=== PATIENT | female | born 1990 | race Caucasian/White ===

== ENCOUNTER 2017-07-23 12:58 | Emergency (ER) | payer OTHER, SELFPAY ==
[2017-07-23 12:59] VITALS: BP 142/96; PULSE 148; RESP 16; TEMP 37; O2SAT 98; BMI 21.7
--- NOTE | 2017-07-23 13:10 | EKG12_ITS ---
Test Reason : Blood Pressure : / mmHG Vent. Rate : 126 BPM Atrial Rate : 126 BPM P-R Int : 122 ms QRS Dur : 072 ms QT Int : 302 ms P-R-T Axes : 066 046 028 degrees QTc Int : 437 ms Sinus tachycardia Otherwise normal ECG Confirmed by SUSAN TROTTER ([id number]), fan mail editor JERAMY NOLEN ([id number]) on 07/28/2017 1:51:50 PM Referred By: JOE Confirmed By:SUSAN TROTTER
--- NOTE | 2017-07-23 13:36 | CT_ITS ---
STUDY: CT MAXILLOFACIAL SINUSES REASON FOR EXAM: Female, 27 years old. Left facial pain. Sinus pressure. Tachycardia. RADIATION DOSAGE (If Supplied By Facility): CTDIvol = ( 29.38 ) mGy, DLP = ( 635.61 ) mGycm TECHNIQUE: The patient was scanned in a multi detector CT scanner. High resolution axial imaging was performed without the administration of intravenous contrast material. Sagittal and coronal images were reconstructed. Individualized dose optimization techniques were used for this CT. COMPARISON: None. FINDINGS: FRONTAL SINUSES: Partial opacification of the left frontal sinus. ETHMOIDAL SINUSES: Opacification of the ethmoid sinuses bilaterally. MAXILLARY SINUSES: Air-fluid level in the right maxillary sinus. Mucosal thickening of the left maxillary sinus. SPHENOIDAL SINUSES: Mucosal thickening of the right sphenoid sinus anteriorly. There is compromise of the right maxillary infundibulum due to mucosal hypertrophy. Normal bilateral middle turbinates. Normal bilateral inferior turbinates. Normal midline nasal septum. There is patency of the bilateral nasal airways. The visualized osseous structures are normal. The visualized bilateral orbital contents are normal. CT/Sinus/Facial Bone IMPRESSION: Liz sinusitis. Electronically Signed: Jericho Almazan MD at 14:37 EST Tel [phone], Service support ,
[2017-07-23] MEDS: 0.9% Normal Saline 1,000 ML 150 ML IV (14:12)
[2017-07-23 14:24] LABS: Absolute Lymphocyte Count 4.42 X10^3/ul (0.83-4.51); Absolute Neutrophil Count 5.2 X10^3/uL (2.0-7.7); Basophil# 0.02 X10^3/uL; Basophil% 0.2 % (0-1); Eosinophil# 0.03 X10^3/uL; Eosinophils% 0.3 % (0-5); Hematocrit 39.5 % (37-47); Hemoglobin 13.5 g/dl (12.0-15.0); Lymphocyte # 4.42 X10^3/ul (4.0); Lymphocyte % 41.6 % (19-41); Mean Corp Hgb Conc 34.2 g/gl (32-36); Mean Corpuscular Hgb 30.9 pg (27.0-32.0); Mean Corpuscular Volume 90.4 fL (81-99); Mean Platelet Vol. 8.3 fl (6.2-12.0); Monocyte# 0.85 X10^3/uL; Neutrophil % 48.9 % (47-70); Platelet Count 351 K/mm3 (150-450); RBC Distribution Width CV 11.8 % (11.6-14.6); Red Blood Count 4.37 M/mm3 (4.2-5.4); White Blood Count 10.6 K/mm3 (4.4-11.0)
[2017-07-23 14:25] LABS: POSITIVE COUNT NO; POSITIVE DIFFERENTIAL NO; POSITIVE MORPHOLOGY NO
[2017-07-23 14:26] LABS: D-Dimer Quantitative (DVT/PE) < 0.27 FEU/ug/m (0.27-0.49)
[2017-07-23 14:27] LABS: Anion Gap 8 (5-15); BUN 16 mg/dL (7-18); Calcium,Total 8.9 mg/dL (8.5-10.1); Chloride 100 mmol/L (98-107); EST Glomerular Filtration Rate 70 mL/min (>60); Est Glom Filt Rate - Afr Amer 85 mL/min (>60); Estimated Creatinine Clearance 66.24 ml/min; Glucose 92 mg/dL (74-106); Potassium 3.6 mmol/L (3.5-5.1); Sodium Level 138 mmol/L (136-145)
[2017-07-23 15:17] VITALS: BP 117/90; PULSE 100; RESP 16; O2SAT 97
--- NOTE | 2017-07-23 15:19 | ED.DCSUM_ITS ---
- ER Visit Summary Date of Service: 07/23/17 Chief Complaint: [Tachycardia] History of Present Illness: The patient is a 27 F [presents to the emergency department with chief complaint of racing heart times last 2 days. Patient states that she feels like she is in a fog. Patient gives me a history of 3 weeks of upper respiratory type symptoms and initially thought she had the flu. Patient saw her ear nose and throat physician 3 times in the last 3 weeks and initially it was thought that she may have a sinus infection apparently was on Levaquin and then was switched over to steroids and a Z-Dilip and when she did not improve she went to the urgent care yesterday and was told us start Levaquin again. Patient stopped taking her prednisone yesterday because she did not like the way was making her feel. Her prednisone started at 60 mg for 7 days and then she was tapering from there she was down to 30 mg a day. Patient does have a history of significant anxiety and she states that yesterday her heart rate went up to 170 and she was numb and tingly in her arms. She denies any chest pain or syncopal episodes.] Physical Examination: [HEENT-PERRLA, EOMI. Cranial nerves II through XII grossly intact. TMs clear. Mucous membranes moist. No adenopathy. Tenderness over the frontal and maxillary sinuses bilaterally. Patient has some mild discomfort over the left upper teeth and lower teeth as well. There is no facial erythema or cellulitis. Cardiovascular-regular rate and rhythm without murmur or ectopy Lungs-clear to auscultation, chest wall stable without crepitus or subcu emphysema Abdomen-normoactive bowel sounds, soft, nontender, no rebound or rigidity, no peritoneal signs. Extremities-intact ?4, normal range of motion, normal pulses, atraumatic] Test Results: [CBC with differential was normal. Chemistries were normal. Troponin was less than 0.02. D-dimer was less than 0.27. EKG showed a sinus rhythm with a tachycardic rate of [address] segment changes. CT scan of the sinuses showed pansinusitis.] Emergency Department Course and Treatment: [Without any treatment patient's heart rate now 106. Patient case was discussed with Dr. Stephenson who is on-call for ENT and would be happy to follow up patient in the office next week. He did recommend the patient start on Bactrim instead of the Levaquin and use saline lavage to her nose.] Treatment Plan: [Patient will be started on Bactrim] patient has sertraline and Ativan at home for her anxiety. Disposition: [Discharged to home in stable condition]. Patient advised to return if chest pain persists, tachycardia that does not resolve, increasing shortness of breath, or condition should worsen in any way. Impression: [Tachycardia-suspect related to anxiety and hyperventilation syndrome Pansinusitis] This note was generated with [employer] dictation software. It may contain incorrect words, spelling, and punctuation that were not noted in review of the chart prior to signing ED Disposition - Plan for ED Patient: Chief Complaint: Palpitations [facility]errals: [facility],Out of [Primary Care Provider] -
--- NOTE | 2017-07-23 15:20 | ED.DEP ---
ED Disposition - Plan for ED Patient: Chief Complaint: Palpitations Instructions: ED Palpitations, ED Sinusitis Abx Tx Prescriptions: Smz/Tmp Ds [Bactrim Ds] 1 tab PO BID #42 tab Referrals: [facility],Out of [Primary Care Provider] - Vik Stephenson MD [STAFF PHYSICIAN] - 3-5 Days
[2017-07-23 15:42] VITALS: BP 119/93; PULSE 97; RESP 16; O2SAT 98
== END 2017-07-23 15:43 | disposition home or self-care (01) ==
PROVIDERS: Emergency Provider Emergency Medicine; Family Provider Family Medicine; PCP Family Medicine
DX: F41.9 Anxiety disorder, unspecified (principal); F45.8 Other somatoform disorders; R00.0 Tachycardia, unspecified; J01.40 Acute pansinusitis, unspecified; B96.89 Other specified bacterial agents as the cause of diseases classified elsewhere; Z79.899 Other long term (current) drug therapy
CPT/HCPCS: 70486; 80048; 84484; 85025; 85379; 93005; 96360; 99283; J7030; A4216

== ENCOUNTER 2017-07-25 22:14 | Emergency (ER) | payer OTHER, SELFPAY ==
[2017-07-25 22:15] VITALS: BP 127/93; PULSE 130; RESP 15; TEMP 36.5; O2SAT 96; BMI 21.9
--- NOTE | 2017-07-25 22:40 | ED.DCSUM_ITS ---
- ER Visit Summary Date of Service: 07/25/17 Chief Complaint: Anxiety History of Present Illness: The patient is a 27 F treatment anxiety disorder. Otherwise healthy. Recently was seen and treated by ENT in [place] for allergies. She was seen here in our emergency department and a CT done which showed pansinusitis. She was on a steroid course by the ENT in [place]. Currently she is on Bactrim. She was just concerned because she came off the steroids somewhat abruptly even though was tapered to degree. And she says she feels more anxious. Physical Examination: Very well-appearing young female. Vital signs are stable afebrile. She does not look septic toxic or in any acute distress. HEENT exam unremarkable. Moist mucous membranes. Posterior pharynx unremarkable. Neck nontender no lymphadenopathy. No meningismus. Trachea midline. Lungs clear to auscultation bilaterally. Heart regular rhythm no murmur. Abdomen soft and nontender. Normal bowel sounds. She is moving all 4 extremities. Neurovascular intact. Back exam unremarkable. Neurological exam is completely normal. Test Results: None Emergency Department Course and Treatment: Clinically the patient has a completely normal exam. Most of this is just anxiety. There are no physical findings on her exam currently. Treatment Plan: Continue on her current antibiotic. The patient further she is off of the oral steroids she will get back to her normal baseline. Disposition: Discharge Impression: Anxiety with a history of anxiety Currently being treated for sinusitis This note was generated with [employer] dictation software. It may contain incorrect words, spelling, and punctuation that were not noted in review of the chart prior to signing ED Disposition - Plan for ED Patient: Chief Complaint: General Illness Referrals: Tong Warren [Primary Care Provider] -
--- NOTE | 2017-07-25 22:40 | ED.DEP ---
ED Disposition - Plan for ED Patient: Disposition: Home or Assisted Living Chief Complaint: General Illness Instructions: ED Stress React Referrals: Tong Warren [Primary Care Provider] - As Needed
[2017-07-25 23:05] VITALS: PULSE 116; RESP 22; O2SAT 99
== END 2017-07-25 23:06 | disposition home or self-care (01) ==
LOC: ED 22:46
PROVIDERS: Emergency Provider Emergency Medicine; Family Provider Family Medicine; PCP Family Medicine
DX: F41.9 Anxiety disorder, unspecified (principal); J32.4 Chronic pansinusitis; B96.89 Other specified bacterial agents as the cause of diseases classified elsewhere
CPT/HCPCS: 99282

== ENCOUNTER 2017-07-26 10:55 | Emergency (ER) | payer OTHER, SELFPAY ==
[2017-07-26 10:58] VITALS: BP 124/81; PULSE 122; RESP 16; TEMP 36.9; O2SAT 94; BMI 20.9
[2017-07-26] MEDS: 0.9% Normal Saline 1,000 ML 1000 ML IV ×2 (11:54→11:55)
[2017-07-26 12:16] LABS: Absolute Lymphocyte Count 2.67 X10^3/ul (0.83-4.51); Absolute Neutrophil Count 4.4 X10^3/uL (2.0-7.7); Basophil# 0.05 X10^3/uL; Basophil% 0.6 % (0-1); Eosinophil# 0.03 X10^3/uL; Eosinophils% 0.4 % (0-5); Hematocrit 40.7 % (37-47); Hemoglobin 14.4 g/dl (12.0-15.0); Lymphocyte # 2.67 X10^3/ul (4.0); Lymphocyte % 33.6 % (19-41); Mean Corp Hgb Conc 35.4 g/gl (32-36); Mean Corpuscular Hgb 31.4 pg (27.0-32.0); Mean Corpuscular Volume 88.7 fL (81-99); Mean Platelet Vol. 8.2 fl (6.2-12.0); Monocyte# 0.72 X10^3/uL; Monocyte% 9.1 % (0-10); Neutrophil # 4.44 X10^3/uL (2.7-7.7); Neutrophil % 55.8 % (47-70); Platelet Count 412 K/mm3 (150-450); RBC Distribution Width CV 11.5 % (11.6-14.6); RBC Distribution Width SD 36.5 fl (35.1-43.9); Red Blood Count 4.59 M/mm3 (4.2-5.4)
[2017-07-26 12:17] LABS: Anion Gap 9 (5-15); BUN 11 mg/dL (7-18); BUN/Creat Ratio 9.6 RATIO (10-20); Calcium,Total 9.3 mg/dL (8.5-10.1); Chloride 101 mmol/L (98-107); Creatinine, Serum 1.14 mg/dL (0.55-1.02); EST Glomerular Filtration Rate 60 mL/min (>60); Est Glom Filt Rate - Afr Amer 73 mL/min (>60); Estimated Creatinine Clearance 58.11 ml/min; Glucose 93 mg/dL (74-106); Potassium 4.1 mmol/L (3.5-5.1); Sodium Level 136 mmol/L (136-145)
[2017-07-26 12:18] LABS: POSITIVE COUNT NO; POSITIVE DIFFERENTIAL NO; POSITIVE MORPHOLOGY NO
[2017-07-26 12:23] LABS: Pregnancy, Serum, hCG Quali. NEGATIVE Negative (0-9 Nonpreg)
[2017-07-26 13:02] VITALS: BP 126/77; PULSE 106; RESP 15; O2SAT 98
--- NOTE | 2017-07-26 13:22 | ED.VISSUMM ---
- ER Visit Summary Date of Service: 07/26/17 Chief Complaint: Withdrawal from prednisone History of Present Illness: The patient is a [address] Keith. Patient reports that she has been ill for approximately the past month. She was seeing an ENT and had been placed on multiple different antibiotics. Ultimately these were stopped and she was placed on steroids. She was here 3 days ago and was diagnosed with pansinusitis by CT. She was discussed with Dr. Stephenson and placed on Bactrim. At that time she was having shakes, palpitations, sweating of her hands and feet, and diffuse paresthesias. This was felt to be a result of the prednisone and it was stopped. She reports that those symptoms were horrible for the past 2 days, but slightly improved today. Patient contacted an unknown person at [facility] and was told to come to the emergency department to have a cortisol level checked because she is having withdrawal from prednisone. On review of symptoms the patient complains of subjective fever. She also has a dry cough without difficulty breathing or chest pain. She has had nausea without vomiting. No abdominal pain or diarrhea. She reports that she has a headache this 4 out of 10 severity. She has generalized weakness and generalized paresthesias. Physical Examination: Vitals: Stable. Afebrile. General: Well-nourished and well-developed. Head: Normocephalic atraumatic. Neck: Supple, no lymphadenopathy. No JVD. Nontender. Cardiovascular: Regular rate and rhythm. No murmurs. Respiratory: No respiratory distress. Clear to auscultation bilaterally. Abdominal: Soft, nontender, nondistended, normal bowel sounds. No guarding, rebound, or peritoneal signs. Back: Nontender. Extremities: Nontender, no edema. Skin: Normal color, no rash. Neurologic: Alert and oriented ?3. Cranial nerves II through XII are intact. Normal strength and sensation. Psych: Normal affect. Test Results: CBC is normal. Chem-7 is remarkable for creatinine of 1.14. test is negative. Emergency Department Course and Treatment: Had a prolonged discussion the patient about the lack of sensitivity and specificity of a single cortisol level. We did discuss possibility of a cosyntropin stim check test. She does not want to have this performed. I feel this is a reasonable course of action. She does not have hyponatremia or hyperkalemia to suggest adrenal insufficiency. She seems quite anxious and I suspect a great deal of her symptoms are due to her underlying anxiety and panic attacks. She was given 2 L of fluids and is resting comfortably. I had a prolonged discussion with her about using her coping skills to help with her symptoms and to restart her Zoloft which she had stopped a year ago for her anxiety. Treatment Plan: She will be discharged instructions to follow-up with Dr. Stephenson this week as previously scheduled. Follow-up Dr. Keith in 3-5 days if not improving. Return to the emergency department for any worsening symptoms. Disposition: To home in improved and stable condition. Impression: 1. Anxiety. 2. Dehydration. This note was generated with [employer] dictation software. It may contain incorrect words, spelling, and punctuation that were not noted in review of the chart prior to signing ED Disposition - Plan for ED Patient: Disposition: Home or Assisted Living Chief Complaint: General Illness Instructions: ED Dehydration Referrals: Tong Warren [Primary Care Provider] - 3-5 Days if not improving
[2017-07-26 13:37] VITALS: BP 118/74; PULSE 100; RESP 16; O2SAT 98
== END 2017-07-26 13:38 | disposition home or self-care (01) ==
PROVIDERS: Emergency Provider Emergency Medicine; Family Provider Family Medicine; PCP Family Medicine
DX: F41.9 Anxiety disorder, unspecified (principal); E86.0 Dehydration
CPT/HCPCS: 80048; 84703; 85025; 99283; J7030

== ENCOUNTER → 2017-09-30 16:45 | Outpatient (CLI) | payer OTHER, SELFPAY ==
[2017-10-08 10:18] LABS: HPV HC, High Risk Negative (Negative); HPV Reflexed? NOT INDICATED
== END ==
LOC: WOBLAB 10-01 09:08
PROVIDERS: Visit Provider Obstetrics & Gynecology
DX: Z12.4 Encounter for screening for malignant neoplasm of cervix (principal)
CPT/HCPCS: 88175; G0145

== ENCOUNTER 2017-10-21 08:13 | Emergency (ER) | payer OTHER, SELFPAY ==
[2017-10-21 08:15] VITALS: BP 123/75; PULSE 107; RESP 17; TEMP 36.7; O2SAT 99; BMI 22.6
--- NOTE | 2017-10-21 08:35 | EKG12_ITS ---
Test Reason : Blood Pressure : / mmHG Vent. Rate : 078 BPM Atrial Rate : 078 BPM P-R Int : 138 ms QRS Dur : 082 ms QT Int : 376 ms P-R-T Axes : 052 023 029 degrees QTc Int : 428 ms Normal sinus rhythm Normal ECG Confirmed by ARI JOHNS, GEORGETTE ([id number]), news copy editor JERAMY NOLEN ([id number]) on 10/23/2017 10:50:34 AM Referred By: ENRIQUETA Confirmed By:GEORGETTE CHAPMAN MD
[2017-10-21 08:56] LABS: Absolute Lymphocyte Count 1.74 X10^3/ul (0.83-4.51); Basophil# 0.05 X10^3/uL; Eosinophil# 0.08 X10^3/uL; Eosinophils% 1.5 % (0-5); Hematocrit 35.8 % (37-47); Hemoglobin 12.4 g/dl (12.0-15.0); Lymphocyte # 1.74 X10^3/ul (4.0); Lymphocyte % 33.1 % (19-41); Mean Corp Hgb Conc 34.6 g/gl (32-36); Mean Corpuscular Hgb 31.6 pg (27.0-32.0); Mean Corpuscular Volume 91.3 fL (81-99); Mean Platelet Vol. 8.5 fl (6.2-12.0); Monocyte% 7.6 % (0-10); Neutrophil # 2.98 X10^3/uL (2.7-7.7); Neutrophil % 56.6 % (47-70); Platelet Count 317 K/mm3 (150-450); RBC Distribution Width CV 11.3 % (11.6-14.6); RBC Distribution Width SD 37.1 fl (35.1-43.9); Red Blood Count 3.92 M/mm3 (4.2-5.4); White Blood Count 5.3 K/mm3 (4.4-11.0)
[2017-10-21 08:57] LABS: POSITIVE COUNT NO; POSITIVE DIFFERENTIAL NO; POSITIVE MORPHOLOGY NO
[2017-10-21] MEDS: Ondansetron 4 MG/2 ML Vial IV (09:05)
[2017-10-21] MEDS: 0.9% Normal Saline 1,000 ML 1000 ML IV (09:05)
[2017-10-21 09:13] LABS: AST(SGOT) 12 U/L (15-37); Alanine Aminotransfer ALT/SGPT 16 U/L (13-56); Albumin, Serum 3.7 g/dL (3.2-5.0); Alkaline Phosphatase 44 U/L (45-117); Anion Gap 6 (5-15); BUN 8 mg/dL (7-18); Calcium,Total 8.4 mg/dL (8.5-10.1); Chloride 109 mmol/L (98-107); Creatinine, Serum 0.89 mg/dL (0.55-1.02); EST Glomerular Filtration Rate 81 mL/min (>60); Est Glom Filt Rate - Afr Amer 97 mL/min (>60); Estimated Creatinine Clearance 74.43 ml/min; Globulin 3.6 g/dL (2.2-4.2); Glucose 88 mg/dL (74-106); Lipase 117 U/L (73-393); Potassium 3.8 mmol/L (3.5-5.1); Protein, Total 7.3 g/dL (6.4-8.2); Sodium Level 139 mmol/L (136-145)
[2017-10-21 09:15] LABS: Bacteria 0 SEEN /hpf (None Seen); Mucous, Urine 0 SEEN /hpf (<or=2+); White Blood Cells 0 SEEN /hpf (0-5)
[2017-10-21 09:19] LABS: Color, Urine Yellow (Yellow); Glucose, Dipstick Normal (Normal); Ketone-Dipstick Negative (Negative); Leukocyte Esterase-Dipstick Negative /ul (Negative); Nitrite-Dipstick Negative (Negative); Occult Blood-Urine 150 /ul (Negative); Protein-Dipstick Negative (Negative); Urine Bilirubin Dipstick Negative (Negative); Urine Clarity Sl. Cloudy (Clear); Urine Urobilinogen Normal (Normal)
[2017-10-21 09:29] LABS: Red Blood Cells-Urine 0-5 SEEN /hpf (0-5); Squamous Epithelial Cells - UA 5-10 SEEN /hpf (5-10)
[2017-10-21 10:37] LABS: Pregnancy, Serum, hCG Quali. NEGATIVE Negative (0-9 Nonpreg)
--- NOTE | 2017-10-21 10:54 | ED.VISSUMM ---
- ER Visit Summary Date of Service: 10/21/17 Chief Complaint: Nausea diarrhea and lightheaded History of Present Illness: The patient is a 27 F who presents with nausea and diarrhea and feels lightheaded. She has been being treated for a dental abscess by her dentist. She was initially treated with Keflex and did not improve and is currently on azithromycin. She has not however actually seen the dentist. She states last night she had a headache however this is significantly improved today. She did have nausea and vomiting last night but no vomiting today and does complain of nausea. She did have severe diarrhea yesterday but this is actually improved today as well. Physical Examination: Afebrile heart rate 107 vitals otherwise normal Moist mucous membranes Heart regular rhythm tachycardia Lungs are clear Abdomen soft nondistended she has some epigastric tenderness no guarding no rebound Alert Test Results: EKG shows normal sinus rhythm at a rate of 78. CBC BMP hepatic function lipase urinalysis unremarkable. negative. Emergency Department Course and Treatment: Patient was treated with IV fluids and Zofran here. Her workup is unremarkable. I suspect her nausea vomiting and diarrhea are related to gastroenteritis. She notes that her symptoms are improved today. She was instructed on supportive care. She was advised to follow-up with her dentist regarding her dental pain. On my examination I do not appreciate any focal dental abscess she has no facial swelling. Patient understands to return for new or worsening symptoms and was discharged home. Treatment Plan: [] Disposition: Discharge Impression: Gastroenteritis This note was generated with [employer] dictation software. It may contain incorrect words, spelling, and punctuation that were not noted in review of the chart prior to signing ED Disposition - Plan for ED Patient: Chief Complaint: Dental Referrals: Tong Warren MD [Primary Care Provider] -
--- NOTE | 2017-10-21 10:58 | ED.DEP ---
ED Disposition - Plan for ED Patient: Chief Complaint: Dental Instructions: ED Tooth Pain, ED Gastroenteritis Viral Referrals: Tong Warren MD [Primary Care Provider] -
[2017-10-21 11:14] VITALS: BP 124/70; PULSE 98; RESP 14; O2SAT 98
== END 2017-10-21 11:14 | disposition home or self-care (01) ==
LOC: ED 08:50
PROVIDERS: Emergency Provider Emergency Medicine; Family Provider Family Medicine; PCP Family Medicine
DX: K52.9 Noninfective gastroenteritis and colitis, unspecified (principal)
CPT/HCPCS: 80053; 81001; 83690; 84703; 85025; 93005; 99284; J7030; A4216; J2405

== ENCOUNTER → 2017-10-24 10:09 | Outpatient (CLI) | payer OTHER, SELFPAY | PROVIDERS: Family Provider Family Medicine; PCP Family Medicine; Visit Provider Otolaryngology Otolaryngology/Facial Plastic Surgery | DX: J32.9 Chronic sinusitis, unspecified (principal) | CPT/HCPCS: 87070; 87205 ==

== ENCOUNTER 2017-11-24 18:26 | Emergency (ER) | payer OTHER, SELFPAY ==
[2017-11-24 18:27] VITALS: BP 135/77; PULSE 130; RESP 16; TEMP 36.8; O2SAT 100; BMI 21.4
--- NOTE | 2017-11-24 19:24 | US_ITS ---
STUDY: ABDOMINAL ULTRASOUND - RIGHT UPPER QUADRANT REASON FOR VISIT: Female, 27 years old. Pain, bloating TECHNIQUE: Ultrasound evaluation of the right upper quadrant was performed with real-time and static gonzalez-scale imaging. TECHNICAL QUALITY: Adequate. COMPARISON: None. FINDINGS: Liver: The liver measures 15.5 cm. There is normal echogenicity of the liver. The bile ducts are within normal limits. There is hepatic color flow. The direction of portal flow is hepatopetal. There is no demonstrated mass lesion. Gallbladder: Normal distended gallbladder. The gallbladder wall measures 2 mm. There is a negative sonographic Siddiqui's sign. There is no pericholecystic fluid. There are no gallstones. Common Bile Duct (C.B.D.): The common bile duct measures 4 mm. Pancreas: Normal size of the head, body and tail of the pancreas. There is normal echogenicity of the pancreas. There is no demonstrated pancreatic mass or cyst. Right Kidney: Normal size of the right kidney. The right kidney measures 10.4 cm. Normal renal cortex. The right cortex measures 1.2 cm. There is no demonstrated renal mass or cyst. There is no right hydronephrosis. US/Gallbladder IMPRESSION: Normal right upper quadrant ultrasound examination. No gallstones. Electronically Signed: Melo Ahn DO at 21:05 EDT , Service support ,
[2017-11-24 19:29] LABS: Absolute Lymphocyte Count 0.91 X10^3/ul (0.83-4.51); Absolute Neutrophil Count 4.8 X10^3/uL (2.0-7.7); Basophil# 0.01 X10^3/uL; Basophil% 0.2 % (0-1); Eosinophil# 0.02 X10^3/uL; Eosinophils% 0.3 % (0-5); Hematocrit 36.2 % (37-47); Hemoglobin 12.4 g/dl (12.0-15.0); Lymphocyte # 0.91 X10^3/ul (4.0); Lymphocyte % 14.8 % (19-41); Mean Corp Hgb Conc 34.3 g/gl (32-36); Mean Corpuscular Hgb 30.8 pg (27.0-32.0); Mean Platelet Vol. 8.6 fl (6.2-12.0); Monocyte# 0.44 X10^3/uL; Monocyte% 7.2 % (0-10); Neutrophil # 4.76 X10^3/uL (2.7-7.7); Neutrophil % 77.3 % (47-70); Platelet Count 205 K/mm3 (150-450); RBC Distribution Width CV 11.6 % (11.6-14.6); RBC Distribution Width SD 38.1 fl (35.1-43.9); Red Blood Count 4.02 M/mm3 (4.2-5.4); White Blood Count 6.2 K/mm3 (4.4-11.0)
[2017-11-24 19:30] LABS: POSITIVE COUNT NO; POSITIVE DIFFERENTIAL NO; POSITIVE MORPHOLOGY NO
[2017-11-24 19:37] LABS: Anion Gap 9 (5-15); BUN 9 mg/dL (7-18); BUN/Creat Ratio 10.1 RATIO (10-20); Calcium,Total 8.8 mg/dL (8.5-10.1); Chloride 102 mmol/L (98-107); Creatinine, Serum 0.89 mg/dL (0.55-1.02); EST Glomerular Filtration Rate 80 mL/min (>60); Est Glom Filt Rate - Afr Amer 97 mL/min (>60); Estimated Creatinine Clearance 74.43 ml/min; Glucose 108 mg/dL (74-106); Potassium 3.5 mmol/L (3.5-5.1); Sodium Level 137 mmol/L (136-145)
[2017-11-24 19:44] LABS: Pregnancy, Serum, hCG Quali. NEGATIVE Negative (0-9 Nonpreg)
[2017-11-24 19:53] LABS: Lipase 75 U/L (73-393)
[2017-11-24] MEDS: Ketorolac 30 MG/ML Syringe IV (19:53)
[2017-11-24] MEDS: Ondansetron 4 MG/2 ML Vial IV (19:53)
[2017-11-24 20:13] LABS: AST(SGOT) 14 U/L (15-37); Alanine Aminotransfer ALT/SGPT 15 U/L (13-56); Albumin, Serum 3.9 g/dL (3.2-5.0); Alkaline Phosphatase 56 U/L (45-117); Bilirubin, Direct 0.11 mg/dL (0.00-0.30); Globulin 3.8 g/dL (2.2-4.2); Protein, Total 7.7 g/dL (6.4-8.2)
--- NOTE | 2017-11-24 20:18 | ED.VISSUMM ---
- ER Visit Summary Date of Service: 11/24/17 Chief Complaint: Abdominal pain History of Present Illness: The patient is a [address] Keith. She reports that she is she has had intermittent abdominal pain since being on prednisone in July. The current episode began yesterday. It is a constant dull pain with intermittent pressure. It is 10 out of 10 at worst and 5-10 currently. Is worsened by eating anything. It is temporarily relieved by Tums. She has been on Prilosec for the past 15 days without relief. Patient reports she has been nausea and vomited once yesterday. No blood or emesis. She had a small amount of diarrhea yesterday. She had a normal bowel movement yesterday morning. She denies any blood in her stools or black tarry stools. No dysuria or frequency. Her last menstrual period was 2 weeks ago. Patient reports that she does not have specific fatty food intolerance. States that any food seems to bother this. This especially sensitive to alcohol and spicy foods. Physical Examination: Vitals: Stable. Afebrile. General: Well-nourished and well-developed. Head: Normocephalic atraumatic. Neck: Supple, no lymphadenopathy. No JVD. Nontender. Cardiovascular: Regular rate and rhythm. No murmurs. Respiratory: No respiratory distress. Clear to auscultation bilaterally. Abdominal: Soft, mild tenderness palpation in the epigastric region greater than the right upper quadrant, nondistended, normal bowel sounds. No guarding, rebound, or peritoneal signs. Back: Nontender. Extremities: Nontender, no edema. Skin: Normal color, no rash. Neurologic: Alert and oriented ?3. Cranial nerves II through XII are intact. Normal strength and sensation. Psych: Normal affect. Test Results: CBC is marked for hematocrit of 36.2, 7 neutrophils 77, monocytes of 15. Chem-7 is more for glucose 108. LFTs marked for an AST of 14. Lipase is normal. UA is negative. test is negative. TSH is normal. EKG is sinus tach at [address] changes. Right upper quadrant ultrasound is normal. The wall is 2 mm. The common bile duct is 4 mm. There are no gallstones. No pericholecystic fluid. Emergency Department Course and Treatment: Patient was treated Toradol and Zofran IV. She is resting comfortably. Patient was treated Toradol and Zofran IV. She is resting comfortably. Treatment Plan: The patient's complaints are more consistent with gastritis versus ulcer. She is discussed with Dr. Ugarte who will see her in the office in 2 days for repeat evaluation. Return to the emergency department for any worsening symptoms. Disposition: To home in improved and stable condition. Impression: 1. Abdominal pain, epigastric. This note was generated with [employer] dictation software. It may contain incorrect words, spelling, and punctuation that were not noted in review of the chart prior to signing ED Disposition - Plan for ED Patient: Disposition: Home or Assisted Living Chief Complaint: Abd Pain Instructions: ED PUD Vs Gastritis Prescriptions: Ondansetron [Zofran Odt] 4 mg PO Q8H PRN PRN #10 tablet PRN Reason: Nausea Referrals: Babatunde Parra MD [STAFF PHYSICIAN] - 11/26/17
--- NOTE | 2017-11-24 20:31 | EKG12_ITS ---
Test Reason : TACHYCARDIA Blood Pressure : / mmHG Vent. Rate : 103 BPM Atrial Rate : 103 BPM P-R Int : 148 ms QRS Dur : 078 ms QT Int : 350 ms P-R-T Axes : 064 025 012 degrees QTc Int : 458 ms Sinus tachycardia Otherwise normal ECG Confirmed by HILTON JOHNS, TRISHA ([id number]), newspaper photo editor ROMAN PATEL ([id number]) on 11/27/2017 8:56:40 AM Referred By: ARLEY Confirmed By:TRISHA CANELA MD
[2017-11-24 20:45] LABS: Bacteria 0 SEEN /hpf (None Seen); Color, Urine Yellow (Yellow); Glucose, Dipstick Normal (Normal); Leukocyte Esterase-Dipstick Negative /ul (Negative); Mucous, Urine 0 SEEN /hpf (<or=2+); Nitrite-Dipstick Negative (Negative); Occult Blood-Urine 25 /ul (Negative); Protein-Dipstick Negative (Negative); Urine Bilirubin Dipstick Negative (Negative); Urine Clarity Sl. Cloudy (Clear); Urine Urobilinogen Normal (Normal); Urine pH 6.5 (5.0 - 8.0); White Blood Cells 0 SEEN /hpf (0-5)
[2017-11-24 20:50] LABS: Ketone-Dipstick 150 mg/dl (Negative)
[2017-11-24 20:52] LABS: Red Blood Cells-Urine 0-5 SEEN /hpf (0-5); Squamous Epithelial Cells - UA 0-5 SEEN /hpf (5-10)
[2017-11-24 21:05] LABS: Thyroid Stim Hormone (TSH) 0.56 uIU/mL (0.358-3.74)
[2017-11-24] MEDS: Ondansetron ODT 4 MG Tablet PO (21:52)
[2017-11-24 21:57] VITALS: PULSE 71; RESP 16; O2SAT 100
== END 2017-11-24 21:58 | disposition home or self-care (01) ==
LOC: ED 20:42
PROVIDERS: Emergency Medicine; Emergency Provider Emergency Medicine; Family Provider Family Medicine; PCP Family Medicine
DX: R10.13 Epigastric pain (principal); K21.9 Gastro-esophageal reflux disease without esophagitis; Z83.79 Family history of other diseases of the digestive system
CPT/HCPCS: 76705; 80048; 80076; 81001; 83690; 84443; 84703; 85025; 93005; 96374; 96375; 99283; A4216; J2405

== ENCOUNTER 2017-12-01 11:12 | Day surgery (SDC) | payer OTHER, SELFPAY ==
--- NOTE | 2017-12-01 | IMM_PTH ---
PATIENT: LORENZO ZUÑIGA LOC: EN U#:[id number] AGE/SX: 27/F ROOM: RE12/01/[address]: Dr. Babatunde Parra MD : 1990 BED: DIS: 12/01/2017 SPEC #: [id number] RECD: 12/04/17 10:47 STATUS: HÉCTOR REMichaelle #: [id number] STEPHANIE: 12/01/17 00:[address]: Babatunde Prara DEPT: IMMUNOHISTOCHEMISTRY RECD BY: Katia Blanca ENTERED: 12/04/17 10:47 SP TYPE: IMMUNO OTHR DR: Dr. Tong Warren MD Tissues: B - Stomach, NOS Procedures: H Pylori (initial) PHYSICIAN & INSTITUTION [place] [id number] SPECIMEN INFORMATION: Tissue Source: B ? Antral biopsy Clinical Info: Epigastric pain, reflux Specimen Number: [id number] CPT code: 90549 METHODOLOGY: Deparaffinized sections of prefer/formalin-fixed tissue or PAP/DQ stained slides are incubated with monoclonal/polyclonal antibodies/oligonucleotide probes. Localization is made via biotin free immunoperoxidase method. Appropriate controls are performed and reacted as expected. Results on target cell population are indicated in the following table: RESULTS: ANTIBODY / CLONE RESULT Block B H Pylori (polyclonal) negative These tests were developed and their performance characteristics determined by [facility]. They may not have been cleared or approved by the U.S. Food and Drug Administration. The FDA has determined that such clearance or approval is not necessary. INTERPRETATION: B. Antral biopsy: Negative for Helicobacter pylori organisms. AM:stephane 11/07/17
--- NOTE | 2017-12-01 | EGD_PTH ---
PATIENT: LORENZO ZUÑIGA LOC: EN U#:[id number] AGE/SX: 27/F ROOM: RE12/01/[address]: Dr. Babatunde Parra MD : 1990 BED: DIS: 12/01/2017 SPEC #: [id number] RECD: 12/01/17 16:13 STATUS: HÉCTOR HARRISON #: [id number] STEPHANIE: 12/01/17 00:[address]: Babatunde Parra DEPT: SURGICAL PATHOLOGY RECD BY: Babatunde Mcdowell ENTERED: 12/03/17 08:00 SP TYPE: EGD BIOPSY OT DR: Dr. Tong Warren MD Tissues: A - Jejunum, NOS B - Gastric mucous membrane C - Gastric mucous membrane D - Esophageal mucous membrane Procedures: Surgery Specimen Level IV HEADER OPERATION: EGD PRE-OP DIAGNOSIS: Epigastric pain, reflux TISSUE SUBMITTED: A ? Jejunal biopsy, B ? Antral biopsy for H. pylori and path, C ? GE junction, D ? Mid esophageal biopsy MICROSCOPIC DIAGNOSIS A. Jejunum, biopsy: No significant pathologic change. B. Gastric antrum, biopsy: Mild chronic gastritis. C. Gastroesophageal junction, biopsy: Mild chronic inflammation. No evidence of intestinal metaplasia. D. Mid esophagus, biopsy: Fragment of benign squamous mucosa. No evidence of inflammation. AM:stephane 12/04/17 COMMENT B. The results of immunohistochemistry for Helicobacter pylori will be reported separately ([id number]). MICROSCOPIC DESCRIPTION Slides are reviewed. GROSS DESCRIPTION A - Received in fixative is one container labeled with the patient's name and designated jejunal biopsy. The specimen consists of multiple irregular fragments of light shearer soft tissue that in aggregate measure 0.7 x 0.3 x 0.2 cm. The specimen is totally submitted in one cassette. B - Received in fixative is one container labeled with the patient's name and designated antral biopsy. The specimen consists of one irregular fragment of light shearer soft tissue that measures 0.5 x 0.3 x 0.3 cm. The specimen is totally submitted in one cassette. C - Received in fixative is one container labeled with the patient's name and designated GE junction. The specimen consists of two irregular fragments of light shearer soft tissue that in aggregate measure 0.5 x 0.3 x 0.2 cm. The specimen is totally submitted in one cassette. D - Received in fixative is one container labeled with the patient's name and designated mid esophageal biopsy. The specimen consists of one irregular fragment of light shearer soft tissue that measures 0.5 x 0.3 x 0.1 cm. The specimen is totally submitted in one cassette. / RY:rg 12/03/17 TC:3 CPT: 49740 x4
--- NOTE | 2017-12-01 06:20 | HP.PCM_ITS ---
History and Physical Date of Admission: 12/01/17 HISTORY AND PHYSICAL ? Lorin Burnham 1990 ? REFERRING PHYSICIAN: ~~Self ? CHIEF COMPLAINT: ~~Consult (egd) ? HPI: The patient is a 27 year old female referred for endoscopy. ~Lorin notes progressive upper abdominal complaints x the last few months. ~She notes she had been treated for significant sinusitis as well as allergies earlier this year, and had been prescribed a course of prednisone. ~She states she had significant side effects with this, was seen in the ED and the prednisone was abruptly discontinued. ~~Since that time she notes severe acid reflux, nausea which is worse in the morning, and intermittent abdominal bloating. ~She points to her epigastric region as the primary source of pain, and states that the pain does not really radiate from this area. ~Notes constant aching pain, and more recently she notes a sensation of pressure or ball right in the epigastric area after eating. ? Patient notes frequent belching. ~Symptoms are aggravated by eating and drinking , particularly with spicy foods or alcohol. ~She has had some relief with Tums. ~Has been taking PPI the last couple of weeks but not having much improvement with this. ~Patient states her symptoms worsened significantly earlier this week , prompting her to present to the emergency department. ~She had a right upper quadrant ultrasound which was unremarkable. ~Her symptoms were felt to be consistent with gastritis or possible ulcer, and she was instructed to follow up with general surgery for outpatient endoscopy. ? The patient states she is otherwise in good health. ~Denies cardiac or respiratory complaints. ~She does note significant anxiety and feels her abdominal complaints are related to this. ~Patient previously had a colonoscopy approximately 5 years ago and notes and recall and discomfort associated with that procedure. ~She denies any lower abdominal complaints, changes in bowel habits or blood in stools currently. ~ ? ? ? PAST MEDICAL HISTORY PAST MEDICAL HISTORY Diagnosis Date ? Anxiety ? ? panic attack ? Asthma, exercise induced ? ? when was young. Rarely use inhaler ? ? PAST SURGICAL HISTORY PAST SURGICAL HISTORY Procedure Laterality Date ? SECTION HX ? ? ? PAST SURGICAL HISTORY OF ? 2003 ? left acl repair ? PAST SURGICAL HISTORY OF ? 2006 ? right acl repair ? ? CURRENT MEDICATIONS ? Current Outpatient Prescriptions: norgestimate 0.25 mg-ethinyl estradiol 35 mcg (SPRINTEC) 0.25-35 mg-mcg per tablet Take 1 tablet by mouth once daily. omeprazole (PRILOSEC ORAL) Take by mouth once daily. ALBUTEROL INHALATION Inhale as instructed as needed. ondansetron (ZOFRAN, HYDROCHLORIDE,) 4 mg tablet Take 4 mg by mouth every 8 hours as needed. sertraline (ZOLOFT) 100 mg tablet Take 100 mg by mouth once daily. ? No current facility-administered medications for this visit. ? ALLERGIES: Augmentin [Amoxicillin-Pot Clavulanate] ? PERSONAL HISTORY: SOCIAL HISTORY Social History ~~Marital status: ~~~~~~~~~~~~Spouse name: ~~~~~~~~~~~~~~~~~~ ~~Years of education: ~~~~~~~~~~~~~~~~Number of children: ~~~~~~~~~~ ? Social History Main Topics ~~Smoking status: Never Smoker ~~~~~~~~~~~~~~~~~~~~~~~~~~~~~~~~~~~~~~~~~~~~~~~~~ ~~~~~~~~ ? ~~Smokeless tobacco: Never Used ~~~~~~~~~~~~~~~~~~~ ~~Alcohol use: No ~~~~~~~~~ ~~Drug use: No ~~~~~~~~~ ~~Sexual activity: Yes ~~~~~~~~~~~~~ ~~~~~Comment: on control ? Social History Narrative ~~Pt works at [employer] no pets . ? ? FAMILY HISTORY: FAMILY HISTORY FAMILY HISTORY Problem Relation Age of Onset ? Stomach ulcer [OTHER] Mother ? ? HTN [OTHER] Father ? ? Breast Cancer Maternal Grandmother ? ? None Maternal Grandfather ? ? None Paternal Grandmother ? ? Diabetes Paternal Grandfather ? ? Heart Paternal Grandfather ? ? ? OHS in 60 ? Cancer Paternal Grandfather ? ? Kidney Disease Paternal Grandfather ? ? Asthma Brother ? ? ? exercise induced ? IBD [OTHER] Paternal Uncle ? ? REVIEW OF SYMPTOMS: ~~The review of systems data was entered by the nurse and reviewed by me ? Nursing Notes: Kaitlin Daniel RN ~11/26/2017 11:26 AM ~Signed REVIEW OF SYSTEMS: ~~~~~General:~~~The patient NOTES fatigue, denies weight loss, denies weight gain, NOTES feeling hot, and denies feelings of cold. ~~~~~Eyes: ~The patient denies glaucoma, denies eye injury/surgery, wears glasses or contacts. ~~~~~Ear/Nose/Throat: ~The patient NOTES allergies, NOTES hayfever, denies ear infections, and denies bloody noses. ~~~~~Cardiovascular: ~The patient denies chest pain, denies heart disease, denies high blood pressure,denies cardiac stent, denies prior heart attack, denies irregular heart beat, denies high cholesterol, ~denies poor circulation, denies heart failure, other cardiac issues, denies claudication, denies cold feet, denies peripheral arterial stent. ~~~~~Respiratory: ~The patient denies tuberculosis, denies pneumonia, NOTES frequent cough, denies pulmonary embolism, NOTES shortness of breath, and denies coughing up blood. ~~~~~Gastrointestinal: ~The patient denies difficulty swallowing, NOTES acid reflux, denies ulcers, denies vomiting, denies jaundice/hepatitis, denies gallbladder problems, denies black or tarry stools, NOTES hemorrhoids, NOTES bleeding from rectum, denies diverticulitis, NOTES constipation, denies diarrhea , denies loss of stool control, and denies hernias. ~~~~~Kidney/Bladder: ~The patient denies kidney stones, denies urine infections , and denies bloody urine. ~~~~~Skin: ~The patient denies a history of skin cancer, denies bleeding/ changing moles, and denies a history of skin rash. ~~~~~Neurologic: ~The patient denies a history of epilepsy/convulsions, denies headaches, denies head/spinal injuries, and denies stroke/TIA. ~~~~~Psychiatric: ~The patient denies psychiatric medications, denies depression , and denies voices, denies substance abuse. ~~~~~Endocrine: ~The patient denies thyroid disorders, denies diabetes, and denies hormonal problems. ~~~~~Hematologic: ~The patient denies a history of bruising, denies bleeding, and denies anemia, denies blood clots. ~~~~~Infections: ~The patient denies a history of measles and mumps, denies rheumatic fever, and denies sexually transmitted diseases. ~~~~~Musculoskeletal: ~The patient denies back pain/injury, denies back problems , denies sciatica, denies knee/foot trouble, denies arthritis, or denies gout. ? ? When was patient's last Mammogram screening? N/A ? ~Last Colonoscopy: ~2012 ? Kaitlin Daniel RN~ I have confirmed and edited as necessary, the PFSH and ROS obtained by others. ? ~ PHYSICAL EXAMINATION: ? General: ~The patient is 27 year old female, well nourished, well hydrated in no acute distress. ~The patient is oriented to time, place, and person. ? VITALS: Blood pressure 110/58, pulse 76, temperature 36.7 ?C (98 ?F), weight 54.7 kg (120 lb 9.6 oz).~Body mass index is 21.71 kg/m?.~ ? HEENT: ~Normal cephalic, ataumatic, pupils are equally round, sclera are anicteric, mucous membranes are moist, oropharynx is clear. ~Neck has no masses , asymmetry or lymphadenopathy. ? Respiratory: ~Clear to auscultation and percussion. ~Normal respiratory excursion and pattern. ? Cardiac: ~Examination is regular rate and rhythm. ? Abdominal exam: ~+mild TTP epigastric area without rebound or guarding. ~~No hepatosplenomegaly. ~No palpable hernias. ? Rectal exam: exam deferred ? Extremities: ~no clubbing, cyanosis or edema. ~No adenopathy. ? Other: ? LABORATORY VALUES: As Noted ? RADIOLOGIC STUDIES: ~As Noted ? Assessment ~ IMPRESSION: epigastric pain, reflux, belching, precipitated by treatment with steroids. ~Suspect GERD and/or PUD, recommend EGD for further evaluation ? PLAN: ~We will plan for EGD with MAC.~~We discussed the risks and benefits of the planned endoscopy. ~I have informed the patient that complications can occur including failure to complete the endoscopy and perforation. ~The patient had the opportunity to ask questions concerning the planned endoscopy. ~My staff has also explained the procedure to the patient in understandable terms and has given the patient printed material concerning the procedure. ~The patient freely consents to surgery. ? I plan for monitored anesthetic care. ? In the meantime, stressed importance of bland diet, small meals, avoidance of caffeine and alcohol as well as avoidance of spicy foods ? Diagnoses: (R10.13) Epigastric pain ~(primary encounter diagnosis) (R14.2) Belching (K21.9) Gastroesophageal reflux disease, esophagitis presence not specified ? ~ This note will be forwarded to Dr. Vance Jansen MD. ~~ Return to Clinic: The patient is instructed to follow-up with me 1 week post operatively. ? I spent 30~minutes in the visit, with more than 50% of the total [id number] time of the visit in counseling / coordination of care. ? Pam Mcwilliams PA-C
[2017-12-01 11:41] LABS: Internal QC Validated? YES +Cl - CLEAR BKGD; Pregnancy, Urine Negative Negative
[2017-12-01 11:45] VITALS: BP 117/80; PULSE 90; RESP 16; TEMP 37; O2SAT 100; BMI 21.3
[2017-12-01 15:30] VITALS: BP 117/80; BP 98/59; PULSE 84; RESP 14; TEMP 36.6; O2SAT 100
[2017-12-01 15:35] VITALS: BP 117/80; BP 95/58; PULSE 76; RESP 16; O2SAT 100
[2017-12-01 15:40] VITALS: BP 117/80; BP 92/59; PULSE 82; RESP 16; O2SAT 100
[2017-12-01 15:45] VITALS: BP 117/80; BP 93/64; PULSE 80; RESP 16; TEMP 36.6; O2SAT 100
[2017-12-01 16:00] VITALS: BP 117/80
--- NOTE | 2017-12-01 20:47 | OP.PCM_ITS ---
Report of Operation Date of Procedure: 12/01/17 Pre-Operative Diagnosis: epigastric complaints and reflux Post-Operative Diagnosis: antral gastritis, small hiatal hernia, reflux esophagitis Surgery/Procedure Performed:: EGD with biopsies Type of Anesthesia:: MAC Anesthesiologist: Vik Rich - ASA2 Specimen's removed: Jejunum, antral, GE junction, midesophagus Description of Procedure: The patient was brought to the endoscopy suite. Sign in was performed verifying patient, site, planned procedure, critical nursing information, the patient was monitored with cardiac, pulse oximetric, and blood pressure monitoring devices. Monitored anesthetic care was provided for sedation. Following IV sedation and after the oropharynx was sprayed with Cetacaine spray , a video gastroscope was inserted in the oropharynx and advanced down the esophagus without difficulty. The scope was advanced through the stomach, through the pylorus through the duodenum to the proximal jejunum. the jejunum appeared unremarkable. A biopsy obtained to rule out celiac. As the scope was withdrawn. The duodenum appeared unremarkable. There was noted to be some narrowing at the pylorus. Upon insertion. As the scope was withdrawn. There were no obvious ulcerations, but some irritation seemed to be more than would be expected from just dilation with the scope. A biopsy was obtained for H. pylori and pathology. The remainder of the body of the stomach appeared unremarkable. The scope was retroflexed. The patient had a small hiatal hernia. There was mild distal esophagitis. A biopsy is obtained from the distal esophagus, and then an additional biopsy obtained the mid esophagus to rule out eosinophilic esophagitis. The patient tolerated the procedure well and was brought to recovery in stable condition
== END 2017-12-01 16:24 | disposition home or self-care (01) ==
LOC: EN 11:12 → AC 11:13
PROVIDERS: Anesthesiology; Family Provider Family Medicine; PCP Family Medicine; Visit Provider Surgery
PROC: 0DJ08ZZ Inspection of Upper Intestinal Tract, Via Natural or Artificial Opening Endoscopic (ICD-10-PCS; CPT 43235; principal; 2017-12-01 12:25)
DX: K29.50 Unspecified chronic gastritis without bleeding (principal); K21.0 Gastro-esophageal reflux disease with esophagitis; K44.9 Diaphragmatic hernia without obstruction or gangrene; R10.13 Epigastric pain; R14.2 Eructation; J45.990 Exercise induced bronchospasm; F41.9 Anxiety disorder, unspecified
CPT/HCPCS: 43239; 81025; 88305; 88342; J7120; J2405

== ENCOUNTER → 2018-03-23 18:07 | Outpatient (CLI) | payer OTHER, SELFPAY ==
--- NOTE | 2018-03-23 18:30 | MRI_ITS ---
STUDY: MRI BRAIN WITHOUT CONTRAST REASON FOR EXAM: Female, 27 years old. Dizziness, H/A. TECHNIQUE: Standardized multiplanar fat and water weighted pulse sequences were obtained. COMPARISON: None. FINDINGS: Normal size of the ventricles and extra-axial spaces for the patient's age. Normal white matter tracts of the supratentorial brain. Normal bilateral basal ganglia. Normal thalami. There is no extra-axial fluid accumulation. Normal flow voids within the major intracranial circulation suggesting patency by spin echo criteria. Normal sella turcica, pituitary gland, infundibular stalk, optic chiasm and hypothalamus. Normal tectal plate and pineal gland. Normal midbrain, fernanda and medulla. Normal cerebellum. Normal basal cisterns. Normal bilateral temporal bones. Normal bilateral internal auditory canals. No demonstrated orbital abnormality, within the constraints of a routine brain study. Normal visualized paranasal sinuses. Normal calvarium and skull base. Normal visualized soft tissue structures. Normal visualized upper cervical spine. MRI/Brain without Contrast IMPRESSION: Normal unenhanced MRI of the brain. Electronically Signed: Bhanu Scott MD at 2:08 EDT Tel , Service support ,
== END ==
PROVIDERS: Family Provider Family Medicine; PCP Family Medicine; Visit Provider Otolaryngology Otolaryngology/Facial Plastic Surgery
DX: R42 Dizziness and giddiness (principal)
CPT/HCPCS: 70551

== ENCOUNTER → 2018-03-26 16:44 | Outpatient (CLI) | payer OTHER, SELFPAY | PROVIDERS: Referring Provider Otolaryngology; Visit Provider Otolaryngology | DX: J03.90 Acute tonsillitis, unspecified (principal) | CPT/HCPCS: 87070 ==

== ENCOUNTER → 2018-04-26 16:39 | Outpatient (CLI) | payer OTHER, SELFPAY ==
--- OUTSIDE RECORDS SUMMARY | 2018-06-08 16:00 | XMS RPT_ITS ---
:1990 Author Organization [place] Support Name Relationship Address Phone ZACHARIAH STACI Unavailable [address] + [place] [phone] [facility] Unavailable [address] + [address], [place] Unavailable [address] + [place] [address] STACI BURNHAM Unavailable [address] + [place] [phone] [facility] [address]available [address] + [address], [place] Unavailable [address] + [place] [address] STACI BURNHAM Unavailable [address] + [place] [phone] [facility] [address]available [address] + [address], [place] Unavailable [address] + [place] [address] STACI BURNHAM Unavailable Unavailable + STACI BURNHAM Unavailable [address] + [place] [phone] [facility] [address]available [address] + [address], [place] Unavailable [address] + [place] [address] STACI BURNHAM Unavailable [address] + [place] [phone] [facility] [address]available [address] + [address], [place] Unavailable [address] + [place] [address] STACI BURNHAM Unavailable [address] + [place] [address] [facility] Unavailable [address] + [address], [place] Unavailable [address] + [place] [address] STACI BURNHAM Unavailable [address] + [place] [phone] [facility] [address]available [address] + [address], [place] Unavailable [address] + [place] [address] STACI BURNHAM Unavailable [address] + [place] [phone] [facility] Unavailable [address] + [address], [place] Unavailable [address] + [place] [address] STACI BURNHAM Unavailable [address] + [place] [phone] [facility] Unavailable [address] + [address], [place] Unavailable [address] + [place] [address] STACI BURNHAM Unavailable [address] + [place] [phone] [facility] [address]available [address] + [address], [place] Unavailable [address] + [place] [address] STACI BURNHAM Unavailable [address] + [place] [phone] [facility] [address]available [address] + [address], [place] Unavailable [address] + [place] [address] STACI BURNHAM Unavailable [address] + [place] [phone] [facility] Unavailable [address] + [address], [place] Unavailable [address] + [place] [address] STACI BURNHAM Unavailable [address] [facility] [address] + [place] [address] [facility] Unavailable . + [place] [address] [facility], [place] Unavailable [address] + [place] [address] Care Team Providers Name Role Phone Eva Hoff Attending Unavailable Primay Care Physicia, No Primary Care Unavailable González Cat Attending Unavailable STENCEL, TORRES Primary Care Unavailable STENCEL, TORRES Primary Care Unavailable Adams Saul Attending Unavailable STENCEL, TORRES Primary Care Unavailable Satya Martinez Attending Unavailable Eva Hoff Attending Unavailable STENCEL, TORRES Primary Care Unavailable Ruiz Corcoran Attending Unavailable Bret Barrera Attending Unavailable Bret Barrera Referring Unavailable STENCEL, TORRES Primary Care Unavailable STENCEL, TORRES Primary Care Unavailable Satya Martinez Attending Unavailable Chema Parra Attending Unavailable Chema Parra Referring Unavailable STENCEL, TORRES Primary Care Unavailable ASSESSMENT, HEALTH RISK Attending Unavailable STENCEL, TORRES Primary Care Unavailable René Gomez Attending Unavailable STENCEL, TORRES Primary Care Unavailable Edward Sethe Attending Unavailable STENCEL, TORRES Primary Care Unavailable Dorinda Fox Referring Unavailable Patricia, René Attending Unavailable Patricia, René Referring Unavailable PAM CAMERON (PA) Attending Unavailable AMARILYS, MOLINA B Attending Unavailable PAM CAMERON (PA) Attending Unavailable JUAN BELTRAN (CENTRAL OFFICE MAINTAINER) Attending Unavailable AMARILYS, MOLINA B Referring Unavailable YAEL ORDONEZ (PA) Attending Unavailable BRET INFANTE Attending Unavailable PADMA, SAURIN P Attending Unavailable SUJEY ROGEL (RES) Attending Unavailable PADMA, SAURIN P Referring Unavailable EVANGELINA BELTRAN Referring Unavailable TERRYALFIE W Referring Unavailable TERRY ALFIE W Attending Unavailable PADMA, SAURIN P Referring Unavailable TERRY, ALFIE W Referring Unavailable CHINA ERNST (CONTENT ASSISTANT) Attending Unavailable CHINA ERNST (CONTENT ASSISTANT) Referring Unavailable AHMED, MARC Attending Unavailable SHOAIB NGUYEN Attending Unavailable BRUCE SHAH Referring Unavailable AHMED, MARC Referring Unavailable AHMED, MARC Referring Unavailable AHMED, MARC Referring Unavailable Stencel, Torres Attending Unavailable Stencel, Torres Primary Care Unavailable Stencel, Torres Attending Unavailable Stencel, Torres Primary Care Unavailable Stencel, Torres Attending Unavailable Stencel, Torres Primary Care Unavailable Stencel, Torres Admitting Unavailable Stencel, Torres Attending Unavailable Stencel, Torres Primary Care Unavailable Stencel, Torres Attending Unavailable Stencel, Torres Primary Care Unavailable Stencel, Torres Attending Unavailable Stencel, Torres Primary Care Unavailable Newbill, Jorge Toure Admitting Unavailable Newbill, Jorge Toure Attending Unavailable Stencel, Torres Primary Care Unavailable Stencel, Torres Attending Unavailable Stencel, Torres Primary Care Unavailable Stencel, Torres Attending Unavailable Stencel, Torres Primary Care Unavailable Furness, Jermaine Parker Attending Unavailable Stencel, Torres Primary Care Unavailable Stencel, Torres Attending Unavailable Stencel, Torres Primary Care Unavailable Newbill, Jorge Toure Admitting Unavailable Newbill, Jorge Toure Attending Unavailable Stencel, Torres Primary Care Unavailable Newbill, Jorge Toure Admitting Unavailable Newbill, Jorge Toure Attending Unavailable Stencel, Torres Primary Care Unavailable Stencel, Torres Attending Unavailable Stencel, Torres Primary Care Unavailable Stencel, Torres Attending Unavailable Stencel, Torres Primary Care Unavailable PROBLEMS PROBLEMS DATE TYPE CONDITION / CODE ATTENDING STATUS SOURCE 03/22/2018 Active Migraine, unspecified, NA Active [facility] not intractable, with Clinic Main status migrainosus / [place] G43.901(ICD-10) Repository 03/22/2018 Active Vertigo of central WEND[place], SHOAIB Active [facility] origin, unspecified Clinic Main ear / H81.49(ICD-10) [place] Repository 03/22/2018 Active Cervicocranial WENDY, 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 / [facility] Main 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(ICD-10) [place] Repository 03/22/2018 Active Chronic migraine WENDY, SHOAIB Active [facility] without aura, Clinic Main intractable, with [place] status migrainosus / Repository G43.711(ICD-10) 03/22/2018 Active Other abnormalities of [place]END[place], SHOAIB Active [facility] gait and mobility / Clinic Main R26.89(ICD-10) [place] Repository 03/22/2018 Active Labyrinthitis, left WENDY, SHOAIB Active [facility] ear / H83.02(ICD-10) Clinic Main [place] Repository 03/22/2018 Active Occipital neuralgia / [place]END[place], SHOAIB Active [facility] M54.81(ICD-10) Clinic Main [place] Repository 03/11/2018 Active Myalgia, unspecified NA Active [facility] site / M79.10(ICD-10) Clinic Main [place] Repository 03/10/2018 Active Dizziness and NA Active [facility] giddiness / Clinic Main R42(ICD-10) [place] Repository 03/10/2018 Active Palpitations / NA Active [facility] R00.2(ICD-10) Clinic Main [place] Repository 03/10/2018 Active Other general symptoms NA Active [facility] and signs / Clinic Main R68.89(ICD-10) [place] Repository 03/10/2018 Active Other malaise / NA Active [facility] R53.81(ICD-10) Clinic Main [place] Repository 03/10/2018 Active Other fatigue / NA Active [facility] R53.83(ICD-10) Clinic Main [place] Repository 03/10/2018 Active Weakness / NA Active [facility] R53.1(ICD-10) Clinic Main [place] Repository 03/08/2018 Active Anxiety disorder, PADMA, SAURIN Active [facility] unspecified / P Clinic Main F41.9(ICD-10) [place] Repository 03/08/2018 Active Cervicalgia / PADMA, SAURIN Active [facility] M54.2(ICD-10) P Clinic Main [place] Repository 03/08/2018 Active Hypokalemia / PADMA, SAURIN Active [facility] E87.6(ICD-10) P Clinic Main [place] Repository 02/25/2018 Active Otalgia, left ear / BRET INFANTE Active [facility] H92.02(ICD-10) Clinic Main [place] Repository 02/25/2018 Active Unspecified BRET INFANTE Active [facility] temporomandibular [facility] Main joint disorder, [place] unspecified side / Repository M26.609(ICD-10) 10/01/2017 Unknown Z12.4 - Encounter for Eva Hoff Active [facility] screening for [facility] malignant neoplasm of Hospital cervix / Z12.4(ICD-10) Repository PROCEDURES PROCEDURES No Procedure Records FoundRESULTS RESULTS Observed: 04/26/2018 Status: F Source: [place] CULTURE, THROAT 6:[address] [facility] REPOSITORY Culture, Throat Normal throat [place] isolated. No beta-hemolytic streptococcus isolated. Performed By: #### M100.1000 #### [facility] [address] [place], [address] Observed: 03/26/2018 Status: F Source: [place] CULTURE, THROAT 4:[address] [facility] REPOSITORY Culture, Throat Mixed normal respiratory [place]. No Haemophilus, Streptococcus pneumoniae, beta-hemolytic Streptococcus or Staphylococcus aureus isolated. Performed By: #### M100.1000 #### [facility] [address] [place], [address] CNPN Observed: 03/25/2018 Status: COMPLETED Source: DAWN 12:00 AM [facility] REPOSITORY Telephone (NIQ) LORENZO ZUÑIGA ([id number]) 1990 F Date Time Provider Department 03/25/18 MARC CONKLIN NIQ During your visit today, we recorded the following information about you: Beverley Mariscal 03/25/2018 3:16 PM Signed NI PHONE Name of caller : Lorenzo Relationship to patient : Self If not self Will need patient permission to release results or disclose health information with called documented in . Was permission obtained from patient ? Yes Patient identified by Name and Date of . ( Lorenzo Zuñiga, 1990). Yes Reason for Call : Patient states she was just here for a 3 day infusion. Noticed that since taking her indomethacin she has felt very nauseas and having heart burn. At first she wasn't sure which medication was causing this until today. States after taking it she has felt terrible. Asking if she should stop the medication and possibly taking something else instead. Number to return call [phone] Okay to leave a message ? Yes Last office visit 03/22/18 with Wendy Next office visit not scheduled Thank you calling [facility]. You will receive a return call within 48 hours ( or 2 business days if close to the weekend). If you feel that this is an urgent issue and needs immediate attention, it is recommended that you contact your primary care provider office or proceed to your nearest Urgent Care Center of Emergency Room ED for evaluation/treatment. Cortney Wright RN 03/26/2018 9:50 AM Signed Attempted to call patient; no answer. Left voicemail with call back number provided. Cortney Wright RN Cortney Wright RN 03/26/2018 10:13 AM Signed Patient called back; call transferred down by Beverley. Patient stated she has history of severe gastritis and esophagitis. She stated that 30 min afetr taking the medication, her stomach starts to burn and she gets severe acid reflux. She is already on 80 mg omeprazole. She is wondering if there is another medication she could take instead. She stated if Dr. Nguyen wants her to stay on this medication, she is willing to take other medications to counter the side effects. Dr. Conklin prescribed the medication but she is requesting that all further medication adjustments be done through Dr. Nguyen. When call is returned to her, if patient does not answer she is asking that a detailed message be left for her regarding medications. Please advise. Cortney Agosto DO 03/26/2018 1:31 PM Signed If side effects, just stop it. She can call back next week and have Dr. Conklin or Dr. Nguyen change to something else as they feel appropriate. ZENIA STEWART RN, RN 03/26/2018 2:00 PM Signed LMOM relaying message below. ZENIA STEWART RN Allergies As of Date: 03/25/2018 Noted Allergy Reaction AUGMENTIN (AMOXICILLIN-POT CLAVUL*11/26/2017 2 - Rash DOXYCYCLINE 03/22/2018 8 - GI Upset Date Reviewed: 03/24/2018 Reviewed by: Luann Dixon RN - Fully Assessed Reason for Visit: Medication Question [7618] Cmt: Indomethacin Prescriptions as of 03/25/2018 Sig: INDOMETHACIN ER 75 MG CAPSULE* Take 1 capsule by mouth twice* ESCITALOPRAM 10 MG TABLET 1/2 pill daily X 1 week; then* OMEPRAZOLE 40 MG CAPSULE,DEBBIE* Take 1 capsule by mouth twice* AZELASTINE 137 MCG (0.1 %) NA* Use 1 Galva in each nostril t* BUDESONIDE-FORMOTEROL HFA 80 * Inhale 2 Puffs as instructed * Patient taking differently: Inhale 2 Puffs as instructed * ALBUTEROL SULFATE HFA 90 MCG/* Inhale 2 Puffs as instructed * OMEPRAZOLE 20 MG DELAYED RELE* Take 2 tablets by mouth once * Patient not taking: Reported on 03/22/2018 RANITIDINE 300 MG TABLET Take 1 tablet by mouth daily * Patient not taking: Reported on 03/22/2018 NORGESTIMATE 0.25 MG-ETHINYL * Take 1 tablet by mouth once d* ALBUTEROL INHALATION Inhale as instructed as neede* Problem List As Of Date 03/25/2018 Noted Resolved SPRAIN CRUCIATE LIG KNEE [S83.509A] INVALID FOR* Deviated Nasal Septum [J34.2] INVALID FOR* Chronic Rhinitis [J31.0] INVALID FOR* Viral pharyngitis [J02.9] INVALID FOR* Priority: Moderate Class: Acute Depression with anxiety [F41.8] INVALID FOR* Asthma, moderate persistent, poorly-controlled *INVALID FOR* Vocal cord dysfunction [J38.3] INVALID FOR* 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] INVALID FOR* Gastroesophageal reflux disease with esophagiti*INVALID FOR* Tachycardia [R00.0] Malaise and fatigue [R53.81, R53.83] INVALID FOR* Weakness [R53.1] INVALID FOR* Lightheadedness [R42] INVALID FOR* Palpitations [R00.2] INVALID FOR* Heat intolerance [R68.89] INVALID FOR* Encounter Status:Closed by ZENIA STEWART on 03/26/18 PROGRESS Observed: 03/24/2018 Status: COMPLETED Source: DAWN 3:10 PM [facility] [place] REPOSITORY O ID: [id number] Author: Luann Dixon RN Service: (none) Author Type: (none) Type: Progress Notes Filed: 03/24/2018 3:20 PM Note Text: [id number] Patient is here for day # 3 of IV Tx, states infusions are helpful. She feels tired and dizzy after TX but she was told by Dr. Nguyen it's expected. Discussed with Dr. Nguyen, OK to proceed with infusion as ordered. 1055 Infusion complete. SYED 10, no nausea, slightly dizzy. Patient to call back in [address] Nguyen how she is feeling. Patient informed about virtual visits as needed. IV d/c, patient d/c from Tx room. CNOV Observed: 03/24/2018 Status: COMPLETED Source: DAWN 8:00 AM [facility] REPOSITORY Office Visit (SABRA) LORENZO ZUÑIGA ([id number]) 1990 F Date Time Provider Department 03/24/18 8:00 AM INFUSION MAIN CHAIR 6 HECTORAFI[place]illy During your visit today, we recorded the following information about you: Pulse Blood pressure 80/minute 110/57 Luann Dixon RN 03/24/2018 10:53 AM Signed Our research shows that the efficacy for infusion therapy can be best assessed at four weeks post discharge. We have expanded our standard of care to follow up with you virtually to determine if any additional treatment is required. This will be a face to face conversation with a clinician through our Express Care? Online application which is very similar to 'Skype' and 'Face Time' and allows you to see a certified physician assistant professor of forestry, Pretty Duque PA-C, without the need for driving to our clinic, paying for parking, stopping over for meals, etc. This is a self-pay option for which you will be charged $49. All you need is a smartphone, tablet, or computer (with a built-in camera), should you wish to use this convenient alternative. Your appointment is scheduled for four weeks from you latest infusion treatment automatically and appears on this document as a future appointment. Luann Dixon RN 03/24/2018 3:20 PM Signed 0830 Patient is here for day # 3 of IV Tx, states infusions are helpful. She feels tired and dizzy after TX but she was told by Dr. Nguyen it's expected. Discussed with Dr. Nguyen, OK to proceed with infusion as ordered. 1055 Infusion complete. SYED 310, no nausea, slightly dizzy. Patient to call back in [address] Nguyen how she is feeling. Patient informed about virtual visits as needed. IV d/c, patient d/c from Tx room. Referring Provider: MARC CONKLIN [[id number]] Allergies As of Date: 03/24/2018 Noted Allergy Reaction AUGMENTIN (AMOXICILLIN-POT CLAVUL*11/26/2017 2 - Rash DOXYCYCLINE 03/22/2018 8 - GI Upset Date Reviewed: 03/24/2018 Reviewed by: Luann Dixon RN - Fully Assessed Reason for Visit: Infusion [464] Headache [52] Primary Visit Diagnosis:Chronic migraine without aura, with intractable migraine, so stated, with status migrainosus [G43.711] Order(s):NaCl 0.9% iv infusionDisp: Rfl: diphenhydrAMINE 50 mg injection (BENADRYL)Disp: Rfl: famotidine 20 mg injection (PEPCID)Disp: Rfl: hydrocortisone sodium succinate (PF) 100 mg injection (Solu-CORTEF)Disp: Rfl: SALINE LOCK INSERTION [[id number]] Order #: [id number]: 1 NaCl 0.9% iv infusionDisp: Rfl: NaCl (PF) 0.9% 10-20 mL injectionDisp: Rfl: HEMONC - NURSING COMMUNICATION [[id number]] Order #: [id number]: 1 heparin 100 unit/mL 500 Units injectionDisp: Rfl: NaCl (PF) 0.9% 10-20 mL injectionDisp: Rfl: HCG QUAL UR [SQUHCG] Order #: [id number] FUTURE [] ondansetron 8 mg/NS 50 mL(PYXIS) 8 mg ivpb (ZOFRAN)Disp: Rfl: [] magnesium sulfate 2 g in NaCl 0.9% 250 mLDisp: Rfl: [] valproate sodium 1,000 mg in NaCl 0.9% 50 mL (DEPACON)Disp: Rfl: Prescriptions as of 03/24/2018 Sig: INDOMETHACIN ER 75 MG CAPSULE* Take 1 capsule by mouth twice* ESCITALOPRAM 10 MG TABLET 1/2 pill daily X 1 week; then* OMEPRAZOLE 40 MG CAPSULE,DEBBIE* Take 1 capsule by mouth twice* AZELASTINE 137 MCG (0.1 %) NA* Use 1 Galva in each nostril t* BUDESONIDE-FORMOTEROL HFA 80 * Inhale 2 Puffs as instructed * Patient taking differently: Inhale 2 Puffs as instructed * ALBUTEROL SULFATE HFA 90 MCG/* Inhale 2 Puffs as instructed * OMEPRAZOLE 20 MG DELAYED RELE* Take 2 tablets by mouth once * Patient not taking: Reported on 03/22/2018 RANITIDINE 300 MG TABLET Take 1 tablet by mouth daily * Patient not taking: Reported on 03/22/2018 NORGESTIMATE 0.25 MG-ETHINYL * Take 1 tablet by mouth once d* ALBUTEROL INHALATION Inhale as instructed as neede* Problem List As Of Date 03/24/2018 Noted Resolved SPRAIN CRUCIATE LIG KNEE [S83.509A] INVALID FOR* Deviated Nasal Septum [J34.2] INVALID FOR* Chronic Rhinitis [J31.0] INVALID FOR* Viral pharyngitis [J02.9] INVALID FOR* Priority: Moderate Class: Acute Depression with anxiety [F41.8] INVALID FOR* Asthma, moderate persistent, poorly-controlled *INVALID FOR* Vocal cord dysfunction [J38.3] INVALID FOR* 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 We have expanded our standard of care to follow up with you virtually to determine if any additional treatment is required. This will be a face to face conversation with a clinician through our Express Care? Online application which is very similar to 'Skype' and 'Face Time' and allows you to see a certified physician assistant professor of forestry, Pretty Duque PA-C, without the need for driving to our clinic, paying for parking, stopping over for meals, etc. This is a self-pay option for which you will be charged $49. All you need is a smartphone, tablet, or computer (with a built-in camera), should you wish to use this convenient alternative. Your appointment is scheduled for four weeks from you latest infusion treatment automatically and appears on this document as a future appointment. Prescriptions ordered this encounter Disp Refills Start End SODIUM CHLORIDE 0.9 % INTRAVENOUS SO* 03/24/2018 Route: INTRAVENOUS DIPHENHYDRAMINE 50 MG/ML INJECTION S* 03/24/2018 Route: INTRAVENOUS FAMOTIDINE (PF) 20 MG/2 ML INTRAVENO* 03/24/2018 Route: INTRAVENOUS HYDROCORTISONE SOD SUCCINATE (PF) 10* 03/24/2018 Route: INTRAVENOUS SODIUM CHLORIDE 0.9 % INTRAVENOUS SO* 03/24/2018 Route: INTRAVENOUS SODIUM CHLORIDE 0.9 % INJECTION SOLU* 03/24/2018 Route: INTRAVENOUS HEPARIN LOCK FLUSH (PORCINE) 100 UNI* 03/24/2018 Route: INTRAVENOUS SODIUM CHLORIDE 0.9 % INJECTION SOLU* 03/24/2018 Route: INTRAVENOUS ONDANSETRON IVPB 8 MG IN NS 50 ML ADS 03/24/2018 03/24/2018 Route: INTRAVENOUS MAGNESIUM SULFATE IV PIGGYBACK 2 GRA* 03/24/2018 03/24/2018 Route: INTRAVENOUS VALPROATE IVPB 03/24/2018 03/24/2018 Route: INTRAVENOUS Encounter Status:Closed by LUANN DIXON RN on 03/24/18 CNCO Observed: 03/24/2018 Status: COMPLETED Source: DAWN 12:00 AM [facility] [place] REPOSITORY Letter Text Shoaib Nguyen M.D. Program of Vestibular and Balance Disorders Departments of Neurology, Otolaryngology and [address] [place] [address] Office: [phone] March 24, 2018 RE: Lorenzo Zuñiga CCF#: [id number] March 24, 2018 TO WHOM IT MAY CONCERN: This is to certify that Lorenzo Zuñiga has been under my care. Lorenzo Zuñiga is unable to work from 03/22/2018 through 03/24/2018. The patient may return to work on 03/25/2018 with the following instructions: No restrictions. Sincerely yours, Luann Dixon RN BRAIN WITHOUT Observed: 03/23/2018 Status: F Source: [place] CONTRAST 6:[address] [facility] REPOSITORY [facility] Imaging Services [address] [place] [id number] Brain without Contrast MR#: [id number] Acct: [id number] Name: LORENZO ZUÑIGA Rep #: [id number] : 1990 F 27 From: Bhanu Scott MD PCP: Torres Warren MD Status: REG CLI Study: Brain without Contrast Date of Exam: 03/23/18 Exam# [id number] Ordering Dr: René Gomez MD STUDY: MRI BRAIN WITHOUT CONTRAST REASON FOR EXAM: Female, 27 years old. Dizziness, H/A. TECHNIQUE: Standardized multiplanar fat and water weighted pulse sequences were obtained. COMPARISON: None. FINDINGS: Normal size of the ventricles and extra-axial spaces for the patient's age. Normal white matter tracts of the supratentorial brain. Normal bilateral basal ganglia. Normal thalami. There is no extra-axial fluid accumulation. Normal flow voids within the major intracranial circulation suggesting patency by spin echo criteria. Normal sella turcica, pituitary gland, infundibular stalk, optic chiasm and hypothalamus. Normal tectal plate and pineal gland. Normal midbrain, fernanda and medulla. Normal cerebellum. Normal basal cisterns. Normal bilateral temporal bones. Normal bilateral internal auditory canals. No demonstrated orbital abnormality, within the constraints of a routine brain study. Normal visualized paranasal sinuses. Normal calvarium and skull base. Normal visualized soft tissue structures. Normal visualized upper cervical spine. MRI/Brain without Contrast IMPRESSION: Normal unenhanced MRI of the brain. Electronically Signed: Bhanu Scott MD at 2:08 EDT Tel , Service support , CC: René Gomez MD; Torres Warren MD Vibration Technician: Signed PROGRESS Observed: 03/23/2018 Status: COMPLETED Source: DAWN 8:34 AM [facility] [place] REPOSITORY HNO ID: [id number] Author: Luann Dixon RN Service: (none) Author Type: (none) Type: Progress Notes Filed: 03/23/2018 11:15 AM Note Text: 0825 Patient arrived for infusion. Headache feels better today. Pain mostly on left side of head with most s/s in occipital region. Patient has moderated nausea and mild dizziness. She is sensitive to light and smell. Medications ordered for TX discussed with patient. Patient verbalized understanding and agrees with plan. 0850 Nausea resolved. 1035 Infusion complete. Headache pain 3/10, no nausea, still mildly dizzy. IV d/c, patient d/c from TX room./ CNOV Observed: 03/23/2018 Status: COMPLETED Source: DAWN 8:00 AM [facility] REPOSITORY Office Visit (SABRA) LORENZO ZUÑIGA ([id number]) 1990 F Date Time Provider Department 03/23/18 8:00 AM INFUSION MAIN CHAIR 6 SABRA During your visit today, we recorded the following information about you: Pulse Blood pressure 85/minute 105/66 Luann Dixon RN 03/23/2018 11:15 AM Signed 0825 Patient arrived for infusion. Headache feels better today. Pain mostly on left side of head with most s/s in occipital region. Patient has moderated nausea and mild dizziness. She is sensitive to light and smell. Medications ordered for TX discussed with patient. Patient verbalized understanding and agrees with plan. 0850 Nausea resolved. 1035 Infusion complete. Headache pain 3/10, no nausea, still mildly dizzy. IV d/c, patient d/c from TX room./ Referring Provider: MARC CONKLIN [[id number]] Allergies As of Date: 03/23/2018 Noted Allergy Reaction AUGMENTIN (AMOXICILLIN-POT CLAVUL*11/26/2017 2 - Rash DOXYCYCLINE 03/22/2018 8 - GI Upset Date Reviewed: 03/23/2018 Reviewed by: Luann Dixon RN - Fully Assessed Primary Visit Diagnosis:Chronic migraine without aura, with intractable migraine, so stated, with status migrainosus [G43.711] Order(s):NaCl 0.9% iv infusionDisp: Rfl: diphenhydrAMINE 50 mg injection (BENADRYL)Disp: Rfl: famotidine 20 mg injection (PEPCID)Disp: Rfl: hydrocortisone sodium succinate (PF) 100 mg injection (Solu-CORTEF)Disp: Rfl: SALINE LOCK INSERTION [[id number]] Order #: [id number]: 1 NaCl 0.9% iv infusionDisp: Rfl: NaCl (PF) 0.9% 10-20 mL injectionDisp: Rfl: HEMONC - NURSING COMMUNICATION [[id number]] Order #: [id number]: 1 heparin 100 unit/mL 500 Units injectionDisp: Rfl: NaCl (PF) 0.9% 10-20 mL injectionDisp: Rfl: HCG QUAL UR [SQUHCG] Order #: [id number] FUTURE [] ondansetron 8 mg/NS 50 mL(PYXIS) 8 mg ivpb (ZOFRAN)Disp: Rfl: [] magnesium sulfate 2 g in NaCl 0.9% 250 mLDisp: Rfl: [] valproate sodium 1,000 mg in NaCl 0.9% 50 mL (DEPACON)Disp: Rfl: Prescriptions as of 03/23/2018 Sig: INDOMETHACIN ER 75 MG CAPSULE* Take 1 capsule by mouth twice* ESCITALOPRAM 10 MG TABLET 1/2 pill daily X 1 week; then* OMEPRAZOLE 40 MG CAPSULE,DEBBIE* Take 1 capsule by mouth twice* AZELASTINE 137 MCG (0.1 %) NA* Use 1 Galva in each nostril t* ALBUTEROL SULFATE HFA 90 MCG/* Inhale 2 Puffs as instructed * NORGESTIMATE 0.25 MG-ETHINYL * Take 1 tablet by mouth once d* ALBUTEROL INHALATION Inhale as instructed as neede* BUDESONIDE-FORMOTEROL HFA 80 * Inhale 2 Puffs as instructed * Patient taking differently: Inhale 2 Puffs as instructed * OMEPRAZOLE 20 MG DELAYED RELE* Take 2 tablets by mouth once * Patient not taking: Reported on 03/22/2018 RANITIDINE 300 MG TABLET Take 1 tablet by mouth daily * Patient not taking: Reported on 03/22/2018 Problem List As Of Date 03/23/2018 Noted Resolved SPRAIN CRUCIATE LIG KNEE [S83.509A] INVALID FOR* Deviated Nasal Septum [J34.2] INVALID FOR* Chronic Rhinitis [J31.0] INVALID FOR* Viral pharyngitis [J02.9] INVALID FOR* Priority: Moderate Class: Acute Depression with anxiety [F41.8] INVALID FOR* Asthma, moderate persistent, poorly-controlled *INVALID FOR* Vocal cord dysfunction [J38.3] INVALID FOR* 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] INVALID FOR* Gastroesophageal reflux disease with esophagiti*INVALID FOR* Tachycardia [R00.0] Malaise and fatigue [R53.81, R53.83] INVALID FOR* Weakness [R53.1] INVALID FOR* Lightheadedness [R42] INVALID FOR* Palpitations [R00.2] INVALID FOR* Heat intolerance [R68.89] INVALID FOR* Prescriptions ordered this encounter Disp Refills Start End SODIUM CHLORIDE 0.9 % INTRAVENOUS SO* 03/23/2018 Route: INTRAVENOUS DIPHENHYDRAMINE 50 MG/ML INJECTION S* 03/23/2018 Route: INTRAVENOUS FAMOTIDINE (PF) 20 MG/2 ML INTRAVENO* 03/23/2018 Route: INTRAVENOUS HYDROCORTISONE SOD SUCCINATE (PF) 10* 03/23/2018 Route: INTRAVENOUS SODIUM CHLORIDE 0.9 % INTRAVENOUS SO* 03/23/2018 Route: INTRAVENOUS SODIUM CHLORIDE 0.9 % INJECTION SOLU* 03/23/2018 Route: INTRAVENOUS HEPARIN LOCK FLUSH (PORCINE) 100 UNI* 03/23/2018 Route: INTRAVENOUS SODIUM CHLORIDE 0.9 % INJECTION SOLU* 03/23/2018 Route: INTRAVENOUS ONDANSETRON IVPB 8 MG IN NS 50 ML ADS 03/23/2018 03/23/2018 Route: INTRAVENOUS MAGNESIUM SULFATE IV PIGGYBACK 2 GRA* 03/23/2018 03/23/2018 Route: INTRAVENOUS VALPROATE IVPB 03/23/2018 03/23/2018 Route: INTRAVENOUS Encounter Status:Closed by LUANN DIXON RN on 03/23/18 PROGRESS Observed: 03/22/2018 Status: COMPLETED Source: DAWN 1:40 PM [facility] [place] REPOSITORY HNO ID: [id number] Author: Valery Rossi RN Service: (none) Author Type: (none) Type: Progress Notes Filed: 03/22/2018 3:15 PM Note Text: Ambulated to treatment after appointment with Dr. Nguyen for Iv medication infusion, headache pain level 7/10. Headache assessment obtained, per pt has had intermittent headache since July of this year, but since March her headache has been constant daily. Nausea is mild and dizziness sever. 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 1250: Medications that will be infused explained to pt who verbalized understanding and agrees to proceed. 1335: Stated that headache is now on both sides of head and that both ears feel muffled. 1455: Post infusion Bp-123/73 P-101 R-15. Headache pain level 7/10. Tolerated infusion well. Valery Rossi RN CNOV Observed: 03/22/2018 Status: COMPLETED Source: DAWN 12:30 PM [facility] REPOSITORY Office Visit (SABRA) LORENZO ZUÑIGA ([id number]) 1990 F Date Time Provider Department 03/22/18 12:30 PM INFUSION MAIN CHAIR 6 HECTORAFIABilly During your visit today, we recorded the following information about you: Pulse Respiration Blood pressure 101/minute 15/minute 123/73 Valery Rossi RN 03/22/2018 3:15 PM Signed Ambulated to treatment after appointment with Dr. Nguyen for Iv medication infusion, headache pain level 7/10. Headache assessment obtained, per pt has had intermittent headache since July of this year, but since March her headache has been constant daily. Nausea is mild and dizziness sever. 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 1250: Medications that will be infused explained to pt who verbalized understanding and agrees to proceed. 1335: Stated that headache is now on both sides of head and that both ears feel muffled. 1455: Post infusion Bp-123/73 P-101 R-15. Headache pain level 7/10. Tolerated infusion well. Valery Rossi RN Referring Provider: MARC CONKLIN [[id number]] Allergies As of Date: 03/22/2018 Noted Allergy Reaction AUGMENTIN (AMOXICILLIN-POT CLAVUL*11/26/2017 2 - Rash DOXYCYCLINE 03/22/2018 8 - GI Upset Date Reviewed: 03/22/2018 Reviewed by: Valery Rossi RN - Fully Assessed Primary Visit Diagnosis:Status migrainosus [G43.901] Other Visit Diagnosis:Chronic migraine without aura, with intractable migraine, so stated, with status migrainosus [G43.711] Order(s):SALINE LOCK INSERTION [[id number]] Order #: [id number]: 1 HEMONC - NURSING COMMUNICATION [[id number]] Order #: [id number]: 1 HCG QUAL UR [SQUHCG] Order #: [id number] FUTURE [] ondansetron 8 mg/NS 50 mL(PYXIS) 8 mg ivpb (ZOFRAN)Disp: Rfl: [] magnesium sulfate 2 g in NaCl 0.9% 250 mLDisp: Rfl: [] valproate sodium 1,000 mg in NaCl 0.9% 50 mL (DEPACON)Disp: Rfl: Prescriptions as of 03/22/2018 Sig: INDOMETHACIN ER 75 MG CAPSULE* Take 1 capsule by mouth twice* ESCITALOPRAM 10 MG TABLET 1/2 pill daily X 1 week; then* OMEPRAZOLE 40 MG CAPSULE,DEBBIE* Take 1 capsule by mouth twice* AZELASTINE 137 MCG (0.1 %) NA* Use 1 Galva in each nostril t* BUDESONIDE-FORMOTEROL HFA 80 * Inhale 2 Puffs as instructed * Patient taking differently: Inhale 2 Puffs as instructed * ALBUTEROL SULFATE HFA 90 MCG/* Inhale 2 Puffs as instructed * OMEPRAZOLE 20 MG DELAYED RELE* Take 2 tablets by mouth once * Patient not taking: Reported on 03/22/2018 RANITIDINE 300 MG TABLET Take 1 tablet by mouth daily * Patient not taking: Reported on 03/22/2018 NORGESTIMATE 0.25 MG-ETHINYL * Take 1 tablet by mouth once d* ALBUTEROL INHALATION Inhale as instructed as neede* Problem List As Of Date 03/22/2018 Noted Resolved SPRAIN CRUCIATE LIG KNEE [S83.509A] INVALID FOR* Deviated Nasal Septum [J34.2] INVALID FOR* Chronic Rhinitis [J31.0] INVALID FOR* Viral pharyngitis [J02.9] INVALID FOR* Priority: Moderate Class: Acute Depression with anxiety [F41.8] INVALID FOR* Asthma, moderate persistent, poorly-controlled *INVALID FOR* Vocal cord dysfunction [J38.3] INVALID FOR* 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 DIPHENHYDRAMINE 50 MG/ML INJECTION S* 03/22/2018 03/22/2018 Route: INTRAVENOUS Disc: Auto DC at discharge. FAMOTIDINE (PF) 20 MG/2 ML INTRAVENO* 03/22/2018 03/22/2018 Route: INTRAVENOUS Disc: Auto DC at discharge. HYDROCORTISONE SOD SUCCINATE (PF) 10* 03/22/2018 03/22/2018 Route: INTRAVENOUS Disc: Auto DC at discharge. SODIUM CHLORIDE 0.9 % INTRAVENOUS SO* 03/22/2018 03/22/2018 Route: INTRAVENOUS Disc: Auto DC at discharge. SODIUM CHLORIDE 0.9 % INJECTION SOLU* 03/22/2018 03/22/2018 Route: INTRAVENOUS Disc: Auto DC at discharge. HEPARIN LOCK FLUSH (PORCINE) 100 UNI* 03/22/2018 03/22/2018 Route: INTRAVENOUS Disc: Auto DC at discharge. SODIUM CHLORIDE 0.9 % INJECTION SOLU* 03/22/2018 03/22/2018 Route: INTRAVENOUS Disc: Auto DC at discharge. ONDANSETRON IVPB 8 MG IN NS 50 ML ADS 03/22/2018 03/22/2018 Route: INTRAVENOUS MAGNESIUM SULFATE IV PIGGYBACK 2 GRA* 03/22/2018 03/22/2018 Route: INTRAVENOUS VALPROATE IVPB 03/22/2018 03/22/2018 Route: INTRAVENOUS Medications Discontinued During This Encounter NaCl (PF) 0.9% 10-20 mL injection 03/22/2018 03/22/2018 Route: INTRAVENOUS Sig: Disc: Auto DC at discharge. heparin 100 unit/mL 500 Units inject* 03/22/2018 03/22/2018 Route: INTRAVENOUS Sig: Disc: Auto DC at discharge. NaCl (PF) 0.9% 10-20 mL injection 03/22/2018 03/22/2018 Route: INTRAVENOUS Sig: Disc: Auto DC at discharge. NaCl 0.9% iv infusion 03/22/2018 03/22/2018 Route: INTRAVENOUS Sig: Disc: Auto DC at discharge. hydrocortisone sodium succinate (PF)* 03/22/2018 03/22/2018 Route: INTRAVENOUS Sig: Disc: Auto DC at discharge. famotidine 20 mg injection (PEPCID) 03/22/2018 03/22/2018 Route: INTRAVENOUS Sig: Disc: Auto DC at discharge. diphenhydrAMINE 50 mg injection (PREMA* 03/22/2018 03/22/2018 Route: INTRAVENOUS Sig: Disc: Auto DC at discharge. NaCl 0.9% iv infusion 03/22/2018 03/22/2018 Route: INTRAVENOUS Sig: Disc: Auto DC at discharge. Encounter Status:Closed by VALERY ROSSI RN on 03/22/18 PROGRESS Observed: 03/22/2018 Status: COMPLETED Source: DAWN 11:25 AM [facility] REPOSITORY O ID: [id number] Author: Shoaib Nguyen Service: (none) Author Type: Physician Type: Progress Notes Filed: 03/22/2018 2:12 PM Note Text: OTONEUROLOGY CONSULTATION Referral source: (Bruce Shah, PT) Chief Complaint: Dizziness: Rocking sensation +- spinning Imbalance Headache / head pressure - left hand side Neck: Pain LUE weakness (shoulder to elbow) +- left leg (hip to foot) ################################################################## ################################################################## Impressions: Complex issues of dizziness, imbalance, headache, neck pain, visual-motion sensitivity and left-sided tinnitus and ear discomfort. Likely overlap between a peripheral vestibular disturbance, abnormal upper cervical spine biomechanics, migraine and possible occipital nerve irritation bilaterally. Chronic daily headache with elements of chronic migraine and cervicogenic headache. Disorders include: Possible peripheral vestibular disturbance on the left (neurolabyrinthitis) at some point in time, most likely of viral etiology. Patient manifests an asymmetry of upper cervical spine biomechanics. This may be the consequence of the combination of a peripheral vestibular disorder, trauma and posture. This may underlie issues of cervicalgia and may provide a substrate for cervicogenic headache. Cervical spine issues may be complicated by occipital nerve irritation bilaterally. All of this may have exacerbated a tendency toward migraine with a component of visual-motion sensitivity. Gait appears normal. Recommendations/Plan: Headache infusion x 3 - starting today Neck physical therapy: hold on further PT for now / continue HEP Further testing: none at this time Medications: Continue indomethacin for now Continue lexapro for now. Consider converting to duloxetin Consider greater occipital nerve trigger point injections. Follow-up: PRN ################################################################## ################################################################## ################################################################## History: Onset of symptoms: In usual state of health until July 2017. Severe nasal congestion (bilateral) / facial pressure / left side of head pressure / left ear sharp pain / left sided neck and shoulder pain. Saw a doctor. Was put on prednisone x 2 weeks (60mg, no taper). After this, felt a floating sensation, left facial swelling. Residual issues since. Rocking sensation - constant x 2 months. Was doing well for a well except for intermittent left ear pain Summer 2017 - was dealing with stomach issues Early December - [place]. Shortly afterward, started to experience more neck pain. Early January - return to school / work. Lots of stress. Noticed more problems with dizziness. lasted about 1 week 0 - constant. Was good for two weeks. End of January (no dizziness) - left sided of head pain, left side of neck pain, left shoulder pain. Nausea with head movement. Left ear pain. This lasted for about a week. Return of dizziness in early March Has been the worst it's been Panic attacks / anxiety Now: Dizziness: Rocking sensation +- spinning Constant w/ fluctuation (ave 5-6, lowest 1-2) Worse with stress / anxiety Sometimes better with laying down and doing deep breathing Headache / head pressure - left hand side of head Constant w/ fluctuation (ave 6, lowest 2) Appears to correlate with the dizziness LUE weakness (shoulder to elbow) - mild On/off Every morning - until the afternoon Better with PT left leg (hip to foot) On/off Appears to correlate with the severity of the other symptoms More on a daily basis more recently ################################################################## # Dizziness # # Inc Dec N/C Visual motion sens. # # IIB X a little less dizzy with laying down # Fluor: # Roll R/L - every time - transient increase # Flash: # Look Up y # TV / PC: Wavy motion in vision at times +- may feel sick # Look Down y # Car: +- nausea (old issue) # OOB y Pass: # Administrative Court Justice: # Bending y Store: Y (anxious / more dizzy) # Upon Up # # Fatigue y # # Time of Day Better around 5 or 6pm / worst in the am # ################################################################## Vestibular: Dizziness: (see hpi) Imbalance: at times - more so when more dizzy Veering: To the left at times Falls: no Hearing: good Tinnitus: intermittent AU (mainly on the left) - Ringing - on/off x yrs. Long duration / more pain since 08/16 Feels like something is crawling in there Musculosketal Ear: left - constant muffled sensation - on/off x yrs, constant since 08/16 - w/ fluctuation Neck: see hpi Headaches: sinus Since age [age] Midfrontal / bilateral maxillary Dull +-throbbing No n/v/p/p 1hr Every other week? Current pattern - see hpi Now: Left side of head Dull Throbbing +-N P/p Constant w/ fluctuation Aggravators: Weather Changes (since age 14), Scents/Smells (old issue / worse x 1 yr), Sleep deprivation, Fatigue, Stress and two weeks before a menstrual periods (regular) Alleviators: Rest, Sleep and Prescription meds (indomethacin - minimal benefit x 1 week thus far) ################################################################## Review of Systems: General: Energy: awful - since 03/18 Sleep: terrible Insomnia - No Frequent awakenings - Yes - heart racing or feels anxious - multiple times since 03/18; appears to correlate with her head symptoms. Weakness: see hpi Sensory: W/ panic attacks - tingling in arm / legs +- face Visual dysfunction: unable to wear contacts not due to left eye pain Wears glasses Cardiac: Chest pain: no Orthstatic Intolerance: LOC - no Palp - skipping / racing - h/o PV s Pulmonary: Dyspnea on Exertion: at times going up stairs / exercise - old issue Psychiatry: Anxiety / Depression: Both + panic - anxiety (old), depression - old Left facial discomfort with running. No problems with recumbent bike ################################################################## The diagnostic work-up for this problem thus far has included: Consultation Dx Date Location ER y PCP y - received switched to [facility] / has only seen a CONTENT ASSISTANT thus far. 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 / current has a shelter monitor on Endo y GI ###################################### Testing Result Date Location Head CT / cervical 02/22/18 MRI n EKG y Echo n Holter x 2 weeks y Audio y good VNG n ################################### Treatment for current illness: Medications: zofran Meclizine Indomethacin - did not take this today - since 03/22 Prednisone x 2 weeks lexapro x 1 week - CONTENT ASSISTANT - tolerates this / more frequent urination Procedures/Surgery: PT Other Neck / VR / dry needling - Andrew Shah - current - some benefit for neck discomfort / headache, no change in dizziness. 6 visits thus far Chiropractic manipulation - no ################################################################## Past Medical History: Head / Neck trauma: Age 16 - hit in the left ear by an elbow playing soccer. No hearing on the left x 2 weeks. Intermittent left ear plugging since. No medical evaluation HTN: No DM: No Elevated cholesterol: No Thyroid disease:No GERD: Yes PAST SURGICAL HISTORY Procedure Laterality Date - SECTION HX 2014 - EGD W/O OR W/BRUSH/WASH 12/01/2017 EGD - PAST SURGICAL HISTORY OF 2003 left acl repair - PAST SURGICAL HISTORY OF 2006 right acl repair - PAST SURGICAL HISTORY OF 2003 wisdom teeth extraction PAST MEDICAL HISTORY Diagnosis Date - Anxiety panic attack - Asthma, exercise induced when was young. 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 General: Well developed. Well nourished. No acute distress. Pain Behaviors: no pain behaviors observed Carotid examination was normal. General cardiac examination was normal. Mental status examination: Alert and Oriented to time, place and person. Language: fluent speech (limited evaluation) Cranial Nerve exam: Ophthalmologic: Visual salgado were normal. Fundoscopic exam was limited. Pupils were symmetric and reactive to light. Eye movements: normal, smooth pursuits, no nystagmus. Symptoms associated w/ eye movements: C/o left eye pain with left lateral gaze; mild decrease with manual cervical distraction Otological examination: Noel: midline Rinne: normal (AC>BC) Tympanic membranes: normal Finger rub: mildly reduced on the left Response to 256 Hz tuning fork: mildly reduced on the left Recruitment: No hyperacusis; mild muffling on the left Facial Strength: symmetric Facial Sensation: Right Left V1 (scalp) Normal Normal V1 Normal Normal V2 Normal Normal V3 Normal Normal Ear (sup.) Normal Mildly Reduced Left Right KAYLEIGH tender mild to moderate mild ParaC2 tender moderate to severe moderate Post. Vertex Normal Normal Normal palatal elevation. Tongue midline. Right Left Oral sensation: Ant Tongue - - Post Tongue - - Post Pharynx Cervical spine examination: Position: neutral Flexion: normal and painless Lateral C1 process tenderness: tender on left, none on right Upper Cervical Rotation: Reduced left Sidebend: Reduced left Total Cervical Rotation: normal C1 malrotation: Right Neck Vibration Testing: Right Left Suboccipital +- + Increase in dizziness Masseter + ++ SCM + + Motor Exam: Tremor : None Pronator Drift: None Normal shoulder shrug. Strength (out of 5): Right Left Hip flex 5 5 Shoulder Flex 5 5 DTR's (out of 4): deferred Sensory Exam: Gross UE to PP: normal Gross LE to PP: N/T Coordination examination: [id number]-[id number] testing was normal bilaterally. Mgrp-ed-btwv testing was normal bilaterally. Postural stability: Romberg: normal Tandem-modified Romberg: Mild drift to either side Gait examination: Usual gait: normal Heel walk: normal Toe walk: normal Tandem (Forward): normal Tandem (Reverse): normal ################################################################## SYED 7-8, no change with cervical traction, increases with vertex pressure Dizzy 6, 4 w with cervical traction, 6 with vertex pressure (was better after initial cervical distraction) + photo ################################################################## The patient was personally seen and examined by myself. Shoaib Nguyen MD [facility] [place] [facility] T33 cc: Bruce Shah MD * Marc Conklin MD Mahesh Manne, MD (sent via [employer] - to sec*) (Results of consultation to be transmitted via electronic medical record for those providers who practice within [facility] or with access to [email or web address] via [facility], or via letter) Total time of 65 minutes was spent with the patient regarding the above. Greater than 50% of time was spent on counselling. CNOV Observed: 03/22/2018 Status: COMPLETED Source: DAWN 10:40 AM [facility] REPOSITORY Office Visit (ELISABETH) LORENZO ZUÑIGA ([id number]) 1990 F Date Time Provider Department 03/22/18 10:40 AM SHOAIB NGUYEN During your visit today, we recorded the following information about you: Pulse Blood pressure Weight Height 106/minute 126/93 54 kg 1.575 m Shoaib Nguyen MD 03/22/2018 2:12 PM Signed OTONEUROLOGY CONSULTATION Referral source: (Bruce Shah, PT) Chief Complaint: Dizziness: Rocking sensation +- spinning Imbalance Headache / head pressure - left hand side Neck: Pain LUE weakness (shoulder to elbow) +- left leg (hip to foot) ################################################################## ################################################################## Impressions: Complex issues of dizziness, imbalance, headache, neck pain, visual-motion sensitivity and left-sided tinnitus and ear discomfort. Likely overlap between a peripheral vestibular disturbance, abnormal upper cervical spine biomechanics, migraine and possible occipital nerve irritation bilaterally. Chronic daily headache with elements of chronic migraine and cervicogenic headache. Disorders include: Possible peripheral vestibular disturbance on the left (neurolabyrinthitis) at some point in time, most likely of viral etiology. Patient manifests an asymmetry of upper cervical spine biomechanics. This may be the consequence of the combination of a peripheral vestibular disorder, trauma and posture. This may underlie issues of cervicalgia and may provide a substrate for cervicogenic headache. Cervical spine issues may be complicated by occipital nerve irritation bilaterally. All of this may have exacerbated a tendency toward migraine with a component of visual-motion sensitivity. Gait appears normal. Recommendations/Plan: Headache infusion x 3 - starting today Neck physical therapy: hold on further PT for now / continue HEP Further testing: none at this time Medications: Continue indomethacin for now Continue lexapro for now. Consider converting to duloxetin Consider greater occipital nerve trigger point injections. Follow-up: PRN ################################################################## ################################################################## ################################################################## History: Onset of symptoms: In usual state of health until July 2017. Severe nasal congestion (bilateral) / facial pressure / left side of head pressure / left ear sharp pain / left sided neck and shoulder pain. Saw a doctor. Was put on prednisone x 2 weeks (60mg, no taper). After this, felt a floating sensation,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 provoke her picking her feet/toes -- and she has resumed this habit. She also reports that she taps a lot. She does have an upcoming counseling appt on Thursday. She is going to call a different agency to see if she can get in tomorrow or Thursday. Couldn't get into psychiatry for a few months and refers that she just cannot go on in this state until then. She denies tobacco, alcohol, or substance use. CP PHQ9 03/11/2018 Little interest or pleasure 2 - More than half the days Feeling down, depressed, hopeless 3 - Nearly every day Trouble falling or staying asleep, sleeping too much 3 - nearly every day Feeling tired, having little energy 3 - Nearly every day Poor appetite or overeating 2 - More than half the days Feeling bad about yourself, failure or you have let yourself/family down 3 - Nearly every day Trouble concentrating on things 3 - Nearly every day Moving or speaking so slowly, or fidgety or restless 1 - Several days Thoughts that you would be better off , or of hurting yourself in some way 0 - Not at all How difficult have these problems made things Extremely difficult Interpretation of Total Score 20-27 Severe depression PEACE-7 ANXIETY SCALE 03/11/2018 FEELING NERVOUS,ANXIOUS,OR ON EDGE 3 Nearly every day NOT BEING ABLE TO STOP OR CONTROL WORRYING 3 Nearly every day WORRYING TOO MUCH ABOUT DIFFERENT THINGS 3 Nearly every day TROUBLE RELAXING 3 Nearly every day BEING SO RESTLESS THAT IT'S HARD TO SIT STILL 3 Nearly every day BEING EASILY ANNOYED OR IRRITABLE 3 Nearly every day FEELING AFRAID IF SOMETHING AWFUL MIGHT HAPPEN 3 Nearly every day GAD7 SCORE 21 IF YOU CHECKED OFF ANY PROBLEMS Extremely difficult PAST MEDICAL HISTORY: PAST MEDICAL HISTORY Diagnosis Date - Anxiety panic attack - Asthma, exercise induced when was young. 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 (Patient taking differently: Take 25 mg by mouth as needed. ) Omeprazole 40 mg capsule Take 1 capsule by mouth twice daily. azelastine (ASTELIN,ASTEPRO) 0.1% nasal spray Use 1 Galva in each nostril twice daily. budesonide-formoterol (SYMBICORT) 80-4.5 mcg/actuation inhaler Inhale 2 Puffs as instructed twice daily. (Patient taking differently: Inhale 2 Puffs as instructed as needed. ) albuterol HFA (PROAIR HFA) 90 mcg/actuation inhaler Inhale 2 Puffs as instructed every 6 hours as needed. omeprazole 20 mg disintegrating tablet (PriLOSEC) Take 2 tablets by mouth once daily. Ranitidine HCl (ZANTAC) 300 mg tablet Take 1 tablet by mouth daily at bedtime. norgestimate 0.25 mg-ethinyl estradiol 35 mcg (SPRINTEC) 0.25- 35 mg-mcg per tablet Take 1 tablet by mouth once daily. ALBUTEROL INHALATION Inhale as instructed as needed. sertraline (ZOLOFT) 100 mg tablet Take 100 mg by mouth once daily. ondansetron (ZOFRAN, HYDROCHLORIDE,) 4 mg tablet Take 4 mg by mouth every 8 hours as needed. No current facility-administered medications for this visit. FAMILY HISTORY Problem Relation Age of Onset - other (Stomach ulcer) Mother - other (HTN) Father - Breast Cancer Maternal Grandmother - None Maternal Grandfather - None Paternal Grandmother - Diabetes Paternal Grandfather - Heart Paternal Grandfather OHS in 60 - Cancer Paternal Grandfather - Kidney Disease Paternal Grandfather - Asthma Brother exercise induced - other (IBD) Paternal Uncle Social History Marital status: Spouse name: Years of education: Number of children: Social History Main Topics Smoking status: Never Smoker Smokeless tobacco: Never Used Alcohol use: No Drug use: No Sexual activity: Yes Comment: on control Social History Narrative Pt works at [employer] no pets . EXAM: BP 112/78 (BP Site: Left Arm, BP Position: Sitting, BP Cuff Size: Regular Adult) Pulse 76 Resp 14 Ht 157.5 cm (5' 2) Wt 54.4 kg (120 lb) BMI 21.95 kg/m? PHYSICAL EXAM: General Appearance: Well appearing, alert, in no acute distress, teary, well-hydrated, well nourished.. Skin: Skin color, texture, turgor normal, no suspicious rashes or lesions. Head: Normocephalic, no masses, lesions, tenderness or abnormalities. Eyes: Anicteric sclera. Pupils are equally round and reactive to light. Extraocular movements are intact. Ears: External ears normal, canals clear, Normal TMs bilaterally. Oropharynx: Lips, mucosa, and tongue normal, teeth and gums normal, oropharynx normal. Neck: Supple, no adenopathy; thyroid symmetric, normal size. Some tenderness to palpation of the posterior neck and left upper trap. Lungs: Lungs clear to auscultation. No wheezing, rhonchi, rales. Heart: RRR without murmur, gallop, or rubs. No ectopy. Heart monitor in place. Abdomen: Abdomen soft, non-tender. Bowel sounds normal. No masses, organomegaly. Extremities: No deformities, edema, skin discoloration, clubbing or cyanosis. Good capillary refill. Musculoskeletal: No joint swelling, deformity, or tenderness. Neurologic: Gait normal. Reflexes normal and symmetric. Sensation grossly intact., Negative findings: speech normal, mental status intact, muscle tone normal, muscle strength normal, rapid alternating movements normal, finger to nose normal, reflexes normal and symmetric. ASSESSMENT/PLAN: 1. Anxiety - ICD9: 300.00, ICD10: F41.9 (primary diagnosis) Will go ahead and start lexapro. Limited quantity of xanax to use as sparingly -- voices understanding. [facility] website checked and validated. All prescriptions have been APPROPRIATELY filled. No suspicious activity was identified. 03/11/2018 by China Ernst APRN.CONTENT ASSISTANT - ESCITALOPRAM 10 MG TABLET - ALPRAZOLAM 0.25 MG TABLET Suspect that this is causing a lot of her symptoms. Start treatment. Continue with counseling, as planned. 2. Myalgia - ICD9: 729.1, ICD10: M79.10 - VITAMIN D 25 HYDROXY - SED RATE WESTERGREN - C-REACTIVE PROTEIN (CRP) 3. Tachycardia - ICD9: 785.0, ICD10: R00.0 Continue work-up per cardiology. 4. Weakness - ICD9: 780.79, ICD10: R53.1 Continue work-up per endocrine. Discussed treatment plan and patient voices understanding. Patient's questions answered appropriately. Medications and potential side effects were discussed and patient voices understanding. Recheck in 1 month -- sooner if needed. Return to the office as scheduled or as needed for worsening/no improvement. I spent over 40 minutes in the visit, with more than 50% of the total [id number] time of the visit in counseling / coordination of care. China Ernst APRN.SHERIF Ernst APRN.CNP 03/11/2018 8:41 AM Signed 1. Labs today or tomorrow. 2. Start the lexapro 1/2 pill daily X 1 week; then increase to a whole pill daily. 3. Other medicine as needed, sparingly. 4. Recheck in a month. Referring Provider: SELF [200] Allergies As of Date: 03/11/2018 Noted Allergy Reaction AUGMENTIN (AMOXICILLIN-POT CLAVUL*11/26/2017 2 - Rash Date Reviewed: 03/11/2018 Reviewed by: Mahsa Song [employer] - Fully Assessed Reason for Visit: ED Follow-up [821] Primary Visit Diagnosis:Anxiety [F41.9] Other Visit Diagnoses:Myalgia [M79.10] Tachycardia [R00.0] Weakness [R53.1] Order(s):escitalopram oxalate (LEXAPRO) 10 mg tablet1/2 pill daily X 1 week; then increase to a whole pill daily.Disp: 30 tabletRfl: 1 ALPRAZolam (XANAX) 0.25 mg tabletTake 1 tablet by mouth twice daily as needed for up to 7 days.Disp: 14 tabletRfl: 0 VITAMIN D 25 HYDROXY [SQVITD] Order #: [id number] FUTURE SED RATE WESTERGREN [SQWSR] Order #: [id number] FUTURE C-REACTIVE PROTEIN (CRP) [SQCRP] Order #: [id number] FUTURE Prescriptions as of 03/11/2018 Sig: OMEPRAZOLE 40 MG CAPSULE,DEBBIE* Take 1 capsule by mouth twice* AZELASTINE 137 MCG (0.1 %) NA* Use 1 Galva in each nostril t* BUDESONIDE-FORMOTEROL HFA 80 * Inhale 2 Puffs as instructed * Patient taking differently: Inhale 2 Puffs as instructed * ALBUTEROL SULFATE HFA 90 MCG/* Inhale 2 Puffs as instructed * OMEPRAZOLE 20 MG DELAYED RELE* Take 2 tablets by mouth once * RANITIDINE 300 MG TABLET Take 1 tablet by mouth daily * NORGESTIMATE 0.25 MG-ETHINYL * Take 1 tablet by mouth once d* ALBUTEROL INHALATION Inhale as instructed as neede* ESCITALOPRAM 10 MG TABLET 1/2 pill daily X 1 week; then* ALPRAZOLAM 0.25 MG TABLET Take 1 tablet by mouth twice * Problem List As Of Date 03/11/2018 Noted Resolved SPRAIN CRUCIATE LIG KNEE [S83.509A] INVALID FOR* Deviated Nasal Septum [J34.2] INVALID FOR* Chronic Rhinitis [J31.0] INVALID FOR* Viral pharyngitis [J02.9] INVALID FOR* Priority: Moderate Class: Acute Depression with anxiety [F41.8] INVALID FOR* Asthma, moderate persistent, poorly-controlled *INVALID FOR* Vocal cord dysfunction [J38.3] INVALID FOR* 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] INVALID FOR* Gastroesophageal reflux disease with esophagiti*INVALID FOR* Tachycardia [R00.0] Malaise and fatigue [R53.81, R53.83] INVALID FOR* Weakness [R53.1] INVALID FOR* Lightheadedness [R42] INVALID FOR* Palpitations [R00.2] INVALID FOR* Heat intolerance [R68.89] INVALID FOR* Other instructions from your clinician: 1. Labs today or tomorrow. 2. Start the lexapro 1/2 pill daily X 1 week; then increase to a whole pill daily. 3. Other medicine as needed, sparingly. 4. Recheck in a month. Prescriptions ordered this encounter Disp Refills Start End ESCITALOPRAM 10 MG TABLET 30 t* 1 03/11/2018 Si/2 pill daily X 1 week; then increase to a whole pill daily. ALPRAZOLAM 0.25 MG TABLET 14 t* 0 03/11/2018 03/18/2018 Class: Print RX Route: ORAL Sig: Take 1 tablet by mouth twice daily as needed for up to 7 days. Medications Discontinued During This Encounter ondansetron (ZOFRAN, HYDROCHLORID* 03/11/2018 Class: Historical Med Route: ORAL Sig: Take 4 mg by mouth every 8 hours as needed. Disc: Other sertraline (ZOLOFT) 100 mg tablet 03/11/2018 Class: Historical Med Route: ORAL Sig: Take 100 mg by mouth once daily. Disc: Other meclizine (ANTIVERT) 25 mg tab 30 t* 0 02/25/2018 03/11/2018 Class: Print RX Route: ORAL Sig: Take 1 tablet by mouth three times daily as needed. Patient taking differently: Take 25 mg by mouth as needed. Disc: Course of therapy completed Questionnaire: PEACE-7 ANXIETY SCALE Feeling nervous, anxious, or on edge -> 3 Nearly every day Not being able to stop or control worrying -> 3 Nearly every day Worrying too much about different things -> 3 Nearly every day Trouble relaxing -> 3 Nearly every day Being so restless that it's hard to sit still -> 3 Nearly every day Being easily annoyed or irritable -> 3 Nearly every day Feeling afraid as if something awful might happen -> 3 Nearly every day PEACE-7 Anxiety Score -> 21 If you checked off any problems, how difficult have these problems made it for you to do your work, take care of things at home, or get along with other people? -> Extremely difficult Encounter Status:Closed by CHINA ERNST CNP on 03/11/18 PROGRESS Observed: 03/10/2018 Status: COMPLETED Source: DAWN 4:07 PM [facility] [place] REPOSITORY O ID: [id number] Author: Lou Conrad Ma Service: (none) Author Type: (none) Type: Progress Notes Filed: 03/10/2018 4:08 PM Note Text: EVENT MONITOR DISPOSABLE PATCH INSTRUCTIONS Patient Name: Lorenzo Seaman [facility] Number: [id number] Skin prepped and cleansed with alcohol Patch secured to prepped area Monitor Activated Serial # [id number] Patient Instructed: 1.) Prescribed order timeframe 2.) Bathing guidelines 3.) Usage of event button and diary documentation 4.) Return of monitor at the end of prescribed order 5.) Call with problems [phone] or [phone] ext. [phone] Patient expresses a good understanding of instructions Lou Conrad Ma CNCNPATED Observed: 03/10/2018 Status: COMPLETED Source: DAWN 4:00 PM [facility] REPOSITORY Education (CARDMN) ZARALORENZO Jurgen ([id number]) 1990 F Date Time Provider Department 03/10/18 4:00 PM [facility] Reason for Visit: ZIO PATCH [Other] Progress Notes: Lou Conrad Ma 03/10/2018 4:08 PM Signed EVENT MONITOR DISPOSABLE PATCH INSTRUCTIONS Patient Name: Lorenzo Zuñiga [facility] Number: [id number] Skin prepped and cleansed with alcohol Patch secured to prepped area Monitor Activated Serial # [id number] Patient Instructed: 1.) Prescribed order timeframe 2.) Bathing guidelines 3.) Usage of event button and diary documentation 4.) Return of monitor at the end of prescribed order 5.) Call with problems [phone] or [phone] ext. [phone] Patient expresses a good understanding of instructions Lou Conrad Ma Primary Visit Diagnosis:Tachycardia [R00.0] Other Visit Diagnosis:Palpitations [R00.2] During your visit today, we recorded the following information about you: Allergies As of Date: 03/10/2018 Noted Allergy Reaction AUGMENTIN (AMOXICILLIN-POT CLAVUL*11/26/2017 2 - Rash Date Reviewed: 03/10/2018 Reviewed by: Aline (Rn) JAYE Dela Cruz - Fully Assessed Prescriptions as of 03/10/2018 Sig: MECLIZINE 25 MG TABLET Take 1 tablet by mouth three * Patient taking differently: Take 25 mg by mouth as needed* OMEPRAZOLE 40 MG CAPSULE,DEBBIE* Take 1 capsule by mouth twice* AZELASTINE 137 MCG (0.1 %) NA* Use 1 Galva in each nostril t* BUDESONIDE-FORMOTEROL HFA 80 * Inhale 2 Puffs as instructed * Patient taking differently: Inhale 2 Puffs as instructed * ALBUTEROL SULFATE HFA 90 MCG/* Inhale 2 Puffs as instructed * OMEPRAZOLE 20 MG DELAYED RELE* Take 2 tablets by mouth once * RANITIDINE 300 MG TABLET Take 1 tablet by mouth daily * NORGESTIMATE 0.25 MG-ETHINYL * Take 1 tablet by mouth once d* ALBUTEROL INHALATION Inhale as instructed as neede* SERTRALINE 100 MG TABLET Take 100 mg by mouth once amelie* ONDANSETRON HCL 4 MG TABLET Take 4 mg by mouth every 8 ho* Encounter Status:Closed by LOU CONRAD MA on 03/10/18 PROGRESS Observed: 03/10/2018 Status: COMPLETED Source: DAWN 1:35 PM [facility] [place] REPOSITORY O ID: [id number] Author: Alfie Chicas Service: (none) Author Type: Physician Type: Progress Notes Filed: 03/14/2018 10:23 AM Note Text: [facility] [place] [facility] Department of Cardiovascular Medicine SECTION OF CARDIAC PACING and ELECTROPHYSIOLOGY OUTPATIENT VISIT DATE March 10, 2018 OUTPATIENT VISIT TYPE CONSULTATION PRIMARY CARE PHYSICIAN: Vance Jansen MD [address] [place] [address] REFERRING PHYSICIAN Jam Vallecillo MD [address] [address] CHIEF COMPLAINT: tachycardia HISTORY OF PRESENT ILLNESS: Cardiac consultation at the request of Dr. Jam Vallecillo.A copy of this consultation note will be provided to the requesting physician by way of shared Medical record or letter to requesting physician via US mail. Ms. Zuñiga is a 27 year old female with a past medical history significant for asthma, depression, migraines, and GERD is referred by Dr. vallecillo for the management of palpitations. Ms Zuñiga started having palpitations before her in July. Episodes were worse with and continued on Thursday. She does not have the episodes every day to occur every few days. Nothing bring his them on or makes them go away. The episodes are described as thuds rather than heart racing. When she gets significant numbers of these episodes they take her breath away. She has very mild dizziness. She has not passed out. The episodes are overall not severe. She does seem to think that she is under a lot of stress recently. She thinks the symptoms may started with the decision of steroids for allergies. She is no longer on steroids. NURSING INTAKE HISTORY: She has a history of anxiety and asthma. She has been in ED several times recently for dizziness and head pressure. EKG's have shown sinus rhythm/tachycardia. She has symptoms of head pressure, dizziness, neck aches, nausea, numbness/tingling, left ear fullness, and tinnitus. Her symptoms started in 07/2017, she had been on steroids (high doses upwards of 60 mg per day foe 2 weeks with abrupt stop) treated for allergies. Stress has been a factor to her symptoms. TSH normal from today, she was seen by endocrine today as well and will be seeing neuro in 2 weeks. No syncope, she does experience dizziness with standing described as flutters with associated deep breaths. PAST MEDICAL HISTORY Diagnosis Date - Anxiety panic attack - Asthma, exercise induced when was young. 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 - Tachycardia PAST SURGICAL HISTORY Procedure Laterality Date - SECTION HX 2014 - EGD W/O OR W/BRUSH/WASH 12/01/2017 EGD - PAST SURGICAL HISTORY OF 2003 left acl repair - PAST SURGICAL HISTORY OF 2006 right acl repair SOCIAL HISTORY Social History Substance Use Topics - Smoking status: Never Smoker - Smokeless tobacco: Never Used - Alcohol use No FAMILY HISTORY Problem Relation Age of Onset - other (Stomach ulcer) Mother - other (HTN) Father - Breast Cancer Maternal Grandmother - None Maternal Grandfather - None Paternal Grandmother - Diabetes Paternal Grandfather - Heart Paternal Grandfather OHS in 60 - Cancer Paternal Grandfather - Kidney Disease Paternal Grandfather - Asthma Brother exercise induced - other (IBD) Paternal Uncle ALLERGIES: ALLERGIES Allergen Reactions - Augmentin [Amoxicil* Rash MEDICATIONS: meclizine (ANTIVERT) 25 mg tab Take 1 tablet by mouth three times daily as needed. Omeprazole 40 mg capsule Take 1 capsule by mouth twice daily. azelastine (ASTELIN,ASTEPRO) 0.1% nasal spray Use 1 Galva in each nostril twice daily. budesonide-formoterol (SYMBICORT) 80-4.5 mcg/actuation inhaler Inhale 2 Puffs as instructed twice daily. albuterol HFA (PROAIR HFA) 90 mcg/actuation inhaler Inhale 2 Puffs as instructed every 6 hours as needed. omeprazole 20 mg disintegrating tablet (PriLOSEC) Take 2 tablets by mouth once daily. Ranitidine HCl (ZANTAC) 300 mg tablet Take 1 tablet by mouth daily at bedtime. norgestimate 0.25 mg-ethinyl estradiol 35 mcg (SPRINTEC) 0.25- 35 mg-mcg per tablet Take 1 tablet by mouth once daily. ALBUTEROL INHALATION Inhale as instructed as needed. sertraline (ZOLOFT) 100 mg tablet Take 100 mg by mouth once daily. ondansetron (ZOFRAN, HYDROCHLORIDE,) 4 mg tablet Take 4 mg by mouth every 8 hours as needed. REVIEW OF SYSTEMS: General, constitutional: Weight loss or gain- No, Fever or chills-No, Weakness-YES, Trouble sleeping-YES. Head, Eyes, Ears, Mouth: Headache, head injury-YES, Glasses or contact lenses-YES, Pain-No, Impaired vision-YES, Decreased hearing- No, Ringing in ears-YES, Nose bleeds-No, Dental difficulties-No, Bleeding gums-No, Dentures-No. Neck: Swelling-No, Pain-No, Stiffness-YES. Respiratory: Cough-No, Spitting up blood-No, Shortness of breath-YES, Wheezing or asthma-No. Musculoskeletal: Muscle or joint pain or stiffness-YES, Joint swelling-No. Gastrointestinal: Difficulty swallowing-No, Heartburn-YES, Change in bowel habits-YES, Blood in stool, Dark black stools-No. Neurological/Psychiatric: Weakness, paralysis-YES, Numbness-No, Tingling-YES, Tremor-No, Nervousness or anxiety-YES, Depressed mood-YES, Memory loss-No. Skin: Rash-No, Itching-No. Hematological: Easy bruising-No, Easy bleeding-No. Endocrine: Heat or cold intolerance-No, Excessive sweating- No, Frequent urination-YES, Frequent thirst-No. BRITNI Mckinney RN PHYSICAL EXAMINATION: BP 118/78 Pulse 94 Ht 157.5 cm (5' 2) Wt 54 kg (119 lb) LMP 02/08/2018 BMI 21.77 kg/m? General: Well appearing, in no acute distress. Skin: No clubbing, no cyanosis. Eyes: Extra ocular movements intact Oropharynx: Teeth in good repair. Neck: No jugular venous distention, no carotid bruits, carotids have a normal upstroke, no palpable thyromegaly. Lungs: Clear to auscultation bilaterally, no wheezing or rhonchi. Heart: Regular rhythm, PMI not displaced, S1, S2 normal, no S3, no S4, no heaves, no rub and no murmur. Abdomen: Soft, nontender, bowel sounds normal, no palpable organomegaly, no bruits. Extremities: No peripheral edema . Grade 2/4 distal pulses bilaterally. Neuro: Oriented to person, place and time, alert, cooperative, gait coordinated. CARDIOVASCULAR MEDICINE TESTING: Electrocardiogram: nsr I have personally reviewed the Electrocardiogram. IMPRESSION: Ms. Zuñiga is a 27 year old female with a past medical history significant for asthma, depression, migraines, and GERD is referred by Dr. vallecillo for the management of palpitations. PLAN AND RECOMMENDATIONS: Palpitations: Ms. Zuñiga has episodic palpitations. Her description episodes makes them sound very much like PVCs or PACs. They are not daily therefore will be missed with a Holter monitor. We will give her a Ziopatch in clinic today. If it turns out that all she has is mild ectopy watch weight will be pursued. She will send me a message on my chart in 4 weeks for the results. I personally interviewed, confirmed and edited the above information as obtained by others. Notes to MD Jam Frias MD ECG COMPLETE W Observed: 03/10/2018 Status: F Source: [facility] INTERPRETATION 1:28 PM [facility] REPOSITORY NAME : LORENZO ZUÑIGA PID : [id number] : 1990 Gender : Female Race : ORD : [id number] Procedure Date : Mar 10 2018 13:28:08 Edit Date : Mar 11 2018 14:51:02 Diagnosis:NORMAL SINUS RHYTHM NORMAL ECG Confirmed by MD DORYS, PhD, JOON ([id number]) on 03/11/2018 2:50:57 PM Ventricular Rate : 94 BPM Atrial Rate : 94 BPM P-R Interval : 142 ms QRS Duration : 86 ms Q-T Interval : 368 ms QTC Calculation(Bezet) : 460 ms P [place] : 63 degrees R [place] : 26 degrees T [place] : 22 degrees Test Reason : Location : 314 : J14 J14 Overread By : MD DORYS, PhD,JOON Edited By : MD DORYS, PhD,JOON Referred By : ALFIE CHICAS Acquired by : ZAIRE VALDEZ Observed: 03/10/2018 Status: COMPLETED Source: DAWN 1:15 PM [facility] REPOSITORY Office Visit (CARDMN) LORENZO ZUÑIGA ([id number]) 1990 F Date Time Provider Department 03/10/18 1:15 PM ALFIE CHICAS During your visit today, we recorded the following information about you: Pulse Blood pressure Weight Height 94/minute 118/78 54 kg 1.575 m Alfie Chicas MD 03/14/2018 10:23 AM Signed [facility] [place] [facility] Department of Cardiovascular Medicine SECTION OF CARDIAC PACING and ELECTROPHYSIOLOGY OUTPATIENT VISIT DATE March 10, 2018 OUTPATIENT VISIT TYPE CONSULTATION PRIMARY CARE PHYSICIAN: Vance Jansen MD [id number] [place] [id number] REFERRING PHYSICIAN Jam Vallecillo MD [address] [place] [id number] CHIEF COMPLAINT: tachycardia HISTORY OF PRESENT ILLNESS: Cardiac consultation at the request of Dr. Jam Vallecillo.A copy of this consultation note will be provided to the requesting physician by way of shared Medical record or letter to requesting physician via US mail. Ms. Zuñiga is a 27 year old female with a past medical history significant for asthma, depression, migraines, and GERD is referred by Dr. vallecillo for the management of palpitations. Ms Zuñiga started having palpitations before her in July. Episodes were worse with and continued on Thursday. She does not have the episodes every day to occur every few days. Nothing bring his them on or makes them go away. The episodes are described as thuds rather than heart racing. When she gets significant numbers of these episodes they take her breath away. She has very mild dizziness. She has not passed out. The episodes are overall not severe. She does seem to think that she is under a lot of stress recently. She thinks the symptoms may started with the decision of steroids for allergies. She is no longer on steroids. NURSING INTAKE HISTORY: She has a history of anxiety and asthma. She has been in ED several times recently for dizziness and head pressure. EKG's have shown sinus rhythm/tachycardia. She has symptoms of head pressure, dizziness, neck aches, nausea, numbness/tingling, left ear fullness, and tinnitus. Her symptoms started in 07/2017, she had been on steroids (high doses upwards of 60 mg per day foe 2 weeks with abrupt stop) treated for allergies. Stress has been a factor to her symptoms. TSH normal from today, she was seen by endocrine today as well and will be seeing neuro in 2 weeks. No syncope, she does experience dizziness with standing described as flutters with associated deep breaths. PAST MEDICAL HISTORY Diagnosis Date - Anxiety panic attack - Asthma, exercise induced when was young. 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 heart regular rate rhythm no murmurs, rubs, lungs clear to auscultation bilaterally, abdomen soft nontender nondistended Assessment/Plan are patient without any obvious abnormal general workup here. She felt improved with anxiety medication provided here patient given information for follow-up including endocrine, neurology, and cardiology as needed. She has verbalized understanding and is discharged in stable condition. Other additions or changes: None Signature: Jam Vallecillo MD Date: 03/09/2018 Time: 4:09 PM Jam Vallecillo MD 03/09/18 1613 LAB MISCELLANEOUS Collected: 03/04/2018 Status: F Source: [facility] 4:51 PM [facility] REPOSITORY TYPE CODE TESTS RESULT OUT OF RANGE REFERENCE UNITS LAB [id number](LO INC) Normal Test Name Lyme AB Total LAB [id number](LO INC) Normal Status See Ref Lab Report Performed By: #### [id number] #### [place] [address] PROGRESS Observed: 02/25/2018 Status: COMPLETED Source: [facility] 9:19 PM [facility] [place] REPOSITORY HNO ID: [id number] Author: ROYER Farr (Ct) Service: (none) Author Type: Clinical Pmo Consultant Type: Progress Notes Filed: 02/25/2018 9:20 PM Note Text: Radiology Service Progress Note PATIENT NAME: Lorenzo Burnham DATE OF SERVICE: February 25, 2018 TIME: 9:19 PM PATIENT IDENTITY VERIFICATION COMPLETED USING TWO (2) METHODS: Patient confirmed name verbally and ID band matches.. PATIENT GENDER DATA: Female. status: : No status: NO. PATIENT RELEVANT IMPLANT DATA REVIEWED: Yes RADIOLOGY DEPARTMENT: CT; Exam(s) Completed: Brain and Spine PERIPHERAL IV DATA: Not applicable SIGNED BY: ROYER Farr February 25, 2018 9:[address] CERVICAL SPINE WO Observed: 02/25/2018 Status: F Source: [facility] IVCON 9:18 PM [facility] REPOSITORY * * *Final Report* * * DATE OF EXAM: Feb 25 2018 9:18PM [facility] 0505 - CT CERVICAL SPINE WO IVCON / PROCEDURE REASON: Mass or lump, spine * * * * Physician Interpretation * * * * EXAMINATION: CT CERVICAL SPINE WO IVCON CLINICAL HISTORY: Headache and blurry vision. Mass or lump, spine. TECHNIQUE: CT of the cervical spine without IV contrast. Spiral, high resolution axial images were obtained from the skull base to the cervicothoracic junction with sagittal and coronal planar reconstructions. MQ: [id number] CT Dose-Length Product (DLP): 1086 mGy*cm CT Dose Reduction Employed: No dose reduction techniques were required COMPARISON: None. RESULT: Counting reference: Craniocervical junction. Anatomic Variants: None. Alignment: Alignment is anatomic. Craniocervical junction: Craniocervical junction is normal. Osseous structures/fracture: No evidence of a lytic or blastic process in the visualized spine. No evidence of acute or chronic fracture. Cervical soft tissues: The paraspinal soft tissues are within normal limits. The thyroid gland is unremarkable. Degenerative changes: No significant degenerative changes. C2-C3: Canal and foramina are patent. C3-C4: Canal and foramina are patent. C4-C5: Canal and foramina are patent. C5-C6: Canal and foramina are patent. C6-C7: Canal and foramina are patent. C7-T1: Canal and foramina are patent. IMPRESSION: No acute fracture or subluxation of the cervical spine. Anatomic Variant: None. Assume 7 cervical vertebrae with counting from the craniocervical junction. Vibration Technician: NI Transcribe Date/Time: Feb 25 2018 9:19P Dictated by : MOON BARNEY MD This examination was interpreted and the report reviewed and electronically signed by: SUKHDEEP BERNARD MD on Feb 25 2018 9:46PM EST [id number] CT BRAIN WO IVCON Observed: 02/25/2018 Status: F Source: [facility] 9:18 PM [facility] REPOSITORY * * *Final Report* * * DATE OF EXAM: Feb 25 2018 9:18PM [facility] 0504 - CT BRAIN WO IVCON / PROCEDURE REASON: Vision changes * * * * Physician Interpretation * * * * EXAMINATION: CT BRAIN WO IVCON CLINICAL HISTORY: Headaches with vision changes. TECHNIQUE: Serial axial images without IV contrast were obtained from the vertex to the foramen magnum. MQ: CTBWO_3 CT Dose-Length Product (DLP): 1086 mGy*cm CT Dose Reduction Employed: No dose reduction techniques were required COMPARISON: Sinus CT 03/27/2009 RESULT: Post-operative change: None. Acute change: No evidence of an acute intracranial process. Hemorrhage: No evidence of acute intracranial hemorrhage. Mass Lesion / Mass Effect: There is no evidence of an intracranial mass or extraaxial fluid collection. No significant mass effect. Chronic change: None apparent. Parenchyma: There is no significant volume loss. The brain parenchyma is otherwise within normal limits for age. Ventricles: The ventricles are within normal limits of size and configuration for age. Paranasal sinuses and skull base: The visualized paranasal sinuses are grossly clear. The skull base and imaged soft tissues are unremarkable. IMPRESSION: Age-appropriate CT of the brain without evidence of an acute intracranial process. Vibration Technician: NI Transcribe Date/Time: Feb 25 2018 9:24P Dictated by : MOON BARNEY MD This examination was interpreted and the report reviewed and electronically signed by: SUKHDEEP BERNARD MD on Feb 25 2018 9:47PM EST [id number] CBC AND DIFFERENTIAL Collected: 02/25/2018 Status: F Source: [facility] 7:23 PM [facility] REPOSITORY TYPE CODE TESTS RESULT OUT OF REFERENCE UNITS RANGE LAB WBC 3.70-11.00 k/uL WBC 8.97 LAB RBC 3.90-5.20 m/uL Low RBC 3.56 LAB HGB 11.5-15.5 g/dL Low Hemoglobin 11.2 LAB HCT 36.0-46.0 % Low Hematocrit 32.1 LAB MCV 80.0-100.0 fL MCV 90.2 LAB MCH 26.0-34.0 pG MCH 31.5 LAB MCHC 30.5-36.0 g/dL MCHC 34.9 LAB RDWCV 11.5-15.0 % RDW-CV 11.5 LAB PLTCT 150-400 k/uL Platelet Count 351 LAB MPV 9.0-12.7 fL Low MPV 8.7 LAB ANEUT % Neut% 62.1 LAB AANEUT 1.45-7.50 k/uL Abs Neut 5.55 LAB ALYMP % Lymph% 29.2 LAB AALYMP 1.00-4.00 k/uL Abs Lymph 2.62 LAB AMONO % [place]com% 7.0 LAB AAMONO <0.87 k/uL Abs [place]com 0.63 LAB AEOS % Eosin% 0.8 LAB AAEOS <0.46 k/uL Abs Eosin 0.07 LAB ABASO % Baso% 0.9 LAB AABASO <0.11 k/uL Abs Baso 0.08 LAB AUNRBC 0 /100 WBC NRBCs 0.0 LAB ABNRBC <0.01 k/uL Absolute nRBC <0.01 LAB DTYP DTYPE Auto Diff Performed By: #### CBCDIF, BMP, MG1 #### [facility] [address] [place], [place] [address] BASIC METABOLIC PANL Collected: 02/25/2018 Status: F Source: [facility] 7:23 PM [facility] [place] REPOSITORY TYPE CODE TESTS RESULT OUT OF REFERENCE UNITS RANGE LAB GLU 74-99 mg/dL High Glucose 103 Result Comment: The [place] Diabetes Association (ADA) provides guidance for cutoff values for fasting glucose and random glucose. The ADA defines fasting as no caloric intake for at least 8 hours. Fas ting plasma glucose results between 100 to 125 mg/dL indicate increased risk for diabetes (prediabetes). Fasting plasma glucose results greater than or equal to 126 mg/dL meet the criteria for diagnosis of diabetes. In the absence of unequivocal hyperglycemia, results should be confirmed by repeat testing. In a patient with classic symptoms of hyperglycemia or hyperglycemic crisis, random plasma glucose results greater than or equal to 200 mg/dL meet the criteria for diagnosis of diabetes. Reference: Standards of Medical Care in Diabetes 2016, [place] Diabetes Association. Diabetes Care. 2016.39(Suppl 1). LAB BUN 7-21 mg/dL BUN 10 LAB CRET 0.58-0.96 mg/dL Creatinine 0.83 LAB NA 136-144 mmol/L Sodium 139 LAB K 3.7-5.1 mmol/L Potassium Low 3.6 LAB CL 97-105 mmol/L Chloride 102 LAB CO2 22-30 mmol/L CO2 23 LAB AGAP 9-18 mmol/L Anion Gap 14 LAB CA 8.5-10.2 mg/dL Calcium, Total 9.2 LAB GFRAA eGFR- Amer. >60 LAB GFRNAA . eGFR-All Other Races >60 Result Comment: eGFR (Estimated GFR) Units of measure: mL/min/1.73 meters squared eGFR is derived from the reexpressed MDRD Study equation using the following parameters: serum creatinine, age, gender and race. The creatinine assay has been calibrated to be traceable to IDMS. An eGFR <60 mL/min/1.73m2 for >3 months is consistent with chronic kidney disease. Refer to KDOQI guidelines for clinical interpretation. In patients with unstable renal function, e.g. those with acute kidney injury, the eGFR may not accurately reflect actual GFR. Performed By: #### CBCDIF, BMP, MG1 #### [facility] [address] [place], [place] [address] MAGNESIUM Collected: 02/25/2018 Status: F Source: [facility] 7:23 PM [facility] REPOSITORY TYPE CODE TESTS RESULT OUT OF REFERENCE UNITS RANGE LAB MG 1.7-2.3 mg/dL Magnesium 2.1 Performed By: #### CBCDIF, BMP, MG1 #### [facility] [address] [place], [place] [address] ED NOTE Observed: 02/25/2018 Status: COMPLETED Source: [facility] 7:13 PM [facility] REPOSITORY HNO ID: [id number] Author: Serge (Rn) JAYE Khalil Service: Emergency Medicine Author Type: Registered Nurse Type: ED Notes Filed: 02/25/2018 7:15 PM Note Text: Assumed care of pt. Pt presents to ED with c/o Headache and blurry vision. I agree with pervious curriculum and assessment director. Pt states the headache is generalized and intermittent. Neuro intact. PERRLA. Pt is AANDOx3, speaking in full sentences. ABC intact, respirations even and unlabored. Safety checks complete. NAD. Will continue to monitor. ED PROV NOTE Observed: 02/25/2018 Status: COMPLETED Source: [facility] 6:49 PM [facility] REPOSITORY HNO ID: [id number] Author: Bret Infante MD Service: Emergency Medicine Author Type: Physician Type: ED Provider Notes Filed: 02/27/2018 2:08 PM Note Text: ED Provider Note Patient Name: Lorenzo Burnham SERVICE DATE: 02/25/18 History Patient presents with: Dizziness: Pt was on Prednisone in Jul, and was not tapered off and since has been having intermittent dizziness, nausea, and blurred vision. Pt states she feels like she is drunk, and is not able to get into neuro until April. Denies SOB, chest pain. Blurred Vision Pt is a 27 year old female hx of asthma, anxiety, panic attacks presenting with dizziness and head pressure. Symptoms present for 7 months, however are worsening. Patient describes attacks that last up to a week each time. Attacks are made of dizziness, head pressure, neck aches, blurred vision, nausea, and numbness/tingling in her hands and feet. Currently experiencing an attack that has been ongoing for one week. Symptoms appear to be stress induced. First symptom of attack is dizziness, left ear fullness and tinnitus. Patient was seen recently and given zofran. Patient is , unsupportive , one child. Sees a counselor who recommended divorce but patient did not want to. Denies fever, chills, night sweats, weight loss/gain. PAST MEDICAL HISTORY Diagnosis Date - Anxiety panic attack - Asthma, exercise induced when was young. 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 PAST SURGICAL HISTORY Procedure Laterality Date - SECTION HX - EGD W/O OR W/BRUSH/WASH 12/01/2017 EGD - PAST SURGICAL HISTORY OF 2003 left acl repair - PAST SURGICAL HISTORY OF 2006 right acl repair FAMILY HISTORY Problem Relation Age of Onset - other (Stomach ulcer) Mother - other (HTN) Father - Breast Cancer Maternal Grandmother - None Maternal Grandfather - None Paternal Grandmother - Diabetes Paternal Grandfather - Heart Paternal Grandfather OHS in 60 - Cancer Paternal Grandfather - Kidney Disease Paternal Grandfather - Asthma Brother exercise induced - other (IBD) Paternal Uncle Social History Social History Main Topics - Smoking status: Never Smoker - Smokeless tobacco: Never Used - Alcohol use No - Drug use: No - Sexual activity: Yes Comment: on control ALLERGIES Allergen Reactions - Augmentin [Amoxicil* Rash Review of Systems Constitutional: Negative for chills and fever. HENT: Positive for ear pain and hearing loss. Negative for trouble swallowing. Eyes: Positive for visual disturbance. Respiratory: Negative for cough and shortness of breath. Cardiovascular: Negative for chest pain. Gastrointestinal: Positive for nausea. Negative for abdominal pain, diarrhea and vomiting. Genitourinary: Negative for difficulty urinating. Musculoskeletal: Positive for neck pain. Negative for back pain. Skin: Negative for rash. Neurological: Positive for dizziness and headaches. Negative for syncope and light-headedness. Psychiatric/Behavioral: Negative. Physical Exam BP 117/74 Pulse 99 Temp (Src) 98.2 (Oral) Resp 16 Wt 118 lb (53.5kg) SpO2 99% Physical Exam Constitutional: She is oriented to person, place, and time. She appears well-developed and well-nourished. HENT: Head: Normocephalic and atraumatic. Eyes: Pupils are equal, round, and reactive to light. Conjunctivae and EOM are normal. Neck: Normal range of motion. Neck supple. Cardiovascular: Regular rhythm, normal heart sounds and intact distal pulses. Tachycardia present. Pulmonary/Chest: Effort normal. No respiratory distress. She has no wheezes. Abdominal: Soft. She exhibits no distension. There is no tenderness. Musculoskeletal: Normal range of motion. She exhibits no edema or tenderness. Neurological: She is alert and oriented to person, place, and time. She has normal strength. She displays no tremor. No cranial nerve deficit or sensory deficit. She displays a negative Romberg sign. Gait abnormal. Coordination normal. GCS eye subscore is 4. GCS verbal subscore is 5. GCS motor subscore is 6. Reflex Scores: Brachioradialis reflexes are 2+ on the right side and 2+ on the left side. Patellar reflexes are 2+ on the right side and 2+ on the left side. Normal heel to toe walking. Normal finger to nose. Skin: Skin is warm and dry. Psychiatric: She has a normal mood and affect. Her behavior is normal. Nursing note and vitals reviewed. Diagnostic Testing ED Labs Ordered and Reviewed BASIC METABOLIC PNL - Abnormal; Notable for the following: Result Value Ref Range Glucose 103 (*) 74 - 99 mg/dL Potassium 3.6 (*) 3.7 - 5.1 mmol/L All other components within normal limits CBC + DIFF - Abnormal; Notable for the following: RBC 3.56 (*) 3.90 - 5.20 m/uL Hemoglobin 11.2 (*) 11.5 - 15.5 g/dL Hematocrit 32.1 (*) 36.0 - 46.0 % MPV 8.7 (*) 9.0 - 12.7 fL All other components within normal limits HCG URINE - ED(POC) - Normal MAGNESIUM BLD Procedures ED Course / Clinical Impression Clinical Impressions as of Feb 28 1408 Left ear pain TMJ (temporomandibular joint disorder) Dizzy Depression with anxiety Course: Vital signs were reviewed. Triage records were reviewed. Medical records were reviewed. Nursing notes were reviewed and incorporated. The following medications were administered: meclizine, Tylenol Patient placed on monitor ECG reviewed and interpreted as NSR, normal internals, no ectopy Labs reviewed and interpreted - HCG - negative Mag - WNL CBC - No leukocytosis, no thrombocytopenia, stable anemia BMP-minimal hypokalemia, normal renal function, no other electorally abnormalities Radiographs were reviewed CTH - Age-appropriate CT of the brain without evidence of an acute intracranial process. CT neck - .No acute fracture or subluxation of the cervical spine. Medical Decision Making: Patient is a 27-year-old female presents as above. Hemodynamically stable, in no apparent distress. Unclear cause of symptoms. Workup as above, notable for mild hypokalemia. Treated with 40 mg of KDUR. Imaging negative for any acute process in the head or neck. Patient symptomatically improved with demonstration of Tylenol and meclizine. Patient is established with the ENT and speech pathologist who patient pitting to see for her chronic symptoms. No acute process identified time. The attending who evaluated and managed this patient was Bret Infante . MDM / Disposition / Plan MDM The patient was DISCHARGED: Counseled patient regarding lab results AND radiology results AND suspected diagnosis AND need for follow- up. Discharged home with verbal and written instructions. They were instructed to return as needed for persistent or worsening symptoms or any new concerns. Condition at time of disposition: stable SIGNATURE: DO Lorenzo Dumont (Res) DO Wan Resident 02/25/18 6389 Attending Note I evaluated the patient and personally participated in the damian components. I agree with the resident's findings and plan as documented and have discussed the case and management of the patient's care with the resident. 27 yo F drove herself from home in [place], [place] (near [place]) for evaluation [facility] main ER intermittent episodes dizziness / vertigo, sometimes worse with head movement flexed to extended or left to right. NO consistent aggravation / alleviation and duration variable. 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 She is reticent to contact her EAP, citing [place] town and everyone would know her personal business. No noted neurologic deficits on exam, NIH 0, nml gait, coordination, no visual or hearing changes. She has had neuro and ET outpt evaluations and her own DDS states she has tremendous TMJ and bruxism, likely due to stresses. EKG sinus tachycardia HR 115, qtc 481 ms, no acute ischemic changes, She does have anxiety that she has brain tumor, since her mother and have made such remarks and she is seeking CT head to dispprrove this. Pt care endorsed to Dr Rosie Lovelace, pending neg CT head and c-spine to d/c home, referral to psychiatry. She states she feels safe in her home, not concerned about physical / domestic violence. Outpt psychiatry / counseling recommended Signature: Bret Infante MD Date: 02/27/2018 Time: 1:59 PM Bret Infante MD 02/27/18 1408 ED NOTE Observed: 02/25/2018 Status: COMPLETED Source: [facility] 6:08 PM [facility] REPOSITORY O ID: [id number] Author: Marah (Rn) JAYE Suazo Service: (none) Author Type: Registered Nurse Type: ED Notes Filed: 02/25/2018 6:09 PM Note Text: Patient complains of headache states that she was given a prednisone dose in Jul without a taper and has had headaches every 2 weeks since with intermittent blurred vision and a floating feeling. ABCs are intact. Pt is A AND O x 3. No signs of acute distress. Respirations even and unlabored. Lungs are clear. Heart sounds are RRR. Skin is warm, dry, and acyanotic. Pt moves all extremities. Pulses are equal bilateral on both upper and lower extremities. PLAN OF CARE: Monitor pt's vital signs for changes in condition. Monitor pt. for changes in pain. Maintain pt. safety and privacy. Provide comfort measures. Call light in place, side rails up, bed in locked and low position. 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 Has palpitations at times, no evaluation yet ? Moderate persistent asthma, flares up with allergies, and laryngospasm episodes, not well controlled now, needs optimization ? Plan: as provided to patient ? Vicious cycle as we talked about ? All of these affect each other ? Allergies Asthma Reflux Vocal cord dysfunction (paradoxical vocal fold motion disorder) vs. Laryngospasm and also muscle tension of throat ? https://www.aaaai.org/saskekadae-ddi-dqnqcusqdx/related-conditions/vocal-co rd-dysfunction ? fauqiuer vocal cord videos: laryngospasm and vocal cord dysfunction ? Asthma: Symbicort 80 mcg dose 2 puff in am and 2 puff in pm Albuterol as needed Use chamber for both ? Reflux Increase the regimen Prilosec 40 mg in am (30 min prior to meals) and Zantac 300 mg at night Diet sheet ? Vocal cord/tension Learn new techniques/biofeedback However I think mild dose of neurontin will redue how easily you get triggered in your throat--you have muscle tension there. 100 mg at night, can increase to 200 mg at night if not strong enough ? Seeing Dr. Beltran (speech pathologist) who will help with the laryngospasm ? Secret: straw purse lips and breathe through the strays (half) Sniff It's all about diverting tension ? Allergies: Ok to take claritin or zyrtec ? Visit time was > 40 minutes, of which over half of visit was spent on discussions with patient on disease education and counselling. History Lorenzo Burnham is a 27 year old female with asthma who presents today for follow-up. Saw Dr. Beltran this morning Did not start symbicort because copay too high Albuterol - has been taking, helps a little, but no difference really Spacer might have helped a little bit. Having heartburn symptoms Feels choking sensation Element of PVFM observed on laryngoscopy this morning Has been doing straw breathing and it has been helping Has not had worsened choking incident in visit interim. Holding cough in and this helps too Recommended to have laryngeal retraining for the PVFM Was using gabapentin No change on it. Same throat symptoms Symptoms worse in humidity Rhinitis Taking claritin- it has helped On Flonase in the past- dry/bloody nose. Medications Current Outpatient Prescriptions: budesonide-formoterol (SYMBICORT) 80-4.5 mcg/actuation inhaler Inhale 2 Puffs as instructed twice daily. (Patient not taking: Reported on 01/05/2018 ) albuterol HFA (PROAIR HFA) 90 mcg/actuation inhaler Inhale 2 Puffs as instructed every 6 hours as needed. omeprazole 20 mg disintegrating tablet (PriLOSEC) Take 2 tablets by mouth once daily. Ranitidine HCl (ZANTAC) 300 mg tablet Take 1 tablet by mouth daily at bedtime. gabapentin (NEURONTIN) 100 mg capsule 1 pill at night, increase to 2 pills at night if tension continues norgestimate 0.25 mg-ethinyl estradiol 35 mcg (SPRINTEC) 0.25- 35 mg-mcg per tablet Take 1 tablet by mouth once daily. omeprazole (PRILOSEC ORAL) Take 40 mg by mouth once daily. ALBUTEROL INHALATION Inhale as instructed as needed. sertraline (ZOLOFT) 100 mg tablet Take 100 mg by mouth once daily. ondansetron (ZOFRAN, HYDROCHLORIDE,) 4 mg tablet Take 4 mg by mouth every 8 hours as needed. No current facility-administered medications for this visit. There is no immunization history on file for this patient. Allergies ALLERGIES Allergen Reactions - Augmentin [Amoxicil* Rash This patient's past medical history, family history, social history, medications and allergies have been reviewed from the [facility] electronic medical record and any appropriate up-dates have been made. Physical Exam BP 109/70 Pulse 84 Temp 36.5 ?C (97.7 ?F) Resp 20 Ht 157.5 cm (5' 2) Wt 54.4 kg (120 lb) SpO2 94% BMI 21.95 kg/m? GEN: NAD, AANDO x 3, speaking in full sentences HEENT: EOMI, sinus non tender; clear oropharynx, nares patent CV: RRR no MRG, no heaves/thrills, 2+ radial arteries bilaterally, no clubbing, cyanosis or edema of LE Lungs: symmetrical expansion, good breath sounds, no wheeze, Ext: gait normal, digits/nails no clubbing, cyanosis or edema, muscles of head and neck stable, non-tender. Diagnostic Data SPIROMETRY - BASELINE AND POST DILATOR ([id number]) - ordered on 12/09/17 [facility] [address] [place] [address] Test Date: 2017-12-09 Pat Name: LORENZO BURNHAM Department: Room: Gender: Female Pmo Consultant: ISAAC Zavala : 1990 Requested By: Order Number: [id number] Reading MD: Dr. Carmelo Dahl MD Interpretive Statements Test no. 2 12/09/2017 10:17:09AM PRE AND POST BD: ATS acceptability and repeatability standards for spirometry met. 4 puffs Xopenex (45 mcg) delivered by MDI via valved holding chamber, HRpre=85/min, HRpost=91 /min. Medications and Allergies were reviewed for possible drug interactions per policy MM-102. No contraindications or sensitivities were noted. No Respiratory meds taken before testing. //KW IMPRESSION: Spirometry is normal. There was not a significant bronchodilator response. Electronically Signed On 12-09-2017 15:42:35 EDT by Fellow Mandy Paulino Electronically Signed On 12-09-2017 18:23:[address] Carmelo Dahl MD [facility] [place] Pulmonary Function Lab Pred LLN ULN Pre % Post % % chg Date [id number] Time 09:54AM 10:11AM -- Height 159.8 159.8 Weight 53.6 53.6 -- FVC 3.65 2.98 4.32 4.03 110 4.09 112 1 FEV 1 3.12 2.55 3.68 3.38 109 3.56 114 5 FEV1%F 84.86 75.07 94.65 83.91 99 86.98 103 4 FEV 2 3.20 2.46 3.94 3.79 119 3.90 122 3 FEV 3 3.60 2.98 4.22 3.93 109 4.00 111 2 FEV3%E 98.62 93.26 104.0 97.32 99 97.83 99 1 MEF 50 4.08 2.90 5.26 4.05 99 5.70 140 41 FIF 50 5.59 7.85 40 MMEF 3.46 2.26 4.66 3.60 104 4.54 131 26 FE%FIF 72.43 72.71 0 FEV6 4.03 4.09 1 PEF 6.40 4.67 8.13 7.60 119 8.54 133 12 FET 6.17 6.12 -1 FETPEF 0.08 0.07 -5 VBe%FV 3.52 3.67 4 VBEex 0.14 0.15 6 -- VC MAX 3.65 2.98 4.32 4.03 110 4.09 112 1 -- -- -- I have personally reviewed and confirmed the findings on pulmonary function testing. ACT: 13 Impression / Plan: Asthma - not well controlled, was not able to step up therapy in visit interim- couldn't get symbicort. Symptoms in meantime were helped with straw and pursed lip breathing Signs of reflux per Dr. Beltran, pt also had EGD revealing gastritis and hiatal hernia Pt currently on 40 mg PPI morning, zantac at night. - Start symbicort for asthma- pt provided with virtual voucher card and copay card - Increase PPI for GERD - omeprazole 40 mg BID, continue zantac at night as well - Follow up with Dr. Beltran for laryngeal retraining sessions (recommended [address] Beltran) - OK to d/c gabapentin- instructed pt to keep - if symptoms continue despite above therapies, could reconsider use. Chronic sinus symptoms/rhinitis - Advised to try saline rinses - frequent sinus infections (multiple times during most alvarez, needs antibiotics) - if these continue, consider consult to Dr. Taylor for evaluation for candidacy for surgery. Pt to follow up in 1-2 months, or day she is here for last visit with Dr. Beltran. Will assess efficacy of symbicort and other treatments at that time. Advised pt to call sooner if any issues The duration of this appointment visit was 30 minutes of pkfu-xk-owxg time with the patient. More than 50% of this time was spent in counseling, explanation of diagnosis, planning of further management, and coordination of care. Yael Ordonez PA-C [facility] [place] January 05, 2018 11:57 AM CNOV Observed: 01/05/2018 Status: COMPLETED Source: DAWN 11:30 AM [facility] REPOSITORY Office Visit (PULMMN) LORENZO BURNHAM ([id number]) 1990 F Date Time Provider Department 01/05/18 11:30 AM YAEL ORDONEZ) PULMMBilly During your visit today, we recorded the following information about you: Temperature Pulse Respiration Blood pressure 97.7 degrees 84/minute 20/minute 109/70 Weight Height 54.4 kg 1.575 m AMBREEN Caba 01/05/2018 5:14 PM Signed At last visit : Impression/Plan Complex multifactorial dyspnea, vicious cycle of asthma, allergies, GERD, and 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 Has palpitations at times, no evaluation yet ? Moderate persistent asthma, flares up with allergies, and laryngospasm episodes, not well controlled now, needs optimization ? Plan: as provided to patient ? Vicious cycle as we talked about ? All of these affect each other ? Allergies Asthma Reflux Vocal cord dysfunction (paradoxical vocal fold motion disorder) vs. Laryngospasm and also muscle tension of throat ? https://www.aaaai.org/ezvrdxnwdm-zxi-dbsyuygpwh/related-conditions/stjob-fckk-v- ysfunction ? fauqiuer vocal cord videos: laryngospasm and vocal cord dysfunction ? Asthma: Symbicort 80 mcg dose 2 puff in am and 2 puff in pm Albuterol as needed Use chamber for both ? Reflux Increase the regimen Prilosec 40 mg in am (30 min prior to meals) and Zantac 300 mg at night Diet sheet ? Vocal cord/tension Learn new techniques/biofeedback However I think mild dose of neurontin will redue how easily you get triggered in your throat--you have muscle tension there. 100 mg at night, can increase to 200 mg at night if not strong enough ? Seeing Dr. Beltran (speech pathologist) who will help with the laryngospasm ? Secret: straw purse lips and breathe through the strays (half) Sniff It's all about diverting tension ? Allergies: Ok to take claritin or zyrtec ? Visit time was > 40 minutes, of which over half of visit was spent on discussions with patient on disease education and counselling. History Lorenzo Burnham is a 27 year old female with asthma who presents today for follow-up. Saw Dr. Beltran this morning Did not start symbicort because copay too high Albuterol - has been taking, helps a little, but no difference really Spacer might have helped a little bit. Having heartburn symptoms Feels choking sensation Element of PVFM observed on laryngoscopy this morning Has been doing straw breathing and it has been helping Has not had worsened choking incident in visit interim. Holding cough in and this helps too Recommended to have laryngeal retraining for the PVFM Was using gabapentin No change on it. Same throat symptoms Symptoms worse in humidity Rhinitis Taking claritin- it has helped On Flonase in the past- dry/bloody nose. Medications Current Outpatient Prescriptions: budesonide-formoterol (SYMBICORT) 80-4.5 mcg/actuation inhaler Inhale 2 Puffs as instructed twice daily. (Patient not taking: Reported on 01/05/2018 ) albuterol HFA (PROAIR HFA) 90 mcg/actuation inhaler Inhale 2 Puffs as instructed every 6 hours as needed. omeprazole 20 mg disintegrating tablet (PriLOSEC) Take 2 tablets by mouth once daily. Ranitidine HCl (ZANTAC) 300 mg tablet Take 1 tablet by mouth daily at bedtime. gabapentin (NEURONTIN) 100 mg capsule 1 pill at night, increase to 2 pills at night if tension continues norgestimate 0.25 mg-ethinyl estradiol 35 mcg (SPRINTEC) 0.25- 35 mg-mcg per tablet Take 1 tablet by mouth once daily. omeprazole (PRILOSEC ORAL) Take 40 mg by mouth once daily. ALBUTEROL INHALATION Inhale as instructed as needed. sertraline (ZOLOFT) 100 mg tablet Take 100 mg by mouth once daily. ondansetron (ZOFRAN, HYDROCHLORIDE,) 4 mg tablet Take 4 mg by mouth every 8 hours as needed. No current facility-administered medications for this visit. There is no immunization history on file for this patient. Allergies ALLERGIES Allergen Reactions - Augmentin [Amoxicil* Rash This patient's past medical history, family history, social history, medications and allergies have been reviewed from the [facility] electronic medical record and any appropriate up-dates have been made. Physical Exam BP 109/70 Pulse 84 Temp 36.5 ?C (97.7 ?F) Resp 20 Ht 157.5 cm (5' 2) Wt 54.4 kg (120 lb) SpO2 94% BMI 21.95 kg/m? GEN: NAD, AANDO x 3, speaking in full sentences HEENT: EOMI, sinus non tender; clear oropharynx, nares patent CV: RRR no MRG, no heaves/thrills, 2+ radial arteries bilaterally, no clubbing, cyanosis or edema of LE Lungs: symmetrical expansion, good breath sounds, no wheeze, Ext: gait normal, digits/nails no clubbing, cyanosis or edema, muscles of head and neck stable, non-tender. Diagnostic Data SPIROMETRY - BASELINE AND POST DILATOR ([id number]) - ordered on 12/09/17 [facility] [address] [place] [address] Test Date: 2017-12-09 Pat Name: LORENZO BURNHAM Department: Room: Gender: Female Pmo Consultant: ISAAC Zavala : 1990 Requested By: Order Number: [id number] Reading MD: Dr. Carmelo Dahl MD Interpretive Statements Test no. 2 12/09/2017 10:17:09AM PRE AND POST BD: ATS acceptability and repeatability standards for spirometry met. 4 puffs Xopenex (45 mcg) delivered by MDI via valved holding chamber, HRpre=85/min, HRpost=91 /min. Medications and Allergies were reviewed for possible drug interactions per policy MM-102. No contraindications or sensitivities were noted. No Respiratory meds taken before testing. //KW IMPRESSION: Spirometry is normal. There was not a significant bronchodilator response. Electronically Signed On 12-09-2017 15:42:35 EDT by Fellow Mandy Paulino Electronically Signed On 12-09-2017 18:23:[address] Carmelo Dahl MD [facility] [place] Pulmonary Function Lab Pred [facility] Pre % Post % % chg Date [id number] Time 09:54AM 10:11AM Height 159.8 159.8 Weight 53.6 53.6 FVC 3.65 2.98 4.32 4.03 110 4.09 112 1 FEV 1 3.12 2.55 3.68 3.38 109 3.56 114 5 FEV1%F 84.86 75.07 94.65 83.91 99 86.98 103 4 FEV 2 3.20 2.46 3.94 3.79 119 3.90 122 3 FEV 3 3.60 2.98 4.22 3.93 109 4.00 111 2 FEV3%E 98.62 93.26 104.0 97.32 99 97.83 99 1 MEF 50 4.08 2.90 5.26 4.05 99 5.70 140 41 FIF 50 5.59 7.85 40 MMEF 3.46 2.26 4.66 3.60 104 4.54 131 26 FE%FIF 72.43 72.71 0 FEV6 4.03 4.09 1 PEF 6.40 4.67 8.13 7.60 119 8.54 133 12 FET 6.17 6.12 -1 FETPEF 0.08 0.07 -5 VBe%FV 3.52 3.67 4 VBEex 0.14 0.15 6 VC MAX 3.65 2.98 4.32 4.03 110 4.09 112 1 I have personally reviewed and confirmed the findings on pulmonary function testing. ACT: 13 Impression / Plan: Asthma - not well controlled, was not able to step up therapy in visit interim- couldn't get symbicort. Symptoms in meantime were helped with straw and pursed lip breathing Signs of reflux per Dr. Beltran, pt also had EGD revealing gastritis and hiatal hernia Pt currently on 40 mg PPI morning, zantac at night. - Start symbicort for asthma- pt provided with virtual voucher card and copay card - Increase PPI for GERD - omeprazole 40 mg BID, continue zantac at night as well - Follow up with Dr. Beltran for laryngeal retraining sessions (recommended [address] Beltran) - OK to d/c gabapentin- instructed pt to keep - if symptoms continue despite above therapies, could reconsider use. Chronic sinus symptoms/rhinitis - Advised to try saline rinses - frequent sinus infections (multiple times during most alvarez, needs antibiotics) - if these continue, consider consult to Dr. Taylor for evaluation for candidacy for surgery. Pt to follow up in 1-2 months, or day she is here for last visit with Dr. Beltran. Will assess efficacy of symbicort and other treatments at that time. Advised pt to call sooner if any issues The duration of this appointment visit was 30 minutes of iwxn-mc-leps time with the patient. More than 50% of this time was spent in counseling, explanation of diagnosis, planning of further management, and coordination of care. Yael Ordonez PA-C [facility] [place] January 05, 2018 11:57 AM AMBREEN Caba 01/05/2018 12:36 PM Addendum Symbicort- 1 free fill coupon and then copay card Start up on this - see if this helps. 2 puffs morning 2 puffs night in spacer- rinse out mouth afterwards Prilosec (omeprazole) 1 tab morning before 1st meal, one before dinner Zantac before bed Check in on last day of your laryngeal therapy - we can see how the symbicort is doing and how you're feeling. Me or Dr. blunt Just send a mychart when you find out last session with Dr. Beltran and I will put you on one of our schedules. You can try the astelin if very bad sinus day, otherwise as needed. Saline rinses - try Neilmed Bottle - 1/2 in each nostril If you want to switch over ENT/otolaryngology - let us know- Dr. Jm Taylor Referring Provider: SELF [200] Allergies As of Date: 01/05/2018 Noted Allergy Reaction AUGMENTIN (AMOXICILLIN-POT CLAVUL*11/26/2017 2 - Rash Date Reviewed: 01/05/2018 Reviewed by: Dean Bill Ma - Fully Assessed Reason for Visit: Recheck [92] Primary Visit Diagnosis:Asthma, moderate persistent, poorly- controlled [J45.40] Other Visit Diagnoses:Allergic rhinitis due to pollen, unspecified seasonality [J30.1] Vocal cord dysfunction [J38.3] Gastroesophageal reflux disease with esophagitis [K21.0] Order(s):Omeprazole 40 mg capsuleTake 1 capsule by mouth twice daily.Disp: 60 capsuleRfl: 3 azelastine (ASTELIN,ASTEPRO) 0.1% nasal sprayUse 1 Galva in each nostril twice daily.Disp: 1 BottleRfl: 3 Prescriptions as of 01/05/2018 Sig: OMEPRAZOLE 40 MG CAPSULE,DEBBIE* Take 1 capsule by mouth twice* AZELASTINE 137 MCG (0.1 %) NA* Use 1 Galva in each nostril t* BUDESONIDE-FORMOTEROL HFA 80 * Inhale 2 Puffs as instructed * Patient not taking: Reported on 01/05/2018 ALBUTEROL SULFATE HFA 90 MCG/* Inhale 2 Puffs as instructed * OMEPRAZOLE 20 MG DELAYED RELE* Take 2 tablets by mouth once * RANITIDINE 300 MG TABLET Take 1 tablet by mouth daily * NORGESTIMATE 0.25 MG-ETHINYL * Take 1 tablet by mouth once d* ALBUTEROL INHALATION Inhale as instructed as neede* SERTRALINE 100 MG TABLET Take 100 mg by mouth once amelie* ONDANSETRON HCL 4 MG TABLET Take 4 mg by mouth every 8 ho* Problem List As Of Date 01/05/2018 Noted Resolved SPRAIN CRUCIATE LIG KNEE [S83.509A] INVALID FOR* Deviated Nasal Septum [J34.2] INVALID FOR* Chronic Rhinitis [J31.0] INVALID FOR* Viral pharyngitis [J02.9] INVALID FOR* Priority: Moderate Class: Acute Depression with anxiety [F41.8] INVALID FOR* Asthma, moderate persistent, poorly-controlled *INVALID FOR* Vocal cord dysfunction [J38.3] INVALID FOR* 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 2 puffs morning 2 puffs night in spacer- rinse out mouth afterwards Prilosec (omeprazole) 1 tab morning before 1st meal, one before dinner Zantac before bed Check in on last day of your laryngeal therapy - we can see how the symbicort is doing and how you're feeling. Me or Dr. blunt Just send a mychart when you find out last session with Dr. Beltran and I will put you on one of our schedules. You can try the astelin if very bad sinus day, otherwise as needed. Saline rinses - try Neilmed Bottle - 1/2 in each nostril If you want to switch over ENT/otolaryngology - let us know- Dr. Jm Taylor Prescriptions ordered this encounter Disp Refills Start End OMEPRAZOLE 40 MG CAPSULE,DELAYED REL* 60 c* 3 01/05/2018 Route: ORAL Sig: Take 1 capsule by mouth twice daily. AZELASTINE 137 MCG (0.1 %) NASAL SPR* 1 Michel* 3 01/05/2018 Route: EACH NOSTRIL Sig: Use 1 Galva in each nostril twice daily. Medications Discontinued During This Encounter omeprazole (PRILOSEC ORAL) 01/05/2018 Class: Historical Med Route: ORAL Sig: Take 40 mg by mouth once daily. Disc: Reason for discontinue is not on file. gabapentin (NEURONTIN) 100 mg capsule 45 c* 3 12/09/2017 01/05/2018 Si pill at night, increase to 2 pills at night if tension continues Disc: Reason for discontinue is not on file. Disposition: Return in about 8 weeks (around 03/02/2018) for asthma follow up. Follow-up and Disposition History Recorded Questionnaire: ASTHMA CONTROL TEST Last 4 weeks, your asthma limited your activity at work or home: -> 3 SOME OF THE TIME Past 4 weeks, how often have you had shortness of breath? -> 3 TO 6 TIMES A WEEK Past 4 weeks: Asthma symptoms woke you at night or earlier than usual? -> 2 TWO OR THREE NIGHTS A WEEK Past 4 weeks: How often did you use rescue inhaler or nebulizer med? -> 2 ONE OR TWO TIMES PER DAY Rate your Asthma Control during the past 4 weeks: -> 3 SOMEWHAT CONTROLLED ACT TOTAL SCORE: -> 13 Encounter Status:Closed by YAEL ORDONEZ on 01/05/18 CNOV Observed: 01/05/2018 Status: COMPLETED Source: DAWN 11:00 AM [facility] REPOSITORY Office Visit (TALKMN) LORENZO BURNHAM ([id number]) 1990 F Date Time Provider Department 01/05/18 11:00 AM JUAN BELTRAN (CENTRAL OFFICE MAINTAINER) TALKMN During your visit today, we recorded the following information about you: Phyllis Carmichael 01/05/2018 10:46 AM Signed Tobacco Use: Never Was smoking cessation packet given? N/A - Patient is a non- smoker or quit >1 year ago. Was a referral initiated?N/A Patient is a non-smoker Juan Beltran, PHD CCC-CENTRAL OFFICE MAINTAINER, CCC/CENTRAL OFFICE MAINTAINER 01/05/2018 11:27 AM Signed [facility] Juan Beltran, Ph.D NAME: Lorenzo Burnham [facility] NO: [id number] DATE OF SERVICE: January 05, 2018 IMPRESSION AND PLAN: Consultation requested by Dr. Blunt for evaluation and recommendations regarding management of possible laryngospasms. Lorenzo Burnham is a 27 year old patient with a two month history of episodes of choking on her saliva. She has uncontrolled GERD with recent EGD showing esophagitis, gastritis, and a hiatal hernia. The PPI in the AM is not helping much as she continues to have several GERD/LPR symptoms throughout the day and evening. I recommend to increase her PPI to twice a day , and to implement additional dietary and behavioral guidelines for reflux control. 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 I recommend to undergo a course of respiratory and laryngeal control therapy. Prognosis for improvement iwht therapy is good . HISTORY OF PRESENT ILLNESS: Parts of the history are taken from Dr. Blunt's notes. A review of the EMR was independently confirmed with the patient in this visit. Lorenzo Burnham is a 27 year old woman who presents with a chief complaint of choking on her spit. No problems with food, occasionally with water. Onset about two months ago. Had one severe episode in October 2017. Currently chokes about 4 times a week. Had recent stomach pain, vomiting Had EGD last week found to have gastritis, esophagitis and A hiatal hernia, small one Placed on prilosec 40 mg in am and Zantac at night, and changed her diet. She does not think this is helping much. She continues to have a globus sensation, burps a lot, has throat mucous, coughs, and feels acid coming up after every meal. When she exercises she feels winded, gets a sensation of throat tightness, difficulty breathing in, and develops an inspiratory stridor. ? Initially asthma would have issues with soccer and when she ran. Was on albuterol, singulair and advair was through sports in high school. Was better but still would have breakthrough issues. ? Dr. Fang put on nose spray and doxycycline for 3 weeks Had been on very high high dose steroids for 2 weeks of 60 mg/d then 30 mg had all the side effects and sudden stopping made her steroid withdrawal ? 1 month ago, was with grandparents house Choked on spit, vocal cords shut and laryngeal spasm, lips turned blue Dyspnea Index: 0 = Never, 1 = Almost Never, 2 = Sometimes, 3 = Almost Always, 4 = Always As reported by patient: 1. I have trouble getting air in when I am having my breathing problem. 3 2. I feel tightness in my throat when I am having my breathing problem. 3 3. It takes more effort to breathe than it used to . 2 4. Changes in weather affect my breathing problem. 4 5. My breathing gets worse with stress. 4 6. I make sound/noise when breathing in. 1 7. I have to strain to breathe. 2 8. My shortness of breath gets worse with exercise or physical activity. 4 9. My breathing problem makes me feel stressed. 3 10. My breathing problem causes me to restrict my personal AND social life. 0 TOTAL RAW: 26 Reflux Symptom Index (RSI): This questionnaire assesses the patient's perception of the severity of reflux related symptoms. (Rank as follows: 0=no problem; 3=moderate problem; 5=severe problem Within last month how did following problems affect you? 4 Hoarseness or a problem with your voice 5 Clearing your throat? 4 Excess throat mucous or postnasal drip? 1 Difficulty swallowing food, liquids or pills? 2 Coughing after you ate or after lying down? 5 Breathing difficulties or choking episodes? 5 Troublesome or annoying cough? 5 Sensations of something sticking in your throat or a lump in your throat? 5 Heartburn, chest pain, indigestion or stomach acid coming up? TOTAL: 36 PAST MEDICAL HISTORY Diagnosis Date - Anxiety panic attack - Asthma, exercise induced when was young. 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 omeprazole 20 mg disintegrating tablet (PriLOSEC) Take 2 tablets by mouth once daily. Ranitidine HCl (ZANTAC) 300 mg tablet Take 1 tablet by mouth daily at bedtime. gabapentin (NEURONTIN) 100 mg capsule 1 pill at night, increase to 2 pills at night if tension continues norgestimate 0.25 mg-ethinyl estradiol 35 mcg (SPRINTEC) 0.25- 35 mg-mcg per tablet Take 1 tablet by mouth once daily. omeprazole (PRILOSEC ORAL) Take 40 mg by mouth once daily. ALBUTEROL INHALATION Inhale as instructed as needed. sertraline (ZOLOFT) 100 mg tablet Take 100 mg by mouth once daily. ondansetron (ZOFRAN, HYDROCHLORIDE,) 4 mg tablet Take 4 mg by mouth every 8 hours as needed. budesonide-formoterol (SYMBICORT) 80-4.5 mcg/actuation inhaler Inhale 2 Puffs as instructed twice daily. (Patient not taking: Reported on 01/05/2018 ) No current facility-administered medications on file prior to visit. PROCEDURE: The patient was sprayed with 2% lidocaine and 1% phenylephrine. After an approximate amount of time for vasoconstriction and anesthesia to be achieved, a flexible fiberoptic laryngoscope was inserted into the nasal cavity, nasopharynx, down to the oropharynx. A laryngeal function study which included videoendoscopy with stroboscopy was performed. FINDINGS: Findings revealed that the epiglottis, AE folds, vallecula, and pyriform sinuses appeared normal. No cobblestoning or erythema was appreciated along the posterior oropharyngeal wall. Inspection of the larynx revealed there were no lesions, tumor, masses, ulcerations or areas of leukoplakia identified. The subglottis was patent, no evidence of any stenosis was appreciated. Range of motion of the vocal folds is within normal limits bilaterally. There is no edema or eryhtema. The vocal folds appear with good color. The edges are straight. During phonation, the pattern of glottal closure is complete. Amplitude of vibration and mucosal waves are within normal limits bilaterally. The scope was withdrawn and the patient tolerated the procedure well. PROVOCATIVE CHALLENGE TEST: The patient was asked to perform high ventilatory output tasks. During these there was evidence of paradoxical motion of the vocal folds. The scope was withdrawn and the patient tolerated the procedure well. I thoroughly reviewed the video with Lorenzo Burnham. Juan Beltran, PHD CCC-CENTRAL OFFICE MAINTAINER Referring Provider: MOLINA BLUNT [[id number]] Allergies As of Date: 01/05/2018 Noted Allergy Reaction AUGMENTIN (AMOXICILLIN-POT CLAVUL*11/26/2017 2 - Rash Date Reviewed: 01/05/2018 Reviewed by: Phyllis Carmichael - Fully Assessed Reason for Visit: New Patient [172] Cmt: VCD Primary Visit Diagnosis:Vocal cord dysfunction [J38.3] Other Visit Diagnoses:Laryngospasm [J38.5] Gastroesophageal reflux disease with esophagitis [K21.0] Prescriptions as of 01/05/2018 Sig: ALBUTEROL SULFATE HFA 90 MCG/* Inhale 2 Puffs as instructed * OMEPRAZOLE 20 MG DELAYED RELE* Take 2 tablets by mouth once * RANITIDINE 300 MG TABLET Take 1 tablet by mouth daily * GABAPENTIN 100 MG CAPSULE 1 pill at night, increase to * NORGESTIMATE 0.25 MG-ETHINYL * Take 1 tablet by mouth once d* PRILOSEC ORAL Take 40 mg by mouth once taisha* ALBUTEROL INHALATION Inhale as instructed as neede* SERTRALINE 100 MG TABLET Take 100 mg by mouth once amelie* ONDANSETRON HCL 4 MG TABLET Take 4 mg by mouth every 8 ho* BUDESONIDE-FORMOTEROL HFA 80 * Inhale 2 Puffs as instructed * Patient not taking: Reported on 01/05/2018 Problem List As Of Date 01/05/2018 Noted Resolved SPRAIN CRUCIATE LIG KNEE [S83.509A] INVALID FOR* Deviated Nasal Septum [J34.2] INVALID FOR* Chronic Rhinitis [J31.0] INVALID FOR* Viral pharyngitis [J02.9] INVALID FOR* Priority: Moderate Class: Acute Depression with anxiety [F41.8] INVALID FOR* Asthma, moderate persistent, poorly-controlled *INVALID FOR* Vocal cord dysfunction [J38.3] INVALID FOR* 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 N/A - Patient is a non- smoker or quit >1 year ago. Was a referral initiated?N/A Patient is a non-smoker Follow-up and Disposition History Recorded Encounter Status:Closed by RUBY WOODS, JUAN on 01/05/18 PROGRESS Observed: 01/05/2018 Status: COMPLETED Source: DAWN 10:48 AM [facility] [place] REPOSITORY O ID: [id number] Author: Juan (Aircraft Sheet Metal Mechanic) FAISAL Beltran/CENTRAL OFFICE MAINTAINER Service: (none) Author Type: Speech Language Pathologist Type: Progress Notes Filed: 01/05/2018 11:27 AM Note Text: [facility] Juan Beltran, Ph.D NAME: Lorenzo Burnham [facility] NO: [id number] DATE OF SERVICE: January 05, 2018 IMPRESSION AND PLAN: Consultation requested by Dr. Blunt for evaluation and recommendations regarding management of possible laryngospasms. Lorenzo Burnham is a 27 year old patient with a two month history of episodes of choking on her saliva. She has uncontrolled GERD with recent EGD showing esophagitis, gastritis, and a hiatal hernia. The PPI in the AM is not helping much as she continues to have several GERD/LPR symptoms throughout the day and evening. I recommend to increase her PPI to twice a day , and to implement additional dietary and behavioral guidelines for reflux control. 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 I recommend to undergo a course of respiratory and laryngeal control therapy. Prognosis for improvement iwht therapy is good . HISTORY OF PRESENT ILLNESS: Parts of the history are taken from Dr. Blunt's notes. A review of the EMR was independently confirmed with the patient in this visit. Lorenzo Burnham is a 27 year old woman who presents with a chief complaint of choking on her spit. No problems with food, occasionally with water. Onset about two months ago. Had one severe episode in October 2017. Currently chokes about 4 times a week. Had recent stomach pain, vomiting Had EGD last week found to have gastritis, esophagitis and A hiatal hernia, small one Placed on prilosec 40 mg in am and Zantac at night, and changed her diet. She does not think this is helping much. She continues to have a globus sensation, burps a lot, has throat mucous, coughs, and feels acid coming up after every meal. When she exercises she feels winded, gets a sensation of throat tightness, difficulty breathing in, and develops an inspiratory stridor. ? Initially asthma would have issues with soccer and when she ran. Was on albuterol, singulair and advair was through sports in high school. Was better but still would have breakthrough issues. ? Dr. Fang put on nose spray and doxycycline for 3 weeks Had been on very high high dose steroids for 2 weeks of 60 mg/d then 30 mg had all the side effects and sudden stopping made her steroid withdrawal ? 1 month ago, was with grandparents house Choked on spit, vocal cords shut and laryngeal spasm, lips turned blue Dyspnea Index: 0 = Never, 1 = Almost Never, 2 = Sometimes, 3 = Almost Always, 4 = Always As reported by patient: 1. I have trouble getting air in when I am having my breathing problem. 3 2. I feel tightness in my throat when I am having my breathing problem. 3 3. It takes more effort to breathe than it used to . 2 4. Changes in weather affect my breathing problem. 4 5. My breathing gets worse with stress. 4 6. I make sound/noise when breathing in. 1 7. I have to strain to breathe. 2 8. My shortness of breath gets worse with exercise or physical activity. 4 9. My breathing problem makes me feel stressed. 3 10. My breathing problem causes me to restrict my personal AND social life. 0 TOTAL RAW: 26 Reflux Symptom Index (RSI): This questionnaire assesses the patient's perception of the severity of reflux related symptoms. (Rank as follows: 0=no problem; 3=moderate problem; 5=severe problem Within last month how did following problems affect you? 4 Hoarseness or a problem with your voice 5 Clearing your throat? 4 Excess throat mucous or postnasal drip? 1 Difficulty swallowing food, liquids or pills? 2 Coughing after you ate or after lying down? 5 Breathing difficulties or choking episodes? 5 Troublesome or annoying cough? 5 Sensations of something sticking in your throat or a lump in your throat? 5 Heartburn, chest pain, indigestion or stomach acid coming up? TOTAL: 36 PAST MEDICAL HISTORY Diagnosis Date - Anxiety panic attack - Asthma, exercise induced when was young. 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 omeprazole 20 mg disintegrating tablet (PriLOSEC) Take 2 tablets by mouth once daily. Ranitidine HCl (ZANTAC) 300 mg tablet Take 1 tablet by mouth daily at bedtime. gabapentin (NEURONTIN) 100 mg capsule 1 pill at night, increase to 2 pills at night if tension continues norgestimate 0.25 mg-ethinyl estradiol 35 mcg (SPRINTEC) 0.25- 35 mg-mcg per tablet Take 1 tablet by mouth once daily. omeprazole (PRILOSEC ORAL) Take 40 mg by mouth once daily. ALBUTEROL INHALATION Inhale as instructed as needed. sertraline (ZOLOFT) 100 mg tablet Take 100 mg by mouth once daily. ondansetron (ZOFRAN, HYDROCHLORIDE,) 4 mg tablet Take 4 mg by mouth every 8 hours as needed. budesonide-formoterol (SYMBICORT) 80-4.5 mcg/actuation inhaler Inhale 2 Puffs as instructed twice daily. (Patient not taking: Reported on 01/05/2018 ) No current facility-administered medications on file prior to visit. PROCEDURE: The patient was sprayed with 2% lidocaine and 1% phenylephrine. After an approximate amount of time for vasoconstriction and anesthesia to be achieved, a flexible fiberoptic laryngoscope was inserted into the nasal cavity, nasopharynx, down to the oropharynx. A laryngeal function study which included videoendoscopy with stroboscopy was performed. FINDINGS: Findings revealed that the epiglottis, AE folds, vallecula, and pyriform sinuses appeared normal. No cobblestoning or erythema was appreciated along the posterior oropharyngeal wall. Inspection of the larynx revealed there were no lesions, tumor, masses, ulcerations or areas of leukoplakia identified. The subglottis was patent, no evidence of any stenosis was appreciated. Range of motion of the vocal folds is within normal limits bilaterally. There is no edema or eryhtema. The vocal folds appear with good color. The edges are straight. During phonation, the pattern of glottal closure is complete. Amplitude of vibration and mucosal waves are within normal limits bilaterally. The scope was withdrawn and the patient tolerated the procedure well. PROVOCATIVE CHALLENGE TEST: The patient was asked to perform high ventilatory output tasks. During these there was evidence of paradoxical motion of the vocal folds. The scope was withdrawn and the patient tolerated the procedure well. I thoroughly reviewed the video with Lorenzo Burnham. Juan Beltran, PHD CCC-CENTRAL OFFICE MAINTAINER PROGRESS Observed: 12/10/2017 Status: COMPLETED Source: DAWN 2:52 PM [facility] REPOSITORY HNO ID: [id number] Author: Pam Cameron (Pa) Service: (none) Author Type: Physician Director Sports Type: Progress Notes Filed: 12/10/2017 3:27 PM Note Text: FOLLOW UP VISIT - ENDOSCOPY NAME: Lorenzo Burnham [facility] NO.: [id number] DATE OF SERVICE: 12/10/2017 : 1990 REFERRING PHYSICIAN: Vance Jansen MD Lorenzo is a patient I am following with Dr. Parra for epigastric pain and reflux. Dr. Parra performed upper endoscopy on 12/01/17. The patient was found to have antral gastritis, a small hiatal hernia, and reflux esophagitis. Pathology demonstrated: Jejunum-no significant pathologic change Gastric antrum-mild chronic gastritis Gastroesophageal junction, biopsy-mild chronic inflammation. No evidence of intestinal metaplasia. Mid esophagus biopsy-fragment of benign squamous mucosa. No evidence of inflammation The patient notes no new complaints since the procedure. Patient had mentioned to Dr. Parra on day of endoscopy that she had been having some blood in her stools for several days following a severe episode of constipation. He had recommended a daily regimen of Miralax. Patient was taking the miralax as instructed but has now decreased this to every other day as she felt it was irritating her stomach. The constipation was significantly improving, but she feels it is now coming back with decreasing the miralax. She is wondering about possible alternatives that she could take since the Miralax bothers her if taken every day. She notes no further blood in the stools. In addition to her stomach issues, patient had been having multiple issues with her breathing over the last few months which she felt were due to her asthma. She was evaluated yesterday by a Dr. Blunt at [facility], that note has been reviewed. Patient was diagnosed with complex multifactorial dyspnea-asthma, allergies, GERD, vocal cord dysfunction and laryngospasm all affecting each other and contributing to her issues. She will be seeing a speech pathologist to help with the laryngospasm, was started on neurontin, had omeprazole increased and zantac added to better control the GERD. VITALS: There were no vitals taken for this visit. General: patient is alert, cooperative, pleasant and in no acute distress On examination, the abdomen is benign. Assessment IMPRESSION: gastritis, GERD, small hiatal hernia PLAN: If the patient notes any problems or changes in bowel function, the patient should contact me immediately. Agree with addition of zantac and increased dosage of omeprazole for better control of reflux, have also reviewed dietary/lifestyle modifications with patient as well. Patient will continue following with [facility] for further evaluation of her vocal cords and laryngospasm. Recommend daily fiber supplement to help regulate bowel movements. Discussed importance of staying well-hydrated when taking fiber. If she notes any recurrence of blood in stools, she is to notify us immediately-would plan for colonoscopy if this recurs. Patient has been instructed to contact us with a progress report in 2 weeks to let us know how she is doing on the fiber. Diagnoses: (K21.0) Gastroesophageal reflux disease with esophagitis (primary encounter diagnosis) (K44.9) Hiatal hernia (K29.30) Chronic superficial gastritis without bleeding I spent 25 minutes in the visit, with more than 50% of the total [id number] time of the visit in counseling / coordination of care. KIMBERLEY SánchezOV Observed: 12/10/2017 Status: COMPLETED Source: DAWN 8:20 AM [facility] REPOSITORY Office Visit ([facility]ENS[facility]) LORENZO BURNHAM ([id number]) 1990 F Date Time Provider Department 12/10/17 8:20 AM PAM CAMERON (PA) During your visit today, we recorded the following information about you: Pam Cameron PA-C 12/10/2017 8:37 AM Signed -Begin daily fiber supplement such as citrucel or benefiber (recommend the powder form mixed into a drink) The following instructions are important for you related to your office visit today with the [facility]. INSTRUCTIONS FOR PEPTIC ULCER DISEASE - ESOPHAGITIS I discussed with you the findings of your upper endoscopy. Your upper endoscopy demonstrated esophagitis Esophagitis may be a form of peptic irritation, with acid moving from the stomach to the esophagus (gastroesophageal reflux) Factors that increase acid production include smoking and stress. If you smoke, stopping smoking will often cure these issues without needing other medications. Over the counter medications including antiacids and acid reducing medications including H2 blockers (Zantac and the like) and proton pump inhibitors (prilosec, prevacid and the like) neutralize or prevent acid production. Prescription strength proton pump inhibitors (PPIs) may be necessary if your symptoms persist. Carafate may be added to PPI treatment in refractory cases. Avoiding smoking, alcohol and antiinflammatory medications are important in the successful treatment of reflux esophagitis and peptic diseases. Other factors that contribute to GERD and esophagitis are being overweight, eating large meals before laying down and certain foods. Weight loss will help improve many GERD complaints. Remaining upright after eating large meals and having a small supper will also help symptoms. Avoiding food that contribute to reflux - chocolate, caffeine, cheddar cheese may also help. Follow up upper endoscopy may be recommended to assure healing of the esophagus. New or worsening symptoms such are epigastric pain, burning, difficulty swallowing or food sticking should be relayed to your physician. Feeling full early after eating, or black, tarry, foul smelling stools are also worrisome. If you have any difficulties or concerns, you should contact our office immediately. If you note any additional difficulties, questions, or concerns, you should contact our office immediately @ [phone] and ask to be transferred to the General Surgery department. Pam Cameron PA-C 12/10/2017 3:27 PM Signed FOLLOW UP VISIT - ENDOSCOPY NAME: Lorenzo [facility] NO.: [id number] DATE OF SERVICE: 12/10/2017 : 1990 REFERRING PHYSICIAN: Vance Jansen MD Lorenzo is a patient I am following with Dr. Parra for epigastric pain and reflux. Dr. Parra performed upper endoscopy on 12/01/17. The patient was found to have antral gastritis, a small hiatal hernia, and reflux esophagitis. Pathology demonstrated: Jejunum-no significant pathologic change Gastric antrum-mild chronic gastritis Gastroesophageal junction, biopsy-mild chronic inflammation. No evidence of intestinal metaplasia. Mid esophagus biopsy-fragment of benign squamous mucosa. No evidence of inflammation The patient notes no new complaints since the procedure. Patient had mentioned to Dr. Parra on day of endoscopy that she had been having some blood in her stools for several days following a severe episode of constipation. He had recommended a daily regimen of Miralax. Patient was taking the miralax as instructed but has now decreased this to every other day as she felt it was irritating her stomach. The constipation was significantly improving, but she feels it is now coming back with decreasing the miralax. She is wondering about possible alternatives that she could take since the Miralax bothers her if taken every day. She notes no further blood in the stools. In addition to her stomach issues, patient had been having multiple issues with her breathing over the last few months which she felt were due to her asthma. She was evaluated yesterday by a Dr. Blunt at [facility], that note has been reviewed. Patient was diagnosed with complex multifactorial dyspnea-asthma, allergies, GERD, vocal cord dysfunction and laryngospasm all affecting each other and contributing to her issues. She will be seeing a speech pathologist to help with the laryngospasm, was started on neurontin, had omeprazole increased and zantac added to better control the GERD. VITALS: There were no vitals taken for this visit. General: patient is alert, cooperative, pleasant and in no acute distress On examination, the abdomen is benign. Assessment IMPRESSION: gastritis, GERD, small hiatal hernia PLAN: If the patient notes any problems or changes in bowel function, the patient should contact me immediately. Agree with addition of zantac and increased dosage of omeprazole for better control of reflux, have also reviewed dietary/lifestyle modifications with patient as well. Patient will continue following with [facility] for further evaluation of her vocal cords and laryngospasm. Recommend daily fiber supplement to help regulate bowel movements. Discussed importance of staying well-hydrated when taking fiber. If she notes any recurrence of blood in stools, she is to notify us immediately-would plan for colonoscopy if this recurs. Patient has been instructed to contact us with a progress report in 2 weeks to let us know how she is doing on the fiber. Diagnoses: (K21.0) Gastroesophageal reflux disease with esophagitis (primary encounter diagnosis) (K44.9) Hiatal hernia (K29.30) Chronic superficial gastritis without bleeding I spent 25 minutes in the visit, with more than 50% of the total [id number] time of the visit in counseling / coordination of care. Pam Cameron PA-C Referring Provider: SELF [[id number]] Allergies As of Date: 12/10/2017 Noted Allergy Reaction AUGMENTIN (AMOXICILLIN-POT CLAVUL*11/26/2017 2 - Rash Date Reviewed: 12/10/2017 Reviewed by: Emeli Melendez LPN - Fully Assessed Reason for Visit: Post Op [174] Primary Visit Diagnosis:Gastroesophageal reflux disease with esophagitis [K21.0] Other Visit Diagnoses:Hiatal hernia [K44.9] Chronic superficial gastritis without bleeding [K29.30] Prescriptions as of 12/10/2017 Sig: BUDESONIDE-FORMOTEROL HFA 80 * Inhale 2 Puffs as instructed * ALBUTEROL SULFATE HFA 90 MCG/* Inhale 2 Puffs as instructed * OMEPRAZOLE 20 MG DELAYED RELE* Take 2 tablets by mouth once * RANITIDINE 300 MG TABLET Take 1 tablet by mouth daily * GABAPENTIN 100 MG CAPSULE 1 pill at night, increase to * NORGESTIMATE 0.25 MG-ETHINYL * Take 1 tablet by mouth once d* PRILOSEC ORAL Take 40 mg by mouth once taisha* ALBUTEROL INHALATION Inhale as instructed as neede* SERTRALINE 100 MG TABLET Take 100 mg by mouth once amelie* ONDANSETRON HCL 4 MG TABLET Take 4 mg by mouth every 8 ho* Problem List As Of Date 12/10/2017 Noted Resolved SPRAIN CRUCIATE LIG KNEE [S83.509A] INVALID FOR* Deviated Nasal Septum [J34.2] INVALID FOR* Chronic Rhinitis [J31.0] INVALID FOR* Viral pharyngitis [J02.9] INVALID FOR* Priority: Moderate Class: Acute Depression with anxiety [F41.8] INVALID FOR* Asthma, moderate persistent, poorly-controlled *INVALID FOR* Vocal cord dysfunction [J38.3] INVALID FOR* 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] INVALID FOR* Gastroesophageal reflux disease with esophagiti*INVALID FOR* Other instructions from your clinician: -Begin daily fiber supplement such as citrucel or benefiber (recommend the powder form mixed into a drink) The following instructions are important for you related to your office visit today with the [facility]. INSTRUCTIONS FOR PEPTIC ULCER DISEASE - ESOPHAGITIS I discussed with you the findings of your upper endoscopy. Your upper endoscopy demonstrated esophagitis Esophagitis may be a form of peptic irritation, with acid moving from the stomach to the esophagus (gastroesophageal reflux) Factors that increase acid production include smoking and stress. If you smoke, stopping smoking will often cure these issues without needing other medications. Over the counter medications including antiacids and acid reducing medications including H2 blockers (Zantac and the like) and proton pump inhibitors (prilosec, prevacid and the like) neutralize or prevent acid production. Prescription strength proton pump inhibitors (PPIs) may be necessary if your symptoms persist. Carafate may be added to PPI treatment in refractory cases. Avoiding smoking, alcohol and antiinflammatory medications are important in the successful treatment of reflux esophagitis and peptic diseases. Other factors that contribute to GERD and esophagitis are being overweight, eating large meals before laying down and certain foods. Weight loss will help improve many GERD complaints. Remaining upright after eating large meals and having a small supper will also help symptoms. Avoiding food that contribute to reflux - chocolate, caffeine, cheddar cheese may also help. Follow up upper endoscopy may be recommended to assure healing of the esophagus. New or worsening symptoms such are epigastric pain, burning, difficulty swallowing or food sticking should be relayed to your physician. Feeling full early after eating, or black, tarry, foul smelling stools are also worrisome. If you have any difficulties or concerns, you should contact our office immediately. If you note any additional difficulties, questions, or concerns, you should contact our office immediately @ [phone] and ask to be transferred to the General Surgery department. Follow-up and Disposition History Recorded Encounter Status:Closed by PAM CAMERON PA-C on 12/10/17 PROGRESS Observed: 12/09/2017 Status: COMPLETED Source: DAWN 11:27 AM [facility] REPOSITORY HNO ID: [id number] Author: Molina Blunt Service: (none) Author Type: Physician Type: Progress Notes Filed: 12/09/2017 3:31 PM Note Text: Consultation requested by self for an opinion regarding breathing problems. My final recommendations will be communicated back to the requesting physician by way of shared Medical record or letter to requesting physician via US mail. Lorenzo Burnham is a 27 year old woman, dtr of my patient Iwona Burnham. 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 Hx of more recent dx of allergies, pansinusitis Asthma worse lately with a lot of confounding factors GERD, allergies, laryngospasm and anxiety Initially asthma would have issues with soccer and when she ran, would go into asthma attack-used to feel like that laryngeal spasm. Was on albuterol, singulair and advair was through sports in high school. Was better but still would have breakthrough issues. Has had a lot of issues with breathing this last year. Doing allergy shots weekly (even at home) started that 3 months ago b/c hit her maintenance does In last 2 years felt worse Trigger may be stress In Feb had a big flare up of allergies and that Now last 1- yrs more winded than ever was before, getting sick, allergies Had facial congestion Albuterol did not work for her Annalisa put on nose spray and doxycycline for 3 weeks Had been on very high high dose steroids for 2 weeks of 60 mg/d then 30 mg had all the side effects and sudden stopping made her steroid withdrawal Goes to see ENT Dr. Fang in [place] 1 month ago, was with grandparents house Choked on spit, vocal cords shut and laryngeal spasm, lips turned blue Acid reflux could do it This was a more extreme version of the sports-related issue she used to have. After this happened would have more asthma attacks In past every year multiple sinus infections Dr Fang did allergy testing and multiple environmental allergies Gets AIT 2 injections/leg Grasses, molds, hay fever, trees Had recent stomach pain, vomiting Had EGD last week found to have gastritis, esophagitis and A hiatal hernia, small one Placed on prilosec 40 mg in am Triggers: Allergies Exercise Choking on food/spit ED visit/ Hospitalizations: Comorbidities: Sinus disease yes GERD yes ANANYA no Bone disease/osteoporosis no Depression -does have anxiety Pertinent Testing in past: allergy testing positive on AIT with ENT in [place] EGD with gastritis, hiatal hernia PAST MEDICAL HISTORY Diagnosis Date - Anxiety panic attack - Asthma, exercise induced when was young. Rarely use inhaler Current Outpatient Prescriptions: norgestimate 0.25 mg-ethinyl estradiol 35 mcg (SPRINTEC) 0.25- 35 mg-mcg per tablet Take 1 tablet by mouth once daily. omeprazole (PRILOSEC ORAL) Take 40 mg by mouth once daily. ALBUTEROL INHALATION Inhale as instructed as needed. sertraline (ZOLOFT) 100 mg tablet Take 100 mg by mouth once daily. ondansetron (ZOFRAN, HYDROCHLORIDE,) 4 mg tablet Take 4 mg by mouth every 8 hours as needed. No current facility-administered medications for this visit. PAST SURGICAL HISTORY Procedure Laterality Date - SECTION HX - EGD W/O OR W/BRUSH/WASH 12/01/2017 EGD - PAST SURGICAL HISTORY OF 2003 left acl repair - PAST SURGICAL HISTORY OF 2006 right acl repair ALLERGIES Allergen Reactions - Augmentin [Amoxicil* Rash FAMILY HISTORY Problem Relation Age of Onset - Stomach ulcer [OTHER] Mother - HTN [OTHER] Father - Breast Cancer Maternal Grandmother - None Maternal Grandfather - None Paternal Grandmother - Diabetes Paternal Grandfather - Heart Paternal Grandfather OHS in 60 - Cancer Paternal Grandfather - Kidney Disease Paternal Grandfather - Asthma Brother exercise induced - IBD [OTHER] Paternal Uncle Social History Marital status: Spouse name: Years of education: Number of children: Social History Main Topics Smoking status: Never Smoker Smokeless tobacco: Never Used Alcohol use: No Drug use: No Sexual activity: Yes Comment: on control Social History Narrative Pt works at [employer] no pets . 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 EXAM: BP 117/73 Pulse 99 Temp 36.7 ?C (98 ?F) Resp 18 Ht 157.5 cm (5' 2) Wt 53.5 kg (118 lb) SpO2 99% BMI 21.58 kg/m? 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 improved by 41% post BD Some midflow reduction/obstruction on FV loop, improved with beta agonist Impression/Plan Complex multifactorial dyspnea, vicious cycle of asthma, allergies, GERD, and 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 Laryngospasm and also muscle tension of throat https://www.aaaai.org/emridkweod-sky-yrlzhonakf/related-conditions/vocal-co rd-dysfunction michael vocal cord videos: laryngospasm and vocal cord dysfunction Asthma: Symbicort 80 mcg dose 2 puff in am and 2 puff in pm Albuterol as needed Use chamber for both Reflux Increase the regimen Prilosec 40 mg in am (30 min prior to meals) and Zantac 300 mg at night Diet sheet Vocal cord/tension Learn new techniques/biofeedback However I think mild dose of neurontin will redue how easily you get triggered in your throat--you have muscle tension there. 100 mg at night, can increase to 200 mg at night if not strong enough Seeing Dr. Beltran (speech pathologist) who will help with the laryngospasm Secret: straw purse lips and breathe through the strays (half) Sniff It's all about diverting tension Allergies: Ok to take claritin or zyrtec Visit time was > 40 minutes, of which over half of visit was spent on discussions with patient on disease education and counselling. Molina Blunt MD CC: Dr. Beltran CNOV Observed: 12/09/2017 Status: COMPLETED Source: [place] 10:50 AM [facility] REPOSITORY Office Visit (PULMMN) ZACHARIAHLORENZO ([id number]) 1990 F Date Time Provider Department 12/09/17 10:50 AM MOLINA BLUNT [place]ANDRA During your visit today, we recorded the following information about you: Temperature Pulse Respiration Blood pressure 98 degrees 99/minute 18/minute 117/73 Weight Height 53.5 kg 1.575 m Molina Blunt MD 12/09/2017 3:31 PM Signed Consultation requested by self for an opinion regarding breathing problems. My final recommendations will be communicated back to the requesting physician by way of shared Medical record or letter to requesting physician via US mail. Lorenzo Burnham is a 27 year old woman, dtr of my patient Iwona Burnham. 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 Hx of more recent dx of allergies, pansinusitis Asthma worse lately with a lot of confounding factors GERD, allergies, laryngospasm and anxiety Initially asthma would have issues with soccer and when she ran, would go into asthma attack-used to feel like that laryngeal spasm. Was on albuterol, singulair and advair was through sports in high school. Was better but still would have breakthrough issues. Has had a lot of issues with breathing this last year. Doing allergy shots weekly (even at home) started that 3 months ago b/c hit her maintenance does In last 2 years felt worse Trigger may be stress In Jul had a big flare up of allergies and that Now last 1- yrs more winded than ever was before, getting sick, allergies Had facial congestion Albuterol did not work for her Annalisa put on nose spray and doxycycline for 3 weeks Had been on very high high dose steroids for 2 weeks of 60 mg/d then 30 mg had all the side effects and sudden stopping made her steroid withdrawal Goes to see ENT Dr. Fang in [place] 1 month ago, was with grandparents house Choked on spit, vocal cords shut and laryngeal spasm, lips turned blue Acid reflux could do it This was a more extreme version of the sports-related issue she used to have. After this happened would have more asthma attacks In past every year multiple sinus infections Dr Fang did allergy testing and multiple environmental allergies Gets AIT 2 injections/leg Grasses, molds, hay fever, trees Had recent stomach pain, vomiting Had EGD last week found to have gastritis, esophagitis and A hiatal hernia, small one Placed on prilosec 40 mg in am Triggers: Allergies Exercise Choking on food/spit ED visit/ Hospitalizations: Comorbidities: Sinus disease yes GERD yes ANANYA no Bone disease/osteoporosis no Depression -does have anxiety Pertinent Testing in past: allergy testing positive on AIT with ENT in [place] EGD with gastritis, hiatal hernia PAST MEDICAL HISTORY Diagnosis Date - Anxiety panic attack - Asthma, exercise induced when was young. Rarely use inhaler Current Outpatient Prescriptions: norgestimate 0.25 mg-ethinyl estradiol 35 mcg (SPRINTEC) 0.25- 35 mg-mcg per tablet Take 1 tablet by mouth once daily. omeprazole (PRILOSEC ORAL) Take 40 mg by mouth once daily. ALBUTEROL INHALATION Inhale as instructed as needed. sertraline (ZOLOFT) 100 mg tablet Take 100 mg by mouth once daily. ondansetron (ZOFRAN, HYDROCHLORIDE,) 4 mg tablet Take 4 mg by mouth every 8 hours as needed. No current facility-administered medications for this visit. PAST SURGICAL HISTORY Procedure Laterality Date - SECTION HX - EGD W/O OR W/BRUSH/WASH 12/01/2017 EGD - PAST SURGICAL HISTORY OF 2003 left acl repair - PAST SURGICAL HISTORY OF 2006 right acl repair ALLERGIES Allergen Reactions - Augmentin [Amoxicil* Rash FAMILY HISTORY Problem Relation Age of Onset - Stomach ulcer [OTHER] Mother - HTN [OTHER] Father - Breast Cancer Maternal Grandmother - None Maternal Grandfather - None Paternal Grandmother - Diabetes Paternal Grandfather - Heart Paternal Grandfather OHS in 60 - Cancer Paternal Grandfather - Kidney Disease Paternal Grandfather - Asthma Brother exercise induced - IBD [OTHER] Paternal Uncle Social History Marital status: Spouse name: Years of education: Number of children: Social History Main Topics Smoking status: Never Smoker Smokeless tobacco: Never Used Alcohol use: No Drug use: No Sexual activity: Yes Comment: on control Social History Narrative Pt works at [employer] no pets . 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 EXAM: BP 117/73 Pulse 99 Temp 36.7 ?C (98 ?F) Resp 18 Ht 157.5 cm (5' 2) Wt 53.5 kg (118 lb) SpO2 99% BMI 21.58 kg/m? 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 improved by 41% post BD Some midflow reduction/obstruction on FV loop, improved with beta agonist Impression/Plan Complex multifactorial dyspnea, vicious cycle of asthma, allergies, GERD, and 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 Laryngospasm and also muscle tension of throat https://www.aaaai.org/vryxlowqiw-xxu-auepwsrvat/related-conditions/mcwxo-zvex-n- ysfunction fauqiuer vocal cord videos: laryngospasm and vocal cord dysfunction Asthma: Symbicort 80 mcg dose 2 puff in am and 2 puff in pm Albuterol as needed Use chamber for both Reflux Increase the regimen Prilosec 40 mg in am (30 min prior to meals) and Zantac 300 mg at night Diet sheet Vocal cord/tension Learn new techniques/biofeedback However I think mild dose of neurontin will redue how easily you get triggered in your throat--you have muscle tension there. 100 mg at night, can increase to 200 mg at night if not strong enough Seeing Dr. Beltran (speech pathologist) who will help with the laryngospasm Secret: straw purse lips and breathe through the strays (half) Sniff It's all about diverting tension Allergies: Ok to take claritin or zyrtec Visit time was > 40 minutes, of which over half of visit was spent on discussions with patient on disease education and counselling. Molina Blunt MD CC: Dr. Ruby Blunt MD 12/09/2017 12:15 PM Addendum Vicious cycle as we talked about All of these affect each other Allergies Asthma Reflux Vocal cord dysfunction (paradoxical vocal fold motion disorder) vs. Laryngospasm and also muscle tension of throat https://www.aaaai.org/gntgrxiwsr-hew-xvxfaauimk/related-conditions/ibsuz-nrpw-i- ysfunction fauqiuer vocal cord videos: laryngospasm and vocal cord dysfunction Asthma: Symbicort 80 mcg dose 2 puff in am and 2 puff in pm Albuterol as needed Use chamber for both Reflux Increase the regimen Prilosec 40 mg in am (30 min prior to meals) and Zantac 300 mg at night Diet sheet Vocal cord/tension Learn new techniques/biofeedback However I think mild dose of neurontin will redue how easily you get triggered in your throat--you have muscle tension there. 100 mg at night, can increase to 200 mg at night if not strong enough Seeing Dr. Beltran (speech pathologist) who will help with the laryngospasm Secret: straw purse lips and breathe through the strays (half) Sniff It's all about diverting tension Allergies: Ok to take claritin or zyrtec Future appointment [address] Beltran (7th floor) FU with me at 1 (on Yael schedule) Molina Blunt MD [facility] Nurse Coordinator: Carly Link Email: [facility] Physician Director Sports: Yael Ordonez [facility] Inbound Customer Service Representative/Respiratory Therapist: Luda Douglas Website with educational and contact information: [email or web address] Referring Provider: SELF [200] Allergies As of Date: 12/09/2017 Noted Allergy Reaction AUGMENTIN (AMOXICILLIN-POT CLAVUL*11/26/2017 2 - Rash Date Reviewed: 12/09/2017 Reviewed by: Dean Bill Ma - Fully Assessed Reason for Visit: Consult [502] Primary Visit Diagnosis:Dyspnea and respiratory abnormalities [R06.00, R06.89] Other Visit Diagnoses: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] Laryngospasm [J38.5] Chronic rhinitis [J31.0] Asthma, moderate persistent, poorly- controlled [J45.40] Vocal cord dysfunction [J38.3] Gastroesophageal reflux disease with esophagitis [K21.0] Order(s):budesonide-formoterol (SYMBICORT) 80-4.5 mcg/actuation inhalerInhale 2 Puffs as instructed twice daily.Disp: 1 InhalerRfl: 5 albuterol HFA (PROAIR HFA) 90 mcg/actuation inhalerInhale 2 Puffs as instructed every 6 hours as needed.Disp: 1 InhalerRfl: 6 omeprazole 20 mg disintegrating tablet (PriLOSEC)Take 2 tablets by mouth once daily.Disp: 60 tabletRfl: 5 Ranitidine HCl (ZANTAC) 300 mg tabletTake 1 tablet by mouth daily at bedtime.Disp: 30 tabletRfl: 5 gabapentin (NEURONTIN) 100 mg capsule1 pill at night, increase to 2 pills at night if tension continuesDisp: 45 capsuleRfl: 3 Prescriptions as of 12/09/2017 Sig: NORGESTIMATE 0.25 MG-ETHINYL * Take 1 tablet by mouth once d* PRILOSEC ORAL Take 40 mg by mouth once taisha* ALBUTEROL INHALATION Inhale as instructed as neede* BUDESONIDE-FORMOTEROL HFA 80 * Inhale 2 Puffs as instructed * ALBUTEROL SULFATE HFA 90 MCG/* Inhale 2 Puffs as instructed * OMEPRAZOLE 20 MG DELAYED RELE* Take 2 tablets by mouth once * RANITIDINE 300 MG TABLET Take 1 tablet by mouth daily * GABAPENTIN 100 MG CAPSULE 1 pill at night, increase to * SERTRALINE 100 MG TABLET Take 100 mg by mouth once amelie* ONDANSETRON HCL 4 MG TABLET Take 4 mg by mouth every 8 ho* Problem List As Of Date 12/09/2017 Noted Resolved SPRAIN CRUCIATE LIG KNEE [S83.509A] INVALID FOR* Deviated Nasal Septum [J34.2] INVALID FOR* Chronic Rhinitis [J31.0] INVALID FOR* Viral pharyngitis [J02.9] INVALID FOR* Priority: Moderate Class: Acute Depression with anxiety [F41.8] INVALID FOR* Asthma, moderate persistent, poorly-controlled *INVALID FOR* Vocal cord dysfunction [J38.3] INVALID FOR* 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] INVALID FOR* Gastroesophageal reflux disease with esophagiti*INVALID FOR* Other instructions from your clinician: Vicious cycle as we talked about All of these affect each other Allergies Asthma Reflux Vocal cord dysfunction (paradoxical vocal fold motion disorder) vs. Laryngospasm and also muscle tension of throat https://www.aaaai.org/envimlxrup-wdw-aqlvypssvw/related-conditions/vocal-co rd-dysfunction michael vocal cord videos: laryngospasm and vocal cord dysfunction Asthma: Symbicort 80 mcg dose 2 puff in am and 2 puff in pm Albuterol as needed Use chamber for both Reflux Increase the regimen Prilosec 40 mg in am (30 min prior to meals) and Zantac 300 mg at night Diet sheet Vocal cord/tension Learn new techniques/biofeedback However I think mild dose of neurontin will redue how easily you get triggered in your throat--you have muscle tension there. 100 mg at night, can increase to 200 mg at night if not strong enough Seeing Dr. Beltran (speech pathologist) who will help with the laryngospasm Secret: straw purse lips and breathe through the strays (half) Sniff It's all about diverting tension Allergies: Ok to take claritin or zyrtec Future appointment [address] Beltran (7th floor) FU with me at 1 (on Yael schedule) Molina Blunt MD [facility] Nurse Coordinator: Carly Link Email: [facility] Physician Director Sports: Yael Ordonez [facility] Inbound Customer Service Representative/Respiratory Therapist: Luda Douglas Website with educational and contact information: [email or web address] Prescriptions ordered this encounter Disp Refills Start End BUDESONIDE-FORMOTEROL HFA 80 MCG-4.5* 1 In* 5 12/09/2017 Route: INHALATION Sig: Inhale 2 Puffs as instructed twice daily. ALBUTEROL SULFATE HFA 90 MCG/ACTUATI* 1 In* 6 12/09/2017 Route: INHALATION Sig: Inhale 2 Puffs as instructed every 6 hours as needed. OMEPRAZOLE 20 MG DELAYED RELEASE,DIS* 60 t* 5 12/09/2017 Route: ORAL Sig: Take 2 tablets by mouth once daily. RANITIDINE 300 MG TABLET 30 t* 5 12/09/2017 Route: ORAL Sig: Take 1 tablet by mouth daily at bedtime. GABAPENTIN 100 MG CAPSULE 45 c* 3 12/09/2017 03/11/2018 Si pill at night, increase to 2 pills at night if tension continues Follow-up and Disposition History Recorded Encounter Status:Closed by MOLINA BLUNT MD on 12/09/17 PROGRESS Observed: 12/06/2017 Status: COMPLETED Source: [facility] 9:39 AM [facility] RE[facility] HNO ID: [id number] Author: Chema Parra Service: (none) Author Type: Physician Type: Progress Notes Filed: 12/06/2017 9:40 AM Note Text: OPERATIVE NOTATION FOR [facility] SURGICAL PROCEDURE. December 01, 2017 Lorenzo Burnham 1990 [id number] female PROCEDURE: EGD WITH BIOPSY - [id number] SURGEON: Shu Parra M.D. FACS [employer] ATTENDANT: None DEPT: W PROVIDER: [id number] Parra MD POS: [id number] DIAGNOSIS: (R10.13) Epigastric pain (primary encounter diagnosis) (K21.9) Gastroesophageal reflux disease, esophagitis presence not specified ASA CLASS: 2 - mild FINDINGS: gastritis, GERD COMPLICATIONS: None PMHx - PAST MEDICAL HISTORY Diagnosis Date - Anxiety panic attack - Asthma, exercise induced when was young. Rarely use inhaler COMORBIDITIES - None Post Op Occurrences - None Wound Classification - Clean Contaminated Operative note dictated in the [facility] dictation system. Chema Parra MD OPERATIVE REPORT Observed: 12/01/2017 Status: F Source: [place] 8:47 [facility] [place] [facility] Medical Records Department [address] [place] [id number] Operative Report 12/01/172041 MR#: [id number] Acct: [id number] Name: LORENZO BURNHAM Rep #: [id number] : 1990 27 From: Chema Parra MD PCP: Torres Warren MD Status: [facility] Y Location: EN Report of Operation Date of Procedure: 12/01/17 Pre-Operative Diagnosis: epigastric complaints and reflux Post-Operative Diagnosis: antral gastritis, small hiatal hernia, reflux esophagitis Surgery/Procedure Performed:: EGD with biopsies Type of Anesthesia:: MAC Anesthesiologist: Vik Rich - ASA2 Specimen's removed: Jejunum, antral, GE junction, midesophagus Description of Procedure: The patient was brought to the endoscopy suite. Sign in was performed verifying patient, site, planned procedure, critical nursing information, the patient was monitored with cardiac, pulse oximetric, and blood pressure monitoring devices. Monitored anesthetic care was provided for sedation. Following IV sedation and after the oropharynx was sprayed with Cetacaine spray, a video gastroscope was inserted in the oropharynx and advanced down the esophagus without difficulty. The scope was advanced through the stomach, through the pylorus through the duodenum to the proximal jejunum. the jejunum appeared unremarkable. A biopsy obtained to rule out celiac. As the scope was withdrawn. The duodenum appeared unremarkable. There was noted to be some narrowing at the pylorus. Upon insertion. As the scope was withdrawn. There were no obvious ulcerations, but some irritation seemed to be more than would be expected from just dilation with the scope. A biopsy was obtained for H. pylori and pathology. The remainder of the body of the stomach appeared unremarkable. The scope was retroflexed. The patient had a small hiatal hernia. There was mild distal esophagitis. A biopsy is obtained from the distal esophagus, and then an additional biopsy obtained the mid esophagus to rule out eosinophilic esophagitis. The patient tolerated the procedure well and was brought to recovery in stable condition 12/01/172046 <Electronically signed by Chema Parra MD> Date Chema Parra MD CC: Torres Warren MD; Chema Parra MD Signed ,URINE Collected: 12/01/2017 Status: F Source: [place] 11:[address] [facility] REPOSITORY TYPE CODE TESTS RESULT OUT OF REFERENCE UNITS RANGE LAB L400.8000 Negative Normal HCGUQUAL Negative Result Comment: Very dilute urine specimens, as indicated by a low specific gravity, may not contain wire rope sales representative levels of hCG. If is still suspected, a first morning urine specimen should be collected 48 hours later and tested. Performed By: #### [id number] #### [facility] [address] [place], [address] HISTORY AND PHYSICAL Observed: 12/01/2017 Status: F Source: [place] EXAM 6:[address] [facility] REPOSITORY [facility] Medical Records Department [address] [facility] [address] [place] [address] History and Physical 12/01/17 0620 MR#: [id number] Acct: [id number] Name: LORENZO BURNHAM Rep #: [id number] : 1990 From: Chema Parra MD PCP: Torres Warren MD Status: [facility] [place] Location: [place] History and Physical Date of Admission: 12/01/17 HISTORY AND PHYSICAL Lorenzo Burnham 1990 REFERRING PHYSICIAN: Self CHIEF COMPLAINT: Consult (egd) HPI: The patient is a 27 year old female referred for endoscopy. Lorenzo notes progressive upper abdominal complaints x the last few months. She notes she had been treated for significant sinusitis as well as allergies earlier this year, and had been prescribed a course of prednisone. She states she had significant side effects with this, was seen in the ED and the prednisone was abruptly discontinued. Since that time she notes severe acid reflux, nausea which is worse in the morning, and intermittent abdominal bloating. She points to her epigastric region as the primary source of pain, and states that the pain does not really radiate from this area. Notes constant aching pain, and more recently she notes a sensation of pressure or ball right in the epigastric area after eating. Patient notes frequent belching. Symptoms are aggravated by eating and drinking, particularly with spicy foods or alcohol. She has had some relief with Tums. Has been taking PPI the last couple of weeks but not having much improvement with this. Patient states her symptoms worsened significantly earlier this week, prompting her to present to the emergency department. She had a right upper quadrant ultrasound which was unremarkable. Her symptoms were felt to be consistent with gastritis or possible ulcer, and she was instructed to follow up with general surgery for outpatient endoscopy. The patient states she is otherwise in good health. Denies cardiac or respiratory complaints. She does note significant anxiety and feels her abdominal complaints are related to this. Patient previously had a colonoscopy approximately 5 years ago and notes and recall and discomfort associated with that procedure. She denies any lower abdominal complaints, changes in bowel habits or blood in stools currently. PAST MEDICAL HISTORY PAST MEDICAL HISTORY Diagnosis Date Anxiety panic attack Asthma, exercise induced when was young. Rarely use inhaler PAST SURGICAL HISTORY CURRENT MEDICATIONS Current Outpatient Prescriptions: norgestimate 0.25 mg-ethinyl estradiol 35 mcg (SPRINTEC) 0.25 -35 mg-mcg per tablet Take 1 tablet by mouth once daily. omeprazole (PRILOSEC ORAL) Take by mo ut once daily. ALBUTEROL INHALATION Inhale as instructed as needed. ondansetron (ZOFRAN, HYDROCHLORIDE,) 4 mg tablet Take 4 mg by mouth every 8 hours as needed. sertraline (ZOLOFT) 10 0 mg tablet [id number] mg by mouth once daily. No current facility-administered medications for this visit. ALLERGIES: Augmentin [Amoxicillin-Pot Clavulanate] PERSONAL HISTORY: SOCIAL HISTORY Social History Marital status: Spouse name: Years of education: Number of children: Social History Main Topics Smoki ng status: Never Smoker Smokeless tobacco: Never Used Alcohol use: No Drug use: No Sexual activity: Yes Comment: on control Social History Narrative Pt works at [employer] no pets . FAMILY HISTORY: FAMILY HISTORY FAMILY HISTORY Problem Relation Age of Onset Stomach ulcer [OTHER] Mother HTN [OTHER] Father Breast Cancer Maternal Grandmother None Maternal Grandfather None Patern al Grandmother Diabetes Paternal Grandfather Heart Paternal Grandfather OHS in 60 Cancer Paternal Grandfather Kidney Disease Paternal Grandfather Asthma Brother exercise induced IBD [OTHER] Paternal Uncle REVIEW OF SYMPTOMS: The review of systems data was entered by the nurse and reviewed by ar Nursing Notes: Kaitlin Daniel RN 11/26/2017 11:26 AM Signed REVIEW OF SYSTEMS: General: The patient NOTES fatigue, denies weight loss, denies weight gain, NOTES feeling hot, and denies feelings of cold. Eyes: The patient denies glaucoma, denies eye injury/surgery, wears glasses or contacts. Ear/Nose/Throat: The patient NOTES allergies, NOTES hayfever, denies ear infections, and denies bloody noses. Cardiovascular: The patient denies chest pain, denies heart disease, denies high blood pressure,denies cardiac stent, denies prior heart attack, denies irregular heart beat, denies high cholesterol, denies poor circulation, denies heart failure, other cardiac issues, denies claudication, denies cold feet, denies peripheral arterial stent. Respiratory: The patient denies tuberculosis, denies pneumonia, NOTES frequent cough, denies pulmonary embolism, NOTES shortness of breath, and denies coughing up blood. Gastrointestinal: The patient denies difficulty swallowing, NOTES acid reflux, denies ulcers, denies vomiting, denies jaundice/hepatitis, denies gallbladder problems, denies black or tarry stools, NOTES hemorrhoids, NOTES bleeding from rectum, denies diverticulitis, NOTES constipation, denies diarrhea, denies loss of stool control, and denies hernias. Kidney/Bladder: The patient denies kidney stones, denies urine infections, and denies bloody urine. Skin: The patient denies a history of skin cancer, denies bleeding/changing moles, and denies a history of skin rash. Neurologic: The patient denies a history of epilepsy/convulsions, denies headaches, denies head/spinal injuries, and denies stroke/TIA. Psychiatric: The patient denies psychiatric medications, denies depression, and denies voices, denies substance abuse. Endocrine: The patient denies thyroid disorders, denies diabetes, and denies hormonal problems. Hematologic: The patient denies a history of bruising, denies bleeding, and denies anemia, denies blood clots. Infections: The patient denies a history of measles and mumps, denies rheumatic fever, and denies sexually transmitted diseases. Musculoskeletal: The patient denies back pain/injury, denies back problems, denies sciatica, denies knee/foot trouble, denies arthritis, or denies gout. When was patient's last Mammogram screening? N/A Last Colonoscopy: 2012 Kaitlin Daniel RN I have confirmed and edited as necessary, the PFSH and ROS obtained by others. PHYSICAL EXAMINATION: General: The patient is 27 year old female, well nourished, well hydrated in no acute distress. The patient is oriented to time, place, and person. VITALS: Blood pressure 110/58, pulse 76, temperature 36.7 C (98 F), weight 54.7 kg (120 lb 9.6 oz). Body mass index is 21.71 kg/m . HEENT: Normal cephalic, ataumatic, pupils are equally round, sclera are anicteric, mucous membranes are moist, oropharynx is clear. Neck has no masses, asymmetry or lymphadenopathy. Respiratory: Clear to auscultation and percussion. Normal respiratory excursion and pattern. Cardiac: Examination is regular rate and rhythm. Abdominal exam: +mild TTP epigastric area without rebound or guarding. No hepatosplenomegaly. No palpable hernias. Rectal exam: exam deferred Extremities: no clubbing, cyanosis or edema. No adenopathy. Other: LABORATORY VALUES: As Noted RADIOLOGIC STUDIES: As Noted Assessment IMPRESSION: epigastric pain, reflux, belching, precipitated by treatment with steroids. Suspect GERD and/or PUD, recommend EGD for further evaluation PLAN: We will plan for EGD with MAC. We discussed the risks and benefits of the planned endoscopy. I have informed the patient that complications can occur including failure to complete the endoscopy and perforation. The patient had the opportunity to ask questions concerning the planned endoscopy. My staff has also explained the procedure to the patient in understandable terms and has given the patient printed material concerning the procedure. The patient freely consents to surgery. I plan for monitored anesthetic care. In the meantime, stressed importance of bland diet, small meals, avoidance of caffeine and alcohol as well as avoidance of spicy foods Diagnoses: (R10.13) Epigastric pain (primary encounter diagnosis) (R14.2) Belching (K21.9) Gastroesophageal reflux disease, esophagitis presence not specified This note will be forwarded to Dr. Vance Jansen MD. Return to Clinic: The patient is instructed to follow-up with me 1 week post operatively. I spent 30 minutes in the visit, with more than 50% of the total [id number] time of the visit in counseling / coordination of care. Pam Cameron PA-C 12/01/17 0620 <Electronically signed by Chema Parra MD> Date Chema Parra MD Cosigner Signature: Date (if applicable) CC: Torres Warren MD; Chema Parra MD Signed EGD ([facility]) Observed: 12/01/2017 Status: F Source: CHARLY 12:[address] [facility] REPOSITORY Patient: LORENZO BURNHAM : 1990 () Acct Num: [id number] Phys: Fidel JOHNS,Chema Unit Num: [id number] Loc: EN Specimen: [id number] Received: 12/01/17 161 Spec Type: EGD BIOPSY TISSUES TISSUES: A. Jejunum, NOS B. Gastric mucous membrane C. Gastric mucous membrane D. Esophageal mucous membrane COMMENT B. The results of immunohistochemistry for Helicobacter pylori will be reported separately ([id number]). GROSS DESCRIPTION A - Received in fixative is one container labeled with the patient's name and designated jejunal biopsy. The specimen consists of multiple irregular fragments of light shearer soft tissue that in aggregate measure 0.7 x 0.3 x 0.2 cm. The specimen is totally submitted in one cassette. B - Received in fixative is one container labeled with the patient's name and designated antral biopsy. The specimen consists of one irregular fragment of light shearer soft tissue that measures 0.5 x 0.3 x 0.3 cm. The specimen is totally submitted in one cassette. C - Received in fixative is one container labeled with the patient's name and designated GE junction. The specimen consists of two irregular fragments of light shearer soft tissue that in aggregate measure 0.5 x 0.3 x 0.2 cm. The specimen is totally submitted in one cassette. D - Received in fixative is one container labeled with the patient's name and designated mid esophageal biopsy. The specimen consists of one irregular fragment of light shearer soft tissue that measures 0.5 x 0.3 x 0.1 cm. The specimen is totally submitted in one cassette. / RY:stephane 12/03/17 TC:3 CPT: 48577 x4 HEADER OPERATION: EGD PRE-OP DIAGNOSIS: Epigastric pain, reflux TISSUE SUBMITTED: A Jejunal biopsy, B Antral biopsy for H. pylori and path, C GE junction, D Mid esophageal biopsy MICROSCOPIC DESCRIPTION Slides are reviewed. MICROSCOPIC DIAGNOSIS A. Jejunum, biopsy: No significant pathologic change. B. Gastric antrum, biopsy: Mild chronic gastritis. C. Gastroesophageal junction, biopsy: Mild chronic inflammation. No evidence of intestinal metaplasia. D. Mid esophagus, biopsy: Fragment of benign squamous mucosa. No evidence of inflammation. AM:stephane 12/04/17 Signed René Chavez 12/04/17 <signature on file> Performed By: #### PEGD #### [facility] [place], [address] IMMUNOHISTOCHEMISTRY Observed: 12/01/2017 Status: F Source: [place] 12:[address] [facility] REPOSITORY Patient: LORENZO BURNHAM : 1990 (/) Acct Num: [id number] Phys: Chema Parra MD Unit Num: [id number] Loc: EN Specimen: [id number] Received: 12/04/17 - 1047 Spec Type: IMMUNO TISSUES TISSUES: B. Stomach, NOS SPECIMEN INFORMATION: Tissue Source: B Antral biopsy Clinical Info: Epigastric pain, reflux Specimen Number: [id number] CPT code: 50837 METHODOLOGY: Deparaffinized sections of prefer/formalin-fixed tissue or PAP/DQ stained slides are incubated with monoclonal/polyclonal antibodies/oligonucleotide probes. Localization is made via biotin free immunoperoxidase method. Appropriate controls are performed and reacted as expected. Results on target cell population are indicated in the following table: RESULTS: ANTIBODY / CLONE RESULT Block B H Pylori (polyclonal) negative These tests were developed and their performance characteristics determined by [facility]. They may not have been cleared or approved by the U.S. Food and Drug Administration. The FDA has determined that such clearance or approval is not necessary. INTERPRETATION: B. Antral biopsy: Negative for Helicobacter pylori organisms. AM:stephane 11/07/17 PHYSICIAN AND INSTITUTION [address] [address] Signed René Chavez 12/07/17 <signature on file> Performed By: #### PIMM #### [facility] [address] [place] [address], [id number] CNOP Observed: 12/01/2017 Status: COMPLETED Source: DAWN 12:00 AM [facility] REPOSITORY Operative Note (Enc) (GENAYANAS) Progress Notes: Chema Parra MD 12/06/2017 9:40 AM Signed OPERATIVE NOTATION FOR [facility] SURGICAL PROCEDURE. December 01, 2017 Lorenzo Burnham 1990 [id number] female PROCEDURE: EGD WITH BIOPSY - [id number] SURGEON: Shu Parra M.D. FACS [employer] ATTENDANT: None DEPT: WQ PROVIDER: [id number]=JarwsayChema Parra MD POS: [id number] DIAGNOSIS: (R10.13) Epigastric pain (primary encounter diagnosis) (K21.9) Gastroesophageal reflux disease, esophagitis presence not specified ASA CLASS: 2 - mild FINDINGS: gastritis, GERD COMPLICATIONS: None PMHx - PAST MEDICAL HISTORY Diagnosis Date - Anxiety panic attack - Asthma, exercise induced when was young. Rarely use inhaler COMORBIDITIES - None Post Op Occurrences - None Wound Classification - Clean Contaminated Operative note dictated in the [facility] dictation system. Chema Parra MD Encounter Status:Closed by CHEMA PARRA MD on 12/06/17 12 LEAD ELECTROCARDIOGRAM Observed: 11/27/2017 Status: F Source: [place] 8:[address] [facility] REPOSITORY [facility] Cardiovascular Services [address] [place] [address] 12 Lead EKG 11/24/172054 MR#: [id number] Acct: [id number] Name: LORENZO BURNHAM Rep #: [id number] : 1990 27 From: Bronson Velasquez MD Attending Dr: Status: DEP ER Ordering Dr: Satya Martinez MD Date: 11/24/17 Location: ED Sex: F C Admitted: Test Reason : TACHYCARDIA Blood Pressure : / mmHG Vent. Rate : 103 BPM Atrial Rate : 103 BPM P-R Int : 148 ms QRS Dur : 078 ms QT Int : 350 ms P-R-T Axes : 064 025 012 degrees QTc Int : 458 ms Sinus tachycardia Otherwise normal ECG Confirmed by BRONSON VELASQUEZ MD ([id number]), index editor ROMAN PATEL ([id number]) on 11/27/2017 8:56:40 AM Referred By: ARLEY Confirmed By:BRONSON VELASQUEZ MD 11/27/17 0856 Date Bronson Velasquez MD CC: Torres Warren MD; Satya Martinez MD Signed PROGRESS Observed: 11/26/2017 Status: COMPLETED Source: DAWN 11:06 AM [facility] REPOSITORY HNO ID: [id number] Author: Pam Cameron (Pa) Service: (none) Author Type: Physician Director Sports Type: Progress Notes Filed: 11/26/2017 2:06 PM Note Text: HISTORY AND PHYSICAL Lorenzo Burnham 1990 REFERRING PHYSICIAN: Self CHIEF COMPLAINT: Consult (egd) HPI: The patient is a 27 year old female referred for endoscopy. Lorenzo notes progressive upper abdominal complaints x the last few months. She notes she had been treated for significant sinusitis as well as allergies earlier this year, and had been prescribed a course of prednisone. She states she had significant side effects with this, was seen in the ED and the prednisone was abruptly discontinued. Since that time she notes severe acid reflux, nausea which is worse in the morning, and intermittent abdominal bloating. She points to her epigastric region as the primary source of pain, and states that the pain does not really radiate from this area. Notes constant aching pain, and more recently she notes a sensation of pressure or ball right in the epigastric area after eating. Patient notes frequent belching. Symptoms are aggravated by eating and drinking, particularly with spicy foods or alcohol. She has had some relief with Tums. Has been taking PPI the last couple of weeks but not having much improvement with this. Patient states her symptoms worsened significantly earlier this week, prompting her to present to the emergency department. She had a right upper quadrant ultrasound which was unremarkable. Her symptoms were felt to be consistent with gastritis or possible ulcer, and she was instructed to follow up with general surgery for outpatient endoscopy. The patient states she is otherwise in good health. Denies cardiac or respiratory complaints. She does note significant anxiety and feels her abdominal complaints are related to this. Patient previously had a colonoscopy approximately 5 years ago and notes and recall and discomfort associated with that procedure. She denies any lower abdominal complaints, changes in bowel habits or blood in stools currently. PAST MEDICAL HISTORY Diagnosis Date - Anxiety panic attack - Asthma, exercise induced when was young. Rarely use inhaler PAST SURGICAL HISTORY Procedure Laterality Date - SECTION HX - PAST SURGICAL HISTORY OF 2003 left acl repair - PAST SURGICAL HISTORY OF 2006 right acl repair Current Outpatient Prescriptions: norgestimate 0.25 mg-ethinyl estradiol 35 mcg (SPRINTEC) 0.25- 35 mg-mcg per tablet Take 1 tablet by mouth once daily. omeprazole (PRILOSEC ORAL) Take by mouth once daily. ALBUTEROL INHALATION Inhale as instructed as needed. ondansetron (ZOFRAN, HYDROCHLORIDE,) 4 mg tablet Take 4 mg by mouth every 8 hours as needed. sertraline (ZOLOFT) 100 mg tablet Take 100 mg by mouth once daily. No current facility-administered medications for this visit. ALLERGIES: Augmentin [Amoxicillin-Pot Clavulanate] PERSONAL HISTORY: Social History Marital status: Spouse name: Years of education: Number of children: Social History Main Topics Smoking status: Never Smoker Smokeless tobacco: Never Used Alcohol use: No Drug use: No Sexual activity: Yes Comment: on control Social History Narrative Pt works at [employer] no pets . FAMILY HISTORY: FAMILY HISTORY Problem Relation Age of Onset - Stomach ulcer [OTHER] Mother - HTN [OTHER] Father - Breast Cancer Maternal Grandmother - None Maternal Grandfather - None Paternal Grandmother - Diabetes Paternal Grandfather - Heart Paternal Grandfather OHS in 60 - Cancer Paternal Grandfather - Kidney Disease Paternal Grandfather - Asthma Brother exercise induced - IBD [OTHER] Paternal Uncle REVIEW OF SYMPTOMS: The review of systems data was entered by the nurse and reviewed by ar Nursing Notes: Kaitlin Daniel RN 11/26/2017 11:26 AM Signed REVIEW OF SYSTEMS: General: The patient NOTES fatigue, denies weight loss, denies weight gain, NOTES feeling hot, and denies feelings of cold. Eyes: The patient denies glaucoma, denies eye injury/surgery, wears glasses or contacts. Ear/Nose/Throat: The patient NOTES allergies, NOTES hayfever, denies ear infections, and denies bloody noses. Cardiovascular: The patient denies chest pain, denies heart disease, denies high blood pressure,denies cardiac stent, denies prior heart attack, denies irregular heart beat, denies high cholesterol, denies poor circulation, denies heart failure, other cardiac issues, denies claudication, denies cold feet, denies peripheral arterial stent. Respiratory: The patient denies tuberculosis, denies pneumonia, NOTES frequent cough, denies pulmonary embolism, NOTES shortness of breath, and denies coughing up blood. Gastrointestinal: The patient denies difficulty swallowing, NOTES acid reflux, denies ulcers, denies vomiting, denies jaundice/hepatitis, denies gallbladder problems, denies black or tarry stools, NOTES hemorrhoids, NOTES bleeding from rectum, denies diverticulitis, NOTES constipation, denies diarrhea, denies loss of stool control, and denies hernias. Kidney/Bladder: The patient denies kidney stones, denies urine infections, and denies bloody urine. Skin: The patient denies a history of skin cancer, denies bleeding/changing moles, and denies a history of skin rash. Neurologic: The patient denies a history of epilepsy/convulsions, denies headaches, denies head/spinal injuries, and denies stroke/TIA. Psychiatric: The patient denies psychiatric medications, denies depression, and denies voices, denies substance abuse. Endocrine: The patient denies thyroid disorders, denies diabetes, and denies hormonal problems. Hematologic: The patient denies a history of bruising, denies bleeding, and denies anemia, denies blood clots. Infections: The patient denies a history of measles and mumps, denies rheumatic fever, and denies sexually transmitted diseases. Musculoskeletal: The patient denies back pain/injury, denies back problems, denies sciatica, denies knee/foot trouble, denies arthritis, or denies gout. When was patient's last Mammogram screening? N/A Last Colonoscopy: 2012 Kaitlin Daniel RN I have confirmed and edited as necessary, the PFSH and ROS obtained by others. PHYSICAL EXAMINATION: General: The patient is 27 year old female, well nourished, well hydrated in no acute distress. The patient is oriented to time, place, and person. VITALS: Blood pressure 110/58, pulse 76, temperature 36.7 ?C (98 ?F), weight 54.7 kg (120 lb 9.6 oz). Body mass index is 21.71 kg/m?. HEENT: Normal cephalic, ataumatic, pupils are equally round, sclera are anicteric, mucous membranes are moist, oropharynx is clear. Neck has no masses, asymmetry or lymphadenopathy. Respiratory: Clear to auscultation and percussion. Normal respiratory excursion and pattern. Cardiac: Examination is regular rate and rhythm. Abdominal exam: +mild TTP epigastric area without rebound or guarding. No hepatosplenomegaly. No palpable hernias. Rectal exam: exam deferred Extremities: no clubbing, cyanosis or edema. No adenopathy. Other: LABORATORY VALUES: As Noted RADIOLOGIC STUDIES: As Noted Assessment IMPRESSION: epigastric pain, reflux, belching, precipitated by treatment with steroids. Suspect GERD and/or PUD, recommend EGD for further evaluation PLAN: We will plan for EGD with MAC. We discussed the risks and benefits of the planned endoscopy. I have informed the patient that complications can occur including failure to complete the endoscopy and perforation. The patient had the opportunity to ask questions concerning the planned endoscopy. My staff has also explained the procedure to the patient in understandable terms and has given the patient printed material concerning the procedure. The patient freely consents to surgery. I plan for monitored anesthetic care. In the meantime, stressed importance of bland diet, small meals, avoidance of caffeine and alcohol as well as avoidance of spicy foods Diagnoses: (R10.13) Epigastric pain (primary encounter diagnosis) (R14.2) Belching (K21.9) Gastroesophageal reflux disease, esophagitis presence not specified This note will be forwarded to Dr. Vance Jansen MD. Return to Clinic: The patient is instructed to follow-up with me 1 week post operatively. I spent 30 minutes in the visit, with more than 50% of the total diyy-ct-hqsh time of the visit in counseling / coordination of care. KIMBERLEY Sánchez Observed: 11/26/2017 Status: COMPLETED Source: DAWN 10:30 AM [facility] REPOSITORY Office Visit (GENSWS) LORENZO BURNHAM ([id number]) 1990 F Date Time Provider Department 11/26/17 10:30 AM PAM CAMERON (PA) During your visit today, we recorded the following information about you: Temperature Pulse Blood pressure Weight 98 degrees 76/minute 110/58 54.7 kg Pam Cameron PA-C 11/26/2017 2:06 PM Signed HISTORY AND PHYSICAL Lorenzo Burnham 1990 REFERRING PHYSICIAN: Self CHIEF COMPLAINT: Consult (egd) HPI: The patient is a 27 year old female referred for endoscopy. Lorenzo notes progressive upper abdominal complaints x the last few months. She notes she had been treated for significant sinusitis as well as allergies earlier this year, and had been prescribed a course of prednisone. She states she had significant side effects with this, was seen in the ED and the prednisone was abruptly discontinued. Since that time she notes severe acid reflux, nausea which is worse in the morning, and intermittent abdominal bloating. She points to her epigastric region as the primary source of pain, and states that the pain does not really radiate from this area. Notes constant aching pain, and more recently she notes a sensation of pressure or ball right in the epigastric area after eating. Patient notes frequent belching. Symptoms are aggravated by eating and drinking, particularly with spicy foods or alcohol. She has had some relief with Tums. Has been taking PPI the last couple of weeks but not having much improvement with this. Patient states her symptoms worsened significantly earlier this week, prompting her to present to the emergency department. She had a right upper quadrant ultrasound which was unremarkable. Her symptoms were felt to be consistent with gastritis or possible ulcer, and she was instructed to follow up with general surgery for outpatient endoscopy. The patient states she is otherwise in good health. Denies cardiac or respiratory complaints. She does note significant anxiety and feels her abdominal complaints are related to this. Patient previously had a colonoscopy approximately 5 years ago and notes and recall and discomfort associated with that procedure. She denies any lower abdominal complaints, changes in bowel habits or blood in stools currently. PAST MEDICAL HISTORY Diagnosis Date - Anxiety panic attack - Asthma, exercise induced when was young. Rarely use inhaler PAST SURGICAL HISTORY Procedure Laterality Date - SECTION HX - PAST SURGICAL HISTORY OF 2003 left acl repair - PAST SURGICAL HISTORY OF 2006 right acl repair Current Outpatient Prescriptions: norgestimate 0.25 mg-ethinyl estradiol 35 mcg (SPRINTEC) 0.25- 35 mg-mcg per tablet Take 1 tablet by mouth once daily. omeprazole (PRILOSEC ORAL) Take by mouth once daily. ALBUTEROL INHALATION Inhale as instructed as needed. ondansetron (ZOFRAN, HYDROCHLORIDE,) 4 mg tablet Take 4 mg by mouth every 8 hours as needed. sertraline (ZOLOFT) 100 mg tablet Take 100 mg by mouth once daily. No current facility-administered medications for this visit. ALLERGIES: Augmentin [Amoxicillin-Pot Clavulanate] PERSONAL HISTORY: Social History Marital status: Spouse name: Years of education: Number of children: Social History Main Topics Smoking status: Never Smoker Smokeless tobacco: Never Used Alcohol use: No Drug use: No Sexual activity: Yes Comment: on control Social History Narrative Pt works at [employer] no pets . FAMILY HISTORY: FAMILY HISTORY Problem Relation Age of Onset - Stomach ulcer [OTHER] Mother - HTN [OTHER] Father - Breast Cancer Maternal Grandmother - None Maternal Grandfather - None Paternal Grandmother - Diabetes Paternal Grandfather - Heart Paternal Grandfather OHS in 60 - Cancer Paternal Grandfather - Kidney Disease Paternal Grandfather - Asthma Brother exercise induced - IBD [OTHER] Paternal Uncle REVIEW OF SYMPTOMS: The review of systems data was entered by the nurse and reviewed by ar Nursing Notes: Kaitlin Daniel RN 11/26/2017 11:26 AM Signed REVIEW OF SYSTEMS: General: The patient NOTES fatigue, denies weight loss, denies weight gain, NOTES feeling hot, and denies feelings of cold. Eyes: The patient denies glaucoma, denies eye injury/surgery, wears glasses or contacts. Ear/Nose/Throat: The patient NOTES allergies, NOTES hayfever, denies ear infections, and denies bloody noses. Cardiovascular: The patient denies chest pain, denies heart disease, denies high blood pressure,denies cardiac stent, denies prior heart attack, denies irregular heart beat, denies high cholesterol, denies poor circulation, denies heart failure, other cardiac issues, denies claudication, denies cold feet, denies peripheral arterial stent. Respiratory: The patient denies tuberculosis, denies pneumonia, NOTES frequent cough, denies pulmonary embolism, NOTES shortness of breath, and denies coughing up blood. Gastrointestinal: The patient denies difficulty swallowing, NOTES acid reflux, denies ulcers, denies vomiting, denies jaundice/hepatitis, denies gallbladder problems, denies black or tarry stools, NOTES hemorrhoids, NOTES bleeding from rectum, denies diverticulitis, NOTES constipation, denies diarrhea, denies loss of stool control, and denies hernias. Kidney/Bladder: The patient denies kidney stones, denies urine infections, and denies bloody urine. Skin: The patient denies a history of skin cancer, denies bleeding/changing moles, and denies a history of skin rash. Neurologic: The patient denies a history of epilepsy/convulsions, denies headaches, denies head/spinal injuries, and denies stroke/TIA. Psychiatric: The patient denies psychiatric medications, denies depression, and denies voices, denies substance abuse. Endocrine: The patient denies thyroid disorders, denies diabetes, and denies hormonal problems. Hematologic: The patient denies a history of bruising, denies bleeding, and denies anemia, denies blood clots. Infections: The patient denies a history of measles and mumps, denies rheumatic fever, and denies sexually transmitted diseases. Musculoskeletal: The patient denies back pain/injury, denies back problems, denies sciatica, denies knee/foot trouble, denies arthritis, or denies gout. When was patient's last Mammogram screening? N/A Last Colonoscopy: 2012 Kaitlin Daniel RN I have confirmed and edited as necessary, the PFSH and ROS obtained by others. PHYSICAL EXAMINATION: General: The patient is 27 year old female, well nourished, well hydrated in no acute distress. The patient is oriented to time, place, and person. VITALS: Blood pressure 110/58, pulse 76, temperature 36.7 ?C (98 ?F), weight 54.7 kg (120 lb 9.6 oz). Body mass index is 21.71 kg/m?. HEENT: Normal cephalic, ataumatic, pupils are equally round, sclera are anicteric, mucous membranes are moist, oropharynx is clear. Neck has no masses, asymmetry or lymphadenopathy. Respiratory: Clear to auscultation and percussion. Normal respiratory excursion and pattern. Cardiac: Examination is regular rate and rhythm. Abdominal exam: +mild TTP epigastric area without rebound or guarding. No hepatosplenomegaly. No palpable hernias. Rectal exam: exam deferred Extremities: no clubbing, cyanosis or edema. No adenopathy. Other: LABORATORY VALUES: As Noted RADIOLOGIC STUDIES: As Noted Assessment IMPRESSION: epigastric pain, reflux, belching, precipitated by treatment with steroids. Suspect GERD and/or PUD, recommend EGD for further evaluation PLAN: We will plan for EGD with MAC. We discussed the risks and benefits of the planned endoscopy. I have informed the patient that complications can occur including failure to complete the endoscopy and perforation. The patient had the opportunity to ask questions concerning the planned endoscopy. My staff has also explained the procedure to the patient in understandable terms and has given the patient printed material concerning the procedure. The patient freely consents to surgery. I plan for monitored anesthetic care. In the meantime, stressed importance of bland diet, small meals, avoidance of caffeine and alcohol as well as avoidance of spicy foods Diagnoses: (R10.13) Epigastric pain (primary encounter diagnosis) (R14.2) Belching (K21.9) Gastroesophageal reflux disease, esophagitis presence not specified This note will be forwarded to Dr. Vance Jansen MD. Return to Clinic: The patient is instructed to follow-up with me 1 week post operatively. I spent 30 minutes in the visit, with more than 50% of the total [id number] time of the visit in counseling / coordination of care. KIMBERLEY Sánchez PA-C 11/26/2017 11:11 AM Signed -Continue omeprazole -Stay on bland diet, avoid any caffeine or alcohol Kaitlin Daniel RN 11/26/2017 11:26 AM Signed REVIEW OF SYSTEMS: General: The patient NOTES fatigue, denies weight loss, denies weight gain, NOTES feeling hot, and denies feelings of cold. Eyes: The patient denies glaucoma, denies eye injury/surgery, wears glasses or contacts. Ear/Nose/Throat: The patient NOTES allergies, NOTES hayfever, denies ear infections, and denies bloody noses. Cardiovascular: The patient denies chest pain, denies heart disease, denies high blood pressure,denies cardiac stent, denies prior heart attack, denies irregular heart beat, denies high cholesterol, denies poor circulation, denies heart failure, other cardiac issues, denies claudication, denies cold feet, denies peripheral arterial stent. Respiratory: The patient denies tuberculosis, denies pneumonia, NOTES frequent cough, denies pulmonary embolism, NOTES shortness of breath, and denies coughing up blood. Gastrointestinal: The patient denies difficulty swallowing, NOTES acid reflux, denies ulcers, denies vomiting, denies jaundice/hepatitis, denies gallbladder problems, denies black or tarry stools, NOTES hemorrhoids, NOTES bleeding from rectum, denies diverticulitis, NOTES constipation, denies diarrhea, denies loss of stool control, and denies hernias. Kidney/Bladder: The patient denies kidney stones, denies urine infections, and denies bloody urine. Skin: The patient denies a history of skin cancer, denies bleeding/changing moles, and denies a history of skin rash. Neurologic: The patient denies a history of epilepsy/convulsions, denies headaches, denies head/spinal injuries, and denies stroke/TIA. Psychiatric: The patient denies psychiatric medications, denies depression, and denies voices, denies substance abuse. Endocrine: The patient denies thyroid disorders, denies diabetes, and denies hormonal problems. Hematologic: The patient denies a history of bruising, denies bleeding, and denies anemia, denies blood clots. Infections: The patient denies a history of measles and mumps, denies rheumatic fever, and denies sexually transmitted diseases. Musculoskeletal: The patient denies back pain/injury, denies back problems, denies sciatica, denies knee/foot trouble, denies arthritis, or denies gout. When was patient's last Mammogram screening? N/A Last Colonoscopy: 2012 Kaitlin Daniel RN Referring Provider: SELF [200] Allergies As of Date: 11/26/2017 Noted Allergy Reaction AUGMENTIN (AMOXICILLIN-POT CLAVUL*11/26/2017 2 - Rash Date Reviewed: 11/26/2017 Reviewed by: Pam Cameron (Pa) - Fully Assessed Reason for Visit: Consult [173] Cmt: egd Primary Visit Diagnosis:Epigastric pain [R10.13] Other Visit Diagnoses:Belching [R14.2] Gastroesophageal reflux disease, esophagitis presence not specified [K21.9] Prescriptions as of 11/26/2017 Sig: NORGESTIMATE 0.25 MG-ETHINYL * Take 1 tablet by mouth once d* PRILOSEC ORAL Take by mouth once daily. ALBUTEROL INHALATION Inhale as instructed as neede* ONDANSETRON HCL 4 MG TABLET Take 4 mg by mouth every 8 ho* SERTRALINE 100 MG TABLET Take 100 mg by mouth once amelie* Problem List As Of Date 11/26/2017 Noted Resolved SPRAIN CRUCIATE LIG KNEE [S83.509A] INVALID FOR* Deviated Nasal Septum [J34.2] INVALID FOR* Chronic Rhinitis [J31.0] INVALID FOR* Viral pharyngitis [J02.9] INVALID FOR* Priority: Moderate Class: Acute Depression with anxiety [F41.8] INVALID FOR* Other instructions from your clinician: -Continue omeprazole -Stay on bland diet, avoid any caffeine or alcohol Visit Notes: >> Kaitlin Daniel RN [facility] Nov 26, 2017 11:25 AM Status: Signed REVIEW OF SYSTEMS: General: The patient NOTES fatigue, denies weight loss, denies weight gain, NOTES feeling hot, and denies feelings of cold. Eyes: The patient denies glaucoma, denies eye injury/surgery, wears glasses or contacts. Ear/Nose/Throat: The patient NOTES allergies, NOTES hayfever, denies ear infections, and denies bloody noses. Cardiovascular: The patient denies chest pain, denies heart disease, denies high blood pressure,denies cardiac stent, denies prior heart attack, denies irregular heart beat, denies high cholesterol, denies poor circulation, denies heart failure, other cardiac issues, denies claudication, denies cold feet, denies peripheral arterial stent. Respiratory: The patient denies tuberculosis, denies pneumonia, NOTES frequent cough, denies pulmonary embolism, NOTES shortness of breath, and denies coughing up blood. Gastrointestinal: The patient denies difficulty swallowing, NOTES acid reflux, denies ulcers, denies vomiting, denies jaundice/hepatitis, denies gallbladder problems, denies black or tarry stools, NOTES hemorrhoids, NOTES bleeding from rectum, denies diverticulitis, NOTES constipation, denies diarrhea, denies loss of stool control, and denies hernias. Kidney/Bladder: The patient denies kidney stones, denies urine infections, and denies bloody urine. Skin: The patient denies a history of skin cancer, denies bleeding/changing moles, and denies a history of skin rash. Neurologic: The patient denies a history of epilepsy/convulsions, denies headaches, denies head/spinal injuries, and denies stroke/TIA. Psychiatric: The patient denies psychiatric medications, denies depression, and denies voices, denies substance abuse. Endocrine: The patient denies thyroid disorders, denies diabetes, and denies hormonal problems. Hematologic: The patient denies a history of bruising, denies bleeding, and denies anemia, denies blood clots. Infections: The patient denies a history of measles and mumps, denies rheumatic fever, and denies sexually transmitted diseases. Musculoskeletal: The patient denies back pain/injury, denies back problems, denies sciatica, denies knee/foot trouble, denies arthritis, or denies gout. When was patient's last Mammogram screening? N/A Last Colonoscopy: 2012 Kaitlin Daniel RN Follow-up and Disposition History Recorded Encounter Status:Closed by PAM CAMERON PA-C on 11/26/17 EMERGENCY DEPARTMENT Observed: 11/25/2017 Status: F Source: [place] SUMMARY 1:[address] [facility] REPOSITORY [facility] Medical Records Department [address] [place] [address] Emergency Department Summary 11/24/172017 MR#: [id number] Acct: [id number] Name: LORENZO ZUÑIGA Rep #: [id number] : 1990 27 From: Satya Martinez MD PCP: Torres Warren MD Status: DEP ER - ER Visit Summary Date of Service: 11/24/17 Chief Complaint: Abdominal pain History of Present Illness: The patient is a [address] Keith. She reports that she is she has had intermittent abdominal pain since being on prednisone in July. The current episode began yesterday. It is a constant dull pain with intermittent pressure. It is 10 out of 10 at worst and 5-10 currently. Is worsened by eating anything. It is temporarily relieved by Tums. She has been on Prilosec for the past 15 days without relief. Patient reports she has been nausea and vomited once yesterday. No blood or emesis. She had a small amount of diarrhea yesterday. She had a normal bowel movement yesterday morning. She denies any blood in her stools or black tarry stools. No dysuria or frequency. Her last menstrual period was 2 weeks ago. Patient reports that she does not have specific fatty food intolerance. States that any food seems to bother this. This especially sensitive to alcohol and spicy foods. Physical Examination: Vitals: Stable. Afebrile. General: Well-nourished and well-developed. Head: Normocephalic atraumatic. Neck: Supple, no lymphadenopathy. No JVD. Nontender. Cardiovascular: Regular rate and rhythm. No murmurs. Respiratory: No respiratory distress. Clear to auscultation bilaterally. Abdominal: Soft, mild tenderness palpation in the epigastric region greater than the right upper quadrant, nondistended, normal bowel sounds. No guarding, rebound, or peritoneal signs. Back: Nontender. Extremities: Nontender, no edema. Skin: Normal color, no rash. Neurologic: Alert and oriented 3. Cranial nerves II through XII are intact. Normal strength and sensation. Psych: Normal affect. Test Results: CBC is marked for hematocrit of 36.2, 7 neutrophils 77, monocytes of 15. Chem-7 is more for glucose 108. LFTs marked for an AST of 14. Lipase is normal. UA is negative. test is negative. TSH is normal. EKG is sinus tach at [address] changes. Right upper quadrant ultrasound is normal. The wall is 2 mm. The common bile duct is 4 mm. There are no gallstones. No pericholecystic fluid. Emergency Department Course and Treatment: Patient was treated Toradol and Zofran IV. She is resting comfortably. Patient was treated Toradol and Zofran IV. She is resting comfortably. Treatment Plan: The patient's complaints are more consistent with gastritis versus ulcer. She is discussed with Dr. Ugarte who will see her in the office in 2 days for repeat evaluation. Return to the emergency department for any worsening symptoms. Disposition: To home in improved and stable condition. Impression: 1. Abdominal pain, epigastric. This note was generated with Pipewise dictation software. It may contain incorrect words, spelling, and punctuation that were not noted in review of the chart prior to signing ED Disposition - Plan for ED Patient: Disposition: Home or Assisted Living Chief Complaint: Abd Pain Instructions: ED PUD Vs Gastritis Prescriptions: Ondansetron [Zofran Odt] 4 mg PO Q8H PRN PRN #10 tablet PRN Reason: Nausea Referrals: Chema Parra MD [STAFF PHYSICIAN] - 11/26/17 What to do if you have Problems For any increased pain, shortness of breath, bleeding, nausea or vomiting, chest pain, or any unexpected problems, contact your Primary Care Provider. Call [facility] ([phone]) or report to the closest Emergency Room. Call 911 if necessary. 11/25/17 0103 <Electronically signed by Satya Martinez MD> Date Satya Martinez MD Cosigner Signature (If Indicated): Date CC: Torres Warren MD URINALYSIS, COMPLETE Collected: 11/24/2017 Status: F Source: CHARLY 8:[address] [facility] REPOSITORY Order Comment: How was Urine Obtained? EXECUTOR OF ESTATE TO SPECIFY TYPE CODE TESTS RESULT OUT OF RANGE REFERENCE UNITS LAB L400.3000 Yellow COLOR Normal Yellow LAB L400.3050 Clear Normal CLARITY Sl. Cloudy LAB L400.3200 Normal mg/dl Normal GLUCOSE, UR Normal LAB L400.3300 Negative mg/dL Normal BILIRUBIN URINE Negative LAB L400.3400 Negative mg/dl High KETONE UR 150 Result Comment: RESULTS CALLED TO [] 11/24/172049 Torres Raphael. REPORT READ BACK BY []. CRITICAL VALUE *H LAB L400.3465 1.002-1.030 Normal SP.GR. DIPSTX 1.010 LAB L400.3550 5.0 - 8.0 pH Normal UR 6.5 LAB L400.3600 Negative mg/dl Normal PROT DIPSTX Negative LAB L400.3700 Normal mg/dl Normal UROBILI Normal LAB L400.3750 Negative Normal NITRITE UR Negative LAB L400.3780 Negative /ul High 25 OCCULT BLOOD-UR LAB L400.3800 Negative /ul Normal LEUK ESTERASE Negative LAB L400.4050 0-5 /hpf 0 Normal WBC SEEN LAB L400.4100 0-5 /hpf Normal RBC-UA 0-5 SEEN LAB L400.4150 5-10 /hpf Normal SQUAM EPI 0-5 SEEN LAB L400.4300 None Seen /hpf 0 Normal BACTERIA SEEN LAB L400.4350 <or=2+ /hpf 0 Normal MUCUS, URINE SEEN Performed By: #### L100.0100, L700.6800, L400.0001 #### [facility] [address] [place], [address] GALLBLADDER Observed: 11/24/2017 Status: F Source: [place] 7:[address] [facility] REPOSITORY [facility] Imaging Services [address] [place] [address] Gallbladder MR#: [id number] Acct: [id number] Name: LORENZO ZUÑIGA Rep #: [id number] : 1990 F 27 From: Melo Ahn PCP: Torres Warren MD Status: REG ER Study: Gallbladder Date of Exam: 11/24/17 Exam# [id number] Ordering Dr: Aly Aguero MD STUDY: ABDOMINAL ULTRASOUND - RIGHT UPPER QUADRANT REASON FOR VISIT: Female, 27 years old. Pain, bloating TECHNIQUE: Ultrasound evaluation of the right upper quadrant was performed with real-time and static gonzalez-scale imaging. TECHNICAL QUALITY: Adequate. COMPARISON: None. FINDINGS: Liver: The liver measures 15.5 cm. There is normal echogenicity of the liver. The bile ducts are within normal limits. There is hepatic color flow. The direction of portal flow is hepatopetal. There is no demonstrated mass lesion. Gallbladder: Normal distended gallbladder. The gallbladder wall measures 2 mm. There is a negative sonographic Siddiqui's sign. There is no pericholecystic fluid. There are no gallstones. Common Bile Duct (C.B.D.): The common bile duct measures 4 mm. Pancreas: Normal size of the head, body and tail of the pancreas. There is normal echogenicity of the pancreas. There is no demonstrated pancreatic mass or cyst. Right Kidney: Normal size of the right kidney. The right kidney measures 10.4 cm. Normal renal cortex. The right cortex measures 1.2 cm. There is no demonstrated renal mass or cyst. There is no right hydronephrosis. US/Gallbladder IMPRESSION: Normal right upper quadrant ultrasound examination. No gallstones. Electronically Signed: Melo Ahn DO at 21:05 EDT , Service support , CC: Torres Warren MD; Aly Aguero MD Vibration Technician: Signed CBC W/DIFF, AUTOMATED Collected: 11/24/2017 Status: F Source: [place] 7:[address] [facility] REPOS[facility] TYPE CODE TESTS RESULT OUT OF RANGE REFERENCE UNITS LAB L100.1000 4.4-11.0 K/mm3 Normal WBC 6.2 LAB L100.1200 4.2-5.4 M/mm3 Low RBC 4.02 LAB L100.1300 12.0-15.0 g/dl Normal HGB 12.4 LAB L100.1400 37-47 % Low HCT 36.2 LAB L100.1500 81-99 fL Normal MCV 90.0 LAB L100.1600 27.0-32.0 pg Normal MCH 30.8 LAB L100.1700 32-36 g/gl Normal MCHC 34.3 LAB L100.1810 11.6-14.6 % Normal RDW CV 11.6 LAB L100.1820 35.1-43.9 fl Normal RDW SD 38.1 LAB L100.1900 150-450 K/mm3 Normal PLT 205 LAB L100.2000 6.2-12.0 fl Normal MPV 8.6 LAB L100.2100 47-70 % High NEUT% 77.3 LAB L100.2200 19-41 % Low LY% 14.8 LAB L100.2300 0-10 % Normal MONO% 7.2 LAB L100.2400 0-5 % Normal EO% 0.3 LAB L100.2500 0-1 % Normal BASO% 0.2 LAB L100.2550 0.0-0.9 % Normal IM GRAN % 0.200 Result Comment: IG% - Immature Granulocytes (promyelocytes, myelocytes and metamyelocytes) > 1% indicates that a LEFT SHIFT is Present. LAB L100.2620 2.0-7.7 X10 3/uL Normal Absolute Neut 4.8 LAB L100.2720 0.83-4.51 X10 3/ul Normal Absolute Lymph 0.91 Performed By: #### L100.0100, L700.6800, L400.0001 #### [facility] [address] [place], [place], [address] ,SERUM,HCG QUALI. Collected: Status: F Source: CHARLY 11/24/2017 7:[address] [facility] REPOSITORY TYPE CODE TESTS RESULT OUT OF REFERENCE UNITS RANGE LAB L700.6700 =>Qualitative mIU/mL Normal HCG Qual < 1 triggr LAB L700.7000 0-9 Nonpreg Negative Normal HCGSQUAL NEGATIVE Performed By: #### L100.0100, L700.6800, L400.0001 #### [facility] [address] [place], [address] BASIC METABOLIC Collected: 11/24/2017 Status: F Source: [place]LY PROFILE (BMP) 7:[address] [facility] REPOSITORY TYPE CODE TESTS RESULT OUT OF RANGE REFERENCE UNITS LAB L501.0100 74-106 mg/dL High GLU 108 Result Comment: Fasting Glucose result from 100 to 125 mg/dL suggests IMPAIRED HOMEOSTASIS per A.D.A. criteria. Please note revised GLUCOSE reference range effective 2017. LAB L501.1000 7-18 mg/dL Normal BUN 9 LAB L501.1100 0.55-1.02 mg/dL Normal CREAT,SERUM 0.89 Result Comment: The validity of the calculated GFR AND GFRAA in patients over 70 years has not been determined. Clinical correlation is essential. LAB L501.1110 >60 mL/min Normal EST GFR 80 Result Comment: Non- GFR Calc LAB L501.1115 >60 mL/min Normal EST GFR - AA 97 Result Comment: GFR Calc LAB L501.1255 ml/min Normal Estimated CRCL 74.43 LAB L501.1300 10-20 RATIO Normal BUN/CRE 10.1 LAB L501.2200 8.5-10 mg/dL Normal .1 CA 8.8 LAB L501.5300 136-14 mmol/L Normal 5 NA 137 LAB L501.5600 3.5-5. mmol/L Normal 1 K 3.5 LAB L501.5900 98-107 mmol/L Normal CL 102 LAB L501.6100 21.0-3 mmol/L Normal 2.0 CO2 26.0 LAB L501.6200 5-15 Normal GAP 9 Performed By: #### L500.2500 #### [facility] [address] [place], [place], [address] LIPASE Collected: 11/24/2017 Status: F Source: [place] 7:[address] [facility] REPOS[facility]ORY TYPE CODE TESTS RESULT OUT OF RANGE REFERENCE UNITS LAB L501.2450 73-393 U/L Normal LIPASE 75 Performed By: #### L501.2450 #### [facility] [address] [facility] [id number] LIVER PROFILE Collected: 11/24/2017 Status: F Source: [place] 7:[address] [facility] REPOSIT[facility] TYPE CODE TESTS RESULT OUT OF RANGE REFERENCE UNITS LAB L501.1500 6.4-8.2 g/dL Normal T PROT 7.7 LAB L501.1800 3.2-5.0 g/dL Normal ALB 3.9 LAB L501.1950 2.2-4.2 g/dL Normal GLOB 3.8 LAB L501.4100 15-37 U/L Low AST 14 LAB L501.4305 45-117 U/L Normal ALK P 56 LAB L501.4405 13-56 U/L Normal ALT 15 LAB L501.4600 0.20-1.00 mg/dL Normal T BILI 0.40 LAB L501.4700 0.00-0.30 mg/dL Normal D BILI 0.11 Performed By: #### L500.3400 #### [facility] [facility] [address] [place], [place], [address] THYROID STIM HORMONE Collected: 11/24/2017 Status: F Source: CHARLY (TSH) 7:[address] [facility] REPOSITORY TYPE CODE TESTS RESULT OUT OF RANGE REFERENCE UNITS LAB L501.9520 0.358-3.74 uIU/mL Normal TSH 0.56 Performed By: #### L501.9520 #### [facility] [address] [place], [address] Observed: 10/24/2017 Status: F Source: CHARLY CULTURE, NOSE 10:[address] [facility] REPOSITORY Gram Stain Gram Stain Rare Epithelial cells No White Blood Cells No organisms seen Nasoph. Cult No Haemophilus, Streptococcus pneumoniae, beta-hemolytic Streptococcus or Staphylococcus aureus isolated. ORGANISM 1: Coag Negative Staph Amount Growth 1+ Performed By: #### M100.0900 #### [facility] [address] [place], [address] 12 LEAD ELECTROCARDIOGRAM Observed: 10/23/2017 Status: F Source: CHARLY 10:[address] [facility] REPOSITORY [facility] Cardiovascular Services [address] [place] [address] 12 Lead EKG 10/21/17 0842 MR#: [id number] Acct: [id number] Name: LORENZO ZUÑIGA Rep #: [id number] : 1990 27 From: Aly Vazquez MD Attending Dr: Status: DEP ER Ordering Dr: Ruiz Corcoran MD Date: 10/21/17 Location: ED Sex: F C Admitted: Test Reason : Blood Pressure : / mmHG Vent. Rate : 078 BPM Atrial Rate : 078 BPM P-R Int : 138 ms QRS Dur : 082 ms QT Int : 376 ms P-R-T Axes : 052 023 029 degrees QTc Int : 428 ms Normal sinus rhythm Normal ECG Confirmed by ARI JOHNS, ALY ([id number]), index editor JERAMY NOLEN ([id number]) on 10/23/2017 10:50:34 AM Referred By: ENRIQUETA Confirmed By:ALY VAZQUEZ MD 10/23/17 1050 Date Aly Vazquez MD CC: Ruiz Corcoran MD; Torres Warren MD Signed DISCHARGE INSTRUCTION Observed: 10/21/2017 Status: F Source: CHARLY 10:58 AM [facility] Medical Records Department [address] [place] [address] Discharge Instruction 10/21/17 1058 MR#: [id number] Acct: [id number] Name: ZARALORENZO A Rep #: [id number] : 1990 27 From: Ruiz Corcoran MD PCP: Torres Warren MD Status: REG ER ED Disposition - Plan for ED Patient: Chief Complaint: Dental Instructions: ED Tooth Pain, ED Gastroenteritis Viral Referrals: Torres Warren MD [Primary Care Provider] - What to do if you have Problems For any increased pain, shortness of breath, bleeding, nausea or vomiting, chest pain, or any unexpected problems, contact your Primary Care Provider. Call [facility] Registry ([phone]) or report to the closest Emergency Room. Call 911 if necessary. 10/21/17 1058 <Electronically signed by Ruiz Corcoran MD> Date Ruiz Corcoran MD Cosigner Signature (If Indicated): Date CC: Torres Warren MD EMERGENCY DEPARTMENT Observed: 10/21/2017 Status: F Source: CHARLY SUMMARY 10:57 AM [facility] Medical Records Department [address] [place] [address] Emergency Department Summary 10/21/17 1054 MR#: [id number] Acct: [id number] Name: LORENZO ZUÑIGA Rep #: [id number] : 1990 27 From: Ruiz Corcoran MD PCP: Torres Warren MD Status: REG ER - ER Visit Summary Date of Service: 10/21/17 Chief Complaint: Nausea diarrhea and lightheaded History of Present Illness: The patient is a 27 F who presents with nausea and diarrhea and feels lightheaded. She has been being treated for a dental abscess by her dentist. She was initially treated with Keflex and did not improve and is currently on azithromycin. She has not however actually seen the dentist. She states last night she had a headache however this is significantly improved today. She did have nausea and vomiting last night but no vomiting today and does complain of nausea. She did have severe diarrhea yesterday but this is actually improved today as well. Physical Examination: Afebrile heart rate 107 vitals otherwise normal Moist mucous membranes Heart regular rhythm tachycardia Lungs are clear Abdomen soft nondistended she has some epigastric tenderness no guarding no rebound Alert Test Results: EKG shows normal sinus rhythm at a rate of 78. CBC BMP hepatic function lipase urinalysis unremarkable. negative. Emergency Department Course and Treatment: Patient was treated with IV fluids and Zofran here. Her workup is unremarkable. I suspect her nausea vomiting and diarrhea are related to gastroenteritis. She notes that her symptoms are improved today. She was instructed on supportive care. She was advised to follow-up with her dentist regarding her dental pain. On my examination I do not appreciate any focal dental abscess she has no facial swelling. Patient understands to return for new or worsening symptoms and was discharged home. Treatment Plan: [] Disposition: Discharge Impression: Gastroenteritis This note was generated with Pipewise dictation software. It may contain incorrect words, spelling, and punctuation that were not noted in review of the chart prior to signing ED Disposition - Plan for ED Patient: Chief Complaint: Dental Referrals: Torres Warren MD [Primary Care Provider] - What to do if you have Problems For any increased pain, shortness of breath, bleeding, nausea or vomiting, chest pain, or any unexpected problems, contact your Primary Care Provider. Call [facility] ([phone]) or report to the closest Emergency Room. Call 911 if necessary. 10/21/17 1055 <Electronically signed by Ruiz Corcoran MD> Date Ruiz Corcoran MD Cosigner Signature (If Indicated): Date CC: Torres Warren MD ,SERUM,HCG QUALI. Collected: Status: F Source: TAM[place] 10/21/2017 9:[address] [facility] REPOSITORY TYPE CODE TESTS RESULT OUT OF REFERENCE UNITS RANGE LAB L700.7000 0-9 Nonpreg Negative Normal HCGSQUAL NEGATIVE LAB L700.6700 =>Qualitative mIU/mL Normal HCG Qual < 1 triggr Performed By: #### L700.6800 #### [facility] [address] [place], [address] URINALYSIS, COMPLETE Collected: 10/21/2017 Status: F Source: [place]AMPA 9:[address] [facility] REPOSITORY Order Comment: Order Date: 10/21/17 Has pt arrived? Y How was Urine Obtained? CLEAN CATCH TYPE CODE TESTS RESULT OUT OF RANGE REFERENCE UNITS LAB L400.3000 Yellow COLOR Normal Yellow LAB L400.3050 Clear Normal CLARITY Sl. Cloudy LAB L400.3200 Normal mg/dl Normal GLUCOSE, UR Normal LAB L400.3300 Negative mg/dL Normal BILIRUBIN URINE Negative LAB L400.3400 Negative mg/dl Normal KETONE UR Negative LAB L400.3465 1.002-1.030 Normal SP.GR. DIPSTX 1.010 LAB L400.3550 5.0 - 8.0 pH UR Normal 7.0 LAB L400.3600 Negative mg/dl PROT Normal DIPSTX Negative LAB L400.3700 Normal mg/dl Normal UROBILI Normal LAB L400.3750 Negative Normal NITRITE UR Negative LAB L400.3780 Negative /ul High OCCULT BLOOD-UR 150 LAB L400.3800 Negative /ul LEUK Normal ESTERASE Negative LAB L400.4050 0-5 /hpf WBC 0 Normal SEEN LAB L400.4100 0-5 /hpf Normal RBC-UA 0-5 SEEN LAB L400.4150 5-10 /hpf SQUAM Normal EPI 5-10 SEEN LAB L400.4300 None Seen /hpf 0 Normal BACTERIA SEEN LAB L400.4350 <or=2+ /hpf 0 Normal MUCUS, URINE SEEN Performed By: #### L400.0001 #### [facility] [address] [place], [place], [id number] CBC W/DIFF, AUTOMATED Collected: 10/21/2017 Status: F Source: TAMPA 8:[address] [facility] REPOSITORY TYPE CODE TESTS RESULT OUT OF RANGE REFERENCE UNITS LAB L100.1000 4.4-11.0 K/mm3 Normal WBC 5.3 LAB L100.1200 4.2-5.4 M/mm3 Low RBC 3.92 LAB L100.1300 12.0-15.0 g/dl Normal HGB 12.4 LAB L100.1400 37-47 % Low HCT 35.8 LAB L100.1500 81-99 fL Normal MCV 91.3 LAB L100.1600 27.0-32.0 pg Normal MCH 31.6 LAB L100.1700 32-36 g/gl Normal MCHC 34.6 LAB L100.1810 11.6-14.6 % Low RDW CV 11.3 LAB L100.1820 35.1-43.9 fl Normal RDW SD 37.1 LAB L100.1900 150-450 K/mm3 Normal PLT 317 LAB L100.2000 6.2-12.0 fl Normal MPV 8.5 LAB L100.2100 47-70 % Normal NEUT% 56.6 LAB L100.2200 19-41 % Normal LY% 33.1 LAB L100.2300 0-10 % Normal MONO% 7.6 LAB L100.2400 0-5 % Normal EO% 1.5 LAB L100.2500 0-1 % Normal BASO% 1.0 LAB L100.2550 0.0-0.9 % Normal IM GRAN % 0.200 Result Comment: IG% - Immature Granulocytes (promyelocytes, myelocytes and metamyelocytes) > 1% indicates that a LEFT SHIFT is Present. LAB L100.2620 2.0-7.7 X10 3/uL Normal Absolute Neut 3.0 LAB L100.2720 0.83-4.51 X10 3/ul Normal Absolute Lymph 1.74 Performed By: #### L100.0100 #### [facility] [address] [facility] [place], [address] COMPREHENSIVE METABOLIC Collected: 10/21/2017 Status: F Source: CHARLY JOSHI 8:[address] [facility] REPOSITORY TYPE CODE TESTS RESULT OUT OF RANGE REFERENCE UNITS LAB L501.0100 74-106 mg/dL Normal GLU 88 Result Comment: Please note revised GLUCOSE reference range effective 2017. LAB L501.1000 7-18 mg/dL Normal BUN 8 LAB L501.1100 0.55-1.02 mg/dL Normal CREAT,SERUM 0.89 Result Comment: The validity of the calculated GFR AND GFRAA in patients over 70 years has not been determined. Clinical correlation is essential. LAB L501.1110 >60 mL/min Normal EST GFR 81 Result Comment: Non- GFR Calc LAB L501.1115 >60 mL/min Normal EST GFR - AA 97 Result Comment: GFR Calc LAB L501.1255 ml/min Normal Estimated CRCL 74.43 LAB L501.1300 10-20 RATIO Low BUN/CRE 9.0 LAB L501.1500 6.4-8. g/dL Normal 2 T PROT 7.3 LAB L501.1800 3.2-5. g/dL Normal 0 ALB 3.7 LAB L501.1950 2.2-4. g/dL Normal 2 GLOB 3.6 LAB L501.2000 0.9-2. RATIO Normal 4 A/G 1.0 LAB L501.2200 8.5-10 mg/dL Low .1 CA 8.4 LAB L501.4100 15-37 U/L Low AST 12 LAB L501.4305 45-117 U/L Low ALK P 44 LAB L501.4405 13-56 U/L Normal ALT 16 LAB L501.4600 0.20-1 mg/dL Normal .00 T BILI 0.60 LAB L501.5300 136-14 mmol/L Normal 5 NA 139 LAB L501.5600 3.5-5. mmol/L Normal 1 K 3.8 LAB L501.5900 98-107 mmol/L High CL 109 LAB L501.6100 21.0-3 mmol/L Normal 2.0 CO2 24.0 LAB L501.6200 5-15 Normal GAP 6 Performed By: #### L500.4050, L501.2450 #### [facility] [address] [place], [address] LIPASE Collected: 10/21/2017 Status: F Source: CHARLY 8:[address] [facility] REPOSITORY TYPE CODE TESTS RESULT OUT OF RANGE REFERENCE UNITS LAB L501.2450 73-393 U/L Normal LIPASE 117 Performed By: #### L500.4050, L501.2450 #### [facility] [address] [place], [address] PAP I-G W/RFX HRHPV Collected: 09/30/2017 Status: F Source: CHARLY 4:[address] [facility] REPOSITORY Order Comment: CYTOLOGY INFORMATION: - CLINICAL INFORMATION: - DATE LMP/MENOPAUSE: 09-26-17 LMP - COLLECTION VIAL: Thin Prep Vial - LEAF CONDITIONER HELPER SOURCE: CERVICAL/ENDOCERVICAL - COLLECTION TECHNIQUE: BRUSH/SPATULA Specimen Comment: [id number] Specimen Comment: No. of containers..01 ThinPrep Vial TYPE CODE TESTS RESULT OUT OF REFERENCE UNITS RANGE LAB L7400.0800 . High DIAGN Comment Result Comment: EPITHELIAL CELL ABNORMALITY. ATYPICAL SQUAMOUS CELLS OF UNDETERMINED SIGNIFICANCE. LAB L7400.0900 . Normal ADEQ Comment Result Comment: Satisfactory for evaluation. No endocervical component is identified. LAB L7400.1400 . Normal PERFORM Comment Result Comment: Lakhwinder Jones, Maintenance And Utilities Supervisor (ASCP) LAB L7400.1700 . Normal SIGN Comment Result Comment: Sarika Alfaro MD, Pathologist LAB L7400.1720 . Normal Path prov. Comment ICD9 Result Comment: R87.610 LAB L7400.2575 . Normal TEST METHOD Comment Result Comment: This liquid based ThinPrep(R) pap test was screened with the use of an image guided system. LAB L7400.2600 . Normal . COMM LAB L7400.2700 . Normal PAPSMR Comment Result Comment: The Pap smear is a screening test designed to aid in the detection of premalignant and malignant conditions of the uterine cervix. It is not a diagnostic procedure and should not be used as the sole means of detecting cervical cancer. Both false-positive and false-negative reports do occur. LAB L7400.2800 . Normal HPV RFLX Comment Result Comment: See below for HPV testing results. LAB L7400.2900 Negative Normal HPV Negative HC,HGH RISK Result Comment: This high-risk HPV test detects thirteen high-risk types (16/18/31/33/35/39/45/51/52/56/58/59/68) without differentiation. Performed at: WB - [facility] [address] [id number] Digital Cartographic Technician: Keturah Russ MD, Phone: [phone] Performed at: =G - [facility] [address] [id number] Digital Cartographic Technician: Keturah Russ MD, Phone: [phone] Performed By: #### L7400.0350 #### [facility] (refer to report for specific site) refer to report for address and phone number 12 LEAD ELECTROCARDIOGRAM Observed: 07/28/2017 Status: F Source: TAMPA 1:[address] [facility] REPOSITORY [facility] Cardiovascular Services [address] [place] [address] 12 Lead EKG 07/23/17 1310 MR#: [id number] Acct: [id number] Name: LORENZO ZUÑIGA Rep #: [id number] : 1990 27 From: Cameron Trotter MD Attending Dr: Status: DEP ER Ordering Dr: González Cat DO Date: 07/23/17 Location: ED Sex: F C Admitted: Test Reason : Blood Pressure : / mmHG Vent. Rate : 126 BPM Atrial Rate : 126 BPM P-R Int : 122 ms QRS Dur : 072 ms QT Int : 302 ms P-R-T Axes : 066 046 028 degrees QTc Int : 437 ms Sinus tachycardia Otherwise normal ECG Confirmed by CAMERON TROTTER ([id number]), index editor JERAMY NOLEN ([id number]) on 07/28/2017 1:51:50 PM Referred By: JOE Confirmed By:CAMERON TROTTER 07/28/17 1351 Date Cameron Trotter MD CC: TORRES WARREN; Remus Ungur DO Signed EMERGENCY DEPARTMENT Observed: 07/27/2017 Status: F Source: [place] SUMMARY 9:[address] [facility] REPOSITORY [facility] Medical Records Department [address] [place] [address] Emergency Department Summary 07/26/17 1322 MR#: [id number] Acct: [id number] Name: LORENZO ZUÑIGA Rep #: [id number] : 1990 27 From: Satya Martinez MD PCP: TORRES WARREN Status: DEP ER - ER Visit Summary Date of Service: 07/26/17 Chief Complaint: Withdrawal from prednisone History of Present Illness: The patient is a [address] Keith. Patient reports that she has been ill for approximately the past month. She was seeing an ENT and had been placed on multiple different antibiotics. Ultimately these were stopped and she was placed on steroids. She was here 3 days ago and was diagnosed with pansinusitis by CT. She was discussed with Dr. Stephenson and placed on Bactrim. At that time she was having shakes, palpitations, sweating of her hands and feet, and diffuse paresthesias. This was felt to be a result of the prednisone and it was stopped. She reports that those symptoms were horrible for the past 2 days, but slightly improved today. Patient contacted an unknown person at [facility] and was told to come to the emergency department to have a cortisol level checked because she is having withdrawal from prednisone. On review of symptoms the patient complains of subjective fever. She also has a dry cough without difficulty breathing or chest pain. She has had nausea without vomiting. No abdominal pain or diarrhea. She reports that she has a headache this 4 out of 10 severity. She has generalized weakness and generalized paresthesias. Physical Examination: Vitals: Stable. Afebrile. General: Well-nourished and well-developed. Head: Normocephalic atraumatic. Neck: Supple, no lymphadenopathy. No JVD. Nontender. Cardiovascular: Regular rate and rhythm. No murmurs. Respiratory: No respiratory distress. Clear to auscultation bilaterally. Abdominal: Soft, nontender, nondistended, normal bowel sounds. No guarding, rebound, or peritoneal signs. Back: Nontender. Extremities: Nontender, no edema. Skin: Normal color, no rash. Neurologic: Alert and oriented 3. Cranial nerves II through XII are intact. Normal strength and sensation. Psych: Normal affect. Test Results: CBC is normal. Chem-7 is remarkable for creatinine of 1.14. test is negative. Emergency Department Course and Treatment: Had a prolonged discussion the patient about the lack of sensitivity and specificity of a single cortisol level. We did discuss possibility of a cosyntropin stim check test. She does not want to have this performed. I feel this is a reasonable course of action. She does not have hyponatremia or hyperkalemia to suggest adrenal insufficiency. She seems quite anxious and I suspect a great deal of her symptoms are due to her underlying anxiety and panic attacks. She was given 2 L of fluids and is resting comfortably. I had a prolonged discussion with her about using her coping skills to help with her symptoms and to restart her Zoloft which she had stopped a year ago for her anxiety. Treatment Plan: She will be discharged instructions to follow- up with Dr. Stephenson this week as previously scheduled. Follow-up Dr. Keith in 3-5 days if not improving. Return to the emergency department for any worsening symptoms. Disposition: To home in improved and stable condition. Impression: 1. Anxiety. 2. Dehydration. This note was generated with Pipewise dictation software. It may contain incorrect words, spelling, and punctuation that were not noted in review of the chart prior to signing ED Disposition - Plan for ED Patient: Disposition: Home or Assisted Living Chief Complaint: General Illness Instructions: ED Dehydration Referrals: Torres Warren [Primary Care Provider] - 3-5 Days if not improving What to do if you have Problems For any increased pain, shortness of breath, bleeding, nausea or vomiting, chest pain, or any unexpected problems, contact your Primary Care Provider. Call [facility] ([phone]) or report to the closest Emergency Room. Call 911 if necessary. 07/27/17 0907 <Electronically signed by Satya Martinez MD> Date Satya Martinez MD Cosigner Signature (If Indicated): Date CC: TORRES WARREN BASIC METABOLIC Collected: 07/26/2017 Status: F Source: CHARLY PROFILE (BMP) 11:[address] [facility] REPOSITORY TYPE CODE TESTS RESULT OUT OF RANGE REFERENCE UNITS LAB L501.0100 74-106 mg/dL Normal GLU 93 Result Comment: Please note revised GLUCOSE reference range effective 2017. LAB L501.1000 7-18 mg/dL Normal BUN 11 LAB L501.1100 0.55-1.02 mg/dL High CREAT,SERUM 1.14 Result Comment: The validity of the calculated GFR AND GFRAA in patients over 70 years has not been determined. Clinical correlation is essential. LAB L501.1110 >60 mL/min Normal EST GFR 60 Result Comment: Non- GFR Calc LAB L501.1115 >60 mL/min Normal EST GFR - AA 73 Result Comment: GFR Calc LAB L501.1255 ml/min Normal Estimated CRCL 58.11 LAB L501.1300 10-20 RATIO Low BUN/CRE 9.6 LAB L501.2200 8.5-10 mg/dL Normal .1 CA 9.3 LAB L501.5300 136-14 mmol/L Normal 5 NA 136 LAB L501.5600 3.5-5. mmol/L Normal 1 K 4.1 LAB L501.5900 98-107 mmol/L Normal CL 101 LAB L501.6100 21.0-3 mmol/L Normal 2.0 CO2 26.0 LAB L501.6200 5-15 Normal GAP 9 Performed By: #### L500.2500 #### [facility] [address] [place], [address] CBC W/DIFF, AUTOMATED Collected: 07/26/2017 Status: F Source: CHARLY 11:[address] [facility] REPOSITORY TYPE CODE TESTS RESULT OUT OF RANGE REFERENCE UNITS LAB L100.1000 4.4-11.0 K/mm3 Normal WBC 8.0 LAB L100.1200 4.2-5.4 M/mm3 Normal RBC 4.59 LAB L100.1300 12.0-15.0 g/dl Normal HGB 14.4 LAB L100.1400 37-47 % Normal HCT 40.7 LAB L100.1500 81-99 fL Normal MCV 88.7 LAB L100.1600 27.0-32.0 pg Normal MCH 31.4 LAB L100.1700 32-36 g/gl Normal MCHC 35.4 LAB L100.1810 11.6-14.6 % Low RDW CV 11.5 LAB L100.1820 35.1-43.9 fl Normal RDW SD 36.5 LAB L100.1900 150-450 K/mm3 Normal PLT 412 LAB L100.2000 6.2-12.0 fl Normal MPV 8.2 LAB L100.2100 47-70 % Normal NEUT% 55.8 LAB L100.2200 19-41 % Normal LY% 33.6 LAB L100.2300 0-10 % Normal MONO% 9.1 LAB L100.2400 0-5 % Normal EO% 0.4 LAB L100.2500 0-1 % Normal BASO% 0.6 LAB L100.2550 0.0-0.9 % Normal IM GRAN % 0.500 Result Comment: IG% - Immature Granulocytes (promyelocytes, myelocytes and metamyelocytes) > 1% indicates that a LEFT SHIFT is Present. LAB L100.2620 2.0-7.7 X10 3/uL Normal Absolute Neut 4.4 LAB L100.2720 0.83-4.51 X10 3/ul Normal Absolute Lymph 2.67 Performed By: #### L100.0100 #### [facility] [address] [place], [place], [address] ,SERUM,HCG QUALI. Collected: Status: F Source: CHARLY 07/26/2017 11:[address] [facility] REPOSITORY TYPE CODE TESTS RESULT OUT OF REFERENCE UNITS RANGE LAB L700.7000 0-9 Nonpreg Negative Normal HCGSQUAL NEGATIVE LAB L700.6700 =>Qualitative mIU/mL Normal HCG Qual < 1 triggr Performed By: #### L700.6800 #### [facility] [address] [place], [address] DISCHARGE INSTRUCTION Observed: 07/26/2017 Status: F Source: CHARLY 3:33 AM [facility] Medical Records Department [address] [place] [address] Discharge Instruction 07/25/17 2240 MR#: [id number] Acct: [id number] Name: LORENZO ZUÑIGA Rep #: [id number] : 1990 27 From: Adams Saul MD PCP: TORRES WARREN Status: DEP ER ED Disposition - Plan for ED Patient: Disposition: Home or Assisted Living Chief Complaint: General Illness Instructions: ED Stress React Referrals: Torres Warren [Primary Care Provider] - As Needed What to do if you have Problems For any increased pain, shortness of breath, bleeding, nausea or vomiting, chest pain, or any unexpected problems, contact your Primary Care Provider. Call [facility] ([phone]) or report to the closest Emergency Room. Call 911 if necessary. 07/26/17 0333 <Electronically signed by Adams Saul MD> Date Adams Saul MD Cosigner Signature (If Indicated): Date CC: TORRES WARREN EMERGENCY DEPARTMENT Observed: 07/26/2017 Status: F Source: [place] SUMMARY 3:33 AM [facility] Medical Records Department [address] [place] [address] Emergency Department Summary 07/25/177 MR#: [id number] Acct: [id number] Name: LORENZO ZUÑIGA Rep #: [id number] : 1990 27 From: Adams Saul MD PCP: TORRES WARREN Status: DEP ER - ER Visit Summary Date of Service: 07/25/17 Chief Complaint: Anxiety History of Present Illness: The patient is a 27 F treatment anxiety disorder. Otherwise healthy. Recently was seen and treated by ENT in [place] for allergies. She was seen here in our emergency department and a CT done which showed pansinusitis. She was on a steroid course by the ENT in [place]. Currently she is on Bactrim. She was just concerned because she came off the steroids somewhat abruptly even though was tapered to degree. And she says she feels more anxious. Physical Examination: Very well-appearing young female. Vital signs are stable afebrile. She does not look septic toxic or in any acute distress. HEENT exam unremarkable. Moist mucous membranes. Posterior pharynx unremarkable. Neck nontender no lymphadenopathy. No meningismus. Trachea midline. Lungs clear to auscultation bilaterally. Heart regular rhythm no murmur. Abdomen soft and nontender. Normal bowel sounds. She is moving all 4 extremities. Neurovascular intact. Back exam unremarkable. Neurological exam is completely normal. Test Results: None Emergency Department Course and Treatment: Clinically the patient has a completely normal exam. Most of this is just anxiety. There are no physical findings on her exam currently. Treatment Plan: Continue on her current antibiotic. The patient further she is off of the oral steroids she will get back to her normal baseline. Disposition: Discharge Impression: Anxiety with a history of anxiety Currently being treated for sinusitis This note was generated with Pipewise dictation software. It may contain incorrect words, spelling, and punctuation that were not noted in review of the chart prior to signing ED Disposition - Plan for ED Patient: Chief Complaint: General Illness Referrals: Torres Warren [Primary Care Provider] - What to do if you have Problems For any increased pain, shortness of breath, bleeding, nausea or vomiting, chest pain, or any unexpected problems, contact your Primary Care Provider. Call [facility] ([phone]) or report to the closest Emergency Room. Call 911 if necessary. 07/26/17 0333 <Electronically signed by Adams Saul MD> Date Adams Saul MD Cosigner Signature (If Indicated): Date CC: TORRES WARREN DISCHARGE INSTRUCTION Observed: 07/23/2017 Status: F Source: CHARLY 3:22 PM [facility] REPOSITORY [facility] Medical Records Department [address] [place] [address] Discharge Instruction 07/23/17 1520 MR#: [id number] Acct: [id number] Name: LORENZO ZUÑIGA Rep #: [id number] : 1990 27 From: González Cat DO PCP: OUT OF TOWN DOCTOR Status: PRE ER ED Disposition - Plan for ED Patient: Chief Complaint: Palpitations Instructions: ED Palpitations, ED Sinusitis Abx Tx Prescriptions: Smz/Tmp Ds [Bactrim Ds] 1 tab PO BID #42 tab Referrals: [facility] Doctor,Out of [Primary Care Provider] - Vik Stephenson MD [STAFF PHYSICIAN] - 3-5 Days What to do if you have Problems For any increased pain, shortness of breath, bleeding, nausea or vomiting, chest pain, or any unexpected problems, contact your Primary Care Provider. Call [facility] ([phone]) or report to the closest Emergency Room. Call 911 if necessary. 07/23/17 1522 <Electronically signed by González Cat DO> Date González Cat DO Cosigner Signature (If Indicated): Date CC: No Primary Care Physician; OUT OF TOWN DOCTOR EMERGENCY DEPARTMENT Observed: 07/23/2017 Status: F Source: CHARLY SUMMARY 3:19 PM [facility] REPOSITORY [facility] Medical Records Department [address] [place] [address] Emergency Department Summary 07/23/17 1514 MR#: [id number] Acct: [id number] Name: LORENZO ZUÑIGA Rep #: [id number] : 1990 27 From: González Cat DO PCP: OUT OF TOWN DOCTOR Status: PRE ER - ER Visit Summary Date of Service: 07/23/17 Chief Complaint: [Tachycardia] History of Present Illness: The patient is a 27 F [presents to the emergency department with chief complaint of racing heart times last 2 days. Patient states that she feels like she is in a fog. Patient gives me a history of 3 weeks of upper respiratory type symptoms and initially thought she had the flu. Patient saw her ear nose and throat physician 3 times in the last 3 weeks and initially it was thought that she may have a sinus infection apparently was on Levaquin and then was switched over to steroids and a Z-Dilip and when she did not improve she went to the urgent care yesterday and was told us start Levaquin again. Patient stopped taking her prednisone yesterday because she did not like the way was making her feel. Her prednisone started at 60 mg for 7 days and then she was tapering from there she was down to 30 mg a day. Patient does have a history of significant anxiety and she states that yesterday her heart rate went up to 170 and she was numb and tingly in her arms. She denies any chest pain or syncopal episodes.] Physical Examination: [HEENT-PERRLA, EOMI. Cranial nerves II through XII grossly intact. TMs clear. Mucous membranes moist. No adenopathy. Tenderness over the frontal and maxillary sinuses bilaterally. Patient has some mild discomfort over the left upper teeth and lower teeth as well. There is no facial erythema or cellulitis. Cardiovascular-regular rate and rhythm without murmur or ectopy Lungs-clear to auscultation, chest wall stable without crepitus or subcu emphysema Abdomen-normoactive bowel sounds, soft, nontender, no rebound or rigidity, no peritoneal signs. Extremities-intact 4, normal range of motion, normal pulses, atraumatic] Test Results: [CBC with differential was normal. Chemistries were normal. Troponin was less than 0.02. D-dimer was less than 0.27. EKG showed a sinus rhythm with a tachycardic rate of [address] segment changes. CT scan of the sinuses showed pansinusitis.] Emergency Department Course and Treatment: [Without any treatment patient's heart rate now 106. Patient case was discussed with Dr. Stephenson who is on-call for ENT and would be happy to follow up patient in the office next week. He did recommend the patient start on Bactrim instead of the Levaquin and use saline lavage to her nose.] Treatment Plan: [Patient will be started on Bactrim] patient has sertraline and Ativan at home for her anxiety. Disposition: [Discharged to home in stable condition]. Patient advised to return if chest pain persists, tachycardia that does not resolve, increasing shortness of breath, or condition should worsen in any way. Impression: [Tachycardia-suspect related to anxiety and hyperventilation syndrome Pansinusitis] This note was generated with Pipewise dictation software. It may contain incorrect words, spelling, and punctuation that were not noted in review of the chart prior to signing ED Disposition - Plan for ED Patient: Chief Complaint: Palpitations Referrals: [facility] Doctor,Out of [Primary Care Provider] - What to do if you have Problems For any increased pain, shortness of breath, bleeding, nausea or vomiting, chest pain, or any unexpected problems, contact your Primary Care Provider. Call [facility] ([phone]) or report to the closest Emergency Room. Call 911 if necessary. 07/23/17 1519 <Electronically signed by González Cat DO> Date González Cat DO Cosigner Signature (If Indicated): Date CC: No Primary Care Physician; OUT OF TOWN DOCTOR CBC W/DIFF, AUTOMATED Collected: 07/23/2017 Status: F Source: CHARLY 1:[address] [facility]POSITORY TYPE CODE TESTS RESULT OUT OF RANGE REFERENCE UNITS LAB L100.1000 4.4-11.0 K/mm3 Normal WBC 10.6 LAB L100.1200 4.2-5.4 M/mm3 Normal RBC 4.37 LAB L100.1300 12.0-15.0 g/dl Normal HGB 13.5 LAB L100.1400 37-47 % Normal HCT 39.5 LAB L100.1500 81-99 fL Normal MCV 90.4 LAB L100.1600 27.0-32.0 pg Normal MCH 30.9 LAB L100.1700 32-36 g/gl Normal MCHC 34.2 LAB L100.1810 11.6-14.6 % Normal RDW CV 11.8 LAB L100.1820 35.1-43.9 fl Normal RDW SD 39.0 LAB L100.1900 150-450 K/mm3 Normal PLT 351 LAB L100.2000 6.2-12.0 fl Normal MPV 8.3 LAB L100.2100 47-70 % Normal NEUT% 48.9 LAB L100.2200 19-41 % High LY% 41.6 LAB L100.2300 0-10 % Normal MONO% 8.0 LAB L100.2400 0-5 % Normal EO% 0.3 LAB L100.2500 0-1 % Normal BASO% 0.2 LAB L100.2550 0.0-0.9 % High IM GRAN % 1.000 Result Comment: IG% - Immature Granulocytes (promyelocytes, myelocytes and metamyelocytes) > 1% indicates that a LEFT SHIFT is Present. LAB L100.2620 2.0-7.7 X10 3/uL Normal Absolute Neut 5.2 LAB L100.2720 0.83-4.51 X10 3/ul Normal Absolute Lymph 4.42 Performed By: #### L100.0100 #### [facility] [place], [place], [id number] D-DIMER QUANTITATIVE Collected: 07/23/2017 Status: F Source: CHARLY (DVT/PE) 1:[address] [facility] REPOSITORY TYPE CODE TESTS RESULT OUT OF RANGE REFERENCE UNITS LAB L300.8000 0.27-0.49 FEU/ug/m Low D-DIMER < 0.27 QUANT Result Comment: NORMAL D-Dimer level (<0.50) indicates no DVT or PE. Performed By: #### L300.8000 #### [facility] [address] [place], [address] BASIC METABOLIC Collected: 07/23/2017 Status: F Source: CHARLY PROFILE (BMP) 1:55 PM [facility] REPOSITORY Order Comment: 'TROP' Serial specimen #1, #2, #3, or #4: 1 TYPE CODE TESTS RESULT OUT OF RANGE REFERENCE UNITS LAB L501.0100 74-106 mg/dL Normal GLU 92 Result Comment: Please note revised GLUCOSE reference range effective 2017. LAB L501.1000 7-18 mg/dL Normal BUN 16 LAB L501.1100 0.55-1.02 mg/dL Normal CREAT,SERUM 1.00 Result Comment: The validity of the calculated GFR AND GFRAA in patients over 70 years has not been determined. Clinical correlation is essential. LAB L501.1110 >60 mL/min Normal EST GFR 70 Result Comment: Non- GFR Calc LAB L501.1115 >60 mL/min Normal EST GFR - AA 85 Result Comment: GFR Calc LAB L501.1255 ml/min Normal Estimated CRCL 66.24 LAB L501.1300 10-20 RATIO Normal BUN/CRE 16.0 LAB L501.2200 8.5-10 mg/dL Normal .1 CA 8.9 LAB L501.5300 136-14 mmol/L Normal 5 NA 138 LAB L501.5600 3.5-5. mmol/L Normal 1 K 3.6 LAB L501.5900 98-107 mmol/L Normal CL 100 LAB L501.6100 21.0-3 mmol/L Normal 2.0 CO2 30.0 LAB L501.6200 5-15 Normal GAP 8 Performed By: #### L500.2500, L501.4010 #### [facility] [address] [facility] [place], [place], [address] TROPONIN-I Collected: 07/23/2017 Status: F Source: TAMPA 1:[address] [facility] REPOSITORY Order Comment: 'TROP' Serial specimen #1, #2, #3, or #4: 1 TYPE CODE TESTS RESULT OUT OF RANGE REFERENCE UNITS LAB L501.4010 <0.06 ng/mL Normal < 0.02 TROPONIN-I Result Comment: TROPONIN-I EXPECTED VALUES <0.05 NEGATIVE 0.06 - 0.59 AT RISK OF NC > OR = 0.60 SUGGEST NC Performed By: #### L500.2500, L501.4010 #### [facility] [address] [place], [place], [id number] SINUS/FACIAL BONE Observed: 07/23/2017 Status: F Source: CHARLY 1:[address] [facility] REPOSITORY [facility] Imaging Services [address] [place] [address] Sinus/Facial Bone MR#: [id number] Acct: [id number] Name: LORENZO ZUÑIGA Rep #: [id number] : 1990 F 27 From: Jericho Almazan MD PCP: OUT OF TOWN DOCTOR Status: PRE ER Study: Sinus/Facial Bone Date of Exam: 07/23/17 Exam# [id number] Ordering Dr: González Cat DO STUDY: CT MAXILLOFACIAL SINUSES REASON FOR EXAM: Female, 27 years old. Left facial pain. Sinus pressure. Tachycardia. RADIATION DOSAGE (If Supplied By Facility): CTDIvol = ( 29.38 ) mGy, DLP = ( 635.61 ) mGycm TECHNIQUE: The patient was scanned in a multi detector CT scanner. High resolution axial imaging was performed without the administration of intravenous contrast material. Sagittal and coronal images were reconstructed. Individualized dose optimization techniques were used for this CT. COMPARISON: None. FINDINGS: FRONTAL SINUSES: Partial opacification of the left frontal sinus. ETHMOIDAL SINUSES: Opacification of the ethmoid sinuses bilaterally. MAXILLARY SINUSES: Air-fluid level in the right maxillary sinus. Mucosal thickening of the left maxillary sinus. SPHENOIDAL SINUSES: Mucosal thickening of the right sphenoid sinus anteriorly. There is compromise of the right maxillary infundibulum due to mucosal hypertrophy. Normal bilateral middle turbinates. Normal bilateral inferior turbinates. Normal midline nasal septum. There is patency of the bilateral nasal airways. The visualized osseous structures are normal. The visualized bilateral orbital contents are normal. CT/Sinus/Facial Bone IMPRESSION: Liz sinusitis. Electronically Signed: Jericho Almazan MD at 14:37 EST Tel [phone], Service support , CC: OUT OF TOWN DOCTOR; González Cat DO Vibration Technician: Signed PAP I-G W/RFX HRHPV Collected: 06/18/2017 Status: F Source: CHARLY 12:[address] [facility] REPOSITORY Order Comment: CYTOLOGY INFORMATION: - CLINICAL INFORMATION: - DATE LMP/MENOPAUSE: 06/10/17 - COLLECTION VIAL: Thin Prep Vial - LEAF CONDITIONER HELPER SOURCE: CERVICAL/ENDOCERVICAL - COLLECTION TECHNIQUE: BRUSH/SPATULA Specimen Comment: [id number] Specimen Comment: No. of containers..01 ThinPrep Vial TYPE CODE TESTS RESULT OUT OF REFERENCE UNITS RANGE LAB L7400.0800 . High DIAGN Comment Result Comment: EPITHELIAL CELL ABNORMALITY. ATYPICAL SQUAMOUS CELLS OF UNDETERMINED SIGNIFICANCE. LAB L7400.0900 . Normal ADEQ Comment Result Comment: Satisfactory for evaluation. Endocervical and/or squamous metaplastic cells (endocervical component) are present. LAB L7400.1400 . Normal PERFORM Comment Result Comment: Venus Bell, Maintenance And Utilities Supervisor (ASCP) LAB L7400.1700 . Normal SIGN Comment Result Comment: Lissy Durbin MD, Pathologist LAB L7400.1720 . Normal Path prov. Comment ICD9 Result Comment: R87.610 LAB L7400.2575 . Normal TEST METHOD Comment Result Comment: This liquid based ThinPrep(R) pap test was screened with the use of an image guided system. LAB L7400.2600 . Normal . COMM LAB L7400.2700 . Normal PAPSMR Comment Result Comment: The Pap smear is a screening test designed to aid in the detection of premalignant and malignant conditions of the uterine cervix. It is not a diagnostic procedure and should not be used as the sole means of detecting cervical cancer. Both false-positive and false-negative reports do occur. LAB L7400.2800 . Normal HPV RFLX Comment Result Comment: See below for HPV testing results. LAB L7400.2900 Negative High HPV HC,HGH Positive RISK Result Comment: This high-risk HPV test detects thirteen high-risk types (16/18/31/33/35/39/45/51/52/56/58/59/68) without differentiation. Performed at: [address] [place] [id number] Digital Cartographic Technician: Lyric Patten MD, Phone: [phone] Performed at: WB - [facility] [address] [id number] Digital Cartographic Technician: Keturah Russ MD, Phone: [phone] Performed at: =G - [facility] [address] [id number] Digital Cartographic Technician: Keturah Russ MD, Phone: [phone] Performed By: #### L7400.0350 #### [facility] (refer to report for specific site) refer to report for address and phone number ALLERGIES ALLERGIES DATE TYPE / CODE NAME / CODE REACTION SEVERITY SOURCE 03/22/2018 DRUG DOXYCYCLINE GI UPSET [facility] INGREDI/419 [address] [place] [address](SNOM Repository ED CT) 11/30/2017 Drug clavulanic Rash Unknown [place] Allergy/416 acid/C226235952(RX Community [address]([facility] ED CT) Repository 11/30/2017 Drug amoxicillin/E37401 Rash Unknown [place] Allergy/416 3675(RXNORM) Community 545413([facility] ED CT) Repository 11/26/2017 DRUG/915830 AMOXICILLIN-POT RASH [facility] 003(SNOMED CLAVULANATE [place] CT) Repository 11/24/2017 Drug No Known Unknown [place] Allergy/416 Allergies/S3389297 Community 251908([place] [address]ository Drug NO KNOWN ALLERGIES [facility] Class/75300 Main [place] 1003(SNOMED Repository CT) Drug/390215 No Known Allergies [facility] 003([facility]OMED [facility] System Repository Drug/651354 No Known [facility] 003(SNOMED Medication [facility]) Allergies System Repository ENCOUNTERS ENCOUNTERS ADMIT/DISCHARGE ACCOUNT NUMBER ADMITTING ENCOUNTER LOCATION SOURCE CLASS 04/26/2018 [id number] [facility] ing:LABSPEC Repository 03/26/2018 [id number] [facility] ing:LABSPEC Repository 03/24/2018/03/24/20 [id number] Ambulatory [address] [place] Repository 03/23/2018 [id number] [facility] ing:MRI Repository 03/23/2018/03/23/20 [id number] Ambulatory [place] [facility] [place] Repository 03/22/2018/03/22/20 [id number] Ambulatory [place] [facility] [place] Repository 03/22/2018/03/22/20 [id number] Ambulatory [place] [facility] [place] Repository 03/12/2018/03/15/20 [id number] Ambulatory [place] [facility] [place] Repository 03/11/2018/03/11/20 [id number] Ambulatory [place] [facility] [place] Repository 03/11/2018/03/12/20 [id number] Ambulatory [place] [facility] [place] Repository 03/10/2018/03/10/20 [id number] Ambulatory [place] [facility] [place] Repository 03/10/2018/03/10/20 [id number] Ambulatory [place] [facility] [place] Repository 03/10/2018/03/10/20 [id number] Ambulatory [place] [facility] [place] Repository 03/10/2018/03/10/20 [id number] Ambulatory [place] [address] [facility] [place] Repository 03/10/2018/03/10/20 [id number] Ambulatory [address] [place] Repository 03/10/2018/03/11/20 [id number] Ambulatory [address] [place] Repository 03/09/2018 [id number] [facility] 03/09/2018/03/09/20 [id number] Ambulatory Medical [address] Repository Med AssocRoom: Room 2 03/08/2018/03/08/20 [id number] Emergency [address] [place] Repository 03/04/2018/03/04/20 [id number] Ambulatory Medical [facility] [address] [place], [place] [address]Building: Repository Med Assoc 03/04/2018/03/04/20 [id number] [place], Ambulatory [place] [address] [facility] ing:[facility] Repository 03/04/2018/03/04/20 [id number] [place], Ambulatory [place] [address] Jorge Toure :QCareRoom: Regional Room 2 [facility] Repository 03/04/[id number] Repository 02/25/2018/02/26/20 [id number] Emergency [place] [facility] [place] Repository 02/04/2018/02/05/20 [id number] Ambulatory [address] [place] Med [facility]oc 01/20/2018/01/21/20 [id number] Ambulatory [address] [place] Repository Med AssocRoom: Room 1 01/07/2018 [id number] [facility] Repository 01/05/2018/01/07/20 [id number] Ambulatory [place] [facility] [place] Repository 01/05/2018/01/06/20 [id number] Ambulatory [place] [facility] [place] Repository 12/10/2017/12/12/19 [id number] Ambulatory [place] [facility] [place] Repository 12/09/2017/12/11/19 [id number] Ambulatory [place] [facility] [place] Repository 12/09/2017/12/10/19 [id number] Ambulatory [place] [facility] [place] Repository 12/09/2017/12/11/19 [id number] Ambulatory [place] [facility] [place] Repository 12/01/2017/12/02/19 [id number] [address]:EN Repository 11/26/2017/11/27/19 [id number] Ambulatory [place] [facility] [place] Repository 11/24/2017/11/25/19 [id number] [address] [facility] ing:ED Repository 11/10/2017/11/11/[id number] [place] Med [facility]oc 10/24/2017 [id number] [facility] Repository 10/21/2017/10/22/19 [id number] Emergency [address] [facility] ing:ED Repository 09/30/2017 [id number] [facility] Repository 07/26/2017/07/26/19 [id number] Emergency [address] ing:ED Repository 07/25/2017/07/25/19 [id number] Emergency [address] ing:ED Repository 07/23/2017/07/23/19 [id number] Ambulatory Medical [facility] [place] Repository Med [facility]oc 07/23/2017/07/23/19 [id number] Emergency [address] ing:ED Repository 07/22/2017/07/22/19 [id number] [facility] [address] [place] :[facility] Repository 07/20/2017/07/20/19 [id number] [facility]ulatory [facility]oc[facility]: Room 2 07/13/2017/07/13/19 [id number] Ambulatory [facility]ocRoom: Room 3 07/06/2017/07/06/19 [id number] [facility]: Room 3 06/25/2017/06/25/19 [id number] Ambulatory Medical [facility] [place] Repository Med [facility]oc 06/18/2017 [id number] Ambulatory [facility] ing:LABSPEC Repository 05/21/2017/05/21/20 [id number] Ambulatory [facility] Med Assoc[facility]: Room 3 PAYERS PAYERS ENCOUNTER GUARANTOR PAYER SUBSCRIBER SOURCE 04/26/2018 LORENZO Seaman Primary LORENZO A [place] [id number] TR Insurance:MEDICAL [facility]: [address] 1944-03-34CZRGerald [facility] [address]Bvf: Number: Repository [id number] (HP) Date:0253-95-32HT [address] [place] [address]RC: 04/26/2018 Secondary NOT GIVENUNK [place] Insurance:SELF PAY [facility] Number: Effective Repository Date:2018-04-26 03/26/2018 LORENZO Jurgen Primary LORENZO Jurgen [place] [id number] TR Insurance:MEDICAL [facility]: [address] [id number] [facility] [address]Pdn: Number: Repository [id number] (HP) Date:4185-04-42YS [place] [id number]: 03/26/2018 Secondary NOT GIVENUNK [place] Insurance:SELF PAY [facility] Number: Effective Repository Date:2018-03-26 03/23/2018 LORENZO Jurgen Primary LORENZO [place] [id number] TR Insurance:MEDICAL [facility]: [address] [id number] [facility] [address]Ilp: Number: Repository [id number] (HP) Date:9011-61-69BP [place] [id number]: 03/23/2018 Secondary NOT GIVENUNK Ch[place] Insurance:SELF PAY [facility] Number: Effective Repository Date:2018-03-17 03/09/2018 LORENZO Seaman Primary LORENZO Meza [facility]: Insurance:[address] [place], [place] [address]DOB: [facility] [id number] System [address] [facility] [address] Number: Effective [address] Repository [address] [place] [address], Date:2018-03-09 - [address] [place] [address] [id number] [address]Qws: Name:CD:[id number]: [address] (HP) [address]MC: [phone]) (HP) [phone] () 03/09/2018 LORENZO Jurgen Primary LORENZO Meza [facility]: Insurance:1500 [facility]: [facility] MEDICAL MUTUALPolicy [id number] [address] Number: Effective [address] Repository [address] [place] [address], Date:2018-03-09 - [address] [place] [address] [id number] [place] [address]Ldd: Name:CD:[id number] [place] [address]Nph: [address], [place] (HP) [address]TY: [phone]) (HP) [phone] (WP) 03/04/2018 LORENZO Jurgen Primary LORENZO Jurgen Meza [facility]: Insurance:1500 [facility]: [facility] MEDICAL MUTUALPolicy [id number] System [facility] [facility] [address] Number: Effective [address] Repository [address] [place] [address], Date:2018-03-04 - [address] [place] [address] [id number] [place] [address]Uqe: Name:CD:[id number] O [address]Rdb: [address], [place] (HP) [address]PL: [phone]) (HP) [phone] (WP) 03/04/2018 LORENZO A Primary LORENZO Jurgen [facility]oConfucianismOverlake [facility] Medical CenterB: Insurance:Medical [facility]: [facility] MutualPolicy Number: [id number] System [facility] [address] Effective [address] Repository [address] [place] [address], Date:2018-03-04 - [address] [place] [address] [id number] [place] [address]Ckb: Name:[facility] [address]Sew: [address]UJLWNOVKP, (HP) [place] [address]NR: (HP)Tel: (WP) 03/04/2018 LORENZO A Primary LORENZO A Confucianism [facility]: Insurance:1500 [facility]PITALAHANDOB: [facility] [id number] Number: Effective [address] Repository [address] [place] [address], Date:2018-03-04 - [address] [place] [address] [id number] [place] [address]Mtj: Name:CD:[id number] [place] [id number]: [address] [place] [address] (HP) [phone]: [phone]) (HP) [phone] (WP) 03/04/2018 LORENZO Grove [facility]: Insurance:Medical [facility]: [facility] [id number] Repository [address] Number: [address] [place] [address], [id number] [address] [place] [address] [phone]: Date:Plan Name:[facility] [phone]: (HP) (HP) 02/04/2018 LORENZO Meza [facility]: Insurance:1500 [facility]ITALAHANDOB: [facility] [id number] System [address] Number: Effective [address] Repository [address] [place] [address], Date:2018-02-04 - [address] [place] [address] [id number] [id number]: Name:CD:[id number]: [address] [place] [address] (HP) [phone]: [phone] ([phone] (WP) 01/20/2018 LORENZO Seaman Primary LORENZO Meza [facility]: Insurance:1500 [facility]: [facility] [id number] [place] [address] Number: Effective 2 [facility] Repository [address] [place] [address], Date:2018-01-20 - [address] [place] [address] [id number] [place] [address]Qcn: Name:CD:[id number] [facility]Kyf: [address] [place] [address] (HP) [phone]: [phone] ([phone] () 01/07/2018 Lorenzo A Primary NOT GIVENUNK Charly [id number] TR Insurance:SELF PAY [place] [address]Tel: Number: Effective Repository Date:2018-01-06 (HP) 12/01/2017 Lorenzo A Primary LORENZO A Charly [id number] TR Insurance:[facility]: [address] [id number] [place] [address]Tel: Number: Repository [id number] (HP) Date:7357-02-26LP [address] [place] [phone]: 12/01/2017 Secondary NOT GIVENUNK Charly Insurance:SELF PAY [facility] Number: Effective Repository Date:2017-11-26 11/24/2017 Lorenzo A Primary LORENZO A Bowers [id number] TR Insurance:MEDICAL [facility]DOB: [address] [id number] [place] [id number]: Number: Repository [id number] (HP) Date:6444-43-39SE [address] [place] [id number]: 11/24/2017 Secondary NOT GIVENUNK Charly Insurance:SELF PAY [facility] Number: Effective Repository Date:2017-11-24 11/10/2017 LORENZO A Primary LORENZO A Confucianism [facility]AHANDOB: Insurance:[address] [place], [place] [address]DOB: [facility] [id number] System [facility] Number: Effective [address] [facility] Repository [address] [place] [address], Date:2017-11-09 - [address] [place] [id number]: [id number] [place] [id number]: Name::[id number] O (HP) [address] [place] [address] (HP)Tel: [phone]: [phone] 10/24/2017 Lorenzo A Primary LORENZO A Bowers [id number] TR Insurance:[facility]DOB: [address] [id number] [address]Qxt: Number: Repository [id number] (HP) Date:1495-77-13BZ [address] [address]VX: 10/24/2017 Secondary NOT GIVENUNK Charly Insurance:SELF PAY [facility] Number: Effective Repository Date:2017-10-24 10/21/2017 Lorenzo A Primary LORENZO A Charly [id number] TR Insurance:[facility]ICAL [facility]DOB: [address] [id number] Hospital [place] [address]Mbm: Number: Repository [id number] (HP) Date:7077-01-23TH [address] [address]FX: 10/21/2017 Secondary NOT GIVENUNK Bowers Insurance:SELF PAY [facility] Number: Effective Repository Date:2017-10-21 09/30/2017 Lorenzo A Primary LORENZO A Charly [id number] TR Insurance:[facility]DOB: [address] [id number] [place] [address]Rkv: Number: Repository [id number] (HP) Date:0855-96-94IZ [address] [address]OT: 09/30/2017 Secondary NOT GIVENUNK Charly Insurance:SELF PAY [facility] Number: Effective Repository Date:2017-09-30 07/26/2017 Lorenzo A Primary LORENZO A Charly [id number] TR Insurance:MEDICAL [facility]ITALB: [address] [id number] [facility] [address]Apo: Number: Repository [id number] (HP) Date:1023-87-13XF [address] [place] [phone]: 07/26/2017 Secondary NOT GIVENUNK Bowers Insurance:SELF PAY [facility] Number: Effective Repository Date:2017-07-26 07/25/2017 Lorenzo A Primary LORENZO A Bowers [id number] TWP Insurance:[facility]: [facility] [id number], Number: Repository [place] [id number]: [id number] Date:8448-47-88PV [address] ) [address] [place] [id number]: 07/25/2017 Secondary NOT GIVENUNK Bowers Insurance:SELF PAY [facility] Number: Effective Repository Date:2017-07-25 07/23/2017 LORENZO A Primary LORENZO A Confucianism [facility]: Insurance:[address] [place], [place] [address]B: [facility] [id number] System [facility] Number: Effective 2 [facility] Repository [address] [place] [address], Date:2017-07-22 - [address] [place] [id number]: [id number] [place] [id number]: Name:CD:[id number] O (HP) [address] [place] [address] (HP)Tel: [phone]: [phone] 07/23/2017 Lorenzo A Primary LORENZO A Charly [id number] Insurance:MEDICAL MCMAHANDOB: [facility] [id number] [place] Number: Repository [id number]: (262) [id number] [phone] (HP) Date:3335-42-20PE [address] [place] [phone]: 07/23/2017 Secondary NOT GIVENUNK Bowers Insurance:SELF PAY [facility] Number: Effective Repository Date:2017-07-23 07/22/2017 LORENZO A Primary LORENZO A Confucianism MCMAHANDOB: Insurance:1500 [facility]AHANDOB: [facility] [id number] System [facility] Number: Effective [address] [facility] Repository [address] [place] [address], Date:2017-07-22 - [address] [place] [id number]: [id number] [place] [id number]: Name:CD:[id number] O (HP) [address] [place] [address] (HP)Tel: [phone]: ([phone] 07/20/2017 LORENZO A Primary LORENZO A Confucianism MCMAHANDOB: Insurance:1500 MCMAHANDOB: [facility] [id number] System [facility] Number: Effective [address] [facility] Repository [address] [place] [address], Date:2017-07-20 - [address] [place] [address] [id number]: [id number] [place] [id number]: Name:CD:[id number] O (HP) [address] [place] [address] (HP)Tel: [phone]: [phone] 07/13/2017 LORENZO A Primary LORENZO A Confucianism MCMAHANDOB: Insurance:1500 MCMAHANDOB: [facility] [id number] System [facility] Number: Effective [address] Repository [address] [place] [address], Date:2017-07-13 - [address] [place] [address] [id number]: [id number] [place] [id number]: Name:CD:[id number] O (HP) [address] [place] [address] ()Tel: [phone]: (WP) [phone] 07/06/2017 LORENZO A Primary LORENZO A Confucianism [facility]DOB: Insurance:1500 [facility]ITALB: [facility] [id number] System [facility] Number: Effective [address] [facility] Repository [address] [place] [address], Date:2017-07-06 - [address] [place] [address] [id number]: [id number] [place] [id number]: Name:CD:[id number] O (HP) [address] [place] [address] ()Tel: [phone]: [phone] 06/25/2017 LORENZO A Primary LORENZO A Confucianism [facility]OB: Insurance:1500 [facility]B: [facility] [id number] System [facility] Number: Effective [address] [facility] Repository [address] [place] [address], Date:2017-06-25 - [address] [place] [address] [id number]: [id number] [place] [id number]: Name:CD:[id number] O (HP) [address], [place] ()Tel: [phone]: ([phone] 06/18/2017 Lorenzo Primary LORENZO A Bowers [id number] Insurance:MEDICAL MCMAHANDOB: [facility] [id number] [address], Number: Repository [place] [address]Nje: [id number] Date:8423-86-12PA BOX () [address] [place] [address]MB: 06/18/2017 Secondary NOT GIVENUNK Bowers Insurance:SELF PAY [facility] Number: Effective Repository Date:2017-06-18 05/21/2017 LORENZO A Primary LORENZO A Confucianism MCMAHANDOB: Insurance:1500 MCMAHANDOB: [facility] [id number] System [facility] Number: Effective 2 [facility] Repository [address] [place] [address], Date:2017-05-21 - [address] [place] [address] [id number]: [id number] [place] [id number]: Name:CD:[id number] O () [address] [place] [address] ()Tel: [phone]: [phone]
== END ==
PROVIDERS: Referring Provider Otolaryngology Otolaryngology/Facial Plastic Surgery; Visit Provider Otolaryngology Otolaryngology/Facial Plastic Surgery
DX: J02.9 Acute pharyngitis, unspecified (principal); J03.90 Acute tonsillitis, unspecified
CPT/HCPCS: 87070

== ENCOUNTER → 2018-10-28 11:07 | Outpatient (CLI) | payer OTHER, SELFPAY ==
[2018-10-29 16:05] LABS: HPV Reflexed? NOT INDICATED
== END ==
PROVIDERS: Visit Provider Obstetrics & Gynecology
DX: Z12.4 Encounter for screening for malignant neoplasm of cervix (principal)
CPT/HCPCS: 88175; G0145

== ENCOUNTER → 2019-02-08 16:16 | Outpatient (CLI) | payer OTHER, SELFPAY ==
[2019-02-08 17:35] LABS: hCG Titer Quant., Serum 9 mIU/mL (1-3)
== END ==
PROVIDERS: Visit Provider Obstetrics & Gynecology
DX: N91.2 Amenorrhea, unspecified (principal)
CPT/HCPCS: 36415; 84702

== ENCOUNTER → 2019-03-22 12:25 | Outpatient (CLI) | payer OTHER, SELFPAY ==
[2019-03-22 12:59] LABS: Absolute Lymphocyte Count 2.02 X10^3/uL (0.83-4.51); Absolute Neutrophil Count 7.8 X10^3/uL (2.0-7.7); Basophil# 0.06 X10^3/uL; Basophil% 0.6 % (0-1); Eosinophil# 0.06 X10^3/uL; Eosinophils% 0.6 % (0-5); Hematocrit 34.8 % (37-47); Lymphocyte # 2.02 X10^3/ul (4.0); Lymphocyte % 18.7 % (19-41); Mean Corp Hgb Conc 34.5 g/dL (32-36); Mean Corpuscular Hgb 31.6 pg (27.0-32.0); Mean Corpuscular Volume 91.6 fL (81-99); Mean Platelet Vol. 8.7 fl (6.2-12.0); Monocyte% 7.4 % (0-10); NRBC Flagged by Analyzer 0 % (0-5); Neutrophil # 7.83 X10^3/uL (2.7-7.7); Neutrophil % 72.1 % (47-70); Platelet Count 324 K/mm3 (150-450); RBC Distribution Width CV 11.6 % (11.6-14.6); White Blood Count 10.8 K/mm3 (4.4-11.0)
[2019-03-22 13:30] LABS: hCG Titer Quant., Serum 16113 mIU/mL (1-3)
== END ==
PROVIDERS: Referring Provider Obstetrics & Gynecology; Visit Provider Obstetrics & Gynecology
DX: O20.0 Threatened abortion (principal); Z3A.00 Weeks of gestation of pregnancy not specified
CPT/HCPCS: 36415; 84702; 85025; 86850; 86900; 86901

== ENCOUNTER 2019-03-22 17:19 | Emergency (ER) | payer OTHER, SELFPAY ==
[2019-03-22 17:20] VITALS: BP 130/72; PULSE 91; RESP 18; TEMP 36.9; O2SAT 100; BMI 24.7
--- NOTE | 2019-03-22 17:51 | US_ITS ---
STUDY: FIRST TRIMESTER OBSTETRICAL ULTRASOUND REASON FOR EXAM: Female, 28 years old right of midline pelvic pain. Beta hCG of 16,113. History of miscarriage on February 09, 2019. LMP: Unknown. TECHNIQUE: Transabdominal and Transvaginal TECHNICAL QUALITY: Adequate. PRIOR ULTRASOUND: None. FINDINGS: There is visualization of a single gestational sac in a normal intrauterine position. The mean sac diameter (MSD) measures 1.5 cm, indicating an estimated gestational age (EGA) of 6 weeks, 1 days. The gestational sac shape is within normal limits. There is a visualized yolk sac. The yolk sac measures 0.27 cm. The placenta is non-visualized. There is visualization of an embryo within the gestational sac.. The crown-rump length (CRL) measures 0.46 cm, indicating an estimated gestational age (EGA) of 6 weeks, 2 days. There is no demonstrated cardiac activity. The estimated gestation age (EGA) by US is 6 weeks, 2 days. The estimated date of delivery (JAYNE) by US is November 13, 2019. The uterus measures 9.3 x 5.3 x 4.5 cm. There is no demonstrated uterine fibroid. The cervix is closed. The right ovary measures 3.7 x 2.7 x 2.2 cm. There is a 1.5 x 1.2 x 1.5 cm cyst in the right ovary.. There is no visualized right adnexal mass or complex lesion. The left ovary measures 2.0 x 2.0 x 1.3. There is no left ovarian cyst. There is no visualized left adnexal mass or complex lesion. There is no fluid in the cul de sac. US/Transvaginal w/Preg US IMPRESSION: 1. Single intrauterine at 6 weeks, 2 days. JAYNE is November 13, 2019. There is no demonstrated cardiac activity at this time. Follow-up recommended. 2. Right ovarian cysts. Electronically Signed: Ethan Lafleur DO at 19:31 EDT Tel [phone], Service support ,
--- NOTE | 2019-03-22 17:52 | ED.DCSUM_ITS ---
History of Present Illness Chief Complaint: Vag Bld, Preg Informant: Patient Onset: Yesterday Current Severity: Mild Maximum Severity: Moderate Narrative: Patient presents with abdominal cramping and bleeding. She had a miscarriage last month. She states she is bleeding heavily and went to her [employer] her quant was only 9. Last week she found out that she is approximately 5 weeks . She had some light spotting and cramping that started yesterday. She was seen at her doctor's office today for blood work only. CBC was unremarkable. Quant is just over 16,000. Her blood type is O+. Patient continues to have cramping. She spoke with Dr. Navneet torres who asked her to come into the ER for further work-up and ultrasound. She does complain of generalized body aches and some upper abdominal pain as well. She has had increased reflux with significant nausea. Patient believes she may have a sinus infection and she has a lot of facial pressure and congestion. The sinus symptoms have been ongoing for 3+ weeks. Past Medical History - Allergies and Home Meds Allergies/Adverse Reactions: Allergies amoxicillin [From Augmentin] Allergy (Verified 03/22/19 17:23) Rash clavulanic acid [From Augmentin] Allergy (Verified 03/22/19 17:23) Rash Primary Care Physician: Care Physician,No Primary [NON-STAFF] - Doctors: Dr. Bhat Prior records reviewed: Yes Past Medical History: - - Reviewed Surgical History: - - Lives: With Family Smoking Status: Never smoker Review of Systems General: Denies: Chills, Fever Eyes: Denies: Visual changes - bilaterally ENT: Denies: Bilateral ear pain Cardiovascular: Denies: Chest pain Respiratory: Denies: Dyspnea Gastrointestinal: Reports: Abdominal pain, Nausea, - - Bloating Genitourinary: Reports: - - Spotting yesterday Musculoskeletal: Reports: Myalgias Skin: Denies: Rash Physical Exam Vital Signs/Narrative: Vital Signs Temp Pulse Resp BP Pulse Ox 03/22/19 17:20 98.5 F 91 18 130/72 H 100 Inital Vital Signs reviewed: Yes General: Well nourished, Well developed Head: Normocephalic ENT: Moist mucous membranes, Sinus tenderness Cardiovascular: Regular rate Respiratory: No distress, CTA bilaterally Abdomen: Soft, Tender - Mild diffuse tenderness to palpation.. Negative for: Guarding, Rebound tenderness Extremities: Nontender Skin: Normal color Neurological: Alert, Oriented x3 Psychological: Normal affect Diagnostic/Tx/Re-eval 03/22/19 17:51 Transvaginal w/Preg US [US] Stat IMPRESSION: 1. Single intrauterine at 6 weeks, 2 days. JAYNE is November 13, 2019. There is no demonstrated cardiac activity at this time. Follow-up recommended. 2. Right ovarian cyst. Laboratory Results 03/22/19 03/22/19 03/22/19 18:02 18:10 18:10 Total Bilirubin 0.20 Direct Bilirubin 0.08 AST 15 ALT 24 Alkaline Phosphatase 59 Total Protein 7.4 Albumin 3.9 Globulin 3.5 Lipase 796 H Urine Color Yellow Urine Clarity Clear Urine pH 6.0 Ur Specific [place] 1.015 Urine Protein Negative Urine Glucose (UA) Normal Urine Ketones Negative Urine Occult Blood 10 H Urine Nitrite Negative Urine Bilirubin Negative Urine Urobilinogen Normal Ur Leukocyte Esterase Negative Urine RBC 0 SEEN Urine WBC 0 SEEN Ur Squamous Epith Cells 0-5 SEEN Urine Bacteria RARE Urine Mucus 0 SEEN - Medical Decision Making Test results are discussed with Dr. Bhat. She would like to have the patient seen for repeat ultrasound in 1 week. I did discuss with the patient her elevated lipase level. She does have epigastric pain. She will follow bland diet. She will also restart her acid reflux medication. I will write her for antibiotic to cover her sinuses as well as nausea medication. She is already taking vitamins. She will use Tylenol for pain. ED Disposition - Plan for ED Patient: Disposition: Home or Assisted Living Diagnosis: Sinusitis, First trimester Instructions: SINUSITIS, Abx Tx, ABDOMINAL PAIN, Early Prescriptions: Cephalexin [Keflex] 500 mg PO Q6 #40 capsule Ondansetron [Zofran Odt] 4 mg PO Q8H PRN PRN #10 tablet PRN Reason: Nausea Referrals: Fox Chandra MD [STAFF PHYSICIAN] - As soon as possible Opal Bhat MD [STAFF PHYSICIAN] - 5-7 Days
[2019-03-22 18:09] LABS: Mucous, Urine 0 SEEN /hpf (<or=2+); Red Blood Cells-Urine 0 SEEN /hpf (0-5); White Blood Cells 0 SEEN /hpf (0-5)
[2019-03-22 18:20] LABS: Color, Urine Yellow (Yellow); Glucose, Dipstick Normal (Normal); Ketone-Dipstick Negative (Negative); Leukocyte Esterase-Dipstick Negative /ul (Negative); Nitrite-Dipstick Negative (Negative); Occult Blood-Urine 10 /ul (Negative); Protein-Dipstick Negative (Negative); Specific Gravity, Urine 1.015 (1.002-1.030); Urine Bilirubin Dipstick Negative (Negative); Urine Clarity Clear (Clear); Urine Urobilinogen Normal (Normal)
[2019-03-22 18:30] LABS: Lipase 796 U/L (73-393)
[2019-03-22 18:35] LABS: AST(SGOT) 15 U/L (15-37); Alanine Aminotransfer ALT/SGPT 24 U/L (13-56); Albumin, Serum 3.9 g/dL (3.2-5.0); Alkaline Phosphatase 59 U/L (45-117); Bilirubin, Direct 0.08 mg/dL (0.00-0.30); Globulin 3.5 g/dL (2.2-4.2); Protein, Total 7.4 g/dL (6.4-8.2)
[2019-03-22 18:39] LABS: Bacteria RARE /hpf (None Seen); Squamous Epithelial Cells - UA 0-5 SEEN /hpf (5-10)
[2019-03-22 21:03] VITALS: BP 114/70; PULSE 97; RESP 18; O2SAT 99
== END 2019-03-22 21:03 | disposition home or self-care (01) ==
PROVIDERS: Emergency Provider Emergency Medicine; Family Provider Family Medicine; PCP Family Medicine
DX: O20.9 Hemorrhage in early pregnancy, unspecified (principal); O99.511 Diseases of the respiratory system complicating pregnancy, first trimester; J32.9 Chronic sinusitis, unspecified; O34.81 Maternal care for other abnormalities of pelvic organs, first trimester; N83.201 Unspecified ovarian cyst, right side; O99.611 Diseases of the digestive system complicating pregnancy, first trimester; K21.9 Gastro-esophageal reflux disease without esophagitis; Z3A.01 Less than 8 weeks gestation of pregnancy
CPT/HCPCS: 76817; 80076; 81001; 83690; 99283; A4216

== ENCOUNTER → 2019-03-30 16:36 | Outpatient (CLI) | payer OTHER, SELFPAY ==
[2019-03-22 17:20] VITALS: BMI 24.7
--- NOTE | 2019-03-30 16:39 | US_ITS ---
STUDY: FIRST TRIMESTER OBSTETRICAL ULTRASOUND REASON FOR EXAM: Female, 28 years old . Missed . LMP: February 09, 2019. TECHNIQUE: Transvaginal TECHNICAL QUALITY: Adequate. PRIOR ULTRASOUND: Comparison is made with prior study dated March 22, 2019. FINDINGS: There is no demonstrated intrauterine gestational sac. There is no demonstrated yolk sac. The placenta is non-visualized. There is no demonstrated embryo ( pole). The estimated gestation age (EGA) by LMP is 7 weeks, 0 days. The estimated date of delivery (JAYNE) by LMP is November 15, 2018. The uterus measures 9.8 cm x 6.1 cm x 4.9 cm. The endometrium measures 9 mm. There is no demonstrated uterine fibroid. The cervix is closed. The right ovary measures 2.8 cm x 2 cm x 2.2 cm. There is no right ovarian cyst. There is no visualized right adnexal mass or complex lesion. The left ovary measures 1.9 cm x 1.8 cm x 1.2 cm. There is no left ovarian cyst. There is no visualized left adnexal mass or complex lesion. There is no fluid in the cul de sac. US/Transvaginal w/Preg US IMPRESSION: No intrauterine gestation is seen at this time. Electronically Signed: Jericho Almazan, at 15:30 EDT , Service support ,
== END ==
LOC: US 16:38
PROVIDERS: Family Provider Family Medicine; PCP Family Medicine; Referring Provider Obstetrics & Gynecology; Visit Provider Obstetrics & Gynecology
DX: O02.1 Missed abortion (principal); Z3A.00 Weeks of gestation of pregnancy not specified
CPT/HCPCS: 76817

== ENCOUNTER 2019-04-12 12:24 | Emergency (ER) | payer OTHER, SELFPAY ==
[2019-04-12 12:25] VITALS: BP 139/79; PULSE 92; RESP 16; TEMP 36.7; O2SAT 100; BMI 27.2
--- NOTE | 2019-04-12 13:00 | ED.VIS.FEGU ---
History of Present Illness Chief Complaint: Vag Bleeding Informant: Patient Pain: Pelvic Pain Onset: Today Context: Gradual Onset Timing: Continuous Quality: Cramping Location: Suprapubic Current Severity: Mild Maximum Severity: Mild Issue: Vaginal bleeding Onset: Hours - 3 Context: Sudden Onset Timing: Continuous Current Severity: Heavy Maximum Severity: Heavy Associated Symptoms: Negative for: Dysuria, Frequency, Urgency, Hematuria Narrative: Patient recently had a miscarriage about 3 weeks ago. It was the second 1 in a month. She stopped bleeding a week later, that was about 2 weeks ago. She has been on control pills for the past 2 or 3 weeks. She spontaneously started bleeding again today and states it was very heavy. Every time she sits down she continuously bleeds and there are clots. She denies any systemic symptoms. Past Medical History - Allergies and Home Meds Allergies/Adverse Reactions: Allergies amoxicillin [From Augmentin] Allergy (Verified 04/12/19 12:26) Rash clavulanic acid [From Augmentin] Allergy (Verified 04/12/19 12:26) Rash Primary Care Physician: Opal Bhat MD [STAFF PHYSICIAN] - Keep Queta appointment Surgical History: - - Lives: With Family Smoking Status: Never smoker Drugs: None Review of Systems General: Denies: Chills, Fever, Sweats Eyes: Denies: Visual changes - bilaterally, Diplopia ENT: Denies: Rhinorrhea, Sore throat Cardiovascular: Denies: Chest pain, Palpitations Respiratory: Denies: Dyspnea, Cough, Dyspnea on exertion Gastrointestinal: Reports: Abdominal pain. Denies: Nausea, Vomiting, Diarrhea, Melena, Hematochezia Genitourinary: Reports: - - Vaginal bleeding. Denies: Dysuria, Hematuria, Frequency Musculoskeletal: Denies: Back pain, Swelling, Extremity Pain Skin: Denies: Rash, Wounds Neurological: Denies: Headache, Weakness, Numbness Physical Exam Vital Signs/Narrative: Vital Signs Temp Pulse Resp BP Pulse Ox 04/12/19 12:25 98.1 F 92 16 139/79 H 100 Inital Vital Signs reviewed: Yes General: Well nourished, Well developed, - - Well-appearing, NAD Head: Normocephalic, Atraumatic Eyes: Perrl, EOMI ENT: Moist mucous membranes, No rhinorrhea Neck: Supple, Nontender Cardiovascular: Regular rate, Regular rhythm, No murmurs Respiratory: No distress, CTA bilaterally, Chest nontender Abdomen: Soft, Nontender, Nondistended, Normal bowel sounds : Speculum exam: Normal external genitalia, No vaginal lesions, No vaginal discharge, Normal cervix - os closed, Old blood, Mild active bleeding - very minimal at time of exam. Negative for: Small clots, Large clots, Vaginal tissue present, Cervical tissue present, Cervicitis Back: Nontender, Normal Inspection Extremities: Nontender, No edema Skin: Normal color, No rash Neurological: Alert, Oriented x3, Cranial nerves II-XII grossly intact, Normal Strength, Normal Sensation Psychological: Normal affect Diagnostic/Tx/Re-eval Laboratory Results 04/12/19 04/12/19 04/12/19 12:50 12:50 12:50 WBC 8.2 RBC 3.77 L Hgb 11.9 L Hct 35.4 L MCV 93.9 MCH 31.6 MCHC 33.6 RDW Std Deviation 42.3 RDW Coeff of [place] 12.2 Plt Count 373 MPV 8.7 HCG, Quant 355 H Serum , Qual POSITIVE > 10 - Medical Decision/Diagnostic Studies returned positive so I added a quantitative hCG which is 355. She was 16,000 about 3 weeks ago. Discuss[address] with Dr. Celis who agrees that the patient is probably still clearing her hormone from her last recent miscarriage. She agrees the patient does not necessarily need a repeat ultrasound at this time and can follow-up routinely in the office, getting weekly quantitative hCGs in the meantime until negative. Her bleeding is lessened. Discussed with patient she is comfortable with this overall plan and we discussed reasons to return. ED Disposition - Plan for ED Patient: Disposition: Home or Assisted Living Diagnosis: Dysfunctional uterine bleeding Instructions: Dysfunctional Uterine Bleeding Referrals: Opal Bhat MD [STAFF PHYSICIAN] - Keep Queta appointment
[2019-04-12 13:05] LABS: Hematocrit 35.4 % (37-47); Hemoglobin 11.9 g/dL (12.0-15.0); Mean Corp Hgb Conc 33.6 g/dL (32-36); Mean Corpuscular Hgb 31.6 pg (27.0-32.0); Mean Corpuscular Volume 93.9 fL (81-99); Mean Platelet Vol. 8.7 fl (6.2-12.0); Platelet Count 373 K/mm3 (150-450); RBC Distribution Width CV 12.2 % (11.6-14.6); RBC Distribution Width SD 42.3 fl (35.1-43.9); Red Blood Count 3.77 M/mm3 (4.2-5.4); White Blood Count 8.2 K/mm3 (4.4-11.0)
[2019-04-12 13:10] LABS: Internal QC Validated? YES +Cl - CLEAR BKGD; Pregnancy, Serum, hCG Quali. POSITIVE > 10 Negative
[2019-04-12 14:09] LABS: hCG Titer Quant., Serum 355 mIU/mL (1-3)
[2019-04-12 15:24] VITALS: BP 112/87; PULSE 87; RESP 16; O2SAT 98
== END 2019-04-12 15:36 | disposition home or self-care (01) ==
PROVIDERS: Emergency Provider Emergency Medicine; Family Provider Family Medicine; PCP Family Medicine
DX: N93.8 Other specified abnormal uterine and vaginal bleeding (principal); Z88.0 Allergy status to penicillin
CPT/HCPCS: 84702; 84703; 85027; 99283

== ENCOUNTER 2019-04-14 14:13 | Emergency (ER) | payer OTHER, SELFPAY ==
--- NOTE | 2019-04-14 | THRO_PTH ---
PATIENT: LORENZO ZUÑIGA LOC: ED U#:[id number] AGE/SX: 28/F ROOM: RE04/14/[address]: Dr. Judie Barragan DO : 1990 BED: DIS: 04/14/2019 SPEC #: [id number] RECD: 04/14/19 18:19 STATUS: HÉCTOR HARRISON #: [id number] STEPHANIE: 04/14/19 00:[address]: Opal Bhat DEPT: SURGICAL PATHOLOGY RECD BY: Chi Echols ENTERED: 04/15/19 09:50 SP TYPE: THROMBUS OTHR DR: DO Dr. Tong Yarbrough MD Tissues: BLOOD CLOT, NOS Procedures: Surgery Specimen Level IV HEADER OPERATION: Not noted PRE-OP DIAGNOSIS: Abdomen pain TISSUE SUBMITTED: Blood clot MICROSCOPIC DIAGNOSIS Blood clots: Fragments of blood clots, a minute fragment of decidual tissue and a minute fragment of inflamed benign endometrial tissue. Chorionic villi are not identified. GERRY:stephane 04/19/19 COMMENT The entire specimen is examined. The specimen predominantly consists of blood clots. Please also correlate with patient's additional specimen [id number]. Case has been reviewed in consultation with Dr. Chavez who concurs with the above diagnosis. IDC:AM MICROSCOPIC DESCRIPTION Slides are reviewed. GROSS DESCRIPTION Received in fixative is one container labeled with the patient's name and designated clots. The specimen consists of multiple fragments of blood clot that in aggregate measure 5 x 3 x 1.5 cm. No obvious placental tissue or tissue is noted. A contracts representative portion of the specimen is submitted in three cassettes. / GERRY:stephane 04/15/19 The rest of the specimen is submitted in three more cassettes, 4-6. / GERRY:stephane 04/18/19 TC:5 CPT: [id number]
[2019-04-14 14:14] VITALS: BP 143/99; PULSE 112; RESP 15; TEMP 37.4; O2SAT 97; BMI 26.5
--- NOTE | 2019-04-14 14:45 | US_ITS ---
STUDY: ULTRASOUND OF THE FEMALE PELVIS - COMPLETE REASON FOR EXAM: Female, 28 years old. Severe pelvic pain. Recent DTC LMP: TECHNIQUE: Transvaginal TECHNICAL QUALITY: Adequate. COMPARISON: 03/30/2019. FINDINGS: The uterus is anteverted and is in a midline position. The uterus measures 8.9 x 5.8 x 4.1 cm. There is no demonstrated myometrial mass. I.U.D. - The patient does not have an I.U.D. Abnormal endometrial cavity and endometrial echoes, with the cavity measuring as much as 1.1 cm. Endometrial echoes are heterogeneous and there is endometrial fluid. Soft tissue densities are seen in the endometrial cavity and extending into the endocervical canal and into the cervix itself soft tissue structures show some vascularity. Findings are most consistent with retained products of conception, which may be currently passing through the endocervical canal. The right ovary is visualized. The right ovary measures 3.2 x 2.0 x 2.0 cm. There is a 1.1 cm ovarian cyst. There is no visualized right adnexal mass or complex lesion. There is normal arterial and normal venous vascularity. The left ovary is visualized. The left ovary measures 2.3 x 1.6 x 1.5 cm. There is no left ovarian cyst or ovarian mass. There is no visualized left adnexal mass or complex lesion. There is normal arterial and normal venous vascularity. There is no fluid in the cul-de-sac. US/Transvaginal Non- IMPRESSION: Abnormal exam showing heterogeneous endometrial echoes consistent with retained products of conception extending as far as the cervical canal. Electronically Signed: Natan Da Silva MD at 16:28 EST , Service support ,
--- NOTE | 2019-04-14 14:50 | ED.VIS.FEGU ---
History of Present Illness Chief Complaint: Abd Pain Informant: Patient Pain: Pelvic Pain Onset: Today Context: Gradual Onset Timing: Waxes and wanes Quality: Cramping, Sharp Issue: Vaginal bleeding Onset: Days Context: Gradual Onset Timing: Continuous Current Severity: Mild Maximum Severity: Heavy Associated Symptoms: Negative for: Dysuria, Frequency, Urgency, Hematuria Test: - - Recent miscarriage Narrative: Patient is a 50-q[age]d-ior-year-old female with recent history of miscarriage presenting with cramping abdominal pain. She states that she has had 2 miscarriages within the last 2 months. She is by with Dr. Vinayak Jones. She notes a couple days ago she had very heavy vaginal bleeding however that has improved. At that time her quant was down to the 300s. Patient states her most recent ultrasound looked normal. 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 She states it feels like very bad menstrual cramps versus labor pains. She notes she has some mild burning pain in her groin areas with it, more on the left than the right. Patient is the pain first started she felt flushed and sweaty. This part has resolved. She took Tylenol prior to arrival, 1 g. 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 She denies any other complaints at this time. Past Medical History - Allergies and Home Meds Allergies/Adverse Reactions: Allergies amoxicillin [From Augmentin] Allergy (Verified 04/14/19 14:17) Rash clavulanic acid [From Augmentin] Allergy (Verified 04/14/19 14:17) Rash Primary Care Physician: Tong Warren MD [Primary Care Provider] - Surgical History: - - Smoking Status: Never smoker Physical Exam Vital Signs/Narrative: Vital Signs Temp Pulse Resp BP Pulse Ox 04/14/19 14:14 99.4 F H 112 H 15 143/99 H 97 Diagnostic/Tx/Re-eval Clinical Impression(s) from Imaging Studies Transvaginal US 04/14/19 14:45 IMPRESSION: Abnormal exam showing heterogeneous endometrial echoes consistent with retained products of conception extending as far as the cervical canal. Electronically Signed: Natan Da Silva MD at 16:28 EST , Service support , Laboratory Data 04/14/19 04/14/19 04/14/19 15:02 15:02 15:02 WBC 8.4 RBC 3.54 L Hgb 11.2 L Hct 32.8 L MCV 92.7 MCH 31.6 MCHC 34.1 RDW Std Deviation 40.9 RDW Coeff of [place] 12.0 Plt Count 326 MPV 8.7 Immature Gran % (Auto) 0.200 Neut % (Auto) 71.4 H Lymph % (Auto) 20.0 [place] % (Auto) 7.0 Eos % (Auto) 0.6 Baso % (Auto) 0.8 Absolute Neuts (auto) 6.0 Absolute Lymphs (auto) 1.68 Nucleated RBC % 0 Sodium 140 Potassium 3.6 Chloride 109 H Carbon Dioxide 23.0 Anion Gap 8 BUN 7 Creatinine 0.77 Estim Creat Clear Calc 85.26 Est GFR (MDRD) Af Amer 114 Est GFR (MDRD) Non-Af 94 BUN/Creatinine Ratio 9.1 L Glucose 83 Calcium 8.5 Total Bilirubin 0.20 AST 12 L ALT 19 Alkaline Phosphatase 52 Total Protein 7.3 Albumin 3.7 Globulin 3.6 Albumin/Globulin Ratio 1.0 Lipase 124 HCG, Quant 285 H Urine Color Urine Clarity Urine pH Ur Specific [place] Urine Protein Urine Glucose (UA) Urine Ketones Urine Occult Blood Urine Nitrite Urine Bilirubin Urine Urobilinogen Ur Leukocyte Esterase Urine RBC Urine WBC Ur Squamous Epith Cells Urine Bacteria Urine Mucus 04/14/19 15:10 WBC RBC Hgb Hct MCV MCH MCHC RDW Std Deviation RDW Coeff of [place] Plt Count MPV Immature Gran % (Auto) Neut % (Auto) Lymph % (Auto) [place] % (Auto) Eos % (Auto) Baso % (Auto) Absolute Neuts (auto) Absolute Lymphs (auto) Nucleated RBC % Sodium Potassium Chloride Carbon Dioxide Anion Gap BUN Creatinine Estim Creat Clear Calc Est GFR (MDRD) Af Amer Est GFR (MDRD) Non-Af BUN/Creatinine Ratio Glucose Calcium Total Bilirubin AST ALT Alkaline Phosphatase Total Protein Albumin Globulin Albumin/Globulin Ratio Lipase HCG, Quant Urine Color Straw Urine Clarity Clear Urine pH 6.5 Ur Specific [place] 1.010 Urine Protein Negative Urine Glucose (UA) Normal Urine Ketones Negative Urine Occult Blood 50 H Urine Nitrite Negative Urine Bilirubin Negative Urine Urobilinogen Normal Ur Leukocyte Esterase Negative Urine RBC 0 SEEN Urine WBC 0 SEEN Ur Squamous Epith Cells 0-5 SEEN Urine Bacteria RARE Urine Mucus 0 SEEN - Treatment/Re-Evaluation Treatment: Toradol IM Re-Evaluation: Feels Better - Medical Decision/Diagnostic Studies She is evaluated for worsening pelvic pain. She recently had a miscarriage in her low most recent ultrasound showed complete passage of products of conception. She had a quant of 358 2 days ago. Patient has not had any significant bleeding since her last ER visit but the pain significantly worsened today. She is not peritoneal. Patient's pain is in her pelvic region. Patient's quant has continued to drop. Ultrasound was concerning for retained proximal conception however. 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 Patient is signed out to Dr. Hall pending final disposition recommendations from Dr. Vinayak Jones. ED Disposition - Plan for ED Patient: Referrals: Tong Warren MD [Primary Care Provider] -
[2019-04-14] MEDS: Ketorolac 15 MG/ML Vial IV (15:11)
[2019-04-14 15:14] VITALS: RESP 16
[2019-04-14 15:18] LABS: Absolute Lymphocyte Count 1.68 X10^3/uL (0.83-4.51); Basophil# 0.07 X10^3/uL; Basophil% 0.8 % (0-1); Eosinophil# 0.05 X10^3/uL; Eosinophils% 0.6 % (0-5); Hematocrit 32.8 % (37-47); Hemoglobin 11.2 g/dL (12.0-15.0); Lymphocyte # 1.68 X10^3/ul (4.0); Mean Corp Hgb Conc 34.1 g/dL (32-36); Mean Corpuscular Hgb 31.6 pg (27.0-32.0); Mean Corpuscular Volume 92.7 fL (81-99); Mean Platelet Vol. 8.7 fl (6.2-12.0); Monocyte# 0.59 X10^3/uL; NRBC Flagged by Analyzer 0 % (0-5); Neutrophil # 6.01 X10^3/uL (2.7-7.7); Neutrophil % 71.4 % (47-70); Platelet Count 326 K/mm3 (150-450); RBC Distribution Width SD 40.9 fl (35.1-43.9); Red Blood Count 3.54 M/mm3 (4.2-5.4); White Blood Count 8.4 K/mm3 (4.4-11.0)
[2019-04-14 15:27] LABS: Mucous, Urine 0 SEEN /hpf (<or=2+); Red Blood Cells-Urine 0 SEEN /hpf (0-5); White Blood Cells 0 SEEN /hpf (0-5)
[2019-04-14 15:30] LABS: Color, Urine Straw (Yellow); Glucose, Dipstick Normal (Normal); Ketone-Dipstick Negative (Negative); Leukocyte Esterase-Dipstick Negative /ul (Negative); Nitrite-Dipstick Negative (Negative); Occult Blood-Urine 50 /ul (Negative); Protein-Dipstick Negative (Negative); Urine Bilirubin Dipstick Negative (Negative); Urine Clarity Clear (Clear); Urine Urobilinogen Normal (Normal); Urine pH 6.5 (5.0 - 8.0)
[2019-04-14 15:35] LABS: AST(SGOT) 12 U/L (15-37); Alanine Aminotransfer ALT/SGPT 19 U/L (13-56); Albumin, Serum 3.7 g/dL (3.2-5.0); Alkaline Phosphatase 52 U/L (45-117); Anion Gap 8 (5-15); BUN 7 mg/dL (7-18); BUN/Creat Ratio 9.1 RATIO (10-20); Calcium,Total 8.5 mg/dL (8.5-10.1); Chloride 109 mmol/L (98-107); Creatinine, Serum 0.77 mg/dL (0.55-1.02); EST Glomerular Filtration Rate 94 mL/min (>60); Est Glom Filt Rate - Afr Amer 114 mL/min (>60); Estimated Creatinine Clearance 85.26 ml/min; Globulin 3.6 g/dL (2.2-4.2); Glucose 83 mg/dL (74-106); Lipase 124 U/L (73-393); Potassium 3.6 mmol/L (3.5-5.1); Protein, Total 7.3 g/dL (6.4-8.2); Sodium Level 140 mmol/L (136-145)
[2019-04-14 15:38] LABS: hCG Titer Quant., Serum 285 mIU/mL (1-3)
[2019-04-14 15:48] LABS: Squamous Epithelial Cells - UA 0-5 SEEN /hpf (5-10)
[2019-04-14 15:49] LABS: Bacteria RARE /hpf (None Seen)
[2019-04-14 17:40] VITALS: RESP 16
--- NOTE | 2019-04-14 17:54 | ED.VISSUMM ---
- ER Visit Summary Date of Service: 04/14/19 Chief Complaint: [] History of Present Illness: The patient is a 28 F [] Physical Examination: [] Test Results: [] Emergency Department Course and Treatment: [] Treatment Plan: [] Disposition: [] Impression: [] This note was generated with [employer] dictation software. It may contain incorrect words, spelling, and punctuation that were not noted in review of the chart prior to signing ED Disposition - Plan for ED Patient: Disposition: Home or Assisted Living Diagnosis: Complete Instructions: MISCARRIAGE, Spontaneous (Completed) Prescriptions: Doxycycline 100 mg PO BID #20 cap Transmission Status: Pending to [id number] Hydrocodone Bitart/Apap 5-325 [[place] 5MG-325MG] 1 tablet PO Q6H PRN PRN 3 Days #10 tablet PRN Reason: Pain Transmission Status: Received by [id number] Referrals: Tong Warren MD [Primary Care Provider] - Additional Instructions: Follow-up with Dr. Opal Bhat in the office at 8 AM.
[2019-04-14 18:22] VITALS: RESP 16
[2019-04-14 18:25] LABS: Pathology Specimen OB SEE PATHOLOGY REPORT
== END 2019-04-14 18:23 | disposition home or self-care (01) ==
PROVIDERS: Emergency Medicine; Emergency Provider Emergency Medicine; Family Provider Family Medicine; PCP Family Medicine
DX: O03.4 Incomplete spontaneous abortion without complication (principal); Z88.0 Allergy status to penicillin
CPT/HCPCS: 76830; 80053; 81001; 83690; 84702; 85025; 88304; 88305; 93976; 99284

== ENCOUNTER → 2019-04-16 09:47 | Outpatient (CLI) | payer OTHER, SELFPAY ==
[2019-04-14 14:14] VITALS: BMI 26.5
[2019-04-16 10:58] LABS: hCG Titer Quant., Serum 232 mIU/mL (1-3)
== END ==
PROVIDERS: Family Provider Family Medicine; PCP Family Medicine; Referring Provider Emergency Medicine; Visit Provider Emergency Medicine
DX: O20.0 Threatened abortion (principal); Z3A.00 Weeks of gestation of pregnancy not specified
CPT/HCPCS: 36415; 84702

== ENCOUNTER 2019-04-18 10:49 | Day surgery (SDC) | payer OTHER, SELFPAY ==
[2019-04-18 08:08] VITALS: BMI 26.5
[2019-04-18 11:48] VITALS: BP 120/93; PULSE 89; RESP 16; TEMP 37.3; O2SAT 99; BMI 27.6
[2019-04-18] MEDS: Lactated Ringers 1,000 ML 125 ML IV ×2 (12:05→14:59)
[2019-04-18] MEDS: Doxycycline 100 MG CAPSULE PO (12:06)
--- NOTE | 2019-04-18 12:30 | POC_PTH ---
PATIENT: LORENZO ZUÑIGA [place] [facility] [id number] AGE/SX: 28/F ROOM: RE04/18/[address]: Dr. Opal Bhat MD : 1990 BED: DIS: 04/18/2019 SPEC #: [id number] RECD: 04/18/19 15:52 STATUS: HÉCTOR HARRISON #: [id number] STEPHANIE: 04/18/19 12:[address]: Opal Bhat DEPT: SURGICAL PATHOLOGY RECD BY: Chi Echols ENTERED: 04/19/19 08:17 SP TYPE: PROD CONC OTHR DR: Dr. Tong Warren MD Tissues: Product of conception, NOS Procedures: Surgery Specimen Level IV HEADER OPERATION: Dilation and curettage, suction PRE-OP DIAGNOSIS: Incomplete TISSUE SUBMITTED: Products of conception MICROSCOPIC DIAGNOSIS Products of conception: Decidual, inflamed benign endometrial tissue, blood clots and a few immature chorionic villi (products of conception). GERRY:stephane 04/20/19 MICROSCOPIC DESCRIPTION Slides are reviewed. GROSS DESCRIPTION Received in fixative is one container labeled with the patient's name and designated products of conception. The specimen consists of multiple fragments of hemorrhagic soft tissue that in aggregate measure 5 x 1.5 x 0.3 cm. No tissue is identified. The entire specimen is submitted in two cassettes. / GERRY:stephane 04/19/19 TC:5 CPT: 24711
--- NOTE | 2019-04-18 13:46 | HP.PCM_ITS ---
- Problem List (1) Incomplete Status: Acute Comment: recommend d and c History and Physical Date of Admission: 04/18/19 UPDATE- I have seen the patient and performed any clinically relevant updates to the history and physical exam. Opal Bhat MD Intake Vital Signs 04/18/19 Body Mass Index (BMI) 26.5 04/18/19 Height 5 ft 2 in 04/18/19 Blood Pressure 130/88 H Intake Visit Reasons: ER/Miscarraige FU Chief Complaint: ER Follow Up SAB Call Or Contact Centre Operator Required: No Is patient in pain?: No Allergies amoxicillin [From Augmentin] Allergy (Verified 04/18/19 08:07) Rash clavulanic acid [From Augmentin] Allergy (Verified 04/18/19 08:07) Rash Medications Doxycycline 100 mg PO BID #20 cap 04/14/19 [Rx Confirmed 04/18/19] Escitalopram Oxalate [Lexapro] 10 mg PO DAILY 04/14/19 [History Confirmed 04/18/19] Is last menstrual period known: No Post menopausal: No Patient : No : No [facility] Medical History (Updated 04/18/19 @ 08:23 by Opal Bhat MD) Anxiety (Acute) Social History (Updated 04/18/19 @ 08:24 by Opal Bhat MD) Smoking Status: Former smoker alcohol intake: never substance use type: does not use caffeine: Yes seatbelt use: always do you feel safe at home: Yes additional social history: Will HPI ER/Miscarraige FU: Details: LORENZO SONI is a 28 year old who presents for fu of miscarriage, 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 still very fatigued. quant going down went from 260 to 230, lining thinner but still measuring 15 mm with some heterogenous appearance. Pregancy History 3 Elective abortions Hx Para 1 Spontaneous abortions Hx # Term Pregnancies Ectopic pregnancies Hx # Pregnancies Multiple births # of living children ROS Const Constitutional: Denies fatigue, fever(s), headache(s), increased appetite, poor appetite, weight gain or weight loss : Reports as per HPI; denies difficulty urinating, painful urination, urinary frequency, urinary incontinence, urinary hesitancy, urinary urgency, vaginal discharge, vaginal dryness, vaginal odor or vaginal itching Exam Const General: cooperative, healthy appearing, comfortable, no acute distress, well developed Nutritional Appearance: average body habitus Orientation: alert General: bladder normal to palpation External Female Exam: normal external appearance, normal appearance of the urethra Urethra: normal appearance of the urethra, normal palpation Speculum Exam - Vagina: normal appearance of the vagina, vaginal bleeding Speculum Exam - Cervix: normal appearance of the cervix, nontender Bimanual Exam- Vagina & Uterus: normal bimanual exam, uterine size normal, bladder normal to palpation, uterine shape normal, No cervical tenderness, ut erine mobility normal, uterine consistency normal, normal cervical palpation, uterus non-tender Bimanual Exam- Adnexa, other: normal adnexae, adnexae mobile, no adnexal masses, pelvic support normal Pelvic Support: normal OB/External & Speculum: vaginal bleeding Speculum Exam: vaginal bleeding Assessment & Plan Problems 1. Incomplete O03.4 recommend d and c Plan failed exp management recommend d and c. After discussing the patient's diagnosis and treatment plan options, patient wishes to proceed with surgical m anagement. I have discussed with the patient the risks, benefits, and alternatives of the procedure which include but are not limited to risks of anesthesia, bleeding, infection, possible damage to bowel, bladder, or surrounding vasculature which could lead to additional surgery to evaluate any complications. Patient agrees to procedure and wishes to proceed. Coding Level of Care Code Off vis,est,level 4 Diagnoses Incomplete O03.4
--- NOTE | 2019-04-18 13:47 | PCM.OPRPT ---
Problem List (1) Incomplete Status: Acute Comment: recommend d and c Report of Operation Date of Procedure: 04/18/19 Pre-Operative Diagnosis: retained POC Post-Operative Diagnosis: same Surgery/Procedure Performed:: suction d and c Description of Surgical Findings:: small amount retained products 8 cm uterine length Type of Anesthesia:: MAC Special Medications: none Specimen's removed: poc Drains: none Estimated Blood Loss (mL): 50 Fluids Replaced: crystalloid Description of Procedure: Patient was taken to the operating room and placed under MAC local anesthesia. She was prepped and draped in the normal sterile fashion the dorsal lithotomy position. Bladder was drained of clear urine and anterior lip of the cervix was grasped and the uterus sounded to 8 cm. Cervix was progressively dilated to allow passage of 8 millimeter suction curette. Progressive passes were made removing the retained products of conception without complication. Sharp curettage confirmed complete removal of the retained products. All instruments were removed from the vagina and excellent hemostasis was noted and the patient was taken to recovery in stable condition. Grafts/Implants Used: none - Complications none - Admit VTE Documentation VTE Present on Admission: No Multi Select Codes - Urinary/Genital Urinary/Genital CPT Codes: 03055 Trmt of incomplete Ab, any TM
--- NOTE | 2019-04-18 13:48 | DCINST_ITS ---
Discharge Diet: No Restrictions Discharge Activity: Return to Normal Activity, May Shower, May Take a Tub Bath Allergies/Adverse Reactions: Allergies amoxicillin [From Augmentin] Allergy (Verified 04/18/19 11:40) Rash clavulanic acid [From Augmentin] Allergy (Verified 04/18/19 11:40) Rash Medications to take at Discharge Doxycycline 100 mg PO BID #20 cap 04/14/19 Escitalopram Oxalate [Lexapro] 10 mg PO DAILY 04/14/19 Primary Care Physician: Tong Warren MD [Primary Care Provider] - Test Results: Test results from this visit will be discussed in further detail at your follow- up appointment, if applicable. Please Follow Up With: Opal Bhat MD - [phone]
[2019-04-18 13:59] VITALS: BP 112/75; BP 120/93; PULSE 73; RESP 16; TEMP 36.2; O2SAT 94
[2019-04-18 14:04] VITALS: BP 115/73; BP 120/93; PULSE 75; RESP 16; O2SAT 96
[2019-04-18 14:09] VITALS: BP 118/87; BP 120/93; PULSE 71; RESP 16; O2SAT 99
[2019-04-18 14:10] VITALS: BP 117/84; BP 120/93; PULSE 73; RESP 16; TEMP 36.6; O2SAT 99
--- NOTE | 2019-04-18 14:48 | SUR.PHASEII ---
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 DR BARNES REPORTED STATES MAY HAVE FLEXERIL 10 MG PO Q8H PRN #20/0 AND MAY BE OFF WORK UNTIL MAY 02, CALL OFFICE IF PATIENT WOULD LIKE TO GO BACK SOONER. PATIENT UPDATED.
[2019-04-18] MEDS: HYDROcodone Bitartrate/Apap 5/325 Tablet PO (14:50)
[2019-04-18 16:07] VITALS: BP 120/93
== END 2019-04-18 16:08 | disposition home or self-care (01) ==
LOC: SDC 10:50 → AC 10:56
PROVIDERS: Family Provider Family Medicine; PCP Family Medicine; Referring Provider Obstetrics & Gynecology; Visit Provider Obstetrics & Gynecology
PROC: (CPT 59812; principal; 2019-04-18 12:15)
DX: O03.4 Incomplete spontaneous abortion without complication (principal); Z87.891 Personal history of nicotine dependence; Z88.0 Allergy status to penicillin
CPT/HCPCS: 01965; 59812; 88305; J7120; A4216; J2405

== ENCOUNTER 2019-06-06 08:34 | Emergency (ER) | payer OTHER, SELFPAY ==
[2019-06-06 08:35] VITALS: BP 134/93; PULSE 99; RESP 16; TEMP 36.4; O2SAT 100; BMI 24.7
--- NOTE | 2019-06-06 08:55 | EKG12_ITS ---
Test Reason : OTHERPAIN Blood Pressure : / mmHG Vent. Rate : 092 BPM Atrial Rate : 092 BPM P-R Int : 144 ms QRS Dur : 076 ms QT Int : 364 ms P-R-T Axes : 051 018 014 degrees QTc Int : 450 ms Normal sinus rhythm Normal ECG Confirmed by ARI JOHNS, GEORGETTE ([id number]), social media editor JERAMY NOLEN ([id number]) on 06/08/2019 10:45:53 AM Referred By: DOTTIE Confirmed By:GEORGETTE CHAPMAN MD
--- NOTE | 2019-06-06 08:58 | ED.VISSUMM ---
- ER Visit Summary Date of Service: 06/06/19 Chief Complaint: Pain History of Present Illness: The patient is a 29 F with mid back and left scapular pain. The pain wraps around to her epigastric region. She has had this for several days. It was worse after using alcohol. Symptoms are worse when swallowing and eating. It feels like burning and stabbing. She has associated nausea and sweats. She had a recent stomach flu with abdominal pain. She was evaluated and there was concern that she may have pancreatitis at that time. She also had a recent miscarriage. Physical Examination: Afebrile and vital signs unremarkable. Alert and oriented. No acute distress. Skin appears normal. Heart regular. Lungs clear. Epigastric region tender to palpation. Back is nontender and normal inspection. Test Results: EKG, labs, chest x-ray pending. Emergency Department Course and Treatment: Patient was treated with fluids, morphine, Zofran while awaiting results. CBC unremarkable. No sign of leukocytosis. CMP and lipase unremarkable. Chest tightness. EKG shows sinus rhythm rate of 90 with no sign ischemia or infarction pattern. Troponin normal. D-dimer normal. She is otherwise low or no risk for ACS and PE so no further work-up is indicated. hCG is negative. Patient has continued pain after treatment and will receive Toradol. We will also check ultrasound of her gallbladder. I suspect this may be esophagitis, gastritis, or myofascial pain at this point. There is no indication for CT imaging. Will reassess. Ultrasound is negative. Patient is better after Toradol. Will treat with anti-inflammatories to cover myofascial pain. We will also add PPI to cover for esophagitis, gastritis, ulcer. Follow-up with Dr. Elder. Treatment Plan: As above Disposition: Discharge Impression: Back pain This note was generated with [employer] software. It may contain incorrect words, spelling, and punctuation that were not noted in review of the chart prior to signing ED Disposition - Plan for ED Patient: Referrals: Tong Warren MD [Primary Care Provider] -
--- NOTE | 2019-06-06 08:59 | RAD_ITS ---
STUDY: X-RAY CHEST REASON FOR EXAM: Female, 29 years old. Sternum area chest pain TECHNIQUE: Single AP portable view of the chest. COMPARISON: None. FINDINGS: The lungs are clear and expanded. There is no demonstrated pleural abnormality. Normal size heart. Normal mediastinum and leann. Normal visualized pulmonary arteries. Normal visualized aortic arch and descending thoracic aorta. Normal visualized thoracic spine. Normal visualized ribs, clavicles, and shoulders. There is no demonstrated abnormality of the visualized soft tissue structures of the upper abdomen. RAD/Chest 1 View (Portable) IMPRESSION: Normal x-ray examination of the chest. Electronically Signed: Jericho Almazan, at 9:26 EST , Service support ,
[2019-06-06] MEDS: Ondansetron 4 MG/2 ML Vial IV (09:33)
[2019-06-06] MEDS: 0.9% Normal Saline 1,000 ML 1000 ML IV (09:34)
[2019-06-06] MEDS: Morphine 4 MG/ML Syringe IV (09:34)
[2019-06-06 09:40] VITALS: O2SAT 100
[2019-06-06 09:41] VITALS: BP 144/77; PULSE 104; RESP 20; O2SAT 100
[2019-06-06 09:42] LABS: Absolute Lymphocyte Count 1.36 X10^3/uL (0.83-4.51); Absolute Neutrophil Count 5.5 X10^3/uL (2.0-7.7); Basophil# 0.04 X10^3/uL; Basophil% 0.5 % (0-1); Eosinophil# 0.05 X10^3/uL; Eosinophils% 0.7 % (0-5); Hematocrit 35.2 % (37-47); Hemoglobin 11.9 g/dL (12.0-15.0); Lymphocyte # 1.36 X10^3/ul (4.0); Lymphocyte % 17.8 % (19-41); Mean Corp Hgb Conc 33.8 g/dL (32-36); Mean Corpuscular Hgb 31.2 pg (27.0-32.0); Mean Corpuscular Volume 92.1 fL (81-99); Mean Platelet Vol. 8.9 fl (6.2-12.0); Monocyte# 0.63 X10^3/uL; Monocyte% 8.3 % (0-10); NRBC Flagged by Analyzer 0 % (0-5); Neutrophil # 5.51 X10^3/uL (2.7-7.7); Neutrophil % 72.3 % (47-70); Platelet Count 353 K/mm3 (150-450); RBC Distribution Width CV 11.9 % (11.6-14.6); RBC Distribution Width SD 40.2 fl (35.1-43.9); Red Blood Count 3.82 M/mm3 (4.2-5.4); White Blood Count 7.6 K/mm3 (4.4-11.0)
--- NOTE | 2019-06-06 09:42 | ED.RN ---
pt given morphine for pain.within a minute of getting morphine. pt starts yelling that her head hurts, she states she feels drugged. this rn attempts to talk with pt to reassure her. pt now having anxiety over medication. dr yancey
[2019-06-06 09:45] LABS: Internal QC Validated? YES +Cl - CLEAR BKGD; Pregnancy, Serum, hCG Quali. NEGATIVE Negative
[2019-06-06 09:56] LABS: ALB/GLOB Ratio 1.1 RATIO (0.9-2.4); AST(SGOT) 19 U/L (15-37); Alanine Aminotransfer ALT/SGPT 41 U/L (13-56); Albumin, Serum 3.7 g/dL (3.2-5.0); Alkaline Phosphatase 70 U/L (45-117); Anion Gap 6 (5-15); BUN 10 mg/dL (7-18); BUN/Creat Ratio 12.7 RATIO (10-20); Calcium,Total 8.3 mg/dL (8.5-10.1); Chloride 107 mmol/L (98-107); Creatinine, Serum 0.79 mg/dL (0.55-1.02); EST Glomerular Filtration Rate 91 mL/min (>60); Est Glom Filt Rate - Afr Amer 110 mL/min (>60); Estimated Creatinine Clearance 82.35 ml/min; Globulin 3.5 g/dL (2.2-4.2); Glucose 97 mg/dL (74-106); Lipase 81 U/L (73-393); Potassium 3.6 mmol/L (3.5-5.1); Protein, Total 7.2 g/dL (6.4-8.2); Sodium Level 138 mmol/L (136-145)
[2019-06-06 09:57] LABS: D-Dimer Quantitative (DVT/PE) < 0.27 FEU/ug/m (0.27-0.49)
--- NOTE | 2019-06-06 10:16 | US_ITS ---
STUDY: ABDOMINAL ULTRASOUND - RIGHT UPPER QUADRANT REASON FOR VISIT: Female, 29 years old ABD PAIN TECHNIQUE: Ultrasound evaluation of the right upper quadrant was performed with real-time and static gonzalez-scale imaging. TECHNICAL QUALITY: Adequate. COMPARISON: None. FINDINGS: Liver: The liver measures 15.3 cm. There is normal echogenicity of the liver. The bile ducts are within normal limits. There is hepatic color flow. The direction of portal flow is hepatopetal. There is no demonstrated mass lesion. Gallbladder: Normal distended gallbladder. The gallbladder wall measures 3.0 mm. There is a negative sonographic Siddiqui''s sign. There is no pericholecystic fluid. There are no gallstones. Common Bile Duct (C.B.D.): The common bile duct measures 4.0 mm. Pancreas: Normal size of the head, body and tail of the pancreas. There is normal echogenicity of the pancreas. There is no demonstrated pancreatic mass or cyst. Right Kidney: Normal size of the right kidney. The right kidney measures 11.1 cm x 4.7 cm x 4.3 cm. Normal renal cortex. The right cortex measures cm. There is no demonstrated renal mass or cyst. There is no right hydronephrosis. US/Gallbladder IMPRESSION: Normal right upper quadrant ultrasound examination. Electronically Signed: Jericho Almazan, at 12:18 EST , Service support ,
[2019-06-06] MEDS: Ketorolac 30 MG/ML Syringe IV (10:34)
[2019-06-06 11:56] VITALS: BP 107/70; PULSE 80; RESP 18; O2SAT 99
--- NOTE | 2019-06-06 12:45 | ED.DEP ---
ED Disposition - Plan for ED Patient: Instructions: BACK PAIN (Acute or Chronic) Prescriptions: Naproxen [Naprosyn] 500 mg PO BID PRN #20 tab Prescription Printed Omeprazole [Prilosec] 20 mg PO BID #60 cap Prescription Printed Referrals: Babatunde Parra MD [STAFF PHYSICIAN] -
== END 2019-06-06 13:11 | disposition home or self-care (01) ==
LOC: ED 09:17
PROVIDERS: Emergency Provider Emergency Medicine; Family Provider Family Medicine; PCP Family Medicine
DX: M54.9 Dorsalgia, unspecified (principal); R10.9 Unspecified abdominal pain; R11.2 Nausea with vomiting, unspecified; R07.9 Chest pain, unspecified; M25.512 Pain in left shoulder
CPT/HCPCS: 71045; 76705; 80053; 83690; 84484; 84703; 85025; 85379; 93005; 96361; 96374; 96375; 99284; J7030; A4216; J2405

== ENCOUNTER → 2019-06-10 11:24 | Outpatient (CLI) | payer OTHER, SELFPAY ==
[2019-06-10 11:11] VITALS: BMI 24.7
[2019-06-10 12:34] LABS: Cholesterol 214 mg/dL (200); High Density Lipoprotein 87 mg/dL; Triglycerides 80 mg/dL; Very Low Density Lipoprotein 16 mg/dL (5-40)
[2019-06-13 16:07] LABS: Endomysial Antibody IgA Negative (Negative)
[2019-06-14 10:31] LABS: Immunoglobulin A 179 mg/dL (87-352); t-Transglutaminase IgA <2 U/mL (0-3)
== END ==
LOC: PAVLAB 11:26
PROVIDERS: Family Provider Family Medicine; PCP Family Medicine; Referring Provider Surgery; Visit Provider Surgery
DX: R10.13 Epigastric pain (principal)
CPT/HCPCS: 36415; 80061; 82784; 83516; 86255

== ENCOUNTER 2019-06-14 06:56 | Day surgery (SDC) | payer OTHER, SELFPAY ==
[2019-06-10 11:11] VITALS: BMI 24.7
--- NOTE | 2019-06-10 12:50 | HP_ITS ---
Intake Vital Signs 06/10/19 Height 5 ft 2 in 06/10/19 Weight: 145 lb 06/10/19 BMI 26.5 06/10/19 BP 128/81 H 06/10/19 Blood Pressure Location Rt brachial 06/10/19 Position Sitting 06/10/19 Respiration 18 06/10/19 Pulse 94 06/10/19 Pulse Source Monitor 06/10/19 Temp 98.3 F 06/10/19 Temp Source Oral 06/10/19 Pulse Oximetry (%) 100 06/10/19 Oxygen Delivery Method room air Intake Visit Reasons: ER F/U 06/06 [facility] 2ND OPINION UPPER SCOPE Chief Complaint: ER Follow Up SAB Clean Out Driller Required: No Is patient in pain?: No Allergies morphine Allergy (Intermediate, Verified 06/10/19 11:09) histamine reaction amoxicillin [From Augmentin] Allergy (Verified 06/06/19 08:41) Rash clavulanic acid [From Augmentin] Allergy (Verified 06/06/19 08:41) Rash doxycycline Adverse Reaction (Intermediate, Verified 06/10/19 11:08) Diarrhea Medications Naproxen [Naprosyn] 500 mg PO BID PRN #20 tab 06/06/19 [Rx Confirmed 06/10/19] Omeprazole [Prilosec] 20 mg PO BID #60 cap 06/06/19 [Rx Confirmed 06/10/19] multivitamin 1 cap PO DAILY 06/10/19 [History] sucralfate 1 gram tablet 1 g PO QACHS #120 tab 06/10/19 [Rx Confirmed 06/10/19] [facility] Medical History (Updated 06/10/19 @ 11:05 by Rossi Lewis) Anxiety (Acute) Asthma (Acute) Constipation (Acute) Depression (Acute) Diarrhea (Acute) Epigastric pain (Acute) GERD (gastroesophageal reflux disease) (Acute) Hemorrhoids (Acute) History of back problems (Acute) History of wisdom tooth extraction (Acute) IBS (irritable bowel syndrome) (Acute) Nausea & vomiting (Acute) history bilateral knee surgeries (Acute) Surgical History (Updated 06/10/19 @ 11:05 by Rossi Lewis) History of (Acute) History of dilation and curettage (Acute) history c-scope (Acute) Social History (Updated 06/10/19 @ 12:50 by Robert Cantrell MD) Smoking Status: Never smoker alcohol intake: never substance use type: does not use caffeine: Yes seatbelt use: always do you feel safe at home: Yes additional social history: Will HPI HPI HPI: LORENZO SONI, is a 29 F who presents to the office today for HPI HPI Surgical H&P: Yes HPI: LORENZO SONI, is a 29 F who presents to the office today for Epigastric pain.The patient reports that she had 2 miscarriages in the fall of last year. She also reports that at that time she was having some epigastric pain and went on omeprazole and this resolved. She was in the emergency room last week and an ultrasound the gallbladder showed no gallstones. Her labs were normal. She says she has a history of elevated lipase. She says the pain is in her epigastric region and radiates to the back. She says that drinking cold liquids makes the pain much worse. She does not describe any nausea or vomiting. She recently drank some alcohol and after she drank a small amount of alcohol she experienced a lot of nausea and vomiting and epigastric pain. She has had an EGD in the past which showed esophagitis. She has had a colonoscopy which was normal and she says she was diagnosed with IBS. ROS General General: Yes weight change and fatigue; no appetite, colon cancer, breast cancer or weakness HEENT HEENT: No difficulty swallowing, eye injury, eye surgery, swollen glands or hoarseness Endo Endocrine: No thyroid disease, diabetes mellitus, thyroid cancer, Hair loss, heat intolerance or cold intolerance Skin Skin: Yes changing moles; no rash Breast Breast: No left breast lump, right breast lump, nipple discharge, breast pain, abnormal mammogram, abnormal US or breast enlargement Musc Musculoskeletal: Yes back problems; no arthritis, rheumatoid arthritis, gout or joint pain Cardio Cardiovascular: No murmur, pacemaker, heart disease, atrial fibrillation, high blood pressure, heart attack, heart stent, palpitations, shortness of breat with exertion or chest pain Psych Psychiatric: Yes depression and anxiety; no hearing voices Resp Respiratory: Yes shortness of breath, No sleep apnea, No cough, No COPD, Yes asthma, No emphysema, No wheezing Gastro Gastrointestinal: Yes abdominal pain, Yes nausea or vomiting, Yes diarrhea, Yes constipation, No blood in stool, Yes acid reflux, Yes hemorrhoids, No ulcers, No gallbladder problem, No black,tarry stools Additional Details: Pancreatitis Ilia Hematologic: No blood thinners, No blood disorders, No bleeding, No anemia, No blood clots Neuro Neurologic: No system reviewed and no additional complaints, except as docu, No as per HPI, No abnormal walking, No abnormal hearing, No abnormal movements, No abnormal speech, No behavioral changes, No burning sensations, No confusion, No seizure-like activity, No unsteadiness, No dizziness, No localized weakness, No frequent falls, No headache(s), No lack of coordination, No loss of vision, No memory loss, No numbness, No other visual disturbances, No radiating pain, No restless legs, No sensory deficit, No fainting, No tingling, No tremor(s), No weakness, No other Exam Const General: cooperative Orientation: alert, oriented x3 Chest Breast Palpation: No nipple discharge Resp Effort & Inspection: normal respiratory effort Auscultation: clear to auscultation bilaterally Cardio Rate: regular rate Rhythm: regular rhythm Heart Sounds: no murmurs GI Inspection: non-distended Palpation: soft, tender in the epigastrum Assessment & Plan Problems 1. Epigastric pain R10.13 Plan Patient is reporting epigastric pain. The patient had ultrasound of her gallbladder which showed no gallstones. Her white count was normal as well. Her lipase was normal as well. She has had a history of esophagitis on EGD. She was started on a PPI this past Thursday. I advised her that it takes time for a PPI to start working. I will order a celiac panel and triglycerides to check if there is any other reason for epigastric pain. I will plan for an EGD with biopsies and H. pylori inspection. I have added Carafate to her medications to see if this helps as well. I explained endoscopy in detail to the patient. I explained the risks including but not limited to stroke or heart attack with anesthesia, perforation of the GI tract, bleeding, infection. I explained that any of these could necessitate further emergency surgery. The patient understands and all questions were answered sufficiently. The patient wishes to proceed with procedure. Robert Cantrell MD Pager: [facility] [address] [place] [address], [address] [place] [address] Office: Orders Orders: EGD Today R10.13 Celiac Disease Profile Today R10.13 Lipid Profile Today R10.13 Medications New: sucralfate (Carafate) 1 g PO QACHS 120 tabs 0RF Coding Level of Care Code Off vis,new,level 3 Diagnoses Epigastric pain R10.13 06/10/19 1250 <Electronically signed by Robert rodriguez MD> Date _ Robert Cantrell MD I have re-examined the patient. There are no clinical changes since date of exam.
[2019-06-14 07:20] VITALS: PULSE 92; RESP 16; TEMP 37.2; O2SAT 97; BMI 26.2
[2019-06-14 07:25] LABS: Internal QC Validated? YES +Cl - CLEAR BKGD; Pregnancy, Urine Negative Negative
[2019-06-14] MEDS: Lactated Ringers 1,000 ML 100 ML IV (07:39)
--- NOTE | 2019-06-14 08:00 | EGD_PTH ---
PATIENT: LORENZO ZUÑIGA LOC: EN U#:[id number] AGE/SX: 29/F ROOM: RE06/14/[address]: Dr. Robert Cantrell MD : 1990 BED: DIS: 06/14/2019 SPEC #: [id number] RECD: 06/14/19 10:07 STATUS: HÉCTOR HARRISON #: [id number] STEPHANIE: 06/14/19 08:[address]: Robert Cantrell DEPT: SURGICAL PATHOLOGY RECD BY: Tien Zapata ENTERED: 06/14/19 11:20 SP TYPE: EGD BIOPSY OTHR DR: Dr. Tong Warren MD Tissues: Gastric mucous membrane Procedures: Surgery Specimen Level IV HEADER OPERATION: EGD ([facility] [place]) PRE-OP DIAGNOSIS: Epigastric pain TISSUE SUBMITTED: Antrum biopsy for histo and H. pylori MICROSCOPIC DIAGNOSIS Antrum biopsy: Moderate chronic active gastritis. See comment. SJ:stephane 06/15/19 COMMENT The results of immunohistochemistry for Helicobacter pylori will be reported separately ([id number]). Increased number of eosinophils are also noted. MICROSCOPIC DESCRIPTION Slides are reviewed. GROSS DESCRIPTION Received in fixative is one container labeled with the patient's name and designated antrum biopsy. The specimen consists of three irregular fragments of light shearer soft tissue that in aggregate measure 0.7 x 0.2 x 0.1 cm. The specimen is totally submitted in one cassette. / AM:stephane 06/14/19 TC:2 CPT: 02759
--- NOTE | 2019-06-14 08:00 | IMM_PTH ---
PATIENT: LORENZO ZUÑIGA LOC: EN U#:[id number] AGE/SX: 29/F ROOM: RE06/14/[address]: Dr. Robert Cantrell MD : 1990 BED: DIS: 06/14/2019 SPEC #: [id number] RECD: 06/14/19 12:53 STATUS: HÉCTOR REQ #: [id number] STEPHANIE: 06/14/19 08:[address]: Robert Cantrell DEPT: IMMUNOHISTOCHEMISTRY RECD BY: Katia Blanca ENTERED: 06/14/19 12:53 SP TYPE: IMMUNO OTHR DR: Dr. Tong Warren MD Tissues: Stomach, NOS Procedures: H Pylori (initial) PHYSICIAN & INSTITUTION [place] [id number] SPECIMEN INFORMATION: Tissue Source[place] [place] Clinical Info: Epigastric pain Specimen Number: [id number] CPT code: 49137 METHODOLOGY: Deparaffinized sections of prefer/formalin-fixed tissue or PAP/DQ stained slides are incubated with monoclonal/polyclonal antibodies/oligonucleotide probes. Localization is made via biotin free immunoperoxidase method. Appropriate controls are performed and reacted as expected. Results on target cell population are indicated in the following table: RESULTS: ANTIBODY / CLONE RESULT H Pylori (polyclonal) negative These tests were developed and their performance characteristics determined by [facility]. They may not have been cleared or approved by the U.S. Food and Drug Administration. The FDA has determined that such clearance or approval is not necessary. INTERPRETATION: Antrum biopsy: Negative for Helicobacter pylori organisms. SJ:stephane 06/15/19
[2019-06-14 08:14] VITALS: BP 105/66; BP 105/78; PULSE 91; RESP 16; TEMP 37; O2SAT 100
[2019-06-14 08:20] VITALS: BP 105/68; BP 105/78; PULSE 89; RESP 18; O2SAT 95
[2019-06-14 08:25] VITALS: BP 101/66; BP 105/78; PULSE 86; RESP 18; O2SAT 98
[2019-06-14 08:30] VITALS: BP 105/66; BP 105/78; PULSE 87; RESP 18; TEMP 37.4; O2SAT 98
[2019-06-14 09:17] VITALS: BP 105/78
--- NOTE | 2019-06-15 10:42 | OP.EGD_ITS ---
Patient Name: Lorin Burnham Procedure Date: 06/14/2019 7:36 AM Date of : 1990 Age: 29 Procedure: Upper GI endoscopy Indications: Epigastric abdominal pain Providers: Robert Cantrell MD Referring MD: Tong Warren Medicines: Monitored Anesthesia Care Patient Profile: This is a 29 year old female. Refer to note in patient chart for documentation of history and physical. Complications: No immediate complications. Estimated blood loss: Minimal. Procedure: Pre-Anesthesia Assessment: - Prior to the procedure, a History and Physical was performed, and patient medications and allergies were reviewed. The patient's tolerance of previous anesthesia was also reviewed. The risks and benefits of the procedure and the sedation options and risks were discussed with the patient. All questions were answered, and informed consent was obtained. Prior Anticoagulants: The patient has taken no previous anticoagulant or antiplatelet agents. After reviewing the risks and benefits, the patient was deemed in satisfactory condition to undergo the procedure. After obtaining informed consent, the endoscope was passed under direct vision. Throughout the procedure, the patient's blood pressure, pulse, and oxygen saturations were monitored continuously. The gastroscope was introduced through the mouth, and advanced to the third part of duodenum. The upper GI endoscopy was accomplished without difficulty. The patient tolerated the procedure well. Scope In: 8:02:47 AM Scope Out: 8:05:41 AM Total Procedure Duration Time 0 hours 2 minutes 54 seconds Findings: Mild inflammation was found in the gastric antrum. Biopsies were taken with a cold forceps for Helicobacter pylori testing. The esophagus was normal. The examined duodenum was normal. Impression: - Gastritis. Biopsied. - Normal esophagus. - Normal examined duodenum. Recommendation: - Await pathology results. - Patient has a contact number available for emergencies. The signs and symptoms of potential delayed complications were discussed with the patient. Return to normal activities tomorrow. Written discharge instructions were provided to the patient. - Resume previous diet. - Continue present medications. Procedure Code(s): --- Professional --- 06153, Esophagogastroduodenoscopy, flexible, transoral; with biopsy, single or multiple Diagnosis Code(s): --- Professional --- K29.70, Gastritis, unspecified, without bleeding R10.13, Epigastric pain CPT copyright 2017 [employer]. All rights reserved. The codes documented in this report are preliminary and upon linoleum mechanic review may be revised to meet current compliance requirements. Robert Cantrell MD 06/14/2019 8:13:36 AM This report has been signed electronically. Number of Addenda: 0 Note Initiated On: 06/14/2019 7:36 AM
== END 2019-06-14 09:18 | disposition home or self-care (01) ==
LOC: EN 06:56 → AC 06:57
PROVIDERS: Anesthesiology; Family Provider Family Medicine; PCP Family Medicine; Referring Provider Family Medicine; Visit Provider Surgery
PROC: 0DJ08ZZ Inspection of Upper Intestinal Tract, Via Natural or Artificial Opening Endoscopic (ICD-10-PCS; CPT 43235; principal; 2019-06-14 07:55)
DX: K29.50 Unspecified chronic gastritis without bleeding (principal); K21.9 Gastro-esophageal reflux disease without esophagitis; K58.9 Irritable bowel syndrome, unspecified; J45.909 Unspecified asthma, uncomplicated; Z87.891 Personal history of nicotine dependence
CPT/HCPCS: 43239; 81025; 88305; 88342; J7120; J2405

== ENCOUNTER 2019-08-27 13:14 | Emergency (ER) | payer OTHER, SELFPAY ==
[2019-08-01 13:42] VITALS: BMI 26.2
[2019-08-27 13:15] VITALS: BP 137/89; PULSE 95; RESP 20; TEMP 36.5; O2SAT 100; BMI 24.7
--- NOTE | 2019-08-27 14:02 | RAD_ITS ---
STUDY: X-RAY CHEST REASON FOR EXAM: Female, 29 years old. COUGH/SOB X 3 WKS TECHNIQUE: Single AP portable view of the chest. COMPARISON: 06/06/2019 chest x-ray, history of chest pain FINDINGS: The lungs are clear and expanded. There is no demonstrated pleural abnormality. Normal size heart. Normal mediastinum and leann. Normal visualized pulmonary arteries. Normal visualized aortic arch and descending thoracic aorta. Normal visualized thoracic spine. Normal visualized ribs, clavicles, and shoulders. There is no demonstrated abnormality of the visualized soft tissue structures of the upper abdomen. RAD/Chest 1 View (Portable) IMPRESSION: Normal x-ray examination of the chest. Electronically Signed: Roselia Almonte MD at 14:47 EDT Tel , Service support ,
--- NOTE | 2019-08-27 14:03 | EKG12_ITS ---
Test Reason : Blood Pressure : / mmHG Vent. Rate : 116 BPM Atrial Rate : 116 BPM P-R Int : 120 ms QRS Dur : 078 ms QT Int : 364 ms P-R-T Axes : 064 021 -08 degrees QTc Int : [address] & T wave abnormality, consider anterior ischemia Abnormal ECG Confirmed by HILTON JOHNS, TRISHA ([id number]), multimedia editor DECLAN OLMEDO ([id number]) on 08/30/2019 9:20:45 AM Referred By: MAYELA Confirmed By:TRISHA CANELA MD
--- NOTE | 2019-08-27 14:04 | ED.VIS.URI ---
History of Present Illness Chief Complaint: Shortness of Breath Informant: Patient Onset: Days - 3 Context: Gradual Onset Timing: Continuous Quality: tightness, heaviness Location: chest Current Severity: Mild Maximum Severity: Moderate Worsened by: - - exertion Relieved by: - - rest. no help from albuterol, steroids, Abx. Associated Symptoms: Shortness of Breath, Chest Pain, Nonproductive cough. Negative for: Nasal Congestion - but +postnasal drip sx, Headache, Sinus Pressure, Myalgias, Nausea, Vomiting, Diarrhea, Hemoptysis Narrative: Patient states she was seen at urgent care at the beginning of this illness about 2.5 weeks ago, she was placed on cefdinir because they thought she had a sinus infection, she states that did not help. She basically was having a nonproductive cough and postnasal drip symptoms, along with sore throat. She had a negative strep there. 3 days ago she started having chest tightness and shortness of breath, going up into her neck, she feels like it is hard to take a deep breath and sometimes but denies any stridor. She called her doctor and they called her in a Z-Dilip and Medrol Dosepak which she has been taking for 3 days now and noticed no difference. Albuterol at home is not helping. She has a history of intermittent asthma, and vocal cord dysfunction which leaves her with occasional bronchospasm, but she has been hoarse with this illness for 2.5 weeks and that is not normal for her. No fevers. Cough is nonproductive. No rhinorrhea. Left ear is hurting. No neck soreness. She states she did have some lymph nodes but they went away with the steroids. She recently was diagnosed with some unknown autoimmune disorder, with a positive CASSIUS that is still under exploration, she was having arthralgias and an intermittent malar rash, she states it is thought that she may have lupus. 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 She states her just recently started having some of the URI symptoms within the last couple days. She has a son at home that has not been ill. She denies any known contact with covid patients. No recent travel out of the area. - Past Medical History (1) Asthma, intermittent Status: Chronic (2) Eosinophilic gastritis Status: Chronic (3) Autoimmune disorder Status: Chronic (4) Anxiety and depression Status: Chronic Comment: recommend arleth counseling, fu in 4 weeks. Past Medical History - Allergies and Home Meds Allergies/Adverse Reactions: Allergies morphine Allergy (Intermediate, Verified 08/01/19 13:27) histamine reaction clavulanic acid [From Augmentin] Allergy (Verified 08/01/19 13:27) Rash doxycycline Adverse Reaction (Intermediate, Verified 08/01/19 13:27) Diarrhea Primary Care Physician: Tong Warren MD [Primary Care Provider] - Prior records reviewed: Yes - on FODMAP restricted diet Surgical History: - - Lives: With Family Smoking Status: Former smoker Review of Systems General: Denies: Chills, Fever, Sweats Eyes: Denies: Visual changes - bilaterally, Diplopia ENT: Reports: Left ear pain, Sore throat. Denies: Rhinorrhea Cardiovascular: Reports: Chest pain. Denies: Palpitations, Heart racing Respiratory: Reports: Dyspnea, Cough, Dyspnea on exertion. Denies: Sputum, Orthopnea Gastrointestinal: Denies: Abdominal pain, Nausea, Vomiting, Diarrhea, Melena, Hematochezia Genitourinary: Denies: Dysuria, Hematuria, Frequency Musculoskeletal: Denies: Myalgias, Neck pain, Back pain, Extremity Pain Skin: Denies: Rash, Wounds Neurological: Denies: Headache, Weakness, Numbness Physical Exam Vital Signs/Narrative: Vital Signs Temp Pulse Resp BP Pulse Ox 08/27/19 13:15 97.7 F L 95 20 H 137/89 H 100 Inital Vital Signs reviewed: Yes General: Well nourished, Well developed, - - Well-appearing, NAD. Conversing in full sentences. Head: Normocephalic, Atraumatic Eyes: Perrl, EOMI Ears: Normal external canal, TM's clear Nose: Normal Inspection, No Rhinorrhea Mouth/Throat: Normal Inspection, No Posterior Erythema, Airway Patent - without stridor Neck: Supple, Nontender, No Lymphadenopathy, No Meningismus Cardiovascular: Regular rate, Regular rhythm, No murmurs. Negative for: Tachycardia Respiratory: No distress, CTA bilaterally, Chest nontender Abdomen: Soft, Nontender, Nondistended, Normal bowel sounds Back: Nontender, Normal Inspection Extremities: Nontender, No edema. Negative for: Calf Tenderness Skin: Normal color, No rash, No Trauma Neurological: Alert, Oriented x3, Cranial nerves II-XII grossly intact, Normal Strength, Normal Sensation, Normal Gait Psychological: Normal affect, Normal Mood Diagnostic/Tx/Re-eval Clinical Impression(s) from Imaging Studies Chest X-Ray 08/27/19 14:02 IMPRESSION: Normal x-ray examination of the chest. Electronically Signed: Roselia Almonte MD at 14:47 EDT Tel , Service support , - Medical Decision Making Patient was initially given a racemic epinephrine aerosol, significantly helped her neck symptoms. She then was given an albuterol aerosol because she was to having the chest symptoms, which significantly helped those. Patient is reassured, her x-ray is negative, patient does not have COVID-19 exposure and is not critically ill or clinically septic, has not traveled to/from a region with a CDC level 2 or 3 travel health notice, vital signs are stable without hypoxia, is not ill enough to require admission to the hospital, and at this time does not meet current [facility] requirements for testing for COVID-19. However, as I discussed with her, I am not able to rule out coronavirus infection and she is given appropriate instructions to quarantine at home. I advised that she finish the Z-Dilip since she already started it and has taken most of, same with the steroids. She was given a prescription for albuterol aerosol vials because her child has a nebulizer machine at home that she could use. ED Disposition - Plan for ED Patient: Disposition: Home or Assisted Living Diagnosis: Acute wheezy bronchitis Instructions: ED Bronchitis Asthmatic Prescriptions: Albuterol Aerosols [Ventolin Aerosols] 2.5 mg INHALATION Q4H PRN #25 vial Transmission Status: Pending to [facility]/pharmacy #[id number] Referrals: Tong Wraren MD [Primary Care Provider] - 1 Week if not improving Additional Instructions: See attached additional discharge instructions in accompanying packet regarding quarantine instructions.
[2019-08-27 14:20] VITALS: PULSE 112; RESP 20
[2019-08-27] MEDS: Racepinephrine HCl 0.5 ML VIAL.NEB. INHALATION (14:20)
[2019-08-27 15:10] VITALS: PULSE 101; RESP 20
[2019-08-27] MEDS: Albuterol 2.5 MG/3 ML VIAL.NEB. INHALATION (15:10)
[2019-08-27 15:43] VITALS: BP 124/88; PULSE 115; RESP 18; O2SAT 96
== END 2019-08-27 15:44 | disposition home or self-care (01) ==
PROVIDERS: Emergency Provider Emergency Medicine; PCP Family Medicine
DX: J20.9 Acute bronchitis, unspecified (principal); J45.20 Mild intermittent asthma, uncomplicated; F32.9 Major depressive disorder, single episode, unspecified; F41.9 Anxiety disorder, unspecified; D89.89 Other specified disorders involving the immune mechanism, not elsewhere classified; Z87.891 Personal history of nicotine dependence; Z88.0 Allergy status to penicillin; Z88.1 Allergy status to other antibiotic agents
CPT/HCPCS: 71045; 93005; 94640; 99282

== ENCOUNTER → 2019-12-07 16:29 | Outpatient (CLI) | payer OTHER, SELFPAY ==
[2019-12-07 15:41] VITALS: BMI 24.7
[2019-12-07 17:45] LABS: hCG Titer Quant., Serum 1480 mIU/mL (1-3)
== END ==
PROVIDERS: PCP Family Medicine; Referring Provider Obstetrics & Gynecology; Visit Provider Obstetrics & Gynecology
DX: R10.2 Pelvic and perineal pain (principal)
CPT/HCPCS: 84702; 87086

== ENCOUNTER → 2019-12-09 09:46 | Outpatient (CLI) | payer OTHER, SELFPAY ==
[2019-12-07 15:41] VITALS: BMI 24.7
[2019-12-09 11:08] LABS: hCG Titer Quant., Serum 3505 mIU/mL (1-3)
== END ==
PROVIDERS: PCP Family Medicine; Referring Provider Obstetrics & Gynecology; Visit Provider Obstetrics & Gynecology
DX: N91.2 Amenorrhea, unspecified (principal)
CPT/HCPCS: 36415; 84702

== ENCOUNTER → 2019-12-22 09:12 | Outpatient (CLI) | payer OTHER, SELFPAY ==
[2019-12-07 15:41] VITALS: BMI 24.7
--- NOTE | 2019-12-22 09:14 | US_ITS ---
STUDY: FIRST TRIMESTER OBSTETRICAL ULTRASOUND REASON FOR EXAM: Female, 29 years old DATING LMP: 10/27/2019 TECHNIQUE: Transabdominal and Transvaginal TECHNICAL QUALITY: Adequate. PRIOR ULTRASOUND: None. FINDINGS: There is visualization of a single gestational sac in a normal intrauterine position. The mean sac diameter (MSD) measures 2.67 cm, indicating an estimated gestational age (EGA) of 7 weeks, 6 days. The gestational sac shape is within normal limits. There is a visualized yolk sac. There is visualization of the placenta. Placenta is anterior There is visualization of a live embryo. The crown-rump length (CRL) measures 0.74 cm, indicating an estimated gestational age (EGA) of 6 weeks, 5 days. There is demonstrated cardiac activity with a heart rate of 123 bpm. The estimated gestation age (EGA) by LMP is 8 weeks, 0 days. The estimated date of delivery (JAYNE) by LMP is 08/02/2020. The estimated gestation age (EGA) by US is 7 weeks, 2 days. The estimated date of delivery (JAYNE) by US is 08/07/2020. The uterus measures 9.7 x 5.9 x 5.4 cm. There is no demonstrated uterine fibroid. The cervix is closed. The right ovary measures 2.7 x 2.4 x 2.2 cm. There is no right ovarian cyst. There is no visualized right adnexal mass or complex lesion. The left ovary measures 2.2 x 2.3 x 1.2 cm. There is no left ovarian cyst. There is no visualized left adnexal mass or complex lesion. There is no fluid in the cul de sac. US/Init OB < 14Wks US IMPRESSION: Single live intrauterine at 7 weeks, 2 days by current ultrasound with JAYNE of 08/07/2020. Heart rate of 123 bpm. No suspicious sonographic findings Electronically Signed: Paul Putnam MD at 10:40 EDT , Service support ,
== END ==
LOC: OPUS 09:14 → US 09:15
PROVIDERS: PCP Family Medicine; Referring Provider Obstetrics & Gynecology; Visit Provider Obstetrics & Gynecology
DX: Z34.80 Encounter for supervision of other normal pregnancy, unspecified trimester (principal)
CPT/HCPCS: 76801; 76817

== ENCOUNTER → 2020-01-09 16:00 | Outpatient (CLI) | payer OTHER, SELFPAY ==
[2020-01-09 14:20] VITALS: BMI 24.7
[2020-01-09 18:00] LABS: Amphetamine Urine VISTA NEGATIVE (<1000 ng/mL); Barbiturate Urine VISTA NEGATIVE (< 200 ng/mL); Benzodiazepine Urine VISTA NEGATIVE (< 200 ng/mL); Cocaine Urine VISTA NEGATIVE (< 300 ng/mL); Ecstacy Urine VISTA NEGATIVE (< 500 ng/mL); Methadone Urine VISTA NEGATIVE (< 300 ng/mL); PCP Urine VISTA NEGATIVE (< 25 ng/mL); THC Urine VISTA NEGATIVE (< 50 ng/mL); Vista UDS pH Range 6
[2020-01-12 06:07] LABS: Chlamydia By Nucleic Acid AMP Negative (Negative)
[2020-01-12 07:37] LABS: Gonococcus By Nucleic Acid AMP Negative (Negative)
== END ==
PROVIDERS: PCP Family Medicine; Referring Provider Obstetrics & Gynecology; Visit Provider Obstetrics & Gynecology
DX: Z34.90 Encounter for supervision of normal pregnancy, unspecified, unspecified trimester (principal)
CPT/HCPCS: 80307; 87086; 87088; 87491; 87591

== ENCOUNTER → 2020-01-16 09:02 | Outpatient (CLI) | payer OTHER, SELFPAY ==
[2020-01-09 14:20] VITALS: BMI 24.7
[2020-01-16 09:35] LABS: Absolute Lymphocyte Count 1.87 X10^3/uL (0.83-4.51); Absolute Neutrophil Count 6.4 X10^3/uL (2.0-7.7); Basophil# 0.06 X10^3/uL; Basophil% 0.7 % (0-1); Eosinophil# 0.09 X10^3/uL; Hematocrit 33.8 % (37-47); Hemoglobin 11.4 g/dL (12.0-15.0); Lymphocyte # 1.87 X10^3/ul (4.0); Lymphocyte % 20.6 % (19-41); Mean Corp Hgb Conc 33.7 g/dL (32-36); Mean Corpuscular Hgb 31.5 pg (27.0-32.0); Mean Corpuscular Volume 93.4 fL (81-99); Mean Platelet Vol. 8.9 fl (6.2-12.0); Monocyte# 0.59 X10^3/uL; Monocyte% 6.5 % (0-10); NRBC Flagged by Analyzer 0 % (0-5); Neutrophil # 6.44 X10^3/uL (2.7-7.7); Neutrophil % 70.8 % (47-70); Platelet Count 291 K/mm3 (150-450); RBC Distribution Width CV 11.9 % (11.6-14.6); RBC Distribution Width SD 41.1 fl (35.1-43.9); Red Blood Count 3.62 M/mm3 (4.2-5.4); White Blood Count 9.1 K/mm3 (4.4-11.0)
[2020-01-16 10:29] LABS: HIV - WCH Non-Reactive (Nonreactive); Hepatitis B Surface Antigen Non-Reactive (Nonreactive); Hepatitis C Antibody Non-Reactive (Nonreactive); Rubella IgG 105.6 IU/mL
[2020-01-19 02:16] LABS: Rapid Plasmin Reagin (RPR) NONREACTIVE (NONREACTIVE)
== END ==
PROVIDERS: PCP Family Medicine; Referring Provider Obstetrics & Gynecology; Visit Provider Obstetrics & Gynecology
DX: Z34.90 Encounter for supervision of normal pregnancy, unspecified, unspecified trimester (principal)
CPT/HCPCS: 36415; 85025; 86592; 86703; 86762; 86803; 86850; 86900; 86901; 87340

== ENCOUNTER → 2020-02-27 15:19 | Outpatient (CLI) | payer OTHER, SELFPAY ==
[2020-02-07 16:02] VITALS: BMI 24.7
--- NOTE | 2020-02-27 15:20 | US_ITS ---
STUDY: SECOND AND THIRD TRIMESTER OBSTETRICAL ULTRASOUND - LIMITED REASON FOR EXAM: Female, 29 years old CERVICAL LENGTH LMP: 10/27/2019. PRIOR ULTRASOUND: 12/22/2019. TECHNIQUE: Transabdominal and Transvaginal TECHNICAL QUALITY: Adequate. FINDINGS: There is a single intrauterine fetus. The fetus is in a cephalic presentation. There is demonstrated cardiac activity with a heart rate of 138 bpm. There is a normal amniotic fluid volume. The amniotic fluid index (KALI) is within normal limits. The placenta is posterior in location and is not low lying. There are Grade 0 placental changes. The cervix measures 4.3 cm in length. US/Transvaginal w/Preg US IMPRESSION: Cervical length measures 4.3 cm. Electronically Signed: Jericho Almazan, at 15:39 EDT , Service support ,
== END ==
PROVIDERS: PCP Family Medicine; Referring Provider Obstetrics & Gynecology; Visit Provider Obstetrics & Gynecology
DX: Z87.59 Personal history of other complications of pregnancy, childbirth and the puerperium (principal)
CPT/HCPCS: 76817

== ENCOUNTER → 2020-05-21 13:56 | Outpatient (CLI) | payer OTHER, SELFPAY ==
[2020-04-30 15:42] VITALS: BMI 28.3
[2020-05-21 14:15] LABS: Absolute Lymphocyte Count 1.63 X10^3/uL (0.83-4.51); Absolute Neutrophil Count 8.2 X10^3/uL (2.0-7.7); Basophil# 0.04 X10^3/uL; Basophil% 0.4 % (0-1); Eosinophil# 0.08 X10^3/uL; Eosinophils% 0.7 % (0-5); Hematocrit 28.5 % (37-47); Hemoglobin 9.4 g/dL (12.0-15.0); Lymphocyte # 1.63 X10^3/ul (4.0); Lymphocyte % 14.9 % (19-41); Mean Corpuscular Hgb 30.8 pg (27.0-32.0); Mean Corpuscular Volume 93.4 fL (81-99); Mean Platelet Vol. 9.6 fl (6.2-12.0); Monocyte# 0.86 X10^3/uL; Monocyte% 7.9 % (0-10); NRBC Flagged by Analyzer 0 % (0-5); Neutrophil # 8.22 X10^3/uL (2.7-7.7); Platelet Count 291 K/mm3 (150-450); RBC Distribution Width CV 12.3 % (11.6-14.6); RBC Distribution Width SD 42.4 fl (35.1-43.9); Red Blood Count 3.05 M/mm3 (4.2-5.4)
[2020-05-21 14:21] LABS: Glucose Challenge Gest 1H 50g 129 mg/dL (70-140)
== END ==
PROVIDERS: PCP Family Medicine; Referring Provider Obstetrics & Gynecology; Visit Provider Obstetrics & Gynecology
DX: O09.90 Supervision of high risk pregnancy, unspecified, unspecified trimester (principal); Z3A.00 Weeks of gestation of pregnancy not specified
CPT/HCPCS: 36415; 82950; 85025

== ENCOUNTER → 2020-06-22 16:24 | Outpatient (CLI) | payer OTHER, SELFPAY ==
[2020-06-22 15:58] VITALS: BMI 29.5
[2020-06-22 17:33] LABS: Absolute Lymphocyte Count 1.56 X10^3/uL (0.83-4.51); Basophil# 0.05 X10^3/uL; Basophil% 0.5 % (0-1); Eosinophil# 0.08 X10^3/uL; Eosinophils% 0.8 % (0-5); Hematocrit 30.6 % (37-47); Lymphocyte # 1.56 X10^3/ul (4.0); Mean Corp Hgb Conc 32.7 g/dL (32-36); Mean Corpuscular Hgb 30.8 pg (27.0-32.0); Mean Corpuscular Volume 94.2 fL (81-99); Monocyte# 0.88 X10^3/uL; NRBC Flagged by Analyzer 0 % (0-5); Neutrophil # 7.03 X10^3/uL (2.7-7.7); Neutrophil % 72.2 % (47-70); Platelet Count 236 K/mm3 (150-450); RBC Distribution Width CV 13.8 % (11.6-14.6); RBC Distribution Width SD 48.1 fl (35.1-43.9); Red Blood Count 3.25 M/mm3 (4.2-5.4); White Blood Count 9.8 K/mm3 (4.4-11.0)
== END ==
PROVIDERS: PCP Family Medicine; Referring Provider Obstetrics & Gynecology; Visit Provider Obstetrics & Gynecology
DX: O99.019 Anemia complicating pregnancy, unspecified trimester (principal); Z3A.00 Weeks of gestation of pregnancy not specified
CPT/HCPCS: 36415; 85025

== ENCOUNTER → 2020-07-05 17:00 | Outpatient (CLI) | payer OTHER, SELFPAY ==
[2020-07-05 16:13] VITALS: BMI 29.7
[2020-07-05 17:24] LABS: ROM Internal Control Test YES-OK TO RESULT pt. (Internal QC)
[2020-07-05 17:25] LABS: ROM Patient Test Negative (Negative)
== END ==
PROVIDERS: Visit Provider Obstetrics & Gynecology
DX: N89.8 Other specified noninflammatory disorders of vagina (principal)
CPT/HCPCS: 84112

== ENCOUNTER → 2020-07-20 16:56 | Outpatient (CLI) | payer OTHER, SELFPAY ==
[2020-07-20 16:08] VITALS: BMI 29.9
== END ==
PROVIDERS: Referring Provider Obstetrics & Gynecology; Visit Provider Obstetrics & Gynecology
DX: O09.90 Supervision of high risk pregnancy, unspecified, unspecified trimester (principal); Z3A.00 Weeks of gestation of pregnancy not specified
CPT/HCPCS: 87081

== ENCOUNTER 2020-07-26 03:35 | Inpatient (IN) | payer OTHER, SELFPAY ==
[2020-07-20 16:08] VITALS: BMI 29.9
[2020-07-26] VITALS (46 sets, daily range): BP systolic 111–158; BP diastolic 67–96; PULSE 79–151; RESP 16; TEMP 36.1–36.8; O2SAT 82–100; BMI 32.0
[2020-07-26] MEDS: Lactated Ringers 500 ML 999 ML IV (04:10)
[2020-07-26 04:21] LABS: Absolute Lymphocyte Count 2.26 X10^3/uL (0.83-4.51); Absolute Neutrophil Count 7.5 X10^3/uL (2.0-7.7); Basophil# 0.05 X10^3/uL; Basophil% 0.5 % (0-1); Eosinophil# 0.05 X10^3/uL; Eosinophils% 0.5 % (0-5); Hematocrit 31.2 % (37-47); Hemoglobin 10.3 g/dL (12.0-15.0); Lymphocyte # 2.26 X10^3/ul (4.0); Lymphocyte % 21.1 % (19-41); Mean Corpuscular Hgb 29.9 pg (27.0-32.0); Mean Corpuscular Volume 90.7 fL (81-99); Mean Platelet Vol. 10.3 fl (6.2-12.0); Monocyte# 0.81 X10^3/uL; Monocyte% 7.6 % (0-10); NRBC Flagged by Analyzer 0 % (0-5); Neutrophil # 7.46 X10^3/uL (2.7-7.7); Neutrophil % 69.6 % (47-70); Platelet Count 275 K/mm3 (150-450); RBC Distribution Width CV 13.1 % (11.6-14.6); RBC Distribution Width SD 43.2 fl (35.1-43.9); Red Blood Count 3.44 M/mm3 (4.2-5.4); White Blood Count 10.7 K/mm3 (4.4-11.0)
[2020-07-26] MEDS: Lactated Ringers 1,000 ML 200 ML IV ×2 (04:41→09:48)
--- NOTE | 2020-07-26 04:42 | HP.PCM_ITS ---
- Problem List (1) Full-term premature rupture of membranes Status: Acute (2) 36 to 37 weeks gestation of Status: Acute Comment: electronic covid ordered 05/11/2020 Needs to coordinate for 08/03/20 c/s) (3) Anemia affecting Status: Acute Comment: recheck in 2 weekst, if still down recommend IV iron (4) History of delivery Status: Acute Comment: plan RLTCS with SM 08/03/20 @ 12 (5) History of premature rupture of membranes (PPROM) Status: Acute Comment: progesterone injections weekly 16-36 weeks. NL cervical length 02/28/20 (6) History of tetanus, diphtheria, and acellular pertussis booster vaccination (Tdap) Status: Acute Comment: 05/21/20 (7) Influenza vaccine administered Status: Acute Comment: 02/07/2020sc (8) Status: Acute Qualifiers: Comment: nipt low risk, girl. declined carrier and ntd screening. normal anatomy (9) Supervision of high-risk Status: Acute Qualifiers: Comment: PRR JAYNE 08/11/20 girl Sara PATY Rafat Will ( Akin Ogden) (10) Anxiety and depression Status: Chronic Comment: prozac 40mg. counseling. (11) Asthma, intermittent Status: Chronic Comment: albuterol PRN. 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 Is patient in pain?: No Allergies morphine Allergy (Intermediate, Verified 07/20/20 16:08) histamine reaction clavulanic acid [From Augmentin] Allergy (Verified 07/20/20 16:08) Rash doxycycline Adverse Reaction (Intermediate, Verified 07/20/20 16:08) Diarrhea Medications vitamin#30 30 mg iron-10 mg iron-folic acid 1 mg-omg3 capsule cap PO 01/09/20 [History Confirmed 07/20/20] ondansetron 4 mg disintegrating tablet 4 mg PO Q4H PRN #60 tab 05/21/20 [Rx Confirmed 07/20/20] famotidine 20 mg tablet 20 mg PO DAILY #30 tab 06/22/20 [Rx Confirmed 07/20/20] fluoxetine 40 mg capsule 40 mg PO DAILY #30 cap 06/22/20 [Rx Confirmed 07/20/20] Last Menstral Period: 11/19/19 Zika: Zika virus screening: Negative : No PFSH PFSH Medical History Anxiety (Acute) Asthma (Acute) Constipation (Acute) Depression (Acute) Diarrhea (Acute) Epigastric pain (Acute) GERD (gastroesophageal reflux disease) (Acute) Hemorrhoids (Acute) History of back problems (Acute) IBS (irritable bowel syndrome) (Acute) Nausea & vomiting (Acute) Surgical History H/O: knee surgery (Acute) History of (Acute) History of dilation and curettage (Acute) History of wisdom tooth extraction (Acute) history c-scope (Acute) Social History (Updated 07/20/20 @ 16:[address] 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 Date Name GA/Weeks Outcome Route Bth Weight Infant Gen Labor Lgth Anesthesia Del Locatn Provider FOB Unknown Rafat 10/19/2014 35 live - 6lbs 4oz Male spina l [facility] Delivery Date: PPROM Breech, infection in uterus after Carly Escobar HPI 36 WK OB: Details: LORENZO SONI is a 30 year old who presents for routine OB visit. OB Visit JAYNE Calculator Estimated Delivery Date Method Current WG Current Estimate 08/11/20 Ultrasound #1 36w 6d Expected Delivery Route/Plan RLTCS with Specific Issue/Plans flu vaccine: given 02/06 tdap vaccine: given rhogam: na LARC form signed: yes Problem list reviewed and updated with the most current plan of care details and appropriate orders placed. Relevant counseling for the gestational age provided. Continue routine care and follow up unless otherwise noted in visit notes/problem list details Initial Weight: 144 lb Date EGA Weight BP Urine Prot Glucose FHR FuHt Pres Dilation Effaced St Visit Note 01/09/20 9w 2d 144 lb (+0 oz) 134/86 170 SM- CRL- 2.3 cm cons with previous jayne 02/07/20 13w 3d 155 lb (+11 lb) 122/84 150 SM- no vb cramping switch to prozac. 03/05/20 17w 2d 156 lb 4 oz (+12 lb 4 oz) 124/84 Negative Negative 145 GP - problem visit for poison sumac. Allergic to oral steroids. Discussed taking zyrtec BID for the next few days and attempting topical steroids on lesions. Patient to call PCP if not improving in next 2-3 days. 04/03/20 21w 3d 163 lb (+19 lb) 120/80 Negative Negative 140 SM- no vb cramping, lost grandmother last week. she is coping appropriately. 04/30/20 25w 2d 165 lb (+21 lb) 124/78 Negative Negative 140 26 SM- no vb lof good fm no regular ctx 05/21/20 28w 2d 170 lb (+26 lb) 108/70 Negative Negative 149 28 MH-No Vb, LOF. Good FM. Has nausea about 36 hr after progesterone inj. Phenergan not helpful. Sent Rx zofran. Will cont with injections. Tdap, 28 wk labs, larc MH-No Vb, LOF. Good FM. Has nausea about 36 hr after progesterone inj. Phenergan not helpful. Sent Rx zofran. Will cont with injections. Tdap, 28 wk labs, larc . Anxiety stable 06/08/20 30w 6d 172 lb (+28 lb) 102/80 Negative Negative 145 31 SM- no vb lof good fm 06/22/20 32w 6d 172 lb (+28 lb) 108/72 Negative Negative 140 33 Cephalic SM- no vb lof good fm no regualr ctx co nausea and emesis and heartburn- order pepcid. some increased anxiety and depression due to loss of grandparents, will increase prozac 07/05/20 34w 5d 173 lb (+29 lb) 124/82 Negative Negative 140 35 Cephalic SM- questionable lof no vb good fm irregular ctx 07/20/20 36w 6d 174 lb 8 oz (+30 lb 8 oz) 122/88 Negative Negative 135 36 Cephalic 0 GP - no LOF, VB, DFM, regular ctx. Confirmed vertex. GBS done. ACOG First Trimester First Trimester: Discussed Second Trimester Second Trimester: Signs and Symptoms of Labor, Selecting a care provider, Reproductive Life Planning, Care Planning, Depression/Anxiety and Intimate Partner Violence; discussed Tobacco Cessation Diagnostics Diagnostics Diagnostics Blood Type O POSITIVE 01/16/20 Antibody Screen NEGATIVE 01/16/20 Glucose 1 Hr 50 gm 129 mg/dL (70-140) 05/21/20 HIV 1&2 Antibody Non-Reactive (Nonreactive) 01/16/20 Rubella IgG Antibody 105.6 IU/mL 01/16/20 Hgb 10.0 g/dL (12.0-15.0) L 06/22/20 Hct 30.6 % (37-47) L 06/22/20 RPR NONREACTIVE (NONREACTIVE) 01/16/20 Details: HIV: Urine Culture: Sequential Screen: NIPT Screen: ROS Const Reports system reviewed and no additional complaints, except as documented Card Reports system reviewed and no additional complaints, except as documented Resp Reports system reviewed and no additional complaints, except as documented GI Reports system reviewed and no additional complaints, except as documented, Reports nausea Reports system reviewed and no additional complaints, except as documented Musc Reports system reviewed and no additional complaints, except as documented all other systems reviewed and negative Exam Const General: cooperative, healthy appearing, comfortable, no acute distress, well developed, well groomed Nutritional Appearance: average body habitus, well nourished Orientation: alert, awake, oriented x3 [facility] Head: normal to inspection, normocephalic, atraumatic Eyes Pupils: PERRL, accommodation normal Resp Effort & Inspection: normal respiratory effort, able to speak in complete sentences, symmetric chest movement Cardio Rate: regular rate GI Palpation: soft, no guarding, no masses, nontender Skin General: no rashes or lesions noted, elasticity normal, turgor normal Neuro General: alert, awake, oriented x3 Cranial Nerves: CN's II-XI intact bilaterally, sense of smell intact, PERRL, accommodation normal, EOM intact bilaterally Speech: speech normal Gait: normal gait Psych Appearance: grossly normal, well kempt Mental Status: mental status grossly normal Mood: congruent mood Affect: normal affect Speech and Movement: speech and movement normal Attitude: cooperative Thought Process: normal Thought Content: normal Judgment: judgment good Results POC Urinalysis 2 Dip (Clinic) Office Urine Glucose Negative Last Edit by Mariela Anguiano on 07/20/20 16:19 Office Urine Protein Negative Last Edit by Mariela Anguiano on 07/20/20 16:19 Assessment & Plan Problems 1. 36 to 37 weeks gestation of electronic covid ordered 05/11/2020 Needs to coordinate for 08/03/20 c/s) 2. Anemia affecting O99.019 recheck in 2 weekst, if still down recommend IV iron 3. History of tetanus, diphtheria, and acellular pertussis booster vaccination (Tdap) Z92.29 05/21/20 4. Influenza vaccine administered Z23 02/07/2020sc 5. Supervision of high-risk O09.90 PRR JAYNE 08/11/20 girl Sara NEWMAN Rafat Will ( Akin Ogden) 6. History of delivery Z98.891 plan RLTCS with 08/03/20 @ 12 7. History of premature rupture of membranes (PPROM) Z87.59 progesterone injections weekly 16-36 weeks. NL cervical length 02/28/20 8. 36 weeks gestation of Z3A.36 nipt low risk, girl. declined carrier and ntd screening. normal anatomy 9. Asthma, intermittent J45.20 albuterol PRN. controlled 10. Anxiety and depression F41.9; F32.9 prozac 40mg. counseling. at 37 weeks admitted for rupture of membranes adam regularly Patient presents IAL, plan expectant management for , pitocin if needed Hx for breech - discussed risks and benefits of TOLAC, TOLAC consent signed, plan for vaginal delivery. Pain management: plans epidural. GBS negative. Management of any complications: none I have reviewed the [facility] and made any clinically relevant updates. UPDATE- I have seen the patient and performed any clinically relevant updates to the history and physical exam. Cynthia Deras MD
[2020-07-26] MEDS: Mag Hydrox/Al Hydrox/Simeth 30 ML UDC PO ×2 (05:00→09:57)
[2020-07-26] MEDS: Ondansetron 4 MG/2 ML Vial IV ×2 (05:00→09:58)
[2020-07-26] MEDS: fentaNYL-bupivacaine (epidural) 100 ML BAG EPIDURAL (05:47)
--- NOTE | 2020-07-26 07:26 | PN.OBGYN_ITS ---
Patient Problems: Active and Suspected Problems (Last Reviewed 07/20/20 @ 16:08 by Mariela Anguiano) Full-term premature rupture of membranes (Acute) 36 to 37 weeks gestation of (Acute) electronic covid ordered 05/11/2020 Needs to coordinate for 08/03/20 c/s) Anemia affecting (Acute) recheck in 2 weekst, if still down recommend IV iron History of tetanus, diphtheria, and acellular pertussis booster vaccination (Tdap) (Acute) 05/21/20 Influenza vaccine administered (Acute) 02/07/2020sc Supervision of high-risk (Acute) PRR JAYNE 08/11/20 girl Sara PC Rafat Will ( Akin gOden) History of delivery (Acute) plan RLTCS with SM 08/03/20 @ 12 History of premature rupture of membranes (PPROM) (Acute) progesterone injections weekly 16-36 weeks. NL cervical length 02/28/20 (Acute) nipt low risk, girl. declined carrier and ntd screening. normal anatomy Subjective: Patient doing well without complaints. Tolerating PO. Ambulating and voiding without difficulty. Breast feeding well. Denies chest pain, shortness of breath, calf pain/swelling, fevers, chills, lightheadedness. - Physical Exam Vitals/I&O's: Vital Signs Temp Pulse BP Pulse Ox 97.9 F 100 131/89 H 98 07/26/20 03:48 07/26/20 07:18 07/26/20 07:18 07/26/20 05:59 Weight: 175 lb Body Mass Index (BMI) 32.0 Intake and Output for Last 24 Hours 07/24/20 07/25/20 07/26/20 23:59 23:59 23:59 Intake Total 500 / 500 Balance 500 / 500 General: Alert, Oriented x3, Cooperative, No apparent distress, Well developed, Well nourished HEENT: Atraumatic, PERRLA, EOMI, Normocephalic Neck: Supple, No JVD Lungs: Normal air movement Cardiovascular: Regular rate, Regular Rhythm Abdomen: Soft, Non Tender, Non-Distended, - - incision c/d/i, fundus firm Extremities: No edema, No Calf Tenderness Neurological: Cranial nerves II-XII grossly intact, Neuro grossly intact Psych/Mental Status: Normal Affect, Appropriate Microbiology Past 72 Hours 07/26/20 04:22 Mucosa - Nose SARS-CoV-2 Antigen (Rapid) - Final Laboratory Results 07/26/20 04:10: WBC 10.7, RBC 3.44 L, Hgb 10.3 L, Hct 31.2 L, MCV 90.7, MCH 29.9, MCHC 33.0, RDW Std Deviation 43.2, RDW Coeff of [place] 13.1, Plt Count 275, MPV 10.3, Immature Gran % (Auto) 0.700, Neut % (Auto) 69.6, Lymph % (Auto) 21.1, [place] % (Auto) 7.6, Eos % (Auto) 0.5, Baso % (Auto) 0.5, Absolute Neuts (auto) 7.5, Absolute Lymphs (auto) 2.26, Nucleated RBC % 0 07/26/20 04:10: Blood Type O POSITIVE, Antibody Screen NEGATIVE Current Medications Acetaminophen (Acetaminophen 500 Mg Tablet) 500 - 1,000 mg PO Q6H PRN PRN PRN Reason: Pain Score 1-3 Al Hydroxide/Mg Hydroxide (Mag Hydrox/Al Hydrox/Simeth 30 Ml Udc) 15 - 30 ml PO Q4H PRN PRN PRN Reason: INDIGESTION Last Admin: 07/26/20 05:00 Dose: 30 ml Documented by: Citric Acid/Sodium Citrate (Sodium Citrate/Citric Acid 30 Ml Udc) 30 ml PO X1 PRN PRN Reason: Section Ephedrine Sulfate (Ephedrine Sulfate 50 Mg/Ml Ampul) 10 mg IV Q10M PRN PRN Reason: hypotension Ephedrine Sulfate (Ephedrine Sulfate 50 Mg/Ml Ampul) 10 mg IM Q30M PRN PRN Reason: hypotension Fentanyl Citrate (Fentanyl 100 Mcg/2 Ml Ampul) 25 - 50 mcg IV Q2H PRN PRN PRN Reason: Pain Score 4-10 Fentanyl/Bupivacaine/Sodium Chlor (Fentanyl-Bupivacaine (Epidural) 100 Ml Bag) 0 ml EPIDURAL UD AMOS; Protocol Last Admin: 07/26/20 05:47 Dose: 100 ml Documented by: Lactated Ringer's () 500 mls @ 999 mls/hr IV .Q31M PRN PRN Reason: Epidural Last Infusion: 07/26/20 04:41 Dose: Infused Documented by: Lactated Ringer's () 500 mls @ 999 mls/hr IV .Q31M PRN PRN Reason: Corrective Measures Lactated Ringer's () 1,000 mls @ 50 mls/hr IV .Q20H AMOS Last Admin: 07/26/20 04:41 Dose: 200 mls/hr Documented by: Nalbuphine HCl (Nalbuphine 10 Mg/Ml Ampul) 5 mg IV Q3H PRN PRN PRN Reason: ITCHING Naloxone HCl (Naloxone 0.4 Mg/Ml Syringe) 0.02 mg IV Q1M PRN PRN Reason: RR <10 and pt unresponsive Ondansetron HCl (Ondansetron 4 Mg/2 Ml Vial) 4 mg IV Q4H PRN PRN PRN Reason: NAUSEA Last Admin: 07/26/20 05:00 Dose: 4 mg Documented by: Prochlorperazine Edisylate (Prochlorperazine 10 Mg/2 Ml Vial) 10 mg IV Q6H PRN PRN PRN Reason: NAUSEA Sodium Chloride (0.9% Saline Lock 10 Ml Syringe) 10 - 40 ml IV X1 PRN PRN Reason: SALINE FLUSH Medical Necessity - Tobacco Use Smoking Status: Former smoker Assessment/Plan All Active Problems (Last Reviewed 07/20/20 @ 16:08 by Mariela Anguiano) Full-term premature rupture of membranes (Acute) 36 to 37 weeks gestation of (Acute) Anemia affecting (Acute) History of tetanus, diphtheria, and acellular pertussis booster vaccination (Tdap) (Acute) Influenza vaccine administered (Acute) Supervision of high-risk (Acute) History of delivery (Acute) History of premature rupture of membranes (PPROM) (Acute) (Acute) Autoimmune disorder (Resolved) Eosinophilic gastritis (Resolved) Incomplete (Resolved) s/p LTCS PPD # 1 1. routine post care 2. breast feeding- support given 3. rh positive 4. rubella immune
--- NOTE | 2020-07-26 07:29 | DCINST_ITS ---
Discharge Diet: No Restrictions Discharge Activity: May Not Drive - for 2 weeks or while taking narcotic pain meds., May Shower, May Take a Tub Bath - in 7 days. May resume sexual activity in: 4-6 weeks Lifting Restrictions: 20 pounds Additional Activity Instructions:: Nothing in the vagina for 4-6 weeks. You may return to work/school in 6 weeks. Call your doctor if your incision/area has: Continuous Slow Oozing, Sudden Increased Bleeding, Increased Pain/ Swelling, Increased Redness, Foul Smelling Discharge Call your doctor if you observe: Fever of 101 or Higher Suture Line Care: Avoid Pulling/Pushing, Avoid Pinching/Bending Additional Instructions: If you experience any of the following, contact your healthcare provider. * Bleeding that soaks a pad every hour for 2 hours * Fever 100.4 or higher * Unrelieved incision or abdominal pain * Swelling, redness, discharge or bleeding from your incision or episiotomy site * Your incision begins to separate * Problems urinating (including inability to urinate or burning while urinating). * Visual changes * Severe headache * Flu-like symptoms * Pain or redness in one of both of your breasts * Pain, warmth, tenderness or swelling in your legs, especially the calf area * Frequent nausea and vomiting * Symptoms of depression or anxiety If you experience any of the following, call 911 or go to the nearest Emergency Room. * Chest pain * Problems breathing * Seizure activity * Partial or complete paralysis of a body part, slurred speech, weakness or drooping of the face, or a sudden inability to walk or hold your balance Allergies/Adverse Reactions: Allergies morphine Allergy (Intermediate, Verified 07/26/20 04:10) histamine reaction clavulanic acid [From Augmentin] Allergy (Verified 07/26/20 04:10) Rash doxycycline Adverse Reaction (Intermediate, Verified 07/26/20 04:10) Diarrhea Medications to take at Discharge vitamin#30 30 mg iron-10 mg iron-folic acid 1 mg-omg3 capsule cap PO 01/09/20 ondansetron 4 mg disintegrating tablet 4 mg PO Q4H PRN #60 tab 05/21/20 Famotidine 20 mg PO DAILY 07/26/20 Fluoxetine HCl 40 mg PO DAILY 07/26/20 Follow-Up: Call to make an appointment with your doctor for an incision check in 1-2 weeks. You will also need a 6 week post- follow up appointment. Test results from this visit will be discussed in further detail at your follow- up appointment, if applicable.
[2020-07-26] MEDS: Oxytocin 30 units/NS 500 ml 30 UNITS/500 ML IV.SOLN 334 UNITS IV (11:24)
--- NOTE | 2020-07-26 12:51 | PCM.OPRPT ---
Problem List (1) Full-term premature rupture of membranes Status: Acute (2) 36 to 37 weeks gestation of Status: Acute Comment: electronic covid ordered 05/11/2020 Needs to coordinate for 08/03/20 c/s) (3) Anemia affecting Status: Acute Comment: recheck in 2 weekst, if still down recommend IV iron (4) History of delivery Status: Acute Comment: plan RLTCS with SM 08/03/20 @ 12 (5) History of premature rupture of membranes (PPROM) Status: Acute Comment: progesterone injections weekly 16-36 weeks. NL cervical length 02/28/20 (6) History of tetanus, diphtheria, and acellular pertussis booster vaccination (Tdap) Status: Acute Comment: 05/21/20 (7) Influenza vaccine administered Status: Acute Comment: 02/07/2020sc (8) Status: Acute Qualifiers: Comment: nipt low risk, girl. declined carrier and ntd screening. normal anatomy (9) Supervision of high-risk Status: Acute Qualifiers: Comment: PRR JAYNE 08/11/20 girl Sara PATY Rafat Will ( Akin Ogden) (10) Anxiety and depression Status: Chronic Comment: prozac 40mg. counseling. (11) Asthma, intermittent Status: Chronic Comment: albuterol PRN. controlled Vaginal Delivery Maternal Presentation: Active Labor 30-year-old G4, P1 at 37 weeks gestation admitted in active labor. Patient has a history of a prior and desired trial of labor after . Patient made cervical change from 1 to 2cm to 10 cm within 6 hours of admission without augmentation. Amniotic Membrane Rupture Type: Spontaneous at home Amniotic Fluid Description: Clear Final JAYNE: 08/11/20 Gestational age: 37 Weeks and 5 Days Date of Procedure: 07/26/20 Pre-Operative Diagnosis: Term , active labor, trial of labor after Post-Operative Diagnosis: Same, mild shoulder dystocia Surgery/ Procedure Performed: Spontaneous Vaginal Delivery Type of Anesthesia: Epidural Description of Procedure: Patient began pushing and delivered the head in the EDWARD presentation. The head was delivered atraumatically and a loose nuchal cord ?1 was identified and easily reduced over the infant's head. At this time, turtle sign was noted as the chin retracted against the maternal perineum. The head restituted into the EDWARD position and the right shoulder was noted to be anterior. Argelia maneuver was performed. Suprapubic pressure was administered and the anterior shoulder delivered without difficulty. No excessive force or traction were used. The posterior shoulders delivered without complication followed by the rest of the infant and the was placed on the maternal abdomen. The initially appeared stunned and therefore delayed cord clamping was not employed and the cord was immediately clamped and cut. The infant was handed off to the delivery nurse. Gentle traction was applied to the cord and the placenta delivered spontaneously immediately following it was noted to be intact with three-vessel cord. The perineum and vagina were inspected and A midline first-degree perineal laceration was noted and repaired in the standard fashion using 3-0 Vicryl rapide suture. EBL was 200 cc. Patient and tolerated delivery well. Events of the delivery were discussed with the mother. Discussed that she did have a mild shoulder dystocia but if she does decide to have future deliveries, I feel that it would be acceptable to happen vaginal delivery again in the future. Presentation: Vertex, EDWARD Placental Delivery Description: Spontaneous Placenta Disposition: [facility] Cord Vessel Description: 3 Vessels Cord Entanglement: None Drain: Gil to straight drain Estimated Blood Loss: 200 Infant A gender: Female Episiotomy Description: None Laceration: Midline, Perineal Extension/lac, 1st degree Medications given after delivery: IV Pitocin Complications: - - Mild shoulder dystocia Multi Select Codes - Urinary/Genital Urinary/Genital CPT Codes: 61344 delivery [facility]
[2020-07-26] MEDS: Acetaminophen 500 MG Tablet 1000 MG PO ×2 (12:54→22:37)
[2020-07-26] MEDS: 0.9% Saline Lock 10 ML Syringe IV (14:21)
--- NOTE | 2020-07-26 14:34 | NURSING ---
Called Anesthesia and spoke with Dr. Weir. Pt was c/o feeling something wet running down her back. Upon examination, clear fluid noted coming from where the epidural catheter had been. Dr. Weir states that he will be over to examine area.
--- NOTE | 2020-07-26 14:48 | NURSING ---
Dr. Weir in room and examined epidural space. States that some of the epidural fluid is under the skin and will resolve on its own.
--- NOTE | 2020-07-26 15:04 | NURSING ---
Pt up to BR for the first time after delivery. Gait steady. Voided without difficulty and aileen-care demonstrated without difficulty by patient.
[2020-07-26] MEDS: Naproxen 250 MG Tablet 500 MG PO (17:42)
--- NOTE | 2020-07-26 18:44 | DCINST_ITS ---
Discharge Diet: No Restrictions Discharge Activity: Return to Normal Activity, May not drive while taking narcotic pain medications., May Shower May resume sexual activity in: 4-6 weeks Additional Activity Instructions:: Nothing in the vagina for 4-6 weeks. You may return to work/school in 6 weeks. Call your doctor if your incision/area has: Continuous Slow Oozing, Sudden Increased Bleeding, Increased Pain/ Swelling, Increased Redness, Foul Smelling Discharge Additional Instructions: If you experience any of the following, contact your healthcare provider. * Bleeding that soaks a pad every hour for 2 hours * Fever 100.4 or higher * Unrelieved incision or abdominal pain * Swelling, redness, discharge or bleeding from your incision or episiotomy site * Your incision begins to separate * Problems urinating (including inability to urinate or burning while urinating). * Visual changes * Severe headache * Flu-like symptoms * Pain or redness in one of both of your breasts * Pain, warmth, tenderness or swelling in your legs, especially the calf area * Frequent nausea and vomiting * Symptoms of depression or anxiety If you experience any of the following, call 911 or go to the nearest Emergency Room. * Chest pain * Problems breathing * Seizure activity * Partial or complete paralysis of a body part, slurred speech, weakness or drooping of the face, or a sudden inability to walk or hold your balance Allergies/Adverse Reactions: Allergies morphine Allergy (Intermediate, Verified 07/26/20 04:10) histamine reaction clavulanic acid [From Augmentin] Allergy (Verified 07/26/20 04:10) Rash doxycycline Adverse Reaction (Intermediate, Verified 07/26/20 04:10) Diarrhea Medications to take at Discharge vitamin#30 30 mg iron-10 mg iron-folic acid 1 mg-omg3 capsule 1 cap PO DAILY 01/09/20 ondansetron 4 mg disintegrating tablet 4 mg PO Q4H PRN #60 tab 05/21/20 DiphenhydrAMINE [Benadryl] 50 mg PO QHS 07/26/20 Famotidine 20 mg PO DAILY 07/26/20 Fluoxetine HCl 40 mg PO DAILY 07/26/20 Naproxen [Naprosyn] 250 - 500 mg PO Q8H PRN PRN #30 tab 07/26/20 The following prescriptions were given: Naproxen [Naprosyn] 250 - 500 mg PO Q8H PRN PRN #30 tab PRN Reason: MILD PAIN Transmission Status: Received by [facility] When: Call to make an appointment with your doctor in 6 weeks. If you had elevated Blood Pressure or 4th degree laceration you will need to be seen in 2 weeks. Test Results: Test results from this visit will be discussed in further detail at your follow- up appointment, if applicable.
[2020-07-27] MEDS: Naproxen 250 MG Tablet 500 MG PO (02:09)
[2020-07-27 05:10] VITALS: BP 121/76; PULSE 90; RESP 16; TEMP 36.6; O2SAT 99
[2020-07-27 08:10] VITALS: BP 108/70; PULSE 86; RESP 14; TEMP 36.1; O2SAT 96
[2020-07-27] MEDS: Acetaminophen 500 MG Tablet 1000 MG PO (08:20)
--- NOTE | 2020-07-27 08:31 | PCM.PN.OB ---
Patient Problems: Active and Suspected Problems (Last Reviewed 07/20/20 @ 16:08 by Mariela Anguiano) Full-term premature rupture of membranes (Acute) 36 to 37 weeks gestation of (Acute) electronic covid ordered 05/11/2020 Needs to coordinate for 08/03/20 c/s) Anemia affecting (Acute) recheck in 2 weekst, if still down recommend IV iron History of tetanus, diphtheria, and acellular pertussis booster vaccination (Tdap) (Acute) 05/21/20 Influenza vaccine administered (Acute) 02/07/2020sc Supervision of high-risk (Acute) PRR JAYNE 08/11/20 girl Sara PC Rafat Will ( [place]) History of delivery (Acute) plan RLTCS with 08/03/20 @ 12 History of premature rupture of membranes (PPROM) (Acute) progesterone injections weekly 16-36 weeks. NL cervical length 02/28/20 (Acute) nipt low risk, girl. declined carrier and ntd screening. normal anatomy Subjective: Patient doing well without complaints. Tolerating PO. Ambulating and voiding without difficulty. Breast feeding well. Denies chest pain, shortness of breath, calf pain/swelling, fevers, chills, lightheadedness. - Physical Exam Vitals/I&O's: Vital Signs Temp Pulse Resp BP Pulse Ox 97.0 F L 86 14 108/70 96 07/27/20 08:10 07/27/20 08:10 07/27/20 08:10 07/27/20 08:10 07/27/20 08:10 Oxygen Delivery Method Room Air Weight: 175 lb Body Mass Index (BMI) 32.0 Intake and Output for Last 24 Hours 07/25/20 07/26/20 07/27/20 23:59 23:59 23:59 Intake Total 2689.53 / 2689.53 Output Total 850 / 850 Balance 1839.53 / 1839.53 General: Alert, Oriented x3, Cooperative, No apparent distress, Well developed, Well nourished HEENT: Atraumatic, PERRLA, EOMI, Normocephalic Lungs: Normal air movement Cardiovascular: Regular rate Abdomen: Soft, Non Tender, Non-Distended, - - fundus firm Extremities: No edema, No Calf Tenderness Neurological: Cranial nerves II-XII grossly intact, Neuro grossly intact Psych/Mental Status: Normal Affect, Appropriate Microbiology Past 72 Hours 07/26/20 04:22 Mucosa - Nose SARS-CoV-2 Antigen (Rapid) - Final Current Medications Acetaminophen (Acetaminophen 500 Mg Tablet) 1,000 mg PO Q8H PRN PRN PRN Reason: Pain Score 1-3 Last Admin: 07/27/20 08:20 Dose: 1,000 mg Documented by: Bisacodyl (Bisacodyl 10 Mg Suppository) 10 mg RECTAL UD PRN PRN Reason: If no BM Dibucaine (Dibucaine 30 Gm Tube) 1 applic TOPICAL TID PRN PRN; Protocol PRN Reason: Discomfort Famotidine (Famotidine 20 Mg Tablet) 20 mg PO DAILY AMOS Fluoxetine HCl (Fluoxetine 20 Mg Capsule) 40 mg PO DAILY AMOS Hydrocortisone (Hydrocortisone 2.5% Crm) 1 applic TOPICAL TID PRN PRN; Protocol PRN Reason: Discomfort Methylergonovine Maleate (Methylergonovine 0.2 Mg/Ml Ampul) 0.2 mg IM X1 PRN PRN Reason: Excess bleeding/uterine atony Naproxen (Naproxen 250 Mg Tablet) 500 mg PO Q8H PRN PRN PRN Reason: Pain Score 1-3 Last Admin: 07/27/20 02:09 Dose: 500 mg Documented by: Ondansetron HCl (Ondansetron 4 Mg/2 Ml Vial) 4 mg IV Q4H PRN PRN PRN Reason: Nausea Oxycodone HCl (Oxycodone 5 Mg Tablet) 5 - 10 mg PO Q4H PRN PRN PRN Reason: Pain Score 4-10 Senna/Docusate Sodium (Senna/Docusate Sodium 1 Tablet) 1 - 2 tablet PO DAILY PRN PRN PRN Reason: Constipation Simethicone (Simethicone 80 Mg Tablet) 80 mg PO PCHS PRN PRN Reason: Indigestion/Stomach pain Sodium Chloride (0.9% Saline Lock 10 Ml Syringe) 5 - 15 ml IV UD PRN PRN Reason: SALINE FLUSH Last Admin: 07/26/20 14:21 Dose: 10 ml Documented by: Medical Necessity - Tobacco Use Smoking Status: Former smoker Assessment/Plan All Active Problems (Last Reviewed 07/20/20 @ 16:08 by Mariela England Full-term premature rupture of membranes (Acute) 36 to 37 weeks gestation of (Acute) Anemia affecting (Acute) History of tetanus, diphtheria, and acellular pertussis booster vaccination (Tdap) (Acute) Influenza vaccine administered (Acute) Supervision of high-risk (Acute) History of delivery (Acute) History of premature rupture of membranes (PPROM) (Acute) (Acute) Autoimmune disorder (Resolved) Eosinophilic gastritis (Resolved) Incomplete (Resolved) s/p PPD # 1 1. routine post delivery care 2. breast feeding- support given 3. rh positive 4. rubella immune
[2020-07-27 12:30] VITALS: BP 112/79; PULSE 88; RESP 14; TEMP 36.3; O2SAT 97
--- NOTE | 2020-07-27 15:35 | CASEMGMT ---
Social Work Assessment Labor and Delivery Unit Patient Address: [address] [place] [address] [address], [place] [id number] Phone number: [phone] Date of Referral: 07/26/2020; 07/27/2020 Time of Referral: 1600; 1008 Referred By: Dr. Deras Date of Intervention: 07/27/2020 Time of Intervention: 1535 Reason for Referral: Maternal history of anxiety and depression; PHQ 9 with a score of 6. History obtained from: Medical records and mother of baby (MOB) Lorin Burnham; father of baby (FOB) Marcus Ng also present for part of conversation. Household composition: MOB and FOB live in their own home along with their older children ages 22, 15, and 5. Patient's parent/guardian status: LINO is a 30-year-old female, to the [facility] for the last 7 years but together for 10 years. LINO denied any type of domestic violence or safety concerns in her marriage. MAHOGANY came to the marriage with 2 children Alin (22) and Akin (15). LINO and FORosie now have 2 children together: Rafat (born 10/19/2014) and Sara, who is the (born 07.26.2020). Medical History: LINO is 4, para 1 now 2 after delivering . care started in the first trimester and regular thereafter. Delivery occurred at 37 weeks gestation. Sara weighed 6 pounds 11 ounces at with 6 and 10 at 1 and 5 minutes of life respectively. Educational Status: College. No issues with reading, writing, or learning comprehension. 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 Supplies: Parents report to have all needed supplies including a safe sleep space. Childcare/Caregiver(s): LINO will be the primary caregiver along with help from family. Transportation: No concerns. Programs/Agencies Involved: No agency or program involvement at this time. LNIO reports a history of counseling on and off throughout the years, but not current. Children Services/Legal Issues: No history. Behavioral Health Issues: Mental Health History: LINO has a history of depression, anxiety, and depression. LINO reports the depression was bad and lasted for about a year. MOB reports it took her quite some time to talk about it and get some help. MOB reports she is restarting Prozac and feels this is helpful, and will remain on this in the timeframe. MOB admits to some depression during this there has been a lot of changes including the loss of 3 grandparents in the last 4 months. MOB denies any history of suicidal or homicidal ideation, planning, intent or action. Substance Use History: MOB denies any substance use history. MOB is a former tobacco smoker. Drug Screens: Maternal drug screen negative on 01/09/2020. Family/Social Stressors: MOB reports history of 2 miscarriages before becoming with Sara. MOB reports COVID has been a stressor and has increased anxiety. Additionally in the last 4 months MOB has lost 3 grandparents. Support Systems: MOB endorses the father of baby is a strong support person. Additionally MOB mother and a good friend are all people MOB can rely on. ASSESSMENT: Met with the MOB and FOB in room. MOB talkative with both the FOB in the room and out of the room. While FOB present, he was attentive and participated in conversation. MOB and FOB report to have needed supplies to care for the baby. FOB will be off of work for a couple of weeks to help with the transition home. MOB reports to feel comfortable talking to the FOB when feeling depressed or anxious. MOB plans to remain on the Prozac in the timeframe. Emotional support offered to MOB and FOB. Normalized that MOB has gone through a lot a very concentrated amount of time that having an increase of symptoms is not unexpected. MOB endorses the realization that going back to counseling would likely be have helpful, and anticipates will be scheduling an appointment soon. MOB is able to identify healthy coping skills. Reports to feel connection to the baby. No concerns voiced by nursing staff regarding parent/child interactions or bonding. Provided MOB with depression and anxiety packet which includes resources locally and virtually. MOB expressed appreciation for social work visit and for resources provided. PLAN: MOB and will discharge home. Mental health resources provided, with MOB already being on medication and anticipates making on counseling appointment in future. Will have help and support from family at home going. No other services requested or indicated. -NAHID Peck, [employer] PIPING DESIGNER *Information documented in this assessment generated with [employer]*
[2020-07-27 16:50] VITALS: BP 122/84; PULSE 89; RESP 14; TEMP 36.4; O2SAT 97
== END 2020-07-27 17:15 | disposition home or self-care (01) | DRG 807 ==
PROVIDERS: Admitting Provider Obstetrics & Gynecology; Referring Provider Obstetrics & Gynecology; Visit Provider Obstetrics & Gynecology
DX: O66.0 Obstructed labor due to shoulder dystocia (principal); O70.0 First degree perineal laceration during delivery; O34.219 Maternal care for unspecified type scar from previous cesarean delivery; O69.81X0 Labor and delivery complicated by cord around neck, without compression, not applicable or unspecified; O99.344 Other mental disorders complicating childbirth; F32.9 Major depressive disorder, single episode, unspecified; F41.9 Anxiety disorder, unspecified; O99.02 Anemia complicating childbirth; D64.9 Anemia, unspecified; J45.20 Mild intermittent asthma, uncomplicated; O99.52 Diseases of the respiratory system complicating childbirth; Z3A.37 37 weeks gestation of pregnancy; Z37.0 Single live birth; Z87.891 Personal history of nicotine dependence
CPT/HCPCS: 59025; 59050; 85025; 86850; 86900; 86901; 87426; 99218; J7120; A4216; G0378; J2405

== ENCOUNTER 2020-08-14 18:40 | Outpatient (CLI) | payer OTHER, SELFPAY ==
[2020-07-26 04:12] VITALS: BMI 32.0
== END 2020-08-14 19:42 | disposition home or self-care (01) ==
LOC: WPOUT 18:43 → WP 18:44
PROVIDERS: Visit Provider Obstetrics & Gynecology
DX: Z39.1 Encounter for care and examination of lactating mother (principal)
CPT/HCPCS: 96158; 96159

== ENCOUNTER → 2020-09-13 16:18 | Outpatient (CLI) | payer OTHER, SELFPAY ==
[2020-09-13 11:25] VITALS: BMI 24.7
[2020-09-18 15:56] LABS: HPV APTIMA, High Risk Negative (Negative)
== END ==
PROVIDERS: Visit Provider Obstetrics & Gynecology
DX: Z12.4 Encounter for screening for malignant neoplasm of cervix (principal)
CPT/HCPCS: 87624; 88175; G0145

== ENCOUNTER 2021-06-05 19:47 | Emergency (ER) | payer OTHER, SELFPAY ==
[2021-06-05 19:48] VITALS: BP 125/82; PULSE 123; RESP 18; TEMP 36.6; O2SAT 96; BMI 24.7
--- NOTE | 2021-06-05 21:05 | EDS_ITS ---
HPI History of Present Illness Chief Complaint: General Illness Informant: patient Onset/Context/Timing Onset: Weeks Context: Gradual Onset Timing: Continuous Current Severity: Mild Maximum Severity: Mild Narrative Narrative: 31-year-old female vaccinated against Covid. States I feel miserable. States she was seen in urgent care told she had a viral illness. When she was improving she went back they told her she may have a sinus infection started on doxycycline. States she has had fevers as high as 104 with body aches and nausea, vomiting and diarrhea. She has a past medical history of depression. She denies any abdominal pain or dysuria. Prior similar symptoms: Yes Recent Illness/Hospitalization: No PFSH PFSH Medical History Anxiety Asthma Constipation Depression Diarrhea Epigastric pain GERD (gastroesophageal reflux disease) Hemorrhoids History of back problems History of blood transfusion IBS (irritable bowel syndrome) Nausea & vomiting (vaginal after ) Home Medications vitamin#30 30 mg iron-10 mg iron-folic acid 1 mg-omg3 capsule 1 cap PO DAILY 01/09/20 [History Last Taken 07/24/20 22:00] fluoxetine 40 mg PO DAILY 07/26/20 [History Last Taken 07/25/20 22:00] norethindrone (contraceptive) 0.35 mg tablet 0.35 mg PO DAILY #28 tablet 09/13/20 [Rx Last Taken Unknown] Allergy/AdvReac Type Severity Reaction Status Date / Time morphine Allergy Intermediate histamine Verified 06/05/21 21:16 reaction clavulanic acid Allergy Rash Verified 06/05/21 21:16 [From Augmentin] doxycycline AdvReac Intermediate Diarrhea Verified 06/05/21 21:16 prednisone AdvReac Other Verified 06/05/21 21:16 Surgical History H/O: knee surgery history c-scope History of History of dilation and curettage History of wisdom tooth extraction Social History Smoking Status: Former smoker alcohol intake: never substance use type: does not use caffeine: Yes seatbelt use: always do you feel safe at home: Yes 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 Fever. Body aches. Review of Systems ROS Unobtainable: Denies due to encephalopathy Constitutional Constitutional ED: Reports fever(s) Eyes Eyes: Denies change in vision ENT ENT ED: Denies sore throat Cardiovascular Cardiovascular: Denies chest pain or palpitations Respiratory/Chest Respiratory/Chest: Denies cough or dyspnea Gastrointestinal Gastrointestinal: Reports diarrhea, nausea and vomiting; Denies abdominal pain, constipation or melena Genitourinary Genitourinary ED: Denies dysuria or hematuria Musculoskeletal Musculoskeletal: Reports myalgias Integumentary Denies rash Neurologic Neurologic: Reports headache(s) Psychiatric Psychiatric: Denies depression Endocrine Endocrinology: Denies polyuria Allergic/Immunologic Allergic/Immunologic ED: Denies urticaria EXAM Physical Exam Narrative Exam Narrative: 29-year-old female no acute distress vital signs stable afebr ile. Pulse ox 96% on room air no signs of hypoxia. She does not look septic or toxic. H EENT exam mildly dry mucous membranes. Posterior pharynx normal. Neck nontender. No lymphadenopathy. No meningismus. Lungs clear to auscultation bilaterally. Heart regular rhythm rate about 110 no murmur. Abdomen soft nontender normal bowel sounds no peritoneal signs. Patient moving all 4 extremities. Nontender. No edema. Normal strength. Back nontender. Skin unremarkable. Neurologic exam normal. Const Vital Signs: 06/05/21 19:48 Temperature 98 F Temperature Source Temporal Pulse Rate 123 H Respiratory Rate 18 Blood Pressure 125/82 H Blood Pressure Mean 96 Pulse Ox 96 Oxygen Delivery Method Room Air Positive well nourished and well developed; Negative for obese, cachectic, contractures or unkempt General Appearance ED: well developed and NAD; Negative for unkempt, cachectic, contractures, cyanotic, diaphoretic or pallor Nutritional Appearance: Negative for cachectic or obese HEENT Reports dry mucous membranes Negative for trauma or tenderness Mouth ED: Yes dry mucous membranes Mouth: dry mucous membranes Eyes PERRL and EOMs intact bilaterally Neck no lymphadenopathy, supple and no JVD General: Negative for tenderness Chest Wall inspection of chest normal and palpation of chest normal Resp normal respiratory effort and clear to auscultation bilaterally Auscultation: Negative for rales, rhonchi or wheezes Cardio regular rhythm, S1 normal heart sound, S2 normal heart sound and no murmurs; Negative for regular rate Rate: tachycardic GI normal to inspection, nondistended, normoactive bowel sounds, non-tender, non- distended and no masses Inspection: Negative for abdominal distention Auscultation: normoactive bowel sounds Palpation: soft; Negative for tender, guarding or rebound tenderness present Back/Spine no CVA tenderness Extremity normal to inspection General Extremety ED: Negative for edema or tenderness General Extremity: Negative for edema Neuro oriented x3 and CN's II-XII intact bilaterally Sensorium / Orientation: alert and orientation impaired; Negative for lethargic or stuporous Motor Exam: strength 5/5 throughout Psych mental status grossly normal Appearance: Negative for unkempt Attitude: No agitated Mood & Affect: anxious; Negative for depressed or tearful Skin no rashes or lesions noted and no wounds General Skin Exam: Negative for jaundice or pallor MDM MDM MDM Narrative Medical decision making narrative: 31-year-old female suspect viral syndrome. Chest x-ray being obtained. Along with a Covid test. She will be treated with IV fluids for her dehydration IV Zofran and Toradol. Repeat exam patient is feeling better after IV fluids and medications. She however test results. She will be discharged home. Quarantine. She is probably had the symptoms for minimum of 7 to 10 days. I am going to have her stop the antibiotics I do not think she has a sinusitis. She is really not a candidate for either steroids at this time because her chest x-ray is negative there is no signs of Covid pneumonitis and she is in no respiratory distress nor she hypoxic. I do not think she needs monoclonal antibody because otherwise she is healthy. Discharged home with outpatient follow-up as needed or return if worse. Lab Data Attestation: I reviewed the patient's lab results. Lab results narrative: Covid rapid antigen test is the room. Radiography Chest X-Ray - ED: 1 View, Read by ED Physician, Heart, Lungs, Mediastinum, Bony Structures, No Acute Disease and Chronic Changes Diagnostic Testing: Clinical Impression(s) from Imaging Studies Chest X-Ray 06/05/21 21:30 IMPRESSION: Normal x-ray examination of the chest. Electronically Signed: Andry Hernández MD at 21:46 EST Tel , Service support , Single view chest x-ray, portable, interpreted by myself shows no acute abnormality. Discharge Plan Triage Chief Complaint: General Illness ED Provider: Brooks Saul Dx/Rx/DC Orders Clinical Impression: COVID-19 Instructions: Human Coronaviruses Prescriptions: No Action vitamin#30 30 mg iron-10 mg iron-folic acid 1 mg-omg3 capsule 30 mg iron-10 mg iron-1 mg capsule 1 cap PO DAILY RF: 0 norethindrone (contraceptive) [Ortho Micronor] 0.35 mg tablet 0.35 mg PO DAILY Qty: 28 RF: 12 fluoxetine 40 MG capsule 40 mg PO DAILY RF: 0 Primary Care Provider: Care Physician,No Primary Referrals: Behzad Barrios MD [STAFF PHYSICIAN] - 10-14 Days if not better Care Physician,No Primary [Primary Care Provider] - Activity Restrictions/Additional Instructions: Plenty of fluids and rest. Motrin and Tylenol for any fevers and body aches. Follow-up if not improving or return if worse. You should progressively start feeling better. Disposition Disposition: Home, Self Care
[2021-06-05] MEDS: Ondansetron 4 MG/2 ML Vial IV (21:14)
[2021-06-05] MEDS: 0.9% Normal Saline 1,000 ML 999 ML IV (21:14)
[2021-06-05] MEDS: Ketorolac 30 MG/ML Syringe IV (21:14)
--- NOTE | 2021-06-05 21:30 | RAD_ITS ---
STUDY: X-RAY CHEST REASON FOR EXAM: Female, 31 years old. Cough TECHNIQUE: Single frontal view of the chest. COMPARISON: 08/27/19. FINDINGS: The lungs are clear and expanded. There is no demonstrated pleural abnormality. Normal size heart. Normal mediastinum and leann. Normal visualized pulmonary arteries. Normal visualized aortic arch and descending thoracic aorta. Normal visualized thoracic spine. Normal visualized ribs, clavicles, and shoulders. There is no demonstrated abnormality of the visualized soft tissue structures of the upper abdomen. RAD/Chest 1 View (Portable) IMPRESSION: Normal x-ray examination of the chest. Electronically Signed: Andry Hernández MD at 21:46 EST Tel , Service support ,
[2021-06-05 22:36] VITALS: RESP 22
== END 2021-06-05 22:39 | disposition home or self-care (01) ==
PROVIDERS: Emergency Provider Emergency Medicine; Visit Provider Emergency Medicine
DX: U07.1 COVID-19 (principal); Z87.891 Personal history of nicotine dependence; E86.0 Dehydration; F32.A Depression, unspecified; F41.9 Anxiety disorder, unspecified; J45.909 Unspecified asthma, uncomplicated; K21.9 Gastro-esophageal reflux disease without esophagitis; K58.9 Irritable bowel syndrome, unspecified; Z79.899 Other long term (current) drug therapy
CPT/HCPCS: 71045; 87426; 96361; 96374; 96375; 99283; J7030; J2405

== ENCOUNTER → 2021-10-01 | Outpatient (CLI) | payer OTHER, SELFPAY ==
--- NOTE | 2021-10-01 08:57 | BI_ITS ---
MAMMOGRAPHY - BILATERAL DIAGNOSTIC REASON FOR EXAM: Female, 31 years old. Left breast pain. PERTINENT HISTORY: Non-contributory. TECHNIQUE: Digital bilateral breast teresa (3D mammographic acquisition) in the CC and MLO projections. 2-D mediolateral oblique (MLO) and craniocaudad (CC) views of both breasts were obtained. CAD: Full Field Digital Mammography with Computer Added Detection was performed. COMPARISON: None. Baseline examination. FINDINGS: Breast Composition: The breasts are extremely dense, which lowers the sensitivity of mammography. There are no dominant masses or suspicious calcifications. No other significant abnormalities are identified. BI/DIAG MAMM W/CAD, BILAT IMPRESSION: Negative diagnostic mammogram. With the patient''s history of left breast pain, correlation with ultrasound is recommended. ASSESSMENT CATEGORY: BIRADS Category 0: Incomplete. Need additional imaging evaluation. A letter regarding these results will be sent to the patient by the facility within 30 days. Approximately 10% of breast cancers are not detected by mammography. A normal mammogram should not delay biopsy of a clinically suspicious abnormality. Electronically Signed: Jericho Almazan MD at 10:25 EDT ,
--- NOTE | 2021-10-01 08:57 | US_ITS ---
STUDY: ULTRASOUND BREAST - LEFT REASON FOR EXAM: Female, 31 years old. Pain in the left breast. TECHNIQUE: Axial and longitudinal images of the LEFT breast were performed with a high resolution ultrasound transducer. # OF IMAGES: [id number] COMPARISON: Comparison is made with prior mammogram done earlier the comparison is made with prior sonogram of the left breast dated 09/03/2016. FINDINGS: LEFT Breast: The upper half of the left breast was examined by ultrasound. Dense fibroglandular tissue. No sonographic abnormality is seen. US/Breast Limited Unilateral IMPRESSION: No sonographic abnormality is seen. ASSESSMENT CATEGORY: BIRADS Category 1: Negative. A letter regarding these results will be sent to the patient by the facility within 30 days. Electronically Signed: Jericho Almazan MD at 10:26 EDT ,
== END | disposition home or self-care (01) ==
PROVIDERS: PCP Family Medicine; Referring Provider Obstetrics & Gynecology; Visit Provider Obstetrics & Gynecology
DX: N64.4 Mastodynia (principal); Z80.3 Family history of malignant neoplasm of breast
CPT/HCPCS: 76642; 77062; 77066; G0279

== ENCOUNTER → 2022-10-23 | Outpatient (CLI) | payer OTHER, SELFPAY ==
[2022-10-30 13:08] LABS: HPV APTIMA, High Risk Negative (Negative)
== END | disposition home or self-care (01) ==
PROVIDERS: PCP Family Medicine; Visit Provider Obstetrics & Gynecology
DX: Z12.4 Encounter for screening for malignant neoplasm of cervix (principal)
CPT/HCPCS: 87624; 88175; G0145

== ENCOUNTER → 2022-10-29 | Outpatient (CLI) | payer OTHER, SELFPAY ==
[2022-10-29 08:49] LABS: Vitamin D,25 Hydroxy 26.9 ng/mL
[2022-10-29 08:56] LABS: Cholesterol 207 mg/dL (200); Glucose 96 mg/dL (74-106); High Density Lipoprotein 91 mg/dL; Prolactin 27.4 ng/mL; Thyroid Stim Hormone (TSH) 0.88 uIU/mL (0.358-3.74); Triglycerides 54 mg/dL; Very Low Density Lipoprotein 11 mg/dL (5-40)
== END | disposition home or self-care (01) ==
LOC: PAVLAB 07:57
PROVIDERS: PCP Family Medicine; Referring Provider Obstetrics & Gynecology; Visit Provider Obstetrics & Gynecology
DX: N64.3 Galactorrhea not associated with childbirth (principal); Z13.220 Encounter for screening for lipoid disorders; Z13.1 Encounter for screening for diabetes mellitus; Z13.29 Encounter for screening for other suspected endocrine disorder; Z13.21 Encounter for screening for nutritional disorder
CPT/HCPCS: 36415; 80061; 82306; 82947; 84146; 84443

== ENCOUNTER 2023-02-14 10:34 | Emergency (ER) | payer OTHER, SELFPAY ==
[2023-02-14 10:35] VITALS: BP 106/91; PULSE 98; RESP 22; TEMP 38.3; O2SAT 100; BMI 28.3
--- NOTE | 2023-02-14 10:55 | EX.ED.DYSGE1 ---
HPI History of Present Illness Chief Complaint: Fever Informant: patient Onset/Context/Timing Onset: Days Context: Gradual Onset Narrative Narrative: Patient has been sick for about 10 days. She is having fevers, chills, shakes, chest pain, cough, sore throat with spots. She saw her doctor earlier in the week and was prescribed cefdinir to cover for strep pharyngitis despite testing negative. She also tested negative for COVID and influenza. She denies any significant past medical history. She does take Lexapro for her mood and reports increased stress and anxiety. She also takes vitamin C. Prior similar symptoms: No Recent Illness/Hospitalization: No PFSH PFSH Medical History Acute bronchitis, unspecified Acute pharyngitis, unspecified Acute sinusitis, unspecified Acute streptococcal pharyngitis Anxiety Asthma Constipation Contact with and (suspected) exposure to other viral communicable diseases Depression Diarrhea Epigastric pain GERD (gastroesophageal reflux disease) Hemorrhoids History of back problems History of blood transfusion IBS (irritable bowel syndrome) Impetigo Nausea & vomiting (vaginal after ) Home Medications fluoxetine 40 mg capsule 40 mg PO DAILY #30 caps 10/23/22 [Rx Last Taken Unknown] multivitamin 1 tab PO DAILY 10/23/22 [History Last Taken Unknown] Allergy/AdvReac Type Severity Reaction Status Date / Time morphine Allergy Intermediate histamine Verified 10/23/22 08:49 reaction clavulanic acid Allergy Rash Verified 10/23/22 08:49 [From Augmentin] doxycycline AdvReac Intermediate Diarrhea Verified 10/23/22 08:49 prednisone AdvReac Other Verified 10/23/22 08:49 Surgical History H/O: knee surgery history c-scope History of History of dilation and curettage History of wisdom tooth extraction Social History Smoking Status: Former smoker alcohol intake: never substance use type: does not use caffeine: Yes what type of physical activity do you participate in: other details: rowing, pilates frequency: 5-6 times per week seatbelt use: always do you feel safe at home: Yes additional social history: Patient works at [employer] ED Neurologic Neurologic: Denies headache(s) Psychiatric Psychiatric: Reports depression Endocrine Endocrinology: Denies cold intolerance Hematologic/Lymphatic Hematologic/Lymphatic: Denies systems reviewed and no addt'l complaints, except as documented Allergic/Immunologic Allergic/Immunologic ED: Denies mouth swelling EXAM Physical Exam Const Vital Signs: 02/14/23 10:35 02/14/23 11:34 Temperature 100.9 F H Temperature Source Temporal Pulse Rate 98 Respiratory Rate 22 H Respiratory Effort Normal Blood Pressure 106/91 H Blood Pressure Mean 96 Pulse Ox 100 Oxygen Delivery Method Room Air Positive well nourished and well developed General Appearance ED: well developed HEENT Reports TM's clear and moist mucous membranes HEENT Narrative: Bilateral tonsils 1+, symmetric. No evidence of abscess. Good range of motion of her neck. Anterior cervical lymphadenopathy bilaterally. Tonsillar exudates noted. Normal voice. Tympanic Membrane ED: Yes TM's clear Eyes PERRL and EOMs intact bilaterally Neck No no lymphadenopathy Resp normal respiratory effort and clear to auscultation bilaterally Cardio regular rhythm, S1 normal heart sound and S2 normal heart sound GI normal to inspection, nondistended, normoactive bowel sounds Extremity normal to inspection Neuro oriented x3 and CN's II-XII intact bilaterally Psych mental status grossly normal Skin no rashes or lesions noted, no wounds and skin turgor normal MDM MDM Lab Data Attestation: I reviewed the patient's lab results. Labs: Laboratory Results - last 24 hr 02/14/23 02/14/23 11:05 11:28 WBC 5.5 RBC 3.79 L Hgb 11.8 L Hct 35.3 L MCV 93.1 MCH 31.1 MCHC 33.4 RDW Std Deviation 41.1 RDW Coeff of [place] 12.0 Plt Count 294 MPV 8.6 Immature Gran % (Auto) 0.500 Neut % (Auto) 57.5 Lymph % (Auto) 33.9 Gibson % (Auto) 7.2 Eos % (Auto) 0.2 Baso % (Auto) 0.7 Absolute Neuts (auto) 3.2 Absolute Lymphs (auto) 1.88 Nucleated RBC % 0 Sodium 137 Potassium 3.6 Chloride 106 Carbon Dioxide 26.0 Anion Gap 5 BUN 7 Creatinine 0.90 Estim Creat Clear Calc 76.77 Est GFR (MDRD) Af Amer 92 Est GFR (MDRD) Non-Af 76 BUN/Creatinine Ratio 7.8 L Glucose 97 Calcium 8.3 L Urine Color Yellow Urine Clarity Clear Urine pH 6.0 Ur Specific [place] 1.015 Urine Protein Negative Urine Glucose (UA) Normal Urine Ketones Negative Urine Occult Blood 10 H Urine Nitrite Negative Urine Bilirubin Negative Urine Urobilinogen Normal Ur Leukocyte Esterase Negative Urine RBC 0 SEEN Urine WBC 0 SEEN Ur Squamous Epith Cells 5-10 SEEN Urine Bacteria 0 SEEN Urine Mucus 0 SEEN Monoscreen Negative Radiography Chest X-Ray - ED: 1 View and Read by ED Physician Diagnostic Testing: Clinical Impression(s) from Imaging Studies Chest X-Ray 02/14/23 11:45 IMPRESSION: Normal x-ray examination of the chest. Electronically Signed: Shai Anderson MD at 12:26 EDT , Differential Diagnosis Why less likely: I considered primarily infectious causes. The patient has a fever and sore throat with tonsillar exudates. Considered cardiovascular, respiratory, ENT etiologies as well. Exam does not show any evidence of abscess, gangrene, necrosis. I do not believe any imaging of her neck is indicated. She has a normal voice and no respiratory distress. Chest x-ray was negative for anything acute. COVID and influenza testing were negative. She had previous negative strep testing and is covered with cefdinir already. She will continue this. I am not sure what is causing a fever for over a week. She is not septic. White count is normal. Cultures are pending. Urinalysis negative. Monotest negative. Based on her exam, symptoms, and findings thus far, no further diagnostic testing is indicated emergently. She does not need hospitalization. She is afebrile currently and in no acute distress. We will continue [id number] remedies for fevers. Continue her antibiotics as prescribed. Follow-up with the ENT??she is established with Dr. Verma already. Return to the ER if she has new or worsening issues she may need further evaluation, diagnostic work-up, or even hospitalization. Patient voiced understanding and agreement. We will contact her with abnormal cultures. Patient will be discharged home. Impression #1 tonsillitis Impression of acute febrile illness Discharge Plan Triage Chief Complaint: Fever Other Complaint: Cold Sx ED Provider: Cameron Davis Dx/Rx/DC Orders Instructions: ED Pharyngitis, Viral Prescriptions: No Action multivitamin Tablet 1 tab PO DAILY fluoxetine 40 mg capsule 40 mg PO DAILY Qty: 30 8RF Primary Care Provider: Tong Warren Referrals: René Verma MD [Med Staff - Courtesy Staff] - Tong Warren MD [Primary Care Provider] - Disposition Disposition: Home, Self Care
[2023-02-14 11:20] LABS: Absolute Lymphocyte Count 1.88 X10^3/uL (0.83-4.51); Absolute Neutrophil Count 3.2 X10^3/uL (2.0-7.7); Basophil# 0.04 X10^3/uL; Basophil% 0.7 % (0-1); Eosinophil# 0.01 X10^3/uL; Eosinophils% 0.2 % (0-5); Hematocrit 35.3 % (37-47); Hemoglobin 11.8 g/dL (12.0-15.0); Lymphocyte # 1.88 X10^3/ul (0.83-4.51); Lymphocyte % 33.9 % (19-41); Mean Corp Hgb Conc 33.4 g/dL (32-36); Mean Corpuscular Hgb 31.1 pg (27.0-32.0); Mean Corpuscular Volume 93.1 fL (81-99); Mean Platelet Vol. 8.6 fl (6.2-12.0); Monocyte% 7.2 % (0-10); NRBC Flagged by Analyzer 0 % (0-5); Neutrophil # 3.18 X10^3/uL (2.7-7.7); Neutrophil % 57.5 % (47-70); POSITIVE MORPHOLOGY YES; Platelet Count 294 K/mm3 (150-450); RBC Distribution Width SD 41.1 fl (35.1-43.9); Red Blood Count 3.79 M/mm3 (4.2-5.4); White Blood Count 5.5 K/mm3 (4.4-11.0)
[2023-02-14 11:22] LABS: Differential Indicated SCAN CRITERIA MET
[2023-02-14 11:34] LABS: Anion Gap 5 (5-15); BUN 7 mg/dL (7-18); BUN/Creat Ratio 7.8 RATIO (10-20); Calcium,Total 8.3 mg/dL (8.5-10.1); Chloride 106 mmol/L (98-107); EST Glomerular Filtration Rate 76 mL/min (>60); Est Glom Filt Rate - Afr Amer 92 mL/min (>60); Estimated Creatinine Clearance 76.77 ml/min; Glucose 97 mg/dL (74-106); Potassium 3.6 mmol/L (3.5-5.1); Sodium Level 137 mmol/L (136-145)
[2023-02-14 11:35] LABS: Internal QC Validated? YES +Cl - CLEAR BKGD; Monotest Negative (Negative); Record Kit Lot#, Mono 13231163
[2023-02-14 11:36] LABS: Bacteria 0 SEEN /hpf (None Seen); Mucous, Urine 0 SEEN /hpf (<or=2+); Red Blood Cells-Urine 0 SEEN /hpf (0-5); White Blood Cells 0 SEEN /hpf (0-5)
[2023-02-14 11:37] LABS: Color, Urine Yellow (Yellow); Glucose, Dipstick Normal (Normal); Ketone-Dipstick Negative (Negative); Leukocyte Esterase-Dipstick Negative /ul (Negative); Nitrite-Dipstick Negative (Negative); Occult Blood-Urine 10 /ul (Negative); Protein-Dipstick Negative (Negative); Specific Gravity, Urine 1.015 (1.002-1.030); Urine Bilirubin Dipstick Negative (Negative); Urine Clarity Clear (Clear); Urine Urobilinogen Normal (Normal)
[2023-02-14 11:44] LABS: Squamous Epithelial Cells - UA 5-10 SEEN /hpf (5-10)
[2023-02-14] MEDS: LORazepam 1 MG Tablet PO (11:44)
--- NOTE | 2023-02-14 11:45 | RAD_ITS ---
STUDY: X-RAY CHEST REASON FOR EXAM: Female, 32 years old. Cough, fevers TECHNIQUE: Single AP portable view of the chest. COMPARISON: June 05, 2021 FINDINGS: The lungs are clear and expanded. There is no demonstrated pleural abnormality. Normal size heart. Normal mediastinum and leann. Normal visualized pulmonary arteries. Normal visualized aortic arch and descending thoracic aorta. Normal visualized thoracic spine. Normal visualized ribs, clavicles, and shoulders. There is no demonstrated abnormality of the visualized soft tissue structures of the upper abdomen. RAD/Chest 1 View (Portable) IMPRESSION: Normal x-ray examination of the chest. Electronically Signed: Shai Anderson MD at 12:26 EDT ,
[2023-02-14 13:09] VITALS: BP 104/68; PULSE 77; RESP 14; O2SAT 100
== END 2023-02-14 13:13 | disposition home or self-care (01) ==
PROVIDERS: Emergency Provider Emergency Medicine; PCP Family Medicine; Visit Provider Emergency Medicine
DX: J02.9 Acute pharyngitis, unspecified (principal); Z87.891 Personal history of nicotine dependence; F32.A Depression, unspecified; F41.9 Anxiety disorder, unspecified
CPT/HCPCS: 71045; 80048; 81001; 85025; 86308; 87040; 87428; 99284; A4216

== ENCOUNTER → 2023-06-02 | Outpatient (CLI) | payer OTHER, SELFPAY ==
--- NOTE | 2023-06-02 09:23 | BI_ITS ---
MAMMOGRAPHY - BILATERAL DIAGNOSTIC REASON FOR EXAM: Female, 32 years old. Galactorrhea. Stopped breast-feeding in July 2021. History of mastitis in the past with clogged breast ducts. PERTINENT HISTORY: Left breast tenderness for years. TECHNIQUE: Digital examination. Mediolateral oblique (MLO) and craniocaudad (CC) views of both breasts were obtained. CAD: CAD was performed on this study. COMPARISON: October 01, 2021 FINDINGS: Breast Composition: The breasts are heterogeneously dense, which may obscure small masses. There are no dominant masses or suspicious calcifications. No other significant abnormalities are identified. BI/DIAG MAMM W/CAD, BILAT IMPRESSION: Stable bilateral diagnostic mammogram. 6 month follow-up bilateral mammogram recommended to get the patient back on her annual schedule. ASSESSMENT CATEGORY: BIRADS Category 3: Probably Benign - Short-Interval Follow-up Suggested. A letter regarding these results will be sent to the patient by the facility within 30 days. FOLLOW UP RECOMMENDATION: Follow up recommended within 6 months. (C) Approximately 10% of breast cancers are not detected by mammography. A normal mammogram should not delay biopsy of a clinically suspicious abnormality. Electronically Signed: Amol King MD at 10:10 EST ,
[2023-06-02 10:04] LABS: Prolactin 14.4 ng/mL
== END | disposition home or self-care (01) ==
PROVIDERS: PCP Family Medicine; Referring Provider Obstetrics & Gynecology; Visit Provider Obstetrics & Gynecology
DX: N64.3 Galactorrhea not associated with childbirth (principal)
CPT/HCPCS: 36415; 77062; 77066; 84146; G0279

== ENCOUNTER → 2023-06-25 | Outpatient (CLI) | payer OTHER, SELFPAY ==
[2023-06-25 13:42] LABS: hCG Titer Quant., Serum < 1 mIU/mL (1-3)
[2023-06-25 14:15] LABS: HIV - WCH Non-Reactive (Nonreactive); Hepatitis B Surface Antigen Non-Reactive (Nonreactive); Hepatitis C Antibody Non-Reactive (Nonreactive); Syphilis Antibodies Non-reactive
[2023-06-30 21:07] LABS: Chlamydia By Nucleic Acid AMP Negative (Negative); Gonococcus By Nucleic Acid AMP Negative (Negative)
== END | disposition home or self-care (01) ==
PROVIDERS: PCP Family Medicine; Referring Provider Obstetrics & Gynecology; Visit Provider Obstetrics & Gynecology
DX: Z11.3 Encounter for screening for infections with a predominantly sexual mode of transmission (principal); N91.2 Amenorrhea, unspecified; N93.9 Abnormal uterine and vaginal bleeding, unspecified
CPT/HCPCS: 36415; 84702; 86703; 86780; 86803; 87340; 87491; 87591

== ENCOUNTER 2024-06-18 14:29 | Emergency (ER) | payer MEDICAID, SELFPAY ==
[2024-06-18 14:31] VITALS: BP 117/82; PULSE 116; RESP 15; TEMP 35.9; O2SAT 99; BMI 24.0
[2024-06-18] MEDS: Lidocaine 1% /Epi 1:100 (20ml) 20 ML Vial INFILT (15:32)
--- NOTE | 2024-06-18 15:42 | EDS_ITS ---
HPI HPI - Female History of Present Illness Chief Complaint: Female C/O Narrative Narrative: Chief complaint and HPI: Vaginal mass. 34-year-old female with past medical history of anxiety presents for evaluation of vaginal mass. Patient states yesterday she noticed a bump/mass on the vaginal wall of her left vagina. She states that she started touching it to see what it was. She states she called her MEMBERSHIP SALES ADVISOR and has an appointment on Thursday for evaluation. Patient states that the mass became painful today which is why she presents. She denies any fever, chills, abdominal pain, nausea, vomiting, dysuria, hematuria. Review of systems: See HPI Medications: As listed on the chart Allergies: As listed on the chart PFSH: Per chart Vital signs: As listed on the chart. Reviewed. Physical exam: Gen: A&O x3, NAD Head: Normocephalic, atraumatic Eyes: No sclera icterus, conjunctiva clear ENT: Moist mucous membranes Neck: Trachea midline, No JVD CV: RRR, no murmurs, no peripheral edema Resp: Lungs CTA BL, no w/r/c GI: Abd soft, non-distended, non-tender, no r/r/g Pelvic: Normal external genitalia. Patient has an area of inflammation and tenderness around her urethra more on the left. Area is tender to palpation but no fluctuance to suggest abscess. No active vaginal bleeding or discharge noted. No drainage or bleeding noted from the cervix. Cervix is non-friable. No cervical motion tenderness appreciated. Musc: Full ROM, no deformity Skin: Warm, dry Neuro: Alert, oriented, grossly intact, sensation intact Psych: Cooperative, appropriate mood and affect [facility] Medical History Acute bronchitis, unspecified Acute pharyngitis, unspecified Acute sinusitis, unspecified Acute streptococcal pharyngitis Anxiety Asthma Constipation Contact with and (suspected) exposure to other viral communicable diseases Depression Diarrhea Epigastric pain GERD (gastroesophageal reflux disease) Hemorrhoids History of back problems History of blood transfusion IBS (irritable bowel syndrome) Impetigo Nausea & vomiting (vaginal after ) Home Medications ?Medication ?Instructions ?Recorded ?Last Taken ?Type norethindrone (contraceptive) 0.35 0.35 mg PO DAILY #28 tabs 06/25/23 Unknown Rx mg tablet escitalopram oxalate 10 mg tablet 10 mg PO DAILY #30 tabs 08/14/23 Unknown Rx (Lexapro) cephalexin 500 mg capsule 500 mg PO BID 5 days #10 caps 06/18/24 Unknown Rx Allergy/AdvReac Type Severity Reaction Status Date / Time morphine Allergy Intermediate histamine Verified 06/18/24 14:31 reaction clavulanic acid (From Allergy Rash Verified 06/18/24 14:31 Augmentin) doxycycline AdvReac Intermediate Diarrhea Verified 06/18/24 14:31 prednisone AdvReac Other Verified 06/18/24 14:31 Surgical History H/O: knee surgery history c-scope History of History of dilation and curettage History of wisdom tooth extraction Social History Smoking Status: Former smoker alcohol intake: never substance use type: does not use caffeine: Yes what type of physical activity do you participate in: other details: rowing, pilates frequency: 5-6 times per week seatbelt use: always do you feel safe at home: Yes additional social history: Getting Patient works at [employer] EXAM Physical Exam Const Vital Signs: 06/18/24 14:31 06/18/24 16:51 Temperature 96.7 F L 98.5 F Temperature Source Temporal Pulse Rate 116 H 95 Respiratory Rate 15 16 Blood Pressure 117/82 H 127/62 H Blood Pressure Mean 93 83 Pulse Ox 99 99 Oxygen Delivery Method Room Air MDM MDM MDM Narrative Medical decision making narrative: 34-year-old female with past medical history of anxiety presents for evaluation of vaginal mass. Physical exam has an area of inflammation and tenderness around her urethra more on the left. Area is tender to palpation but no fluctuance to suggest abscess. No a Bartholin cyst. I suspect that this may just be an area of inflammation. I had my senior data analyst look at the area as well and he agrees. Will get urine to assess for UTI. Patient has no concern for STD or . UA positive for UTI. Urine culture sent. Patient will be placed on Keflex twice daily x 5 days. Patient has an appointment with her MEMBERSHIP SALES ADVISOR on Thursday. She was informed to keep this appointment. Monitor for worsening signs and symptoms. Patient stable to discharge home. Impression: 1. Vaginal inflammation 2. UTI Lab Data Labs: Laboratory Results - last 24 hr 06/18/24 16:06 Urine Color Yellow Urine Clarity Sl. Cloudy Urine pH 6.5 Ur Specific [place] 1.015 Urine Protein 15 H Urine Glucose (UA) Normal Urine Ketones Negative Urine Occult Blood 10 H Urine Nitrite Negative Urine Bilirubin Negative Urine Urobilinogen Normal Ur Leukocyte Esterase 25 H Urine RBC 0-5 SEEN Urine WBC 5-10 SEEN Ur Squamous Epith Cells 0-5 SEEN Urine Bacteria 1+ Urine Mucus 1+ Discharge Plan Triage Chief Complaint: Female C/O ED Provider: Drew Schroeder Dx/Rx/DC Orders Clinical Impression: Swelling of vagina, UTI (urinary tract infection) Instructions: Anatomy of the Female Urinary Tract, Urinary Tract Infections in Women Prescriptions: New cephalexin 500 mg capsule 500 mg PO BID 5 Days Qty: 10 0RF No Action norethindrone (contraceptive) 0.35 mg tablet 0.35 mg PO DAILY Qty: 28 12RF Rx Instructions: start day 1 of menstrual cycle escitalopram oxalate [Lexapro] 10 mg tablet 10 mg PO DAILY Qty: 30 12RF Primary Care Provider: Tong Warren Referrals: Tong Wraren MD [Primary Care Provider] - 3-5 Days Opal Bhat MD [Med Staff - Active Staff] - 3-5 Days Activity Restrictions/Additional Instructions: Motrin and Tylenol as needed for pain. Keep your appointment with the MEMBERSHIP SALES ADVISOR. Print Language: Citizen [place] Disposition Disposition: Home, Self Care
[2024-06-18 16:20] LABS: Color, Urine Yellow (Yellow); Glucose, Dipstick Normal (Normal); Ketone-Dipstick Negative (Negative); Leukocyte Esterase-Dipstick 25 /ul (Negative); Nitrite-Dipstick Negative (Negative); Occult Blood-Urine 10 /ul (Negative); Protein-Dipstick 15 mg/dl (Negative); Specific Gravity, Urine 1.015 (1.002-1.030); Urine Bilirubin Dipstick Negative (Negative); Urine Clarity Sl. Cloudy (Clear); Urine Urobilinogen Normal (Normal); Urine pH 6.5 (5.0 - 8.0)
[2024-06-18 16:29] LABS: Bacteria 1+ /hpf (None Seen); Mucous, Urine 1+ /hpf (<or=2+); Squamous Epithelial Cells - UA 0-5 SEEN /hpf (5-10)
[2024-06-18 16:31] LABS: Red Blood Cells-Urine 0-5 SEEN /hpf (0-5); White Blood Cells 5-10 SEEN /hpf (0-5)
[2024-06-18 16:51] VITALS: BP 127/62; PULSE 95; RESP 16; TEMP 36.9; O2SAT 99
== END 2024-06-18 16:58 | disposition home or self-care (01) ==
PROVIDERS: Emergency Provider Surgery; PCP Family Medicine; Visit Provider Surgery
DX: N76.0 Acute vaginitis (principal); N39.0 Urinary tract infection, site not specified; Z87.891 Personal history of nicotine dependence
CPT/HCPCS: 81001; 87086; 87088; 99282

== ENCOUNTER 2024-06-19 08:15 | Emergency (ER) | payer MEDICAID, SELFPAY ==
[2024-06-19 08:16] VITALS: BP 118/84; PULSE 110; RESP 16; TEMP 36.6; O2SAT 98; BMI 25.2
--- NOTE | 2024-06-19 08:35 | EDS_ITS ---
HPI HPI - Female History of Present Illness Chief Complaint: Female C/O Detail of Chief Complaint: Pain and burning left side of urethra Informant: patient Pain Pain: Positive for Pelvic Pain Onset: Days Context: Sudden Onset Timing: Continuous Quality: Positive for Burning Location: - (Left side of urethra) Current Severity: Mild Maximum Severity: Severe Worsened by: - (Palpation and movement) Relieved by: - (Nothing) Bleeding Issue: Negative for Vaginal bleeding, Passing clots or Passing tissue Associated Symptoms Associated Symptoms: Negative for Dysuria, Frequency, Urgency, Hematuria or Missed Period P: 2 Ab: 4 Narrative Narrative: Patient is a 34-year-old G6, P2 AB 4 female who presents with pain swelling left side of the urethra. She was seen yesterday. Note was reviewed. She was treated with cephalexin. She denies history of STI. She denies dysuria, frequency, urgency or hematuria. She denies vaginal bleeding. Patient's urine revealed white count of 5-10 and 1+ bacteria. Patient was treated with with cephalexin for presumed UTI. She denies back pain or flank pain. She denies fever or chills. She denies vaginal discharge. Prior similar symptoms: Yes Recent Illness/Hospitalization: Yes [facility] Medical History Acute streptococcal pharyngitis Acute sinusitis, unspecified Impetigo Acute bronchitis, unspecified Acute pharyngitis, unspecified Contact with and (suspected) exposure to other viral communicable diseases History of blood transfusion (vaginal after ) Hemorrhoids Constipation Diarrhea IBS (irritable bowel syndrome) GERD (gastroesophageal reflux disease) Nausea & vomiting Epigastric pain Asthma History of back problems Depression Anxiety Home Medications ?Medication ?Instructions ?Recorded ?Last Taken ?Type norethindrone (contraceptive) 0.35 0.35 mg PO DAILY #28 tabs 06/25/23 Unknown Rx mg tablet escitalopram oxalate 10 mg tablet 10 mg PO DAILY #30 tabs 08/14/23 Unknown Rx (Lexapro) cephalexin 500 mg capsule 500 mg PO BID 5 days #10 caps 06/18/24 Unknown Rx oxycodone-acetaminophen 5 mg-325 1 tab PO Q6H PRN PRN Pain 2 days 06/19/24 Unknown Rx mg tablet #8 TABLETS oxycodone-acetaminophen 5 mg-325 1 tab PO Q6H PRN PRN pain 7 days 06/19/24 Unknown Rx mg tablet (Percocet) #15 tabs Allergy/AdvReac Type Severity Reaction Status Date / Time morphine Allergy Intermediate histamine Verified 06/19/24 08:16 reaction clavulanic acid (From Allergy Rash Verified 06/19/24 08:16 Augmentin) doxycycline AdvReac Intermediate Diarrhea Verified 06/19/24 08:16 prednisone AdvReac Other Verified 06/19/24 08:16 Family History no significant family his Surgical History H/O: knee surgery History of wisdom tooth extraction history c-scope History of dilation and curettage History of Social History Smoking Status: Former smoker alcohol intake: never substance use type: does not use caffeine: Yes what type of physical activity do you participate in: other details: rowing, pilates frequency: 5-6 times per week seatbelt use: always do you feel safe at home: Yes additional social history: Getting Patient works at [employer] ED Constitutional Constitutional ED: Denies chills, fever(s), subjective or sweats Eyes Eyes: Denies blurry vision or change in vision Gastrointestinal Gastrointestinal: Reports abdominal pain; Denies nausea or vomiting Genitourinary Genitourinary ED: Reports other Details: Per HPI narrative ; Denies dysuria, hematuria or urinary frequency Neurologic Neurologic: Denies headache(s), paresthesias or weakness Endocrine Endocrinology: Denies heat intolerance Hematologic/Lymphatic Hematologic/Lymphatic: Denies easy bleeding or easy bruising EXAM Physical Exam Const Vital Signs: 06/19/24 08:16 Temperature 98 F Temperature Source Temporal Pulse Rate 110 H Respiratory Rate 16 Blood Pressure 118/84 H Blood Pressure Mean 95 Pulse Ox 98 Oxygen Delivery Method Room Air Positive well nourished and well developed General Appearance ED: well developed and NAD; Negative for pallor HEENT Reports moist mucous membranes HEENT Narrative: Head is atraumatic and normocephalic. Eyes PERRL and EOMs intact bilaterally General Eye ED: Negative for pale conjunctiva or scleral icterus Neck supple and no JVD Resp normal respiratory effort and clear to auscultation bilaterally Cardio regular rhythm, S1 normal heart sound, no murmurs and no JVD Rate: tachycardic GI normal to inspection, nondistended, normoactive bowel sounds, soft to palpation, non-tender, non-distended and no masses Narrative: Patient has swelling left side of the urethra that extends up to the apex of the the left labia minora. There is no inflammation of the clitoris or clitoris hess. There is firmness in the area with some mild inflammation. Unable to tell if there is fluctuance because patient is in extreme pain. There is no evidence of a Bartholin's abscess. There is no vaginal bleeding or discharge noted. External genital exam was performed with Adna chaperoning. Back/Spine no CVA tenderness Extremity normal to inspection and full ROM Neuro oriented x3 and CN's II-XII intact bilaterally Sensorium / Orientation: alert Psych mental status grossly normal Skin no rashes or lesions noted and no wounds General Skin Exam: Negative for jaundice or pallor MDM MDM MDM Narrative Medical decision making narrative: Patient states she was instructed come to the ER by Dr. Clara Fong. Contacted Dr. Clara Fong. She believes she has an abscess involving the skene gland. She asked that I order I&D set up. I was asked to then place order for silver nitrate to control bleeding status post I&D of the gland. There was significant mount of purulent material. Patient has an appointment to be seen on . History & Record Review Discussion w/independent historian: Patient Lab Data Lab results narrative: No blood work was ordered per discussion with Dr. Clara Fong. Management Discussion w/another healthcare provider: [facility] and Re-Evaluation Narrative: I&D performed by Dr. Fong. Patient was discharged to home in stable and improved condition. Procedure note per Dr. Fong. Discharge Plan Triage Chief Complaint: Female C/O ED Provider: HallHoward Dx/Rx/DC Orders Clinical Impression: Abscess, Lookout's gland, Sinus tachycardia Instructions: ED Abscess Incision And Drainage Prescriptions: New oxycodone-acetaminophen [Percocet] 5-325 mg tablet 1 tab PO Q6H PRN PRN (Reason: pain) 7 Days Qty: 15 0RF Rx Instructions: 1-2 tabs q 4 hrs as needed for pain oxycodone-acetaminophen 5-325 mg tablet 1 tab PO Q6H PRN PRN (Reason: Pain) 2 Days Qty: 8 0RF No Action norethindrone (contraceptive) 0.35 mg tablet 0.35 mg PO DAILY Qty: 28 12RF Rx Instructions: start day 1 of menstrual cycle cephalexin 500 mg capsule 500 mg PO BID 5 Days Qty: 10 0RF escitalopram oxalate [Lexapro] 10 mg tablet 10 mg PO DAILY Qty: 30 12RF Primary Care Provider: Tong Warren Referrals: Clara Greenwood DO [Med Staff - Active Staff] - Keep Queta appointment Tong Warren MD [Primary Care Provider] - Activity Restrictions/Additional Instructions: Take cephalexin until gone. Print Language: Chinese Disposition Disposition: Home, Self Care Discharge Date/Time: 06/19/24 10:05
[2024-06-19] MEDS: Lidocaine 1% (20 ml mdv) 20 ML Vial INFILT (08:44)
[2024-06-19] MEDS: Ketorolac 15 MG/ML Vial IV (08:58)
--- NOTE | 2024-06-19 09:40 | PCM.OP.PRO2 ---
Problems Associated Problem List Diagnoses (1) [place] gland abscess: Multi Select Codes Urinary/Genital Urinary/Genital CPT Codes: 73485 Drainage of gland abscess Non-invasive Procedural Procedure Information Date of Procedure: 06/19/24 Pre-Procedure Diagnosis: skene gland abscess Post-Procedure Diagnosis: skene gland abscess Procedure Performed:: incision and drainage of skene gland abscess preparation department supervisor: No Procedure Start Time: 09:23 Procedure Stop Time: 09:38 Description of procedure: The patient was seen in the emergency room for painful bulge lateral to her urethral meatus and in the wall of the vagina. She was seen a day ago and put on keflex but the pain woke her from sleep last night. A skene gland abscess or cyst was diagnosed. The area was cleansed with chlorhexadine and injected with 3cc of plain lidocaine 1%. After injection, purulent material began exiting the injection site and urethra. A small stab incision was made with an 11 blade that was approximately 2 mm and copious amounts of white purulent material escaped the lesion. Culture swab was not readily available and all material was immediately exited. Silver nitrite was used for hemostasis. The patient tolerated the procedure well. Procedure findings: left skene gland abscess. Complications Complications: No
[2024-06-19] MEDS: Silver Nitrate (BKC) 4 EACH TOPICAL (09:41)
--- NOTE | 2024-06-19 10:06 | ED.RN ---
Dr. emerson informed that pt. had 2 percocet perscriptions sent to pharmacy. One from dr. emerson and one from Dr. Cisneros. Dr. Emerson states he will cancel his as pt. should only get 1 script.
--- NOTE | 2024-06-19 10:10 | ED.RN ---
ASSISTED DR WITH I AND D OF SKENE CYST. COPIOUS AMOUNTS OF PURULENT MATERIAL EXTRACTED. PT TOLERATED WELL
== END 2024-06-19 10:05 | disposition home or self-care (01) ==
PROVIDERS: Emergency Provider Emergency Medicine; PCP Family Medicine; Visit Provider Emergency Medicine
DX: N34.0 Urethral abscess (principal); R00.0 Tachycardia, unspecified; Z87.891 Personal history of nicotine dependence
CPT/HCPCS: 96374; 99283; A4216

== ENCOUNTER 2024-07-09 10:01 | Emergency (ER) | payer MEDICAID, SELFPAY ==
[2024-07-09 10:03] VITALS: BP 122/82; PULSE 103; RESP 18; TEMP 36.6; O2SAT 100; BMI 24.8
--- NOTE | 2024-07-09 11:00 | EX.ED.DYSGE1 ---
HPI History of Present Illness Chief Complaint: General Illness Narrative Narrative: 34-year-old female presents with multiple somatic complaints. She relays history that she has not felt well since she was treated for skene gland that was infected. 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 She was seen in an outside emergency department yesterday mainly for chest heaviness that she was having and was told her potassium was low. They gave her 4 pills and told her to follow-up. She was concerned because yesterday after she got into the shower with very hot water, she noticed that her veins were engorged and appeared more dark purple. She also thinks that she may have Raynaud's syndrome because many people in her family do as well. She is trying to cut back on her smoking/vaping. 3 days ago, she had a different kind of nicotine vape and tried to taper because when she tried to quit cold turkey she went through nicotine withdrawal. This morning, she awoke with heart palpitations and heart racing. Admittedly, she has preoccupation and concerns about health related conditions. She presents today, thinking that there is something wrong with her veins/her vascular system. Additionally, she relates history that she went to her primary care provider and had laboratory work. She was found that she had a low B12 level. She is to see psychiatry as well, but she had a change in insurance/difficulty with reimbursement for intensive outpatient therapy. [facility] Medical History Acute streptococcal pharyngitis Acute sinusitis, unspecified Impetigo Acute bronchitis, unspecified Acute pharyngitis, unspecified Contact with and (suspected) exposure to other viral communicable diseases History of blood transfusion (vaginal after ) Hemorrhoids Constipation Diarrhea IBS (irritable bowel syndrome) GERD (gastroesophageal reflux disease) Nausea & vomiting Epigastric pain Asthma History of back problems Depression Anxiety Home Medications ?Medication ?Instructions ?Recorded ?Last Taken ?Type norethindrone (contraceptive) 0.35 0.35 mg PO DAILY #28 tabs 06/25/23 Unknown Rx mg tablet escitalopram oxalate 10 mg tablet 10 mg PO DAILY #30 tabs 08/14/23 Unknown Rx (Lexapro) desvenlafaxine succinate 25 mg 25 mg PO QDAY #30 tabs 07/04/24 Unknown Rx tablet,extended release 24 hr (Pristiq) nicotine 7 mg/24 hr daily 1 patch transdermal Q24H #14 ea 07/04/24 Unknown Rx transdermal patch (Nicoderm CQ) Allergy/AdvReac Type Severity Reaction Status Date / Time morphine Allergy Intermediate histamine Verified 07/09/24 10:06 reaction clavulanic acid (From Allergy Rash Verified 07/09/24 10:06 Augmentin) doxycycline AdvReac Intermediate Diarrhea Verified 07/09/24 10:06 prednisone AdvReac Other Verified 07/09/24 10:06 Surgical History H/O: knee surgery History of wisdom tooth extraction history c-scope History of dilation and curettage History of Social History Smoking Status: Heavy Smoker (>10/day) alcohol intake: never substance use type: does not use caffeine: Yes what type of physical activity do you participate in: other details: rowing, pilates frequency: 5-6 times per week seatbelt use: always do you feel safe at home: Yes additional social history: Getting Patient works at [employer] ROS ROS ED ROS Narrative Review of systems positive for palpitations, previous chest heaviness, no fevers or chills. No nausea or vomiting. States that veins were engorged and dark in her arms traveling all the way into her chest. Multiple episodes of crying, when not around children/family. Denies suicidal ideation. No hallucinations. EXAM Physical Exam Narrative Exam Narrative: Afebrile. Vital signs noted. Nontoxic-appearing. HEENT: Normocephalic. Atraumatic. PERRL, EOMI. Neck soft and supple. No point tenderness or step off. Cardiovascular: Mild tachycardia no murmurs, rubs, or gallops appreciated. Palpable radial pulses bilaterally. Good capillary refill of fingers bilaterally. No overt swelling of arms or engorged veins. Respiratory: No tachypnea. Lungs clear to auscultation bilaterally. Gastrointestinal: Abdomen soft, nontender, with normoactive bowel sounds. No rebound or guarding. Neurological: Awake. Alert. Nonfocal, nonlateralizing. Skin: No rash. Normal color. No pallor. Musculoskeletal: No pedal edema. Full range of motion extremities. Psychiatric: Positive anxiety. Tearful on examination. Const Vital Signs: 07/09/24 10:03 07/09/24 11:00 Temperature 98 F Temperature Source Temporal Pulse Rate 103 H Respiratory Rate 18 Respiratory Effort Normal Non-Labored Respiratory Pattern Normal Blood Pressure 122/82 H Blood Pressure Mean 95 Pulse Ox 100 Oxygen Delivery Method Room Air MDM MDM MDM Narrative Medical decision making narrative: Differential diagnosis includes but not limited to depression/anxiety with panic attack versus POTS syndrome versus electrolyte imbalance. I had a very lengthy discussion with the patient regarding her symptoms being related to depression and anxiety. She has apparent preoccupation with health conditions and becomes anxious regarding fear of and dying. Given that she has been awakening with palpitations and chest heaviness, I feel that they are probably more related to anxiety. She states that she had a workup yesterday for her chest pain and her cardiovascular concerns. She is afebrile here and her blood pressure is 122/82 which she thinks is high for her because she usually runs 116 systolically. Her pulse ox is 100% on room air without evidence of hypoxia. I doubt pulmonary embolism. She was given a prescription for Ativan 0.5 mg to take twice a day as needed by her primary care provider. She states that she is to follow-up with psychiatry through the [facility]. As she has palpable pulses radially, I have very low suspicion for arterial obstruction, and low suspicion for DVT based on her clinical examination and history, and there is no overt swelling. I do not feel that she needs a 72-hour hold for psychiatry, she is not suicidal or homicidal. I did suggest that she take her benzodiazepine as directed by her primary care provider as needed. She has not taken a tablet as of yet. She was reassured that her feared condition was not demonstrated. At this point in time, she is agreeable to discharge and follow-up with outpatient psychiatry and her primary care provider. Her medical screening examination does not demonstrate any life or limb threatening process currently. Return instructions to the emergency department were reviewed. Disposition is discharged home in stable condition. History & Record Review Discussion w/independent historian: Patient Discharge Plan Triage Chief Complaint: General Illness ED Provider: Randy Upton Dx/Rx/DC Orders Clinical Impression: Anxiety and depression, Encounter for medical screening examination, Feared condition not demonstrated Instructions: ED Anxiety Reaction, ED Depression, ED Screening Exam Medical Nonurgent Prescriptions: No Action norethindrone (contraceptive) 0.35 mg tablet 0.35 mg PO DAILY Qty: 28 12RF Rx Instructions: start day 1 of menstrual cycle desvenlafaxine succinate [Pristiq] 25 mg tablet extended release 24 hr 25 mg PO QDAY Qty: 30 0RF nicotine [Nicoderm CQ] 7 mg/24 hr patch 24 hour 1 patch transdermal Q24H Qty: 14 6RF escitalopram oxalate [Lexapro] 10 mg tablet 10 mg PO DAILY Qty: 30 12RF Primary Care Provider: Tong Warren Referrals: Tong Warren MD [Primary Care Provider] - 3-5 Days Activity Restrictions/Additional Instructions: Medication as previously prescribed by your provider. Return with new or worsening symptoms. Print Language: Finnish Disposition Disposition: Home, Self Care Discharge Date/Time: 07/09/24 11:16
== END 2024-07-09 11:16 | disposition home or self-care (01) ==
PROVIDERS: Emergency Provider Emergency Medicine; PCP Family Medicine; Visit Provider Emergency Medicine
DX: F41.9 Anxiety disorder, unspecified (principal); F32.A Depression, unspecified; F17.200 Nicotine dependence, unspecified, uncomplicated; Z71.1 Person with feared health complaint in whom no diagnosis is made
CPT/HCPCS: 99282

== ENCOUNTER 2024-07-16 10:22 | Emergency (ER) | payer MEDICAID, SELFPAY ==
[2024-07-16 10:22] VITALS: BP 113/82; PULSE 79; RESP 14; TEMP 36.1; O2SAT 98; BMI 23.8
--- NOTE | 2024-07-16 11:06 | EKG12_ITS ---
Test Reason : GENERAL Blood Pressure : */* mmHG Vent. Rate : 87 BPM Atrial Rate : 87 BPM P-R Int : 138 ms QRS Dur : 74 ms QT Int : 366 ms P-R-T Axes : 57 12 18 degrees QTcB Int : 440 ms Normal sinus rhythm Normal ECG Confirmed by MISHA JOHNS, NARESH ([id number]), editor greeting card DECLAN OLMEDO ([id number]) on 07/18/2024 8:19:08 AM Referred By: Confirmed By: NARESH CABRAL MD
--- NOTE | 2024-07-16 11:07 | EX.ED.UPPERE ---
HPI History of Present Illness Chief Complaint: Upper Extremity Injury Detail of Chief Complaint: Pain in left arm and multiple complaints Informant: patient Narrative Narrative: Patient presents to the emergency department complaint of pain in her left arm x 2 weeks. Patient states that she went to the ER 2 weeks ago for chest pain and had an IV started in her left arm and they gave her some p.o. potassium. Since that time has been having pain in her left arm and at times her veins seem engorged. She is having had a diffuse pain from the armpit to the hand. She tells me she had a syncopal episode a week ago and went back to the ER. She was told it was related to pain as at that time she initially developed pain in her left arm in which then triggered a syncopal episode. Patient has history of anxiety and depression. She also was worried that she had blood work done by her primary care physician and she had low B12 and elevated homocystine levels. She was seen by her primary care physician last week and had blood work again that was unremarkable. She believes everybody think she is crazy. She does see a psychiatrist. She does not think she needs to be admitted anywhere as she has no suicidal or homicidal ideations. She has a hard time sleeping and a hard time eating because she is so concerned about what might be going on with her. She has been reading a lot about some of her symptoms and is worried about burgers and other issues [facility] Medical History Acute streptococcal pharyngitis Acute sinusitis, unspecified Impetigo Acute bronchitis, unspecified Acute pharyngitis, unspecified Contact with and (suspected) exposure to other viral communicable diseases History of blood transfusion (vaginal after ) Hemorrhoids Constipation Diarrhea IBS (irritable bowel syndrome) GERD (gastroesophageal reflux disease) Nausea & vomiting Epigastric pain Asthma History of back problems Depression Anxiety Home Medications ?Medication ?Instructions ?Recorded ?Last Taken ?Type norethindrone (contraceptive) 0.35 0.35 mg PO DAILY #28 tabs 06/25/23 Unknown Rx mg tablet escitalopram oxalate 10 mg tablet 10 mg PO DAILY #30 tabs 08/14/23 Unknown Rx (Lexapro) desvenlafaxine succinate 25 mg 25 mg PO QDAY #30 tabs 07/04/24 Unknown Rx tablet,extended release 24 hr (Pristiq) nicotine 7 mg/24 hr daily 1 patch transdermal Q24H #14 ea 07/04/24 Unknown Rx transdermal patch (Nicoderm CQ) Allergy/AdvReac Type Severity Reaction Status Date / Time morphine Allergy Intermediate histamine Verified 07/16/24 10:23 reaction clavulanic acid (From Allergy Rash Verified 07/16/24 10:23 Augmentin) doxycycline AdvReac Intermediate Diarrhea Verified 07/16/24 10:23 prednisone AdvReac Other Verified 07/16/24 10:23 Surgical History H/O: knee surgery History of wisdom tooth extraction history c-scope History of dilation and curettage History of Social History Smoking Status: Heavy Smoker (>10/day) alcohol intake: never substance use type: does not use caffeine: Yes what type of physical activity do you participate in: other details: rowing, pilates frequency: 5-6 times per week seatbelt use: always do you feel safe at home: Yes additional social history: Getting Patient works at [employer] ROS ROS ED Review of Systems ROS Unobtainable: other Constitutional Constitutional ED: Reports lethargy; Denies chills, fever(s), sweats or weight loss Eyes Eyes: Denies blurry vision, change in vision or diplopia ENT ENT ED: Denies rhinorrhea or sore throat Cardiovascular Cardiovascular: Reports chest pain; Denies orthopnea or racing heartbeat Respiratory/Chest Respiratory/Chest: Denies cough, dyspnea, dyspnea on exertion, orthopnea or sputum Gastrointestinal Gastrointestinal: Denies abdominal pain, diarrhea, nausea or vomiting Genitourinary Genitourinary ED: Denies dysuria, hematuria or urinary frequency Musculoskeletal Musculoskeletal: Reports other Details: Left arm pain ; Denies arthralgias, back pain, myalgias or neck pain Integumentary Denies abscess, Abrasions or rash Neurologic Neurologic: Denies headache(s) or weakness Psychiatric Psychiatric: Denies anxiety, depression or suicidal thoughts Endocrine Endocrinology: Denies polydipsia, polyphagia or polyuria Hematologic/Lymphatic Hematologic/Lymphatic: Denies easy bleeding, easy bruising or lymphadenopathy Allergic/Immunologic Allergic/Immunologic ED: Denies mouth swelling, tongue swelling or urticaria EXAM Physical Exam Const Vital Signs: 07/16/24 10:22 Temperature 97 F L Temperature Source Temporal Pulse Rate 79 Respiratory Rate 14 Blood Pressure 113/82 H Blood Pressure Mean 92 Pulse Ox 98 Oxygen Delivery Method Room Air Positive well nourished and well developed General Appearance ED: well developed and NAD HEENT Reports TM's clear and moist mucous membranes normocephalic and atraumatic; Negative for trauma or tenderness Tympanic Membrane ED: Yes TM's clear Eyes PERRL and EOMs intact bilaterally General Eye ED: Negative for pale conjunctiva or scleral icterus Neck no lymphadenopathy, supple and no JVD General: Negative for tenderness Chest Wall inspection of chest normal and palpation of chest normal Chest: Negative for tenderness Resp normal respiratory effort and clear to auscultation bilaterally Effort and Inspection: Negative for respiratory distress or pain with movement Auscultation: Negative for rhonchi, wheezes or diminished lung sounds Cardio regular rate, regular rhythm, S1 normal heart sound, S2 normal heart sound and no murmurs Peripheral Pulses: pulses 2+ throughout GI normal to inspection, nondistended, normoactive bowel sounds, soft to palpation, non-tender, non-distended and no masses Back/Spine no CVA tenderness and no thoracic nor lumbar tenderness Extremity normal to inspection General Extremety ED: Negative for edema General Extremity: Negative for edema Neuro oriented x3, CN's II-XII intact bilaterally, no sensory deficits noted and gait normal Sensorium / Orientation: awake, alert, oriented to person, oriented to place and oriented to time Motor Exam: strength 5/5 throughout and strength abnormal Psych mental status grossly normal Skin no rashes or lesions noted and no wounds MDM MDM MDM Narrative Medical decision making narrative: Patient presents with multiple vague complaints of pain in her left arm and intermittent engorgement of the veins in her hands. She has had history of chest pain recently and also syncopal episode a week ago. She sees a cap parts cutter. She sees a primary care physician and a psychiatrist. Years ago she states that they thought that maybe she had POTS. She does describe racing heart at times when waking up in the morning and standing at first. Clinically looks well in the emergency department. Physical exam unremarkable. CBC with differential was unremarkable. Chemistries unremarkable. Magnesium was normal. EKG obtained on arrival showed a sinus rhythm with rate of 87 bpm with no acute ST segment changes. Patient also had a D-dimer that was normal. At this point etiology of her symptomatology unclear. Recommend she follow-up with her primary care physician and cap parts cutter. If concern for POTS will need to follow-up with cardiology and possibly have more testing such as tilt table testing. Patient comfortable with plan and discharged home in stable condition. Lab Data Attestation: I reviewed the patient's lab results. EKG Initial EKG: Attestation: I personally reviewed and interpreted this EKG as follows: Comments: Sinus rhythm with ventricular rate of 87 bpm with no acute ST segment change Discharge Plan Triage Chief Complaint: Upper Extremity Injury ED Provider: González Cat Dx/Rx/DC Orders Clinical Impression: Arm pain, left, Chest pain, Hx of syncope Instructions: ED Chest Pain, Uncertain Cause, ED Pain, Acute, Uncertain Cause, ED Fainting, Uncertain Cause Prescriptions: No Action norethindrone (contraceptive) 0.35 mg tablet 0.35 mg PO DAILY Qty: 28 12RF Rx Instructions: start day 1 of menstrual cycle desvenlafaxine succinate [Pristiq] 25 mg tablet extended release 24 hr 25 mg PO QDAY Qty: 30 0RF nicotine [Nicoderm CQ] 7 mg/24 hr patch 24 hour 1 patch transdermal Q24H Qty: 14 6RF escitalopram oxalate [Lexapro] 10 mg tablet 10 mg PO DAILY Qty: 30 12RF Primary Care Provider: Tong Warren Referrals: Tong Warren MD [Primary Care Provider] - 3-5 Days Print Language: Somali Disposition Disposition: Home, Self Care
[2024-07-16 11:30] LABS: Absolute Lymphocyte Count 1.63 X10^3/uL (0.83-4.51); Absolute Neutrophil Count 6.4 X10^3/uL (2.0-7.7); Basophil# 0.05 X10^3/uL; Basophil% 0.6 % (0-1); Eosinophils% 1.2 % (0-5); Hematocrit 34.7 % (37-47); Hemoglobin 11.9 g/dL (12.0-15.0); Lymphocyte # 1.63 X10^3/ul (0.83-4.51); Lymphocyte % 18.8 % (19-41); Mean Corp Hgb Conc 34.3 g/dL (32-36); Mean Corpuscular Hgb 31.1 pg (27.0-32.0); Mean Corpuscular Volume 90.6 fL (81-99); Mean Platelet Vol. 8.7 fl (6.2-12.0); Monocyte# 0.48 X10^3/uL; Monocyte% 5.5 % (0-10); NRBC Flagged by Analyzer 0 % (0-5); Neutrophil # 6.38 X10^3/uL (2.7-7.7); Neutrophil % 73.7 % (47-70); Platelet Count 300 K/mm3 (150-450); RBC Distribution Width CV 11.6 % (11.6-14.6); Red Blood Count 3.83 M/mm3 (4.2-5.4); White Blood Count 8.7 K/mm3 (4.4-11.0)
[2024-07-16 11:46] LABS: D-Dimer Quantitative (DVT/PE) < 0.27 FEU/ug/m (0.27-0.49)
[2024-07-16 11:48] LABS: Anion Gap 6 (5-15); BUN 9 mg/dL (7-18); BUN/Creat Ratio 10.1 RATIO (10-20); Calcium,Total 9.1 mg/dL (8.5-10.1); Chloride 106 mmol/L (98-107); Creatinine, Serum 0.89 mg/dL (0.55-1.02); EST Glomerular Filtration Rate 77 mL/min (>60); Est Glom Filt Rate - Afr Amer 93 mL/min (>60); Estimated Creatinine Clearance 69.78 ml/min; Glucose 92 mg/dL (74-106); Magnesium 1.9 mg/dL (1.6-2.6); Potassium 3.7 mmol/L (3.5-5.1); Sodium Level 138 mmol/L (136-145)
[2024-07-16 11:51] LABS: Internal QC Validated? YES +Cl - CLEAR BKGD; Pregnancy, Serum, hCG Quali. NEGATIVE Negative
[2024-07-16 12:19] VITALS: BP 118/87; PULSE 75; RESP 16; O2SAT 99
== END 2024-07-16 12:20 | disposition home or self-care (01) ==
PROVIDERS: Emergency Provider Emergency Medicine; PCP Family Medicine; Visit Provider Emergency Medicine
DX: R07.9 Chest pain, unspecified (principal); M79.642 Pain in left hand; F41.9 Anxiety disorder, unspecified; F32.A Depression, unspecified; F17.200 Nicotine dependence, unspecified, uncomplicated; Z79.899 Other long term (current) drug therapy
CPT/HCPCS: 80048; 83735; 84703; 85025; 85379; 93005; 99283; A4216